=== PATIENT | male | born 1955 | race Caucasian/White ===

== ENCOUNTER 2017-08-23 10:11 | Inpatient (IN) | payer BC ==
[2017-08-23] MEDS ORDERED: SODIUM CHLORIDE 0.9% 500 ML IV STA (10:22)
[2017-08-23] MEDS ORDERED: SODIUM CHLORIDE 0.9% 1,000 ML IV STA (10:22)
[2017-08-23 11:07] LABS: Basophils # (A) 0.1 k/uL (0-0.2); Basophils % (A) 1 %; Eosinophils # (A) 0.2 k/uL (0-0.7); Eosinophils % (A) 2 %; HCT 26.3 % (39.0-53.0); HGB 8.4 gm/dL (13.0-17.5); Lymphocytes # (A) 1.2 k/uL (1.0-4.8); Lymphocytes % (A) 18 %; MCH 31.1 pg (25.0-35.0); MCV 97.4 fL (80.0-100.0); Mean Platelet Volume 6.8; Monocytes # (A) 0.4 k/uL (0-1.0); Monocytes % (A) 6 %; Neutrophils # (A) 4.7 k/uL (1.3-7.7); Neutrophils % (A) 70 %; Platelet Count 350 k/uL (150-450); RDW 13.3 % (11.5-15.5); WBC 6.7 k/uL (3.8-10.6)
[2017-08-23 11:12] LABS: ALT 32 U/L (21-72); AST 25 U/L (17-59); Albumin 3.4 g/dL (3.5-5.0); Alkaline Phosphatase 58 U/L (38-126); Anion Gap 10 mmol/L; Blood Urea Nitrogen 13 mg/dL (9-20); Calcium 9.2 mg/dL (8.4-10.2); Carbon Dioxide 25 mmol/L (22-30); Chloride 103 mmol/L (98-107); Glucose 126 mg/dL (74-99); Lipase 95 U/L (23-300); Magnesium 1.9 mg/dL (1.6-2.3); Potassium 4.3 mmol/L (3.5-5.1); Sodium 138 mmol/L (137-145); Total Bilirubin 0.3 mg/dL (0.2-1.3); Total Protein 6.2 g/dL (6.3-8.2)
[2017-08-23 11:13] LABS: Prothrombin Time 9.8 sec (9.0-12.0)
[2017-08-23 11:28] LABS: Creatine Kinase 59 U/L (55-170)
[2017-08-23 11:29] LABS: Partial Thromboplastin Time 20.5 sec (22.0-30.0)
[2017-08-23 11:41] LABS: Creatine Kinase MB 0.4 ng/mL (0.0-2.4); Troponin I <0.012 ng/mL (0.000-0.034)
--- NOTE | 2017-08-23 11:52 | ED ---
General Adult HPI - General Chief complaint: GI Bleed Stated complaint: Rctal bleeding Time Seen by Provider: 08/23/17 10:21 Source: patient, RN notes reviewed, old records reviewed Mode of arrival: ambulatory Limitations: no limitations - History of Present Illness Initial comments: This is a 61-year-old male the ER for evaluation of GI bleed. Patient sent in for abnormal outpatient lab test. Patient did have recent heart attack, and Plavix. Patient has no lightheadedness no dizziness no weakness to feels easily pass out no abdominal pain. Patient's been having bloody bowel movements for 4 days. Bloody bowel movement or bright red in nature occasionally a little dark. - Related Data Home Medications Medication Instructions Recorded Confirmed Aspirin 81 mg PO QAM 05/02/17 08/23/17 Cholecalciferol (Vitamin D3) 2,000 unit PO QAM 05/02/17 08/23/17 [Vitamin D3] Atorvastatin [Lipitor] 80 mg PO QAM 06/17/17 08/23/17 Metoprolol Tartrate [Lopressor] 25 mg PO QAM 06/17/17 08/23/17 Clopidogrel [Plavix] 75 mg PO QAM 08/23/17 08/23/17 Previous Rx's Medication Instructions Recorded Nitroglycerin Sl Tabs [Nitrostat] 0.4 mg SUBLINGUAL Q5M PRN #25 tab 05/04/17 Allergies Allergy/AdvReac Type Severity Reaction Status Date / Time No Known Allergies Allergy Verified 08/23/17 10:36 Review of Systems ROS Statement: Those systems with pertinent positive or pertinent negative responses have been documented in the HPI. ROS Other: All systems not noted in ROS Statement are negative. Past Medical History Past Medical History: Cancer, Myocardial Infarction ([place]) Additional Past Medical History / Comment(s): skin cancer right eyebrow Last Myocardial Infarction Date:: 05/02/17 History of Any Multi-Drug Resistant Organisms: None Reported Past Surgical History: Heart Catheterization With Stent, Tonsillectomy Additional Past Surgical History / Comment(s): skin cancer removal, 3 stents Past Anesthesia/Blood Transfusion Reactions: No Reported Reaction Date of Last Stent Placement:: 05/02/17 Past Psychological History: No Psychological Hx Reported Smoking Status: Former smoker Past Alcohol Use History: Daily Past Drug Use History: None Reported - Past Family History Mother Family Medical History: CVA/TIA Father Family Medical History: Cancer Additional Family Medical History / Comment(s): pancreatic General Exam Limitations: no limitations General appearance: alert, in no apparent distress Head exam: Present: atraumatic, normocephalic, normal inspection Eye exam: Present: normal appearance, PERRL, EOMI. Absent: scleral icterus, conjunctival injection, periorbital swelling ENT exam: Present: normal exam, mucous membranes moist Neck exam: Present: normal inspection. Absent: tenderness, meningismus, lymphadenopathy Respiratory exam: Present: normal lung sounds bilaterally. Absent: respiratory distress, wheezes, rales, rhonchi, stridor Cardiovascular Exam: Present: normal rhythm, tachycardia, normal heart sounds. Absent: systolic murmur, diastolic murmur, rubs, gallop, clicks GI/Abdominal exam: Present: soft, normal bowel sounds. Absent: distended, tenderness, guarding, rebound, rigid Extremities exam: Present: normal inspection, full ROM, normal capillary refill. Absent: tenderness, pedal edema, joint swelling, calf tenderness Back exam: Present: normal inspection Neurological exam: Present: alert, oriented X3, CN II-XII intact Psychiatric exam: Present: normal affect, normal mood Skin exam: Present: warm, dry, intact, normal color. Absent: rash Course Vital Signs 08/23/17 08/23/17 10:12 11:25 Temperature 98.8 F Pulse Rate 114 H 89 Respiratory 20 16 Rate Blood Pressure 111/72 136/73 O2 Sat by Pulse 100 100 Oximetry - Reevaluation(s) Reevaluation #1: 08/23/17 11:58 Patient has not had a significant bloody bowel movement here in the emergency room Medical Decision Making - Medical Decision Making 61 male the ER for evaluation of positive GI bleed. 3-4 days of bloody bowel movements. Patient denies pain. Patient's hemoglobin is drop from 14 down to 8. Patient will be admitted for continued evaluation of hemodynamic state - Lab Data Result diagrams: 08/23/17 10:50 08/23/17 10:50 Lab Results 08/23/17 08/23/17 08/23/17 Range/Units 10:50 10:50 10:50 WBC 6.7 (3.8-10.6) k/uL RBC 2.70 L (4.30-5.90) m/uL Hgb 8.4 L (13.0-17.5) gm/dL Hct 26.3 L (39.0-53.0) % MCV 97.4 (80.0-100.0) fL MCH 31.1 (25.0-35.0) pg MCHC 32.0 (31.0-37.0) g/dL RDW 13.3 (11.5-15.5) % Plt Count 350 (150-450) k/uL Neutrophils % 70 % Lymphocytes % 18 % Monocytes % 6 % Eosinophils % 2 % Basophils % 1 % Neutrophils # 4.7 (1.3-7.7) k/uL Lymphocytes # 1.2 (1.0-4.8) k/uL Monocytes # 0.4 (0-1.0) k/uL Eosinophils # 0.2 (0-0.7) k/uL Basophils # 0.1 (0-0.2) k/uL PT 9.8 (9.0-12.0) sec INR 1.0 (<1.2) APTT 20.5 L (22.0-30.0) sec Sodium (137-145) mmol/L Potassium (3.5-5.1) mmol/L Chloride (98-107) mmol/L Carbon Dioxide (22-30) mmol/L Anion Gap mmol/L BUN (9-20) mg/dL Creatinine (0.66-1.25) mg/dL Est GFR (MDRD) Af Amer (>60 ml/min/1.73 sqM) Est GFR (MDRD) Non-Af (>60 ml/min/1.73 sqM) Glucose (74-99) mg/dL Calcium (8.4-10.2) mg/dL Magnesium (1.6-2.3) mg/dL Total Bilirubin (0.2-1.3) mg/dL AST (17-59) U/L ALT (21-72) U/L Alkaline Phosphatase (38-126) U/L Total Creatine Kinase 59 (55-170) U/L CK-MB (CK-2) 0.4 (0.0-2.4) ng/mL CK-MB (CK-2) Rel Index 0.7 Troponin I <0.012 (0.000-0.034) ng/mL Total Protein (6.3-8.2) g/dL Albumin (3.5-5.0) g/dL Lipase (23-300) U/L 08/23/17 Range/Units 10:50 WBC (3.8-10.6) k/uL RBC (4.30-5.90) m/uL Hgb (13.0-17.5) gm/dL Hct (39.0-53.0) % MCV (80.0-100.0) fL MCH (25.0-35.0) pg MCHC (31.0-37.0) g/dL RDW (11.5-15.5) % Plt Count (150-450) k/uL Neutrophils % % Lymphocytes % % Monocytes % % Eosinophils % % Basophils % % Neutrophils # (1.3-7.7) k/uL Lymphocytes # (1.0-4.8) k/uL Monocytes # (0-1.0) k/uL Eosinophils # (0-0.7) k/uL Basophils # (0-0.2) k/uL PT (9.0-12.0) sec INR (<1.2) APTT (22.0-30.0) sec Sodium 138 (137-145) mmol/L Potassium 4.3 (3.5-5.1) mmol/L Chloride 103 (98-107) mmol/L Carbon Dioxide 25 (22-30) mmol/L Anion Gap 10 mmol/L BUN 13 (9-20) mg/dL Creatinine 0.98 (0.66-1.25) mg/dL Est GFR (MDRD) Af Amer >60 (>60 ml/min/1.73 sqM) Est GFR (MDRD) Non-Af >60 (>60 ml/min/1.73 sqM) Glucose 126 H (74-99) mg/dL Calcium 9.2 (8.4-10.2) mg/dL Magnesium 1.9 (1.6-2.3) mg/dL Total Bilirubin 0.3 (0.2-1.3) mg/dL AST 25 (17-59) U/L ALT 32 (21-72) U/L Alkaline Phosphatase 58 (38-126) U/L Total Creatine Kinase (55-170) U/L CK-MB (CK-2) (0.0-2.4) ng/mL CK-MB (CK-2) Rel Index Troponin I (0.000-0.034) ng/mL Total Protein 6.2 L (6.3-8.2) g/dL Albumin 3.4 L (3.5-5.0) g/dL Lipase 95 (23-300) U/L Disposition Clinical Impression: Gastrointestinal hemorrhage, Anemia Disposition: ADMITTED IP TO THIS HOSP Condition: Fair Referrals: Gabriel Braxton MD [Primary Care Provider] - 1-2 days
[2017-08-23] MEDS ORDERED: PANTOPRAZOLE 40 MG/10 ML VIAL IVP STA (11:56)
--- NOTE | 2017-08-23 14:47 | P.CNPUL ---
History of Present Illness Consult date: 08/23/17 Requesting physician: Nahum Castaneda Reason for consult: other (Critical care management) Chief complaint: Bright red and dark tarry stools History of present illness: This is a very pleasant 61-year-old gentleman who follows with Dr. Gabriel Braxton as his primary care physician. He has a history of skin cancer with resection over the right eyebrow, nephrolithiasis, hyperlipidemia. He has a remote history of smoking and daily alcohol consumption. He has a history of coronary artery disease and had sustained an acute myocardial infarction in April 2017. He had undergone cardiac catheterization and stenting 3 to the RCA. There was moderate disease in the circumflex at that time along with some disease in the LAD. He had undergone a subsequent cardiac catheterization on to evaluate the progression. The stents were widely patent. The LAD artery had diffuse distal disease in the distal one fourth. Circumcised had a 50% mid lesion. He was recommended continued medical therapy. He has remained on Plavix and aspirin since April. He presented here to the emergency room from his primary care physician's office after having a 3 day history of bloody bowel movements. Initially they were bright red and subsequently they're black and tarry. He was found to have a drop in hemoglobin from 14-8.4. The recommendation is for transfer to the intensive care unit where consulted for the same. He is seen in the emergency room. He is awake and alert in no acute distress. He has not had any further bloody bowel movements today. He is maintaining good O2 saturations up to 100% on room air. He's been afebrile. Hemodynamically stable. He has been initiated on Protonix 40 mg IV push twice a day. 0.9 normal saline at 100 MLS per hour following 1 L of fluid resuscitation. Review of Systems 14 point review of system was conducted. Positive for acute gastrointestinal bleeding. All other systems are negative thus far. Past Medical History Past Medical History: Coronary Artery Disease (CAD), Cancer, Chest Pain / Angina , Myocardial Infarction ([place]) Additional Past Medical History / Comment(s): 05/02/17 stemi, skin cancer removal-right eyebrow, kidney stone which pt passed on his own. Last Myocardial Infarction Date:: 05/02/17 History of Any Multi-Drug Resistant Organisms: None Reported Past Surgical History: Heart Catheterization With Stent, Tonsillectomy Additional Past Surgical History / Comment(s): skin cancer removal, 3 stents on 05/02/17, 06/21/17 cardiac cath with maximizing medical therapy. Past Anesthesia/Blood Transfusion Reactions: No Reported Reaction Date of Last Stent Placement:: 05/02/17 Smoking Status: Former smoker - Past Family History Mother Family Medical History: CVA/TIA Father Family Medical History: Cancer Additional Family Medical History / Comment(s): pancreatic Medications and Allergies Home Medications Medication Instructions Recorded Confirmed Type Aspirin 81 mg PO QAM 05/02/17 08/23/17 History Cholecalciferol (Vitamin D3) 2,000 unit PO QAM 05/02/17 08/23/17 History [Vitamin D3] Nitroglycerin Sl Tabs [Nitrostat] 0.4 mg SUBLINGUAL Q5M PRN #25 tab 05/04/17 Rx Atorvastatin [Lipitor] 80 mg PO QAM 06/17/17 08/23/17 History Metoprolol Tartrate [Lopressor] 25 mg PO QAM 06/17/17 08/23/17 History Clopidogrel [Plavix] 75 mg PO QAM 08/23/17 08/23/17 History Allergies Allergy/AdvReac Type Severity Reaction Status Date / Time No Known Allergies Allergy Verified 08/23/17 10:36 Physical Exam Vitals: Vital Signs Temp Pulse Resp BP Pulse Ox 08/23/17 11:25 89 16 136/73 100 08/23/17 10:12 98.8 F 114 H 20 111/72 100 Intake and Output 08/22/17 08/23/17 08/23/17 22:59 06:59 14:59 Other: Weight 76.657 kg Patient Weight 08/24/17 06:59 Weight 76.657 kg GENERAL EXAM: Alert, active, comfortable in no apparent distress. HEAD: Normocephalic. EYES: Normal reaction of pupils, equal size. NOSE: Clear with pink turbinates. THROAT: No erythema or exudates. NECK: No masses, no JVD. CHEST: No chest wall deformity. LUNGS: Equal air entry with no crackles, wheeze, rhonchi or dullness. CVS: S1 and S2 normal with no audible murmur, regular rhythm. ABDOMEN: No hepatosplenomegaly, normal bowel sounds, no guarding or rigidity. SPINE: No scoliosis or deformity SKIN: No rashes CENTRAL NERVOUS SYSTEM: No focal deficits, tone is normal in all 4 extremities. EXTREMITIES: There is no peripheral edema. No clubbing, no cyanosis. Peripheral pulses are intact. Results - Laboratory Findings CBC and BMP: 08/23/17 10:50 08/23/17 10:50 PT/INR, D-dimer PT 9.8 sec (9.0-12.0) 08/23/17 10:50 INR 1.0 (<1.2) 08/23/17 10:50 Abnormal lab findings: Abnormal Labs 08/23/17 08/23/17 08/23/17 10:50 10:50 10:50 RBC 2.70 L Hgb 8.4 L Hct 26.3 L APTT 20.5 L Glucose 126 H Total Protein 6.2 L Albumin 3.4 L Assessment and Plan Assessment: Impression: #1 Acute gastrointestinal bleeding with a drop of hemoglobin from 14-8.7. #2 Coronary artery disease with myocardial infarction in April 2017 status post stent placements 3 to the RCA. Maintained on aspirin and Plavix. Subsequent cardiac catheterization in June 2017 revealed patent stents. #3 Daily alcohol consumption. #4 Remote history of chronic tobacco dependence. #5 History of nephrolithiasis. #6 History of skin cancer removed from the right eyebrow. Plan: The patient was seen and evaluated by Dr. Narvaez. He will be transferred to the intensive care unit for close observation and continued hemoglobin monitoring. The patient has not had any active bleeding today. His stents are less than 6 months out. We'll continue with Plavix and aspirin for now. Continue 0.9 normal saline at 100 MLS per hour. Continue IV Protonix. Consult gastroenterology. We will continue to follow and make further recommendations based on his clinical status. I, the cosigning physician, performed a history & physical examination of the patient. Lungs sounds are clear. Maintaining good O2 saturations in the 90s on room air. I discussed the assessment and plan of care with my nurse practitioner, Paige Yuan. I attest to the above note as dictated by her. Time with Patient: Greater than 30
[2017-08-23] MEDS ORDERED: NITROGLYCERIN SL TABS 0.4 MG TAB SUBLINGUAL PRN (17:19)
[2017-08-23 20:28] LABS: Glucose,Whole Blood 114 mg/dL (75-99)
[2017-08-23] MEDS: PANTOPRAZOLE 40 MG/10 ML VIAL IVP SCH (21:47)
[2017-08-23] MEDS: SODIUM CHLORIDE 0.9% 1,000 ML IV SCH (22:30)
--- NOTE | 2017-08-23 23:55 | HP ---
HISTORY AND PHYSICAL DATE OF ADMISSION: 08/23/2017 PRESENT COMPLAINT: Lower GI bleed. HISTORY OF PRESENTING COMPLAINT: This is a pleasant 61-year-old patient of Dr. Braxton. The patient on May [address]-elevation myocardial infarction, had a stent placed to the RCA. Then ejection fraction was 40%. The patient came back to the [facility] in June, by Dr. Em Rosas. Julius was found to have diffuse LAD and no intervention was done. The decision was made to do medical management. Repeat echocardiogram showed an EF of 50%-55%. The patient has been on aspirin and Plavix. Four days ago, patient had a bout of diarrhea and then started having multiple bloody stools for the last 3 days. Last bloody stool was yesterday and patient has been feeling dizzy, tired, run down. Hemoglobin in the ER was found to be 8.4, dizzy, lightheaded. Patient admitted for admitted for the same. No bleeding today. REVIEW OF SYSTEMS: CONSTITUTIONAL: Tired. HEENT: None. RESPIRATORY: None. CARDIOVASCULAR: None. GASTROINTESTINAL: As above. GENITOURINARY: None. MUSCULOSKELETAL: None. DERMATOLOGICAL: None. HEMATOLOGIC: As above. LYMPHATIC: None. PSYCHIATRY: None. NEUROLOGICAL: None. PAST MEDICAL HISTORY: Kidney stones, skin cancer, , coronary artery disease with acute [place]. SURGICAL HISTORY: Skin cancer removal. SOCIAL HISTORY: Patient smoked for 30 years, 2 packs a day. Still drinks about 5-6 beers a day. 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 Lives with his , Rubina. Family history of stroke. HOME MEDICATIONS: 1. Nitrostat 0.4 sublingual q.5 p.r.n. 2. Lopressor 25 p.o. daily. 3. Plavix 75 p.o. daily. 4. Vitamin D3 2000 p.o. daily. 5. Lipitor 80 mg p.o. daily. 6. Aspirin 81 mg p.o. daily. ALLERGIES: None. EXAMINATION: Temperature 98.4, pulse 79, respirations 14, blood pressure 110/64, pulse ox 99% on room air. GENERAL APPEARANCE: Average build, lying in bed, tired-appearing. EYES: Pupils equal. Conjunctivae pale. HEENT: Oral cavity normal. NECK: JVD not raised. Mass not palpable. RESPIRATORY: Effort normal. LUNGS: Slightly decreased breath sounds. CARDIOVASCULAR: First and second sounds normal. No edema. ABDOMEN: Soft, nontender. Liver and spleen not palpable. LYMPHATIC: No lymph nodes palpable in neck or axillae. PSYCHIATRY: Alert and oriented x3. Mood and affect normal. NEUROLOGICAL: Pupils equal. Cranial nerves grossly intact. Power and sensation grossly intact. INVESTIGATIONS: White count 6.7, hemoglobin 8.4, down from 14.4 on 05/04/2017. BUN, creatinine are normal. ASSESSMENT: 1. Acute severe gastrointestinal in a patient who is on aspirin, Plavix, also drinks about 6 beers a day. Most likely source of bleeding is upper gastrointestinal/gastric. 2. Acute severe blood loss anemia, symptomatic. Patient is light-headed with a hemoglobin from 14.4 down to 8.4. 3. Coronary artery disease with stent to the right coronary artery and diffuse disease in the left anterior descending. PLAN: Patient admitted to the ICU. Antiplatelet agents are held, even though the patient has had a recent stent. Will let Cardiology decide this dilemma. Consultation made to GI, pulmonary and rn informatics. H and H is being followed. The patient is on a clear liquid diet. Patient is also put on proton pump inhibitor in IV format. Care was discussed with the patient. MMODL / IJN: [id number] /
[2017-08-24 00:16] LABS: HCT 22.3 % (39.0-53.0); HGB 7.1 gm/dL (13.0-17.5); MCH 31.1 pg (25.0-35.0); MCHC 31.7 g/dL (31.0-37.0); MCV 98.2 fL (80.0-100.0); Mean Platelet Volume 6.8; Platelet Count 348 k/uL (150-450); RBC 2.27 m/uL (4.30-5.90); RDW 13.9 % (11.5-15.5); WBC 6.6 k/uL (3.8-10.6)
[2017-08-24 06:03] LABS: Basophils # (A) 0.1 k/uL (0-0.2); Basophils % (A) 1 %; Eosinophils # (A) 0.2 k/uL (0-0.7); Eosinophils % (A) 4 %; HCT 23.1 % (39.0-53.0); Lymphocytes # (A) 1.3 k/uL (1.0-4.8); Lymphocytes % (A) 25 %; MCH 30.8 pg (25.0-35.0); MCHC 30.2 g/dL (31.0-37.0); Macrocytosis Slight; Mean Platelet Volume 7.1; Monocytes # (A) 0.4 k/uL (0-1.0); Monocytes % (A) 8 %; Neutrophils % (A) 60 %; Platelet Count 344 k/uL (150-450); RBC 2.26 m/uL (4.30-5.90); RDW 13.5 % (11.5-15.5)
[2017-08-24 06:24] LABS: Anion Gap 7 mmol/L; Blood Urea Nitrogen 8 mg/dL (9-20); Calcium 8.4 mg/dL (8.4-10.2); Carbon Dioxide 23 mmol/L (22-30); Chloride 108 mmol/L (98-107); Glucose 92 mg/dL (74-99); Magnesium 1.9 mg/dL (1.6-2.3); Phosphorus 3.7 mg/dL (2.5-4.5); Potassium 3.7 mmol/L (3.5-5.1); Sodium 138 mmol/L (137-145)
[2017-08-24] MEDS ORDERED: Potassium Replacement Protocol 1 EACH MISC MISCELLANE PRN (07:12)
[2017-08-24] MEDS ORDERED: Magnesium Replacement Protocol 1 EACH MISC MISCELLANE PRN (07:12)
[2017-08-24] MEDS ORDERED: POTASSIUM CHLORIDE ER 20 MEQ TAB.ER PO SCH (08:00)
[2017-08-24] MEDS: METOPROLOL TARTRATE 25 MG TAB PO SCH (08:36)
[2017-08-24] MEDS: PANTOPRAZOLE 40 MG/10 ML VIAL IVP SCH ×2 (08:36→22:34)
[2017-08-24] MEDS: ATORVASTATIN 80 MG TAB PO SCH (08:36)
[2017-08-24] MEDS: MAGNESIUM SULFATE-D5W PMX 1 GM in DEXTROSE/WATER 1 100ML.BAG IVPB SCH ×2 (08:36→11:09)
--- NOTE | 2017-08-24 09:29 | P.CRDCN ---
History of Present Illness Consult date: 08/24/17 History of present illness: This is a 61-year-old gentleman with history of ischemic heart disease and previous inferior wall TN. Patient had stent placement of the RCA in the setting of acute myocardial infarctions. Subsequently, patient had stent placement of the left anterior descending coronary artery in June. Since then patient has been doing well. Patient has been on dual antiplatelet agents including aspirin and Plavix. Patient is now admitted to the hospital with recurrent bloody diarrhea episodes. Patient is anemic. Denies any chest pain or shortness of breath. Complains of fatigue. Waiting to have a GI evaluation. He received his Plavix and aspirin. Yesterday. Once patient is seen and evaluated by gastroenterology, will restart antiplatelet agents as soon as possible. Probably will start with aspirin followed by Plavix. Rest of the medications to be continued. Review of Systems REVIEW OF SYSTEMS: CONSTITUTIONAL:. Patient is doing well. No complaints of fever or chills EYES: Denies diplopia, blurring of vision EARS, NOSE, MOUTH, THROAT: Denies headaches, denies sore throat. CARDIOVASCULAR: Denies chest pain, denies shortness of breath, denies palpitations RESPIRATORY: Denies shortness of breath, denies cough. GASTROINTESTINAL: Denies change in appetite, denies abdominal pain, denies diarrhea GENITOURINARY: Denies hematuria, denies infections. MUSKULOSKELETAL: Denies pain, denies swelling. Denies any cramps or claudication INTEGUMENTARY: Denies rash, denies eczema. NEUROLOGICAL: Denies focal weakness, or visual disturbance. Denies any dizziness or syncope PSYCHIATRIC: Denies anxiety, denies depression. HEMATOLOGIC/LYMPHATIC: Denies any bleeding, denies enlarged lymph nodes. Past Medical History Past Medical History: Coronary Artery Disease (CAD), Cancer, Chest Pain / Angina , Myocardial Infarction (TN) Additional Past Medical History / Comment(s): 05/02/17 stemi, skin cancer removal-right eyebrow, kidney stone which pt passed on his own. Last Myocardial Infarction Date:: 05/02/17 History of Any Multi-Drug Resistant Organisms: None Reported Past Surgical History: Heart Catheterization With Stent, Tonsillectomy Additional Past Surgical History / Comment(s): skin cancer removal, 3 stents on 05/02/17, 06/21/17 cardiac cath with maximizing medical therapy. Past Anesthesia/Blood Transfusion Reactions: No Reported Reaction Date of Last Stent Placement:: 05/02/17 Smoking Status: Former smoker - Past Family History Mother Family Medical History: CVA/TIA Father Family Medical History: Cancer Additional Family Medical History / Comment(s): pancreatic Medications and Allergies Home Medications Medication Instructions Recorded Confirmed Type Aspirin 81 mg PO QAM 05/02/17 08/23/17 History Cholecalciferol (Vitamin D3) 2,000 unit PO QAM 05/02/17 08/23/17 History [Vitamin D3] Nitroglycerin Sl Tabs [Nitrostat] 0.4 mg SUBLINGUAL Q5M PRN #25 tab 05/04/17 Rx Atorvastatin [Lipitor] 80 mg PO QAM 06/17/17 08/23/17 History Metoprolol Tartrate [Lopressor] 25 mg PO QAM 06/17/17 08/23/17 History Clopidogrel [Plavix] 75 mg PO QAM 08/23/17 08/23/17 History Allergies Allergy/AdvReac Type Severity Reaction Status Date / Time No Known Allergies Allergy Verified 08/23/17 10:36 Physical Exam Vitals: Vital Signs Temp Pulse Resp BP Pulse Ox 08/24/17 08:00 98.5 F 87 15 138/73 99 08/24/17 07:00 84 14 123/72 100 08/24/17 06:00 87 14 135/73 99 08/24/17 05:00 83 13 120/72 99 08/24/17 04:00 98.3 F 79 18 127/70 97 08/24/17 03:00 89 14 110/67 96 08/24/17 02:00 84 16 115/70 97 08/24/17 01:00 76 15 119/68 99 08/24/17 00:02 79 18 124/68 100 08/24/17 00:00 98.5 F 82 16 124/68 100 08/23/17 23:00 86 12 110/64 99 08/23/17 22:00 77 19 125/77 99 08/23/17 21:00 98.4 F 78 14 140/76 100 08/23/17 20:23 69 16 100 08/23/17 20:04 78 18 170/81 100 08/23/17 19:17 76 18 139/76 99 08/23/17 17:48 70 16 165/75 100 08/23/17 16:50 72 16 142/75 100 08/23/17 14:37 73 16 145/81 100 08/23/17 13:37 78 16 146/78 100 08/23/17 12:37 88 16 132/84 100 08/23/17 11:37 90 16 128/71 98 08/23/17 11:25 89 16 136/73 100 08/23/17 10:12 98.8 F 114 H 20 111/72 100 Intake and Output 08/23/17 08/24/17 08/24/17 22:59 06:59 14:59 Intake Total 200 800 450 Output Total 250 475 450 Balance -50 325 0 Intake: Intake, IV Titration 200 800 200 Amount Sodium Chloride 0.9% 1, 800 200 000 ml @ 100 mls/hr IV . Q10H MELVIN Rx#:[id number] Sodium Chloride 0.9% 1, 200 000 ml @ 100 mls/hr IV . Q10H STA Rx#:[id number] Oral 250 Output: Urine 250 475 450 Other: Voiding Method Urinal Urinal # Voids 1 1 Weight 82.4 kg GENERAL EXAM: Patient is alert and oriented and doesn't appear to be in any acute distress HEENT: Normocephalic. Normal reaction of pupils, equal size, normal range of extraocular motion. No erythema or exudates in the throat. NECK: No masses, no nuchal rigidity. CHEST: No chest wall deformity. LUNGS: Equal air entry with no crackles or wheeze. HEART: S1 and S2 normal with no audible mumurs or gallops. Regular rhythm, femorals equal on both sides.. ABDOMEN: No hepatosplenomegaly, normal bowel sounds, no guarding or rigidity. SKIN: No rashes CENTRAL NERVOUS SYSTEM: No focal deficits. EXTREMITIES: No cyanosis, clubbing or edema. Results 08/24/17 05:51 08/24/17 05:51 Cardiac Enzymes 08/23/17 08/23/17 Range/Units 10:50 10:50 AST 25 (17-59) U/L CK-MB (CK-2) 0.4 (0.0-2.4) ng/mL Troponin I <0.012 (0.000-0.034) ng/mL Coagulation 08/23/17 Range/Units 10:50 PT 9.8 (9.0-12.0) sec APTT 20.5 L (22.0-30.0) sec CBC 08/23/17 08/23/17 08/24/17 Range/Units 10:50 23:57 05:51 WBC 6.7 6.6 5.0 (3.8-10.6) k/uL RBC 2.70 L 2.27 L 2.26 L (4.30-5.90) m/uL Hgb 8.4 L 7.1 L 7.0 L* (13.0-17.5) gm/dL Hct 26.3 L 22.3 L 23.1 L (39.0-53.0) % Plt Count 350 348 344 (150-450) k/uL Comprehensive Metabolic Panel 08/23/17 08/24/17 Range/Units 10:50 05:51 Sodium 138 138 (137-145) mmol/L Potassium 4.3 3.7 (3.5-5.1) mmol/L Chloride 103 108 H (98-107) mmol/L Carbon Dioxide 25 23 (22-30) mmol/L BUN 13 8 L (9-20) mg/dL Creatinine 0.98 0.90 (0.66-1.25) mg/dL Glucose 126 H 92 (74-99) mg/dL Calcium 9.2 8.4 (8.4-10.2) mg/dL AST 25 (17-59) U/L ALT 32 (21-72) U/L Alkaline Phosphatase 58 (38-126) U/L Total Protein 6.2 L (6.3-8.2) g/dL Albumin 3.4 L (3.5-5.0) g/dL Current Medications Generic Name Dose Route Start Last Admin Trade Name Freq PRN Reason Stop Dose Admin Atorvastatin Calcium 80 mg 08/24/17 09:00 08/24/17 08:36 Lipitor PO 80 mg QAM MELVIN Administration Cholecalciferol 2,000 unit 08/24/17 12:00 Vitamin D3 PO 1200 MELVIN Sodium Chloride 1,000 mls @ 100 mls/hr 08/23/17 22:15 08/23/17 22:30 Saline 0.9% IV 100 mls/hr .Q10H MELVIN Administration Magnesium Sulfate/Dextrose 1 100 mls @ 100 mls/hr 08/24/17 07:30 08/24/17 08: 36 gm/ IV Solution IVPB 08/24/17 09:29 100 mls/hr Q1H MELVIN Administration Metoprolol Tartrate 25 mg 08/24/17 09:00 08/24/17 08:36 Lopressor PO 25 mg QAM MELVIN Administration Miscellaneous Information 1 each 08/24/17 07:12 Magnesium Per Protocol MISCELLANE DAILY PRN Per Protocol Protocol Miscellaneous Information 1 each 08/24/17 07:12 Potassium Per Protocol MISCELLANE DAILY PRN Per Protocol Protocol Nitroglycerin 0.4 mg 08/23/17 17:19 Nitrostat SUBLINGUAL Q5M PRN Chest Pain Pantoprazole Sodium 40 mg 08/23/17 21:00 08/24/17 08:36 Protonix IVP 40 mg BID MELVIN Administration Intake and Output 08/23/17 08/24/17 08/24/17 22:59 06:59 14:59 Intake Total 200 800 450 Output Total 250 475 450 Balance -50 325 0 Intake: Intake, IV Titration 200 800 200 Amount Sodium Chloride 0.9% 1, 800 200 000 ml @ 100 mls/hr IV . Q10H MELVIN Rx#:[id number] Sodium Chloride 0.9% 1, 200 000 ml @ 100 mls/hr IV . Q10H STA Rx#:[id number] Oral 250 Output: Urine 250 475 450 Other: Voiding Method Urinal Urinal # Voids 1 1 Weight 82.4 kg 08/24/17 05:51 08/24/17 05:51 Assessment and Plan (1) CAD (coronary artery disease) Current Visit: Yes Status: Acute Code(s): I25.10 - ATHSCL HEART DISEASE OF [place] CORONARY ARTERY W/O ANG PCTRS SNOMED Code(s): 86986738 (2) Anemia Current Visit: Yes Status: Acute Code(s): D64.9 - ANEMIA, UNSPECIFIED SNOMED Code(s): 983711556 (3) Gastrointestinal hemorrhage Current Visit: Yes Status: Acute Code(s): K92.2 - GASTROINTESTINAL HEMORRHAGE, UNSPECIFIED SNOMED Code(s): 05689217 (4) Large bowel obstruction Current Visit: No Status: Acute Code(s): K56.60 - UNSPECIFIED INTESTINAL OBSTRUCTION * DO NOT USE * SNOMED Code(s): 424834270 (5) History of myocardial infarction Current Visit: Yes Status: Acute Code(s): I25.2 - OLD MYOCARDIAL INFARCTION SNOMED Code(s): 369214579 Plan: Continue to monitor his hemoglobin. Waiting for gastroenterology evaluation. Most probably patient needs colonoscopy. May start on aspirin as she is cleared by the gastroenterology. Plavix to be added later on.
--- NOTE | 2017-08-24 10:27 | P.CONS ---
History of Present Illness - Reason for Consult Consult date: 08/24/17 GI bleed Requesting physician: Nahum Castaneda - History of Present Illness 61-year-old male patient of Dr. Braxton with a PMH of recent NC PCI stent April 2017 maintained on dual antiplatelet therapy presented with acute painless rectal bleeding. This past Tuesday he developed bright red blood per rectum multiple times without any pain. Denies hematemesis or melena. Over the weekend into Tuesday bowel movements tapered off more darker in color. No history of GI bleed or peptic ulcer disease. Denies epigastric pain. No history of EGD. Colonoscopy in [address] Andrews identified sigmoid diverticulosis with a few polyps removed. He drinks 4-6 beers on a daily basis. No NSAIDs. Admission hemoglobin 8.4 decreased to 7. MCV 102. Platelets 344. INR 1.0. Review of Systems Constitutional: Denies fever, chills, sweats, weight gain, or loss. HEENT: Negative for migraines, blurred vision or loss, earaches, drainage, tinnitus, oral mucosal lesions, dysphagia, or odynophagia. Cardiac: NC. Negative for chest pain, arrhythmias, or palpitation. Respiratory: Negative for shortness of breath, hemoptysis, cough, or sputum production. Gastrointestinal: See HPI for pertinent findings. Genitourinary: Negative for hematuria, urgency, frequency, polyuria, dysuria, or penile discharge. Musculoskeletal: Negative for muscle aches, swelling, arthritis, and arthralgias. Neurologic: Negative for stroke or TIA. Endocrine: Negative for thyroid problems. Skin: History of skin carcinoma. Negative for rash or itching. Psychiatric: Negative history for depression and anxiety Past Medical History Past Medical History: Coronary Artery Disease (CAD), Cancer, Chest Pain / Angina , Myocardial Infarction (NC) Additional Past Medical History / Comment(s): 05/02/17 stemi, skin cancer removal-right eyebrow, kidney stone which pt passed on his own. Last Myocardial Infarction Date:: 05/02/17 History of Any Multi-Drug Resistant Organisms: None Reported Past Surgical History: Heart Catheterization With Stent, Tonsillectomy Additional Past Surgical History / Comment(s): skin cancer removal, 3 stents on 05/02/17, 06/21/17 cardiac cath with maximizing medical therapy. Past Anesthesia/Blood Transfusion Reactions: No Reported Reaction Date of Last Stent Placement:: 05/02/17 Smoking Status: Former smoker - Past Family History Mother Family Medical History: CVA/TIA Father Family Medical History: Cancer Additional Family Medical History / Comment(s): pancreatic Medications and Allergies Home Medications Medication Instructions Recorded Confirmed Type Aspirin 81 mg PO QAM 05/02/17 08/23/17 History Cholecalciferol (Vitamin D3) 2,000 unit PO QAM 05/02/17 08/23/17 History [Vitamin D3] Nitroglycerin Sl Tabs [Nitrostat] 0.4 mg SUBLINGUAL Q5M PRN #25 tab 05/04/17 Rx Atorvastatin [Lipitor] 80 mg PO QAM 06/17/17 08/23/17 History Metoprolol Tartrate [Lopressor] 25 mg PO QAM 06/17/17 08/23/17 History Clopidogrel [Plavix] 75 mg PO QAM 08/23/17 08/23/17 History Allergies Allergy/AdvReac Type Severity Reaction Status Date / Time No Known Allergies Allergy Verified 08/23/17 10:36 Physical Exam Vitals: Vital Signs Temp Pulse Resp BP Pulse Ox 08/24/17 08:00 98.5 F 87 15 138/73 99 08/24/17 07:00 84 14 123/72 100 08/24/17 06:00 87 14 135/73 99 08/24/17 05:00 83 13 120/72 99 08/24/17 04:00 98.3 F 79 18 127/70 97 08/24/17 03:00 89 14 110/67 96 08/24/17 02:00 84 16 115/70 97 08/24/17 01:00 76 15 119/68 99 08/24/17 00:02 79 18 124/68 100 08/24/17 00:00 98.5 F 82 16 124/68 100 08/23/17 23:00 86 12 110/64 99 08/23/17 22:00 77 19 125/77 99 08/23/17 21:00 98.4 F 78 14 140/76 100 08/23/17 20:23 69 16 100 08/23/17 20:04 78 18 170/81 100 08/23/17 19:17 76 18 139/76 99 08/23/17 17:48 70 16 165/75 100 08/23/17 16:50 72 16 142/75 100 08/23/17 14:37 73 16 145/81 100 08/23/17 13:37 78 16 146/78 100 08/23/17 12:37 88 16 132/84 100 08/23/17 11:37 90 16 128/71 98 08/23/17 11:25 89 16 136/73 100 Intake and Output 08/23/17 08/24/17 08/24/17 22:59 06:59 14:59 Intake Total 200 800 450 Output Total 250 475 450 Balance -50 325 0 Intake: Intake, IV Titration 200 800 200 Amount Sodium Chloride 0.9% 1, 800 200 000 ml @ 100 mls/hr IV . Q10H MELVIN Rx#:[id number] Sodium Chloride 0.9% 1, 200 000 ml @ 100 mls/hr IV . Q10H STA Rx#:[id number] Oral 250 Output: Urine 250 475 450 Other: Voiding Method Urinal Urinal # Voids 1 1 Weight 82.4 kg General appearance: The patient is alert, oriented, in no acute distress. HET: Head is normocephalic and atraumatic. Pupils are equal and reactive. Oropharynx is clear without lesions. Neck: Supple without lymphadenopathy. Trachea midline. Heart: S1 S2. Regular rate and rhythm. Lungs: No crackles or wheezes are heard. Abdomen: Soft, nontender, nondistended with bowel sounds. No peritoneal signs. No palpable organomegaly or masses. Extremities: Normal skin color and turgor. No cyanosis, rash, ulceration, clubbing, or edema. Radial and pedal pulses are 2/4 bilaterally. Neurological: No focal deficits. Strength and sensation are grossly intact. Results CBC & Chem 7: 08/24/17 05:51 08/24/17 05:51 Labs: Abnormal Lab Results - Last 24 Hours (Table) 08/23/17 08/23/17 08/23/17 Range/Units 10:50 10:50 10:50 RBC 2.70 L (4.30-5.90) m/uL Hgb 8.4 L (13.0-17.5) gm/dL Hct 26.3 L (39.0-53.0) % MCV (80.0-100.0) fL MCHC (31.0-37.0) g/dL APTT 20.5 L (22.0-30.0) sec Chloride (98-107) mmol/L BUN (9-20) mg/dL Glucose 126 H (74-99) mg/dL POC Glucose (mg/dL) (75-99) mg/dL Total Protein 6.2 L (6.3-8.2) g/dL Albumin 3.4 L (3.5-5.0) g/dL 08/23/17 08/23/17 08/24/17 Range/Units 20:26 23:57 05:51 RBC 2.27 L 2.26 L (4.30-5.90) m/uL Hgb 7.1 L 7.0 L* (13.0-17.5) gm/dL Hct 22.3 L 23.1 L (39.0-53.0) % MCV 102.0 H (80.0-100.0) fL MCHC 30.2 L (31.0-37.0) g/dL APTT (22.0-30.0) sec Chloride (98-107) mmol/L BUN (9-20) mg/dL Glucose (74-99) mg/dL POC Glucose (mg/dL) 114 H (75-99) mg/dL Total Protein (6.3-8.2) g/dL Albumin (3.5-5.0) g/dL 08/24/17 Range/Units 05:51 RBC (4.30-5.90) m/uL Hgb (13.0-17.5) gm/dL Hct (39.0-53.0) % MCV (80.0-100.0) fL MCHC (31.0-37.0) g/dL APTT (22.0-30.0) sec Chloride 108 H (98-107) mmol/L BUN 8 L (9-20) mg/dL Glucose (74-99) mg/dL POC Glucose (mg/dL) (75-99) mg/dL Total Protein (6.3-8.2) g/dL Albumin (3.5-5.0) g/dL Assessment and Plan (1) Gastrointestinal hemorrhage Narrative/Plan: Suspect colonic diverticular bleed however upper GI pathology cannot be excluded. Current Visit: Yes Status: Acute Code(s): K92.2 - GASTROINTESTINAL HEMORRHAGE, UNSPECIFIED SNOMED Code(s): 45845560 (2) Acute blood loss anemia Current Visit: Yes Status: Acute Code(s): D62 - ACUTE POSTHEMORRHAGIC ANEMIA SNOMED Code(s): 151280308 (3) Macrocytosis Current Visit: Yes Status: Acute Code(s): D75.89 - OTHER SPECIFIED DISEASES OF BLOOD AND BLOOD-FORMING ORGANS SNOMED Code(s): 738592096 (4) ETOH abuse Current Visit: Yes Status: Acute Code(s): F10.10 - ALCOHOL ABUSE, UNCOMPLICATED SNOMED Code(s): 58105700 (5) Colon, diverticulosis Current Visit: Yes Status: Acute Code(s): K57.30 - DVRTCLOS OF LG INT W/O PERFORATION OR ABSCESS W/O BLEEDING SNOMED Code(s): 323398260 (6) History of NC (myocardial infarction) Current Visit: Yes Status: Acute Code(s): I25.2 - OLD MYOCARDIAL INFARCTION SNOMED Code(s): 430449229 Plan: 1. Endoscopic exams were discussed with patient however at this time he is requesting surgical service to perform exams as necessary. This request was communicated to the medical staff; surgical consult requested. 2. Continue CBC monitoring. Recommend Protonix 40 mg IV daily. 3. We'll sign off and be available for additional questions or concerns. Thank you for this kind referral and the opportunity to participate in the care of your patient. This consultation was discussed with Dr. Stratton. The impression and plan of care have been directed as dictated.
--- NOTE | 2017-08-24 10:38 | P.PN ---
Subjective Progress Note Date: 08/24/17 Principal diagnosis: Acute GI bleed This is a very pleasant 61-year-old gentleman who follows with Dr. Gabriel Braxton as his primary care physician. He has a history of skin cancer with resection over the right eyebrow, nephrolithiasis, hyperlipidemia. He has a remote history of smoking and daily alcohol consumption, 4-6 beers daily. He has a history of coronary artery disease and had sustained an acute myocardial infarction in April 2017. He had undergone cardiac catheterization and stenting 3 to the RCA. There was moderate disease in the circumflex at that time along with some disease in the LAD. He had undergone a subsequent cardiac catheterization on 06/21/2017 to evaluate the progression. The stents were widely patent. The LAD artery had diffuse distal disease in the distal one fourth. Circumcised had a 50% mid lesion. He was recommended continued medical therapy. He has remained on Plavix and aspirin since April. He presented here to the emergency room from his primary care physician's office after having a 3 day history of bloody bowel movements. Initially they were bright red and subsequently they're black and tarry. He was found to have a drop in hemoglobin from 14-8.4. The recommendation is for transfer to the intensive care unit where consulted for the same. He is seen in the emergency room. He is awake and alert in no acute distress. He has not had any further bloody bowel movements today. He is maintaining good O2 saturations up to 100% on room air. He's been afebrile. Hemodynamically stable. He has been initiated on Protonix 40 mg IV push twice a day. 0.9 normal saline at 100 MLS per hour following 1 L of fluid resuscitation. The patient is seen again today 08/24/2017 in follow-up in the intensive care unit. He is awake and alert in no acute distress. He has not had a bowel movement since admission. His hemoglobin has dropped today to 7.0. The patient does have a previous history of diverticulosis with a few polyps removed back in 2013. He has been seen again by GI services. They did discuss endoscopic exams with the patient. The patient however is requesting conservative surgical services and we are awaiting consultation from them. In the interim we'll continue with IV Protonix. He is otherwise stable. Afebrile. No tachycardia. No tachypnea. He blood pressure stable. Maintaining good O2 saturations in the high 90s to 100% on room air. No complaints of chest pain. He has been seen by cardiology who is continuing to hold the Plavix. Objective - Vital Signs Vital signs: Vital Signs Temp 98.5 F 08/24/17 08:00 Pulse 87 08/24/17 08:00 Resp 15 08/24/17 08:00 BP 138/73 08/24/17 08:00 Pulse Ox 99 08/24/17 08:00 Intake & Output 08/23/17 08/24/17 08/24/17 18:59 06:59 18:59 Intake Total 1000 450 Output Total 725 450 Balance 275 0 Weight 76.657 kg 82.4 kg Intake: Intake, IV Titration 1000 200 Amount Sodium Chloride 0.9% 1, 800 200 000 ml @ 100 mls/hr IV . Q10H MELVIN Rx#:[id number] Sodium Chloride 0.9% 1, 200 000 ml @ 100 mls/hr IV . Q10H STA Rx#:[id number] Oral 250 Output: Urine 725 450 Other: Voiding Method Urinal # Voids 1 - Exam GENERAL EXAM: Alert, active, comfortable in no apparent distress. HEAD: Normocephalic. EYES: Normal reaction of pupils, equal size. NOSE: Clear with pink turbinates. THROAT: No erythema or exudates. NECK: No masses, no JVD. CHEST: No chest wall deformity. LUNGS: Equal air entry with no crackles, wheeze, rhonchi or dullness. CVS: S1 and S2 normal with no audible murmur, regular rhythm. ABDOMEN: No hepatosplenomegaly, normal bowel sounds, no guarding or rigidity. SPINE: No scoliosis or deformity SKIN: No rashes CENTRAL NERVOUS SYSTEM: No focal deficits, tone is normal in all 4 extremities. EXTREMITIES: There is no peripheral edema. No clubbing, no cyanosis. Peripheral pulses are intact. - Labs CBC & Chem 7: 08/24/17 05:51 08/24/17 05:51 Labs: Abnormal Lab Results - Last 24 Hours (Table) 08/23/17 08/23/17 08/23/17 Range/Units 10:50 10:50 10:50 RBC 2.70 L (4.30-5.90) m/uL Hgb 8.4 L (13.0-17.5) gm/dL Hct 26.3 L (39.0-53.0) % MCV (80.0-100.0) fL MCHC (31.0-37.0) g/dL APTT 20.5 L (22.0-30.0) sec Chloride (98-107) mmol/L BUN (9-20) mg/dL Glucose 126 H (74-99) mg/dL POC Glucose (mg/dL) (75-99) mg/dL Total Protein 6.2 L (6.3-8.2) g/dL Albumin 3.4 L (3.5-5.0) g/dL 08/23/17 08/23/17 08/24/17 Range/Units 20:26 23:57 05:51 RBC 2.27 L 2.26 L (4.30-5.90) m/uL Hgb 7.1 L 7.0 L* (13.0-17.5) gm/dL Hct 22.3 L 23.1 L (39.0-53.0) % MCV 102.0 H (80.0-100.0) fL MCHC 30.2 L (31.0-37.0) g/dL APTT (22.0-30.0) sec Chloride (98-107) mmol/L BUN (9-20) mg/dL Glucose (74-99) mg/dL POC Glucose (mg/dL) 114 H (75-99) mg/dL Total Protein (6.3-8.2) g/dL Albumin (3.5-5.0) g/dL 08/24/17 Range/Units 05:51 RBC (4.30-5.90) m/uL Hgb (13.0-17.5) gm/dL Hct (39.0-53.0) % MCV (80.0-100.0) fL MCHC (31.0-37.0) g/dL APTT (22.0-30.0) sec Chloride 108 H (98-107) mmol/L BUN 8 L (9-20) mg/dL Glucose (74-99) mg/dL POC Glucose (mg/dL) (75-99) mg/dL Total Protein (6.3-8.2) g/dL Albumin (3.5-5.0) g/dL Assessment and Plan Assessment: Impression: #1 Acute gastrointestinal bleeding with a drop of hemoglobin from 14-7.0. The patient is a previous history of colonoscopy and polypectomy in 2013. #2 Coronary artery disease with myocardial infarction in April 2017 status post stent placements 3 to the RCA. Maintained on aspirin and Plavix. Subsequent cardiac catheterization in June 2017 revealed patent stents. #3 Daily alcohol consumption. #4 Remote history of chronic tobacco dependence. #5 History of nephrolithiasis. #6 History of skin cancer removed from the right eyebrow. Plan: The patient was seen and evaluated by Dr. Narvaez. The patient does have a further drop in hemoglobin currently at 7.0. We'll continue to monitor closely. GI services had consulted. The patient has requested surgical services which are pending. Cardiology is on the case as well and is continuing to hold the Plavix and aspirin until further direction from consultants. We will continue to follow and make further recommendations based on his clinical status. I, the cosigning physician, performed a history & physical examination of the patient. Lungs sounds are clear. Maintaining good O2 saturations in the 90s on room air. I discussed the assessment and plan of care with my nurse practitioner, Paige Yuan. I attest to the above note as dictated by her. Time with Patient: Greater than 30
[2017-08-24 11:34] LABS: HGB 7.4 gm/dL (13.0-17.5); MCH 31.5 pg (25.0-35.0); MCHC 30.8 g/dL (31.0-37.0); MCV 102.6 fL (80.0-100.0); Macrocytosis Slight; Mean Platelet Volume 6.6; Platelet Count 364 k/uL (150-450); RBC 2.34 m/uL (4.30-5.90); RDW 13.8 % (11.5-15.5); WBC 5.6 k/uL (3.8-10.6)
[2017-08-24] MEDS: CHOLECALCIFEROL 1,000 UNIT TAB PO SCH (11:48)
[2017-08-24] MEDS: SODIUM CHLORIDE 0.9% 1,000 ML IV SCH ×2 (17:16→18:25)
--- NOTE | 2017-08-24 18:11 | PN ---
PROGRESS NOTE DATE OF SERVICE: August 24, 2017. PRESENTING COMPLAINT: Lower GI bleed. INTERVAL HISTORY: This is a patient with a DE in April of 2017 with stent to the RCA, who drinks about 6 beers a day, was on aspirin and Plavix presented with 4 days of GI bleeding. No further bleeding. No abdominal pain. The patient did not want GI to do any interventions. Hence, surgery Dr. Colindres was consulted. The patient is currently on clear liquids. Lying in bed, tired appearing. Current medications: Aspirin, Plavix has been held. PHYSICAL EXAMINATION: Temperature 98.5, pulse 87, respiratory 15, blood pressure 138/73, pulse ox 99% on room air. General appearance: Lying in bed, awake. Eyes pupils are equal. Conjunctivae pale. HEENT: External appearance of nose and ears normal. Oral cavity normal. Neck JVD not raised. Mass not palpable. Respiratory effort normal. Lungs slightly decreased breath sounds. Cardiovascular: 1st and 2nd sounds normal. No edema. ABDOMEN: Soft, nontender. Liver and spleen not palpable. No mass palpable. Psychiatry: Alert and oriented times three. Mood and affect normal. INVESTIGATIONS: White count 5, hemoglobin 7, potassium 3.7. ASSESSMENT: 1. Acute severe gastrointestinal bleed in a patient who is on aspirin, Plavix and also drinks 6 beers a day. Likely source is a gastric. 2. Acute severe blood loss anemia symptomatic with hemoglobin gone down. 3. Coronary artery with stent to the RCA and diffuse disease in the LAD. PLAN: Given that the patient is weak, tired, symptomatic, we will go ahead and transfuse a unit of blood. Awaiting input in terms of timing of endoscopy. Care was discussed with the patient. Follow. MMODL / IJN: [id number] /
[2017-08-24 18:52] LABS: HGB 7.2 gm/dL (13.0-17.5); MCH 31.1 pg (25.0-35.0); MCHC 31.4 g/dL (31.0-37.0); MCV 99.1 fL (80.0-100.0); Mean Platelet Volume 6.6; Platelet Count 400 k/uL (150-450); RBC 2.32 m/uL (4.30-5.90); RDW 14.3 % (11.5-15.5); WBC 5.4 k/uL (3.8-10.6)
[2017-08-24 18:57] LABS: Magnesium 2.2 mg/dL (1.6-2.3)
[2017-08-25] MEDS: SODIUM CHLORIDE 0.9% 1,000 ML IV SCH ×2 (04:15→14:36)
--- NOTE | 2017-08-25 07:19 | P.GSCN ---
History of Present Illness Consult date: 08/24/17 Reason for Consult: GI Bleed History of present illness: DATE OF CONSULTATION: 08/24/2017 CHIEF COMPLAINT: GI bleed HISTORY OF PRESENT ILLNESS: The patient's a 61-year-old gentleman who presents after having bloody bowel movement prior to admission. He has been on Plavix for underlying coronary artery disease with cardiac catheterization and stent placement. He had been in the ICU where his hemoglobin has been monitored. His hemoglobin on presentation was less than 8. No blood transfusions as he has been clinically stable. Since transfer from the ICU to the floor, no reports of abdominal pain. No reports of bloody bowel movements. He is tolerating liquid diet. He expresses desire to eat solid food. Last colonoscopy was in 2013 with known history of diverticulosis as well. His Plavix has been discontinued. PAST MEDICAL HISTORY: See list. PAST SURGICAL HISTORY: Last colonoscopy 2013. See list. MEDICATIONS: See list. ALLERGIES: See list. SOCIAL HISTORY: No illicit drug use. FAMILY HISTORY: Significant for cardiac disease. REVIEW OF ORGAN SYSTEMS: CONSTITUTIONAL: Denies recent weight loss. HEENT: No troubles with vision or hearing. No reports of dysphagia. ENDOCRINE: No reports of thyroid disorders. CARDIOVASCULAR: Previous cardiac catheterization with stent placement. RESPIRATORY: No recent pneumonias. No distention exertion. GASTROINTESTINAL: Recent blood in stools. No active gastric esophageal reflux disease. NEURO: No reports of stroke or seizure disorders. PSYCH: No reports of depression or suicidal ideation. HEMATOLOGIC: He is on antiplatelet therapy, Plavix. LYMPHATIC: The patient denies any lumps and bumps around the neck. GENITOURINARY: Denies any blood in urine or increased urinary frequency. MUSCULOSKELETAL: Has back pain, stiffness or joint arthritis. PHYSICAL EXAM: VITAL SIGNS: Currently stable. GENERAL: Well-developed male in no acute distress. HEENT: No sclera icterus. Extraocular movements grossly intact. Moist buccal mucosa. Head is atraumatic, normocephalic. Hears conversational speech. No nasal drainage. NECK: Supple without lymphadenopathy. CHEST: Non-labored respirations and equal bilateral excursions. CARDIOVASCULAR: Regular rate regular rhythm. Palpable 2+ radial pulses. ABDOMEN: Soft. Nondistended. Nontender. MUSCULOSKELETAL: No clubbing, cyanosis or edema. NEUROLOGIC: No focal or lateralizing signs. Cranial nerves II through XII grossly intact. PSYCH: Appropriate affect. Alert and oriented to person, place and time. LABS: Reviewed. ASSESSMENT: 1. Gastrointestinal bleeding. 2. History of antiplatelet therapy adverse event. 3. Coronary artery disease. 4. Diverticulosis, likely cause of lower GI bleed. PLAN: 1. Patient is clinically stable despite hemoglobin is 8. Continue monitor. 2. May start regular diet. 3. Discussed this patient pending normal bowel movements without blood, patient may potentially discharge. 4. Follow-up as outpatient was described. Thank you for this kind consultation. Past Medical History Past Medical History: Coronary Artery Disease (CAD), Cancer, Chest Pain / Angina , Myocardial Infarction (DC) Additional Past Medical History / Comment(s): 05/02/17 stemi, skin cancer removal-right eyebrow, kidney stone which pt passed on his own. Last Myocardial Infarction Date:: 05/02/17 History of Any Multi-Drug Resistant Organisms: None Reported Past Surgical History: Heart Catheterization With Stent, Tonsillectomy Additional Past Surgical History / Comment(s): skin cancer removal, 3 stents on 05/02/17, 06/21/17 cardiac cath with maximizing medical therapy. Past Anesthesia/Blood Transfusion Reactions: No Reported Reaction Date of Last Stent Placement:: 05/02/17 Smoking Status: Former smoker - Past Family History Mother Family Medical History: CVA/TIA Father Family Medical History: Cancer Additional Family Medical History / Comment(s): pancreatic Medications and Allergies Home Medications Medication Instructions Recorded Confirmed Type Aspirin 81 mg PO QAM 05/02/17 08/23/17 History Cholecalciferol (Vitamin D3) 2,000 unit PO QAM 05/02/17 08/23/17 History [Vitamin D3] Nitroglycerin Sl Tabs [Nitrostat] 0.4 mg SUBLINGUAL Q5M PRN #25 tab 05/04/17 Rx Atorvastatin [Lipitor] 80 mg PO QAM 06/17/17 08/23/17 History Metoprolol Tartrate [Lopressor] 25 mg PO QAM 06/17/17 08/23/17 History Clopidogrel [Plavix] 75 mg PO QAM 08/23/17 08/23/17 History Allergies Allergy/AdvReac Type Severity Reaction Status Date / Time No Known Allergies Allergy Verified 08/23/17 10:36 Surgical - Exam Vital Signs Temp Pulse Resp BP Pulse Ox 98.8 F 114 H 20 111/72 100 08/23/17 10:12 08/23/17 10:12 08/23/17 10:12 08/23/17 10:12 08/23/17 10:12 Results - Labs 08/24/17 18:19 08/24/17 18:19 Abnormal Lab Results - Last 24 Hours (Table) 08/23/17 08/23/17 08/23/17 Range/Units 10:50 20:26 23:57 RBC 2.27 L (4.30-5.90) m/uL Hgb 7.1 L (13.0-17.5) gm/dL Hct 22.3 L (39.0-53.0) % MCV (80.0-100.0) fL MCHC (31.0-37.0) g/dL Chloride (98-107) mmol/L BUN (9-20) mg/dL POC Glucose (mg/dL) 114 H (75-99) mg/dL Crossmatch See Detail 08/24/17 08/24/17 08/24/17 Range/Units 05:51 05:51 11:24 RBC 2.26 L 2.34 L (4.30-5.90) m/uL Hgb 7.0 L* 7.4 L (13.0-17.5) gm/dL Hct 23.1 L 24.0 L (39.0-53.0) % MCV 102.0 H 102.6 H (80.0-100.0) fL MCHC 30.2 L 30.8 L (31.0-37.0) g/dL Chloride 108 H (98-107) mmol/L BUN 8 L (9-20) mg/dL POC Glucose (mg/dL) (75-99) mg/dL Crossmatch 08/24/17 Range/Units 18:19 RBC 2.32 L (4.30-5.90) m/uL Hgb 7.2 L (13.0-17.5) gm/dL Hct 23.0 L (39.0-53.0) % MCV (80.0-100.0) fL MCHC (31.0-37.0) g/dL Chloride (98-107) mmol/L BUN (9-20) mg/dL POC Glucose (mg/dL) (75-99) mg/dL Crossmatch Diabetes panel 08/24/17 08/24/17 Range/Units 05:51 18:19 Sodium 138 (137-145) mmol/L Potassium 3.7 4.0 (3.5-5.1) mmol/L Chloride 108 H (98-107) mmol/L Carbon Dioxide 23 (22-30) mmol/L BUN 8 L (9-20) mg/dL Creatinine 0.90 (0.66-1.25) mg/dL Glucose 92 (74-99) mg/dL Calcium 8.4 (8.4-10.2) mg/dL Calcium panel 08/24/17 Range/Units 05:51 Calcium 8.4 (8.4-10.2) mg/dL Phosphorus 3.7 (2.5-4.5) mg/dL Pituitary panel 08/24/17 08/24/17 Range/Units 05:51 18:19 Sodium 138 (137-145) mmol/L Potassium 3.7 4.0 (3.5-5.1) mmol/L Chloride 108 H (98-107) mmol/L Carbon Dioxide 23 (22-30) mmol/L BUN 8 L (9-20) mg/dL Creatinine 0.90 (0.66-1.25) mg/dL Glucose 92 (74-99) mg/dL Calcium 8.4 (8.4-10.2) mg/dL Adrenal panel 08/24/17 08/24/17 Range/Units 05:51 18:19 Sodium 138 (137-145) mmol/L Potassium 3.7 4.0 (3.5-5.1) mmol/L Chloride 108 H (98-107) mmol/L Carbon Dioxide 23 (22-30) mmol/L BUN 8 L (9-20) mg/dL Creatinine 0.90 (0.66-1.25) mg/dL Glucose 92 (74-99) mg/dL Calcium 8.4 (8.4-10.2) mg/dL Assessment and Plan (1) Antiplatelet or antithrombotic long-term use Current Visit: Yes Status: Acute Code(s): Z79.02 - BURGL[employer] INSPECTOR (CURRENT) USE OF ANTITHROMBOTICS/ANTIPLATELETS SNOMED Code(s): 239715716 (2) Adverse effect of antiplatelet agent Current Visit: Yes Status: Acute Code(s): T45.7X5A - ADVERSE EFFECT OF ANTICOAG ANTAG, VIT K AND OTH COAG, INIT SNOMED Code(s): 674025048 (3) Acute blood loss anemia Current Visit: Yes Status: Acute Code(s): D62 - ACUTE POSTHEMORRHAGIC ANEMIA SNOMED Code(s): 149119816 (4) CAD (coronary artery disease) Current Visit: Yes Status: Acute Code(s): I25.10 - ATHSCL HEART DISEASE OF [place] CORONARY ARTERY W/O ANG PCTRS SNOMED Code(s): 89555139 (5) Colon, diverticulosis Current Visit: Yes Status: Acute Code(s): K57.30 - DVRTCLOS OF LG INT W/O PERFORATION OR ABSCESS W/O BLEEDING SNOMED Code(s): 940291687 (6) Gastrointestinal hemorrhage Current Visit: Yes Status: Acute Code(s): K92.2 - GASTROINTESTINAL HEMORRHAGE, UNSPECIFIED SNOMED Code(s): 58558661
[2017-08-25 07:20] LABS: Basophils # (A) 0.1 k/uL (0-0.2); Basophils % (A) 1 %; Eosinophils # (A) 0.2 k/uL (0-0.7); Eosinophils % (A) 5 %; HCT 23.1 % (39.0-53.0); Lymphocytes # (A) 1.6 k/uL (1.0-4.8); Lymphocytes % (A) 35 %; MCH 30.5 pg (25.0-35.0); MCHC 30.3 g/dL (31.0-37.0); MCV 100.6 fL (80.0-100.0); Macrocytosis Slight; Mean Platelet Volume 6.7; Monocytes # (A) 0.4 k/uL (0-1.0); Monocytes % (A) 9 %; Neutrophils # (A) 2.2 k/uL (1.3-7.7); Neutrophils % (A) 46 %; Platelet Count 403 k/uL (150-450); RDW 15.2 % (11.5-15.5); WBC 4.7 k/uL (3.8-10.6)
[2017-08-25 07:36] LABS: Anion Gap 9 mmol/L; Blood Urea Nitrogen 6 mg/dL (9-20); Calcium 8.8 mg/dL (8.4-10.2); Carbon Dioxide 23 mmol/L (22-30); Chloride 108 mmol/L (98-107); Glucose 106 mg/dL (74-99); Phosphorus 3.8 mg/dL (2.5-4.5); Potassium 4.4 mmol/L (3.5-5.1); Sodium 140 mmol/L (137-145)
[2017-08-25] MEDS ORDERED: POLYETHYLENE GLYCOL LYTES SOLN 4,000 ML SOLN.RECON PO ONE ×2 (08:49→08:50)
[2017-08-25] MEDS: METOPROLOL TARTRATE 25 MG TAB PO SCH (08:50)
[2017-08-25] MEDS: PANTOPRAZOLE 40 MG/10 ML VIAL IVP SCH ×2 (08:50→22:28)
[2017-08-25] MEDS: ATORVASTATIN 80 MG TAB PO SCH (08:50)
--- NOTE | 2017-08-25 10:22 | P.PN ---
Subjective Progress Note Date: 08/25/17 Principal diagnosis: Acute GI bleeding This is a very pleasant 61-year-old gentleman who follows with Dr. Gabriel Braxton as his primary care physician. He has a history of skin cancer with resection over the right eyebrow, nephrolithiasis, hyperlipidemia. He has a remote history of smoking and daily alcohol consumption, 4-6 beers daily. He has a history of coronary artery disease and had sustained an acute myocardial infarction in April 2017. He had undergone cardiac catheterization and stenting 3 to the RCA. There was moderate disease in the circumflex at that time along with some disease in the LAD. He had undergone a subsequent cardiac catheterization on 06/21/2017 to evaluate the progression. The stents were widely patent. The LAD artery had diffuse distal disease in the distal one fourth. Circumcised had a 50% mid lesion. He was recommended continued medical therapy. He has remained on Plavix and aspirin since April. He presented here to the emergency room from his primary care physician's office after having a 3 day history of bloody bowel movements. Initially they were bright red and subsequently they're black and tarry. He was found to have a drop in hemoglobin from 14-8.4. The recommendation is for transfer to the intensive care unit where consulted for the same. He is seen in the emergency room. He is awake and alert in no acute distress. He has not had any further bloody bowel movements today. He is maintaining good O2 saturations up to 100% on room air. He's been afebrile. Hemodynamically stable. He has been initiated on Protonix 40 mg IV push twice a day. 0.9 normal saline at 100 MLS per hour following 1 L of fluid resuscitation. The patient is seen again today 08/24/2017 in follow-up in the intensive care unit. He is awake and alert in no acute distress. He has not had a bowel movement since admission. His hemoglobin has dropped today to 7.0. The patient does have a previous history of diverticulosis with a few polyps removed back in 2013. He has been seen again by GI services. They did discuss endoscopic exams with the patient. The patient however is requesting conservative surgical services and we are awaiting consultation from them. In the interim we'll continue with IV Protonix. He is otherwise stable. Afebrile. No tachycardia. No tachypnea. He blood pressure stable. Maintaining good O2 saturations in the high 90s to 100% on room air. No complaints of chest pain. He has been seen by cardiology who is continuing to hold the Plavix. On 08/25/2017 patient seen in follow-up on the surgical floor. Denies any acute distress, denies any chest pain, lightheadedness or dizziness or weakness. He does become slightly winded with ambulation, but does recover would rest. He was noted to be tachycardic as well with activity, with a heart rate going up in the 140s while he is ambulating, and returning back to baseline , to around 80-90 BPM. He had only one episode of small black tarry stool last night, after he had eaten a sandwich. That was his first regular meal since admission. No further episodes of GI bleeding. Hemoglobin today 7.0. Patient did not require any blood transfusions during this admission. Surgery is following regarding the acute GI bleeding, and the plan is to discharge home today if he remains stable. Aspirin and Plavix remain on hold. From pulmonary/ critical care standpoint there are no acute issues at this point, we will follow the patient on as-needed basis. Objective - Vital Signs Vital signs: Vital Signs Temp 98.3 F 08/25/17 07:00 Pulse 90 08/25/17 07:00 Resp 16 08/25/17 07:00 BP 131/74 08/25/17 07:00 Pulse Ox 98 08/25/17 07:00 Intake & Output 08/24/17 08/25/17 08/25/17 18:59 06:59 18:59 Intake Total 3550 1180 240 Output Total 2049 Balance 1500 1180 240 Intake: Intake, IV Titration 1300 700 Amount Magnesium Sulfate-D5w Pmx 200 1 gm In Dextrose/Water 1 100ml.bag @ 100 mls/hr IVPB Q1H [facility] Rx#: [id number] Sodium Chloride 0.9% 1, 1100 700 000 ml @ 100 mls/hr IV . Q10H [facility] Rx#:[id number] Oral 2250 480 240 Output: Urine 2049 Other: Voiding Method Urinal Toilet Toilet # Voids 5 2 # Bowel Movements 1 - Exam GENERAL EXAM: Alert, pleasant, 61-year-old white male comfortable in no apparent distress. HEAD: Normocephalic/atraumatic. EYES: Normal reaction of pupils, equal size. Conjunctiva pink, sclera white. NOSE: Clear with pink turbinates. THROAT: No erythema or exudates. NECK: No masses, no JVD, no thyroid enlargement, no adenopathy. CHEST: No chest wall deformity. Symmetrical expansion. LUNGS: Equal air entry with no crackles, wheeze, rhonchi or dullness. CVS: Regular rate and rhythm, normal S1 and S2, no gallops, no murmurs, no rubs ABDOMEN: Soft, nontender. No hepatosplenomegaly, normal bowel sounds, no guarding or rigidity. EXTREMITIES: No clubbing, no edema, no cyanosis, 2+ pulses and upper and lower extremities. MUSCULOSKELETAL: Muscle strength and tone normal. SPINE: No scoliosis or deformity SKIN: No rashes CENTRAL NERVOUS SYSTEM: Alert and oriented -3. No focal deficits, tone is normal in all 4 extremities. PSYCHIATRIC: Alert and oriented -3. Appropriate affect. Intact judgment and insight. - Labs CBC & Chem 7: 08/25/17 06:59 08/25/17 06:59 Labs: Abnormal Lab Results - Last 24 Hours (Table) 08/23/17 08/24/17 08/24/17 Range/Units 10:50 11:24 18:19 RBC 2.34 L 2.32 L (4.30-5.90) m/uL Hgb 7.4 L 7.2 L (13.0-17.5) gm/dL Hct 24.0 L 23.0 L (39.0-53.0) % MCV 102.6 H (80.0-100.0) fL MCHC 30.8 L (31.0-37.0) g/dL Chloride (98-107) mmol/L BUN (9-20) mg/dL Glucose (74-99) mg/dL Crossmatch See Detail 08/25/17 08/25/17 Range/Units 06:59 06:59 RBC 2.30 L (4.30-5.90) m/uL Hgb 7.0 L* (13.0-17.5) gm/dL Hct 23.1 L (39.0-53.0) % MCV 100.6 H (80.0-100.0) fL MCHC 30.3 L (31.0-37.0) g/dL Chloride 108 H (98-107) mmol/L BUN 6 L (9-20) mg/dL Glucose 106 H (74-99) mg/dL Crossmatch Assessment and Plan Plan: Assessment: #1 Acute gastrointestinal bleeding with a drop of hemoglobin from 14-7.0. The patient is a previous history of colonoscopy and polypectomy in 2013. Today's hemoglobin is 7.0, patient remains hemodynamically stable. Only had one episode of dark tarry stool last night after he was initiated on a regular diet , no further GI bleeding. #2 Coronary artery disease with myocardial infarction in April 2017 status post stent placements 3 to the RCA. Maintained on aspirin and Plavix. Subsequent cardiac catheterization in June 2017 revealed patent stents. #3 Daily alcohol consumption. #4 Remote history of chronic tobacco dependence. #5 History of nephrolithiasis. #6 History of skin cancer removed from the right eyebrow. Plan: Patient's hemoglobin today 7.0, it remains stable, last night he was started on a regular diet, shortly afterward he did have an episode of dark tarry stool, the patient remains hemodynamically stable, does become a little winded with ambulation, but quickly recovers, does become tachycardic with activity as well , but it is nonsustained. He will be given his home dose metoprolol, cardiology is following. He denies any chest pain. His lungs are clear. From pulmonary/critical care standpoint, patient is stable. Surgery is planning on discharging the patient home today. We will follow with the patient on as- needed basis. Thank you for this consultation, I performed a history & physical examination of the patient and discussed their management with my nurse practitioner, Suzanne Meeks. I reviewed the nurse practitioner's note and agree with the documented findings and plan of care. Lung sounds are clear. The findings and the impression was discussed with the patient. I attest to the documentation by the nurse practitioner. Time with Patient: Less than 30
--- NOTE | 2017-08-25 12:26 | P.PN ---
Subjective Progress Note Date: 08/25/17 61-year-old male seen and examined at bedside. Patient did have a maroon bloody stool last evening. Patients being seen at the request of the attending for a GI bleed. Hemoglobin this morning 7. Did note the patient did have an episode of tachycardia this morning heart rate was up in the 140s. Patient denied chest pain dizziness or lightheadedness. Did discuss greater than 15 minutes at the bedside the plan of care. Patient is agreeing to undergo endoscopic if indicated. Patient does have a history of coronary artery disease with prior coronary stenting. Patient has been seen by cardiology service. Objective - Vital Signs Vital signs: Vital Signs Temp 98.5 F 08/25/17 12:13 Pulse 65 08/25/17 12:13 Resp 16 08/25/17 12:13 BP 110/69 08/25/17 12:13 Pulse Ox 97 08/25/17 12:13 Intake & Output 08/24/17 08/25/17 08/25/17 18:59 06:59 18:59 Intake Total 3550 1180 240 Output Total 2050 Balance 1500 1180 240 Intake: Intake, IV Titration 1300 700 Amount Magnesium Sulfate-D5w Pmx 200 1 gm In Dextrose/Water 1 100ml.bag @ 100 mls/hr IVPB Q1H [facility] Rx#: [id number] Sodium Chloride 0.9% 1, 1100 700 000 ml @ 100 mls/hr IV . Q10H [facility] Rx#:[id number] Oral 2250 480 240 Blood Product 0 Rc As-1 Unit 0 [id number] Output: Urine 2050 Other: Voiding Method Urinal Toilet Toilet # Voids 5 2 # Bowel Movements 1 - Exam Physical exam 61-year-old male sitting up in bed denies dizziness lightheadedness. Lungs diminished at the bases otherwise adequate air movement Heart S1-S2 audible regular Abdomen soft flat nontender not distended bowel tones present reports of nausea vomiting Extremities no edema - Labs CBC & Chem 7: 08/25/17 06:59 08/25/17 06:59 Labs: Abnormal Lab Results - Last 24 Hours (Table) 08/23/17 08/24/17 08/25/17 Range/Units 10:50 18:19 06:59 RBC 2.32 L 2.30 L (4.30-5.90) m/uL Hgb 7.2 L 7.0 L* (13.0-17.5) gm/dL Hct 23.0 L 23.1 L (39.0-53.0) % MCV 100.6 H (80.0-100.0) fL MCHC 30.3 L (31.0-37.0) g/dL Chloride (98-107) mmol/L BUN (9-20) mg/dL Glucose (74-99) mg/dL Crossmatch See Detail 08/25/17 Range/Units 06:59 RBC (4.30-5.90) m/uL Hgb (13.0-17.5) gm/dL Hct (39.0-53.0) % MCV (80.0-100.0) fL MCHC (31.0-37.0) g/dL Chloride 108 H (98-107) mmol/L BUN 6 L (9-20) mg/dL Glucose 106 H (74-99) mg/dL Crossmatch Assessment and Plan Assessment: Impression Present on admission acute blood loss anemia suspect due to a gastrointestinal hemorrhage from diverticula colonic bleed History of chronic daily consumption alcohol abuse colon Diverticulosis Known coronary artery disease with prior coronary stenting with a myocardial infarction April 2017 with a subsequent heart catheterization June 2017 8 coronary stents Sinus tachycardia Plan Will transfuse 1 unit of packed red blood cells today Scheduled for an EGD and colonoscopy tomorrow Start bowel prep today Clear liquid diet Nothing by mouth after midnight Aspirin Plavix have been held Further recommendations pending the findings after EGD and colonoscopy The above impression and plan of care have been discussed and directed by signing physician. Ebony Watlon nurse practitioner acting as scribe for signing physician.
[2017-08-25] MEDS: CHOLECALCIFEROL 1,000 UNIT TAB PO SCH (12:49)
--- NOTE | 2017-08-25 14:30 | P.PN ---
Subjective Progress Note Date: 08/25/17 Mr. Gomes is seen today in follow-up on the surgical floor. Initially when entering the room he was up in the bathroom and telemetry was showing heart rate in the 150's. It appeared sinus. Per nursing this has been happening every time he gets up and minimally exerts himself. After getting back into bed and resting for a few minutes his heart rate goes back down to the 90's. He denies symptoms of chest pain although does admit to mild shortness of breath. He states he had been up to the bathroom having a dark red stool this morning. Hgb today 7.0. Plan is for colonoscopy tomorrow with Dr. Colindres. Discussion was had with the patient regarding importance of resuming aspirin immediately and plavix can be discussed down the road as an outpatient if needed. Catherization report from June 2017 reveals 3 patent stents to the distal, mid and proximal RCA, left main is free of disease, LAD with diffuse disease distally and 50% mid circumflex disease. At that time ongoing medical therapy was recommended. Objective - Vital Signs Vital signs: Vital Signs Temp 98.5 F 08/25/17 12:13 Pulse 65 08/25/17 12:13 Resp 16 08/25/17 12:13 BP 110/69 08/25/17 12:13 Pulse Ox 97 08/25/17 12:13 Intake & Output 08/24/17 08/25/17 08/25/17 18:59 06:59 18:59 Intake Total 3550 1180 240 Output Total 2050 Balance 1500 1180 240 Intake: Intake, IV Titration 1300 700 Amount Magnesium Sulfate-D5w Pmx 200 1 gm In Dextrose/Water 1 100ml.bag @ 100 mls/hr IVPB Q1H [facility] Rx#: [id number] Sodium Chloride 0.9% 1, 1100 700 000 ml @ 100 mls/hr IV . Q10H [facility] Rx#:[id number] Oral 2250 480 240 Blood Product 0 Rc As-1 Unit 0 [id number] Output: Urine 2049 Other: Voiding Method Urinal Toilet Toilet # Voids 5 2 # Bowel Movements 1 - Exam Blood pressure 110/69 heart rate 65 afebrile GENERAL: Well-appearing, well-nourished and in no acute distress. NECK: Supple without JVD or thyromegaly. LUNGS: Breath sounds clear to auscultation bilaterally. Respiration equal and unlabored. No wheezes, rales or rhonchi. HEART: Regular rate and rhythm without murmurs, rubs or gallops. S1 and S2 heard. EXTREMITIES: Normal range of motion, no edema. No clubbing or cyanosis. Peripheral pulses intact and strong. - Labs CBC & Chem 7: 08/25/17 06:59 08/25/17 06:59 Labs: Abnormal Lab Results - Last 24 Hours (Table) 08/23/17 08/24/17 08/25/17 Range/Units 10:50 18:19 06:59 RBC 2.32 L 2.30 L (4.30-5.90) m/uL Hgb 7.2 L 7.0 L* (13.0-17.5) gm/dL Hct 23.0 L 23.1 L (39.0-53.0) % MCV 100.6 H (80.0-100.0) fL MCHC 30.3 L (31.0-37.0) g/dL Chloride (98-107) mmol/L BUN (9-20) mg/dL Glucose (74-99) mg/dL Crossmatch See Detail 08/25/17 Range/Units 06:59 RBC (4.30-5.90) m/uL Hgb (13.0-17.5) gm/dL Hct (39.0-53.0) % MCV (80.0-100.0) fL MCHC (31.0-37.0) g/dL Chloride 108 H (98-107) mmol/L BUN 6 L (9-20) mg/dL Glucose 106 H (74-99) mg/dL Crossmatch Assessment and Plan Assessment: ASSESSMENT 1. Coronary artery disease with recent stent placement 2. Acute blood loss anemia 3. Former tobacco use, quit 04/2017 4. Chronic daily alcohol use PLAN Continue to monitor hemoglobin. Await results of colonoscopy tomorrow for evidence of active bleedings. Restart aspirin as soon as possible when cleared per surgery. Plavix can be resumed at a later date once all symptoms have resolved as an outpatient. Nurse Practitioner note has been reviewed, I agree with a documented findings and plan of care. Patient was seen and examined.
[2017-08-25] MEDS: LACTATED RINGERS 1,000 ML IV SCH (16:06)
[2017-08-25 18:17] LABS: HCT 29.9 % (39.0-53.0); Hypochromasia Slight; MCH 31.7 pg (25.0-35.0); MCHC 31.3 g/dL (31.0-37.0); MCV 101.2 fL (80.0-100.0); Macrocytosis Slight; Mean Platelet Volume 6.5; Platelet Count 406 k/uL (150-450); RBC 2.96 m/uL (4.30-5.90); RDW 15.7 % (11.5-15.5); WBC 8.1 k/uL (3.8-10.6)
[2017-08-25 18:21] LABS: HGB 9.4 gm/dL (13.0-17.5)
--- NOTE | 2017-08-25 20:30 | P.PN ---
Progress Note - Text Progress Note Date: 08/25/17 Patient report's passing old blood this morning. From his prep, he denies any blood in stools. He had nausea earlier from his prep and had clear emesis. Plan for upper and lower scope per admitting team. If findings are unremarkable, potential discharge home after tolerating diet post-procedure with resumption of aspirin.
--- NOTE | 2017-08-25 20:47 | P.PN ---
Progress Note - Text Progress Note Date: 08/25/17 DATE OF SERVICE: 08/25/2017 PRESENTING COMPLAINT: Lower GI bleed HISTORY OF PRESENT ILLNESS: 61-year-old male who has a history of having an ST elevation myocardial infarction back on May 022016 with a stent placement to the RCA. 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 Repeat echocardiogram showed EF of 50-55%. Aspirin Plavix since that time. 4 days ago patient developed a bout of diarrhea and started having multiple bloody stools for the last 3 days. Last placed to was day before admission and began feeling dizzy tired and rundown. Hemoglobin in the emergency department was found to be 8.4 patient had symptoms. Admitted for the same. INTERVAL HISTORY: 08/25/2017: Patient sitting up in bed, hemoglobin 7 this morning. Receive unit of packed red cells later today. Had an episode of tachycardia heart rate in the 140s for brief at time. In light of patient's symptoms general surgery will be doing an upper and lower scope tomorrow. Bowel prep will be initiated today. Nothing by mouth after midnight. Tolerating his diet eating about 50% of his meals. Ambulatory to and from the bathroom without difficulty. Last BM 2017. REVIEW OF SYSTEMS: Done for constitutional ,cardiovascular, GI, pulmonary with relevant findings as above. CURRENT MEDICATIONS PHYSICAL EXAM VITAL SIGNS: Temperature 97.8, pulse 78, respiratory rate 16, blood pressure 124/76, oxygen saturation 98% on room air. GENERAL APPEARANCE: Lying in bed, not in distress. HENT: Normocephalic, JVD not raised. Mass not palpable. Oral cavity normal, external appearance of ears and nose normal. EYES:Pupils equal. Conjunctiva pale. RESPIRATORY: Respiratory effort normal. Lungs managed to auscultation. CARDIOVASCULAR: First and second sounds normal. No edema. ABDOMEN: Soft. Liver and spleen not palpable. No tenderness. No mass palpable. PSYCHIATRY: Alert and oriented x3. Mood and affect normal. INVESTIGATIONS: LABS: Hemoglobin 7.0, chloride 108, ASSESSMENT: -Acute severe gastrointestinal bleed in a patient who is on aspirin and Plavix and also drinks about 6 beers a day. Likely source is gastric. -Acute severe blood loss anemia symptomatic with hemoglobin repeatedly dropping. -Coronary artery disease with stent to the RCA and diffuse disease in the LAD. PLAN: Plans for upper and lower scope tomorrow nothing by mouth after midnight bowel prep tonight. Aspirin Plavix remain on hold. Plan of care discussed with the patient at bedside he is agreeable. We'll follow closely. GENERAL INSPECTOR statement: Patient was seen and examined by nurse practitioner Tanisha Lowry and all elements of the case discussed with attending Dr. Castaneda
--- NOTE | 2017-08-25 21:57 | PN ---
PROGRESS NOTE DATE OF SERVICE: August 25, 2017. ATTENDING NOTE: The patient seen and examined by me. Discussed with nurse practitioner Ms. Lowry. This is a patient with GI bleed from antiplatelet agents, hemoglobin dropped earlier today. I did order a unit of blood. The patient is pending endoscopy. No chest pain. EXAMINATION: Lungs are clear. Cardiovascular 1st and 2nd sounds normal. INVESTIGATIONS: Hemoglobin 7. ASSESSMENT: 1. Acute GI bleed from patient being on antiplatelet agents. 2. Acute blood-loss anemia. 3. Coronary artery disease, stent to RCA and diffuse diseased LAD. PLAN: The patient was ordered a unit of blood earlier today. Repeat hemoglobin is ordered. Did speak to Yvonne to request Dr. Colindres to also do EGD along with a colonoscopy, scheduled for tomorrow. MMODL / IJN: [id number] /
[2017-08-26] MEDS: SODIUM CHLORIDE 0.9% 1,000 ML IV SCH ×2 (00:30→11:21)
[2017-08-26 07:43] LABS: Anion Gap 8 mmol/L; Blood Urea Nitrogen 4 mg/dL (9-20); Calcium 8.9 mg/dL (8.4-10.2); Carbon Dioxide 24 mmol/L (22-30); Chloride 109 mmol/L (98-107); Glucose 84 mg/dL (74-99); Magnesium 1.8 mg/dL (1.6-2.3); Phosphorus 4.1 mg/dL (2.5-4.5); Sodium 141 mmol/L (137-145)
[2017-08-26 07:53] LABS: Anisocytosis Slight; Basophils # (A) 0.1 k/uL (0-0.2); Basophils % (A) 1 %; Eosinophils # (A) 0.3 k/uL (0-0.7); Eosinophils % (A) 5 %; HGB 8.8 gm/dL (13.0-17.5); Lymphocytes # (A) 1.8 k/uL (1.0-4.8); Lymphocytes % (A) 30 %; MCH 30.9 pg (25.0-35.0); MCHC 31.5 g/dL (31.0-37.0); Macrocytosis Slight; Mean Platelet Volume 6.8; Monocytes # (A) 0.6 k/uL (0-1.0); Monocytes % (A) 10 %; Neutrophils % (A) 51 %; Platelet Count 430 k/uL (150-450); RBC 2.85 m/uL (4.30-5.90); RDW 16.5 % (11.5-15.5); WBC 5.9 k/uL (3.8-10.6)
[2017-08-26] MEDS: ATORVASTATIN 80 MG TAB PO SCH (08:28)
[2017-08-26] MEDS: PANTOPRAZOLE 40 MG/10 ML VIAL IVP SCH (08:28)
[2017-08-26] MEDS: METOPROLOL TARTRATE 25 MG TAB PO SCH (08:28)
[2017-08-26] MEDS: CHOLECALCIFEROL 1,000 UNIT TAB PO SCH (12:26)
[2017-08-26] MEDS ORDERED: PROPOFOL 10 MG/ML 20 ML VIAL IV ONE (13:04)
[2017-08-26] MEDS ORDERED: LIDOCAINE 1% INJ 10MG/ML (20 ML MDV) ONE (13:04)
[2017-08-26] MEDS ORDERED: IV FLUID CONTINUATION 900 ML IV ONE (13:05)
--- NOTE | 2017-08-26 13:27 | P.PN ---
Progress Note - Text Progress Note Date: 08/26/17 EGD negative for ulcer or bleeding. Colon negative. May start regular diet. DC home.
--- NOTE | 2017-08-26 13:30 | P.PN ---
Subjective Progress Note Date: 08/26/17 Mr. Gomes is seen and examined today awaiting his colonoscopy. Hgb today is 8.8. He completed his prep and states there was no evidence of shira blood. He denies chest pain, shortness of breath, dizziness or palpitations. Only complaint is of lower abdominal cramping secondary to his GI prep. Telemetry tracings have been unremarkable. Vital signs stable. Objective - Vital Signs Vital signs: Vital Signs Temp 98.4 F 08/26/17 07:20 Pulse 81 08/26/17 07:20 Resp 16 08/26/17 07:20 BP 127/78 08/26/17 07:20 Pulse Ox 100 08/26/17 07:20 Intake & Output 08/25/17 08/26/17 08/26/17 18:59 06:59 18:59 Intake Total 1550 1305 0 Balance 1550 1305 0 Weight 73.2 kg Intake: Intake, IV Titration 825 Amount Sodium Chloride 0.9% 1, 825 000 ml @ 100 mls/hr IV . Q10H [facility] Rx#:[id number] Oral 1240 480 0 Blood Product 310 Rc As-1 Unit 310 [id number] Other: Voiding Method Toilet Toilet # Voids 4 3 # Bowel Movements 2 - Exam Blood pressure 127/78 heart rate 81 afebrile GENERAL: Well-appearing, well-nourished and in no acute distress. NECK: Supple without JVD or thyromegaly. LUNGS: Breath sounds clear to auscultation bilaterally. Respiration equal and unlabored. No wheezes, rales or rhonchi. HEART: Regular rate and rhythm without murmurs, rubs or gallops. S1 and S2 heard. EXTREMITIES: Normal range of motion, no edema. No clubbing or cyanosis. Peripheral pulses intact and strong. - Labs CBC & Chem 7: 08/26/17 06:44 08/26/17 06:44 Labs: Abnormal Lab Results - Last 24 Hours (Table) 08/23/17 08/25/17 08/26/17 Range/Units 10:50 17:56 06:44 RBC 2.96 L 2.85 L (4.30-5.90) m/uL Hgb 9.4 L D 8.8 L (13.0-17.5) gm/dL Hct 29.9 L 28.0 L (39.0-53.0) % MCV 101.2 H (80.0-100.0) fL RDW 15.7 H 16.5 H (11.5-15.5) % Chloride (98-107) mmol/L BUN (9-20) mg/dL Crossmatch See Detail 08/26/17 Range/Units 06:44 RBC (4.30-5.90) m/uL Hgb (13.0-17.5) gm/dL Hct (39.0-53.0) % MCV (80.0-100.0) fL RDW (11.5-15.5) % Chloride 109 H (98-107) mmol/L BUN 4 L (9-20) mg/dL Crossmatch Assessment and Plan Assessment: ASSESSMENT 1. Coronary artery disease with recent stent placement 2. Acute blood loss anemia 3. Former tobacco use, quit 04/2017 4. Chronic daily alcohol use PLAN With no further evidence of GI bleeding and stable hemoglobin we recommend he restart his aspirin and plavix as soon as his colonoscopy is complete if ok per surgery. Follow-up with Dr. CHINMAY Madrid in 1 week. Nurse Practitioner note has been reviewed, I agree with a documented findings and plan of care. Patient was seen and examined.
[2017-08-26] MEDS ORDERED: ASPIRIN 81 MG PO SCH (14:00)
[2017-08-26] MEDS ORDERED: CLOPIDOGREL 75 MG TAB PO SCH (14:00)
[2017-08-26] MEDS: LACTATED RINGERS 1,000 ML IV SCH (14:44)
[2017-08-26 15:15] VITALS: BP 154/71; PULSE 79; RESP 18; TEMP 98.5
--- NOTE | 2017-08-29 01:13 | DS ---
DISCHARGE SUMMARY DATE OF ADMISSION: August 23, 2017. DATE OF DISCHARGE: August 26, 2017. FINAL DIAGNOSES: 1. Acute severe gastrointestinal bleed. The patient being on aspirin, Plavix and also chronic alcoholism exact source of the gastrointestinal tract not detected. 2. Acute severe blood loss anemia symptomatic, patient requiring blood transfusion. 3. Coronary artery disease with stent to the RCA and diffuse disease in the LAD. HOSPITAL COURSE: This pleasant 61-year-old patient who in April of 2017, had ST-elevation myocardial infarction with stent to the RCA. The patient did come back for cardiac cath in June done by Dr. Em Madrid found diffuse LAD disease. No intervention was done. Repeat Echocardiogram showed EF had come up to 50-55%. The patient presented 4 days of multiple bloody stools, dizzy, lightheaded, hemoglobin did drop down to 7. The patient symptomatic. The patient was transfused a unit of blood. Hemoglobin did come up to 8.8. The patient presently wanted surgery to do the procedure. The patient did have a EGD colonoscopy by Dr. Colindres. All came back to be unremarkable. The patient had no further episodes. PHYSICAL EXAMINATION: On exam, lungs fair entry. Cardiovascular 1st and second sounds normal. Patient told to discontinue drinking. Per Cardiology patient is okay to go back on the aspirin and Plavix aspirin. CONSULTATION: Dr. Siegel from Cardiology, Dr. Stratton from Gastroenterology, Dr. Narvaez from Critical Care and Dr. Colindres from General surgery who did carry out EGD and a colonoscopy. DISCHARGE MEDICATIONS: 1. Aspirin 81 mg a day. 2. Vitamin D3 2000 units p.o. daily. 3. Nitrostat 0.4 sublingual q.5 p.r.n. 4. Lipitor 80 mg daily. 5. Lopressor 25 p.o. daily. 6. Plavix 75 mg p.o. daily. 7. Prilosec 20 mg p.o. with breakfast. Follow up with Dr. Em Madrid in 1 week. Follow up with Dr. Gabriel Braxton 08/31/2017. CBC in 3 days. On examination lungs are clear. Cardiovascular 1st and 2nd sounds normal. Discussion and discharge planning more than 35 minutes. MMODL / IJN: [id number] /
--- NOTE | 2017-09-08 21:23 | P.PCN ---
Date of Procedure: 08/26/17 Description of Procedure: PREOPERATIVE DIAGNOSIS: History of gastrointestinal bleed. History of gastric ulcers. POSTOPERATIVE DIAGNOSIS: History of gastrointestinal bleed. History of gastric ulcers. OPERATION: Esophagogastroduodenoscopy. SURGEON: Nelly Colindres MD ANESTHESIA: MAC. INDICATIONS: The patient is a 61-year-old female who presents with a history of reflux disease. Benefits and risks of the procedure were described. Informed consent was obtained. DESCRIPTION: The patient was brought into the endoscopy suite and laid in the left lateral decubitus position. An Olympus gastroscope was passed along the posterior oropharynx down to the distal esophagus where the squamocolumnar junction was unremarkable. The stomach was entered and no bile reflux was found. Additional findings are listed below. The first through third portion of the duodenum was examined and unremarkable. Retroflexion of the scope confirmed Hill grade 2 lower esophageal valve. The squamocolumnar junction demostrated early and acute LA grade A erosive esophagitis. The stomach was desufflated. The patient tolerated the procedure well. FINDINGS: Squamocolumnar junction unremarkable. Hill grade 2 lower esophageal valve. LA grade A erosive esophagitis. No active duodenitis. No duodenal ulcers. No gastric ulcer. RECOMMENDATIONS: Continue medical therapy. Upper endoscopy as needed.
--- NOTE | 2017-09-08 21:30 | P.PCN ---
Date of Procedure: 08/26/17 Description of Procedure: PREOPERATIVE DIAGNOSIS: History of anemia. Gastrointestinal hemorrhage. POSTOPERATIVE DIAGNOSIS: History of anemia. Gastrointestinal hemorrhage. OPERATION: Colonoscopy to the sigmoid colon with flexible sigmoidoscopy. SURGEON: Nelly Colindres MD. ANESTHESIA: MAC. INDICATIONS: The patient is a 61 year-old male who presents with anemia gastrointestinal hemorrhage. Benefits and risks were described and informed consent was obtained. DESCRIPTION OF PROCEDURE: The patient had undergone bowel prep. He had been brought into the endoscopy room and laid in the left lateral decubitus position. After adequate intravenous sedation, the rectum was examined with 2% lidocaine jelly. No external hemorrhoids were encountered. The rectal tone was within normal limits. No lesions were palpated in the rectal vault. The prostate was smooth without nodularity. An Olympus colonoscope was advanced along the rectum to the sigmoid colon without any evidence of bleeding. Sigmoid diverticulosis identified. No polyps were identified at lungs portion of the colon. Despite multiple maneuvers including attempted advancement the scope, the scope could not safely advance without potential harm to the patient. As result, the colonoscopy was terminated to the sigmoid colon. The colon was desufflated. The colonoscope was removed. The patient tolerated the procedure well. FINDINGS: No evidence of active bleeding. Scattered diverticulosis of the sigmoid colon. Severely tortuous sigmoid colon with increased risk of trauma from the colonoscope hence procedure terminated as flexible sigmoidoscopy. RECOMMENDATIONS: Lower endoscopy as needed.
== END 2017-08-26 16:20 | disposition home or self-care (01) | DRG 378 ==
LOC: EC 10:11 → 6ICU 11:56 → 3SUR 08-24 17:56
PROVIDERS: ADMIT Hospitalist; ATTEND Hospitalist
PROC: 30233N1 Transfusion of Nonautologous Red Blood Cells into Peripheral Vein, Percutaneous Approach (ICD-10-PCS; principal; 2017-08-24)
PROC: 0DJ08ZZ Inspection of Upper Intestinal Tract, Via Natural or Artificial Opening Endoscopic (ICD-10-PCS; 2017-08-26)
PROC: 0DJD8ZZ Inspection of Lower Intestinal Tract, Via Natural or Artificial Opening Endoscopic (ICD-10-PCS; 2017-08-26 11:15)
DX: K92.2 Gastrointestinal hemorrhage, unspecified (principal); D62 Acute posthemorrhagic anemia; D75.89 Other specified diseases of blood and blood-forming organs; K57.31 Diverticulosis of large intestine without perforation or abscess with bleeding; K21.0 Gastro-esophageal reflux disease with esophagitis; F10.20 Alcohol dependence, uncomplicated; E78.5 Hyperlipidemia, unspecified; I25.10 Atherosclerotic heart disease of native coronary artery without angina pectoris; I25.2 Old myocardial infarction; Z79.82 Long term (current) use of aspirin; Z79.02 Long term (current) use of antithrombotics/antiplatelets; Z79.899 Other long term (current) drug therapy; Z85.828 Personal history of other malignant neoplasm of skin; Z87.891 Personal history of nicotine dependence; Z95.5 Presence of coronary angioplasty implant and graft; Z87.442 Personal history of urinary calculi; Z87.11 Personal history of peptic ulcer disease
CPT/HCPCS: 36415; 43235; 45330; 80048; 80053; 82550; 82553; 83690; 83735; 84100; 84132; 84484; 85025; 85027; 85610; 85730; 86850; 86900; 86901; 86920; 93005; 96361; 96374; 99285

== ENCOUNTER → 2017-08-23 | Outpatient (CLI) | payer BC ==
[2017-08-23 09:42] LABS: Basophils # (A) 0.1 k/uL (0-0.2); Basophils % (A) 1 %; Eosinophils # (A) 0.3 k/uL (0-0.7); Eosinophils % (A) 3 %; HCT 26.9 % (39.0-53.0); Lymphocytes # (A) 1.9 k/uL (1.0-4.8); Lymphocytes % (A) 21 %; MCHC 31.7 g/dL (31.0-37.0); Mean Platelet Volume 6.4; Monocytes # (A) 0.6 k/uL (0-1.0); Monocytes % (A) 6 %; Neutrophils # (A) 5.8 k/uL (1.3-7.7); Neutrophils % (A) 66 %; Platelet Count 380 k/uL (150-450); RBC 2.75 m/uL (4.30-5.90); RDW 13.2 % (11.5-15.5); WBC 8.8 k/uL (3.8-10.6)
[2017-08-23 09:45] LABS: HGB 8.5 gm/dL (13.0-17.5)
== END | disposition home or self-care (01) ==
LOC: LABWHC1 09:16
PROVIDERS: ATTEND Internal Medicine
DX: K62.5 Hemorrhage of anus and rectum (principal)
CPT/HCPCS: 36415; 85025

== ENCOUNTER 2017-12-22 06:02 | Inpatient (IN) | payer BC ==
[2017-12-22 07:03] LABS: Basophils # (A) 0.1 k/uL (0-0.2); Basophils % (A) 0 %; Eosinophils # (A) 0.1 k/uL (0-0.7); Eosinophils % (A) 1 %; HCT 50.7 % (39.0-53.0); HGB 16.2 gm/dL (13.0-17.5); Lymphocytes # (A) 0.7 k/uL (1.0-4.8); Lymphocytes % (A) 6 %; MCV 93.6 fL (80.0-100.0); Mean Platelet Volume 6.5; Monocytes # (A) 0.6 k/uL (0-1.0); Monocytes % (A) 5 %; Neutrophils # (A) 10.3 k/uL (1.3-7.7); Neutrophils % (A) 87 %; Platelet Count 406 k/uL (150-450); RBC 5.42 m/uL (4.30-5.90); RDW 13.5 % (11.5-15.5); WBC 11.8 k/uL (3.8-10.6)
[2017-12-22 07:14] LABS: Albumin 4.5 g/dL (3.5-5.0); Calcium 10.6 mg/dL (8.4-10.2); Potassium 5.2 mmol/L (3.5-5.1); Total Bilirubin 0.8 mg/dL (0.2-1.3)
[2017-12-22] MEDS ORDERED: MORPHINE SULFATE 2 MG/ML SYRINGE IVP STA (07:23)
[2017-12-22] MEDS ORDERED: FAMOTIDINE 20 MG/2 ML VIAL IV STA (07:23)
[2017-12-22] MEDS ORDERED: ONDANSETRON 4 MG/2 ML VIAL IVP STA (07:23)
--- NOTE | 2017-12-22 07:26 | ED ---
General Adult HPI - General Chief complaint: Abdominal Pain Stated complaint: Abd pain Time Seen by Provider: 12/22/17 07:00 Source: patient, family, RN notes reviewed Mode of arrival: wheelchair Limitations: no limitations - History of Present Illness Initial comments: Patient is a pleasant 62-year-old male presenting to the emergency Department with abdominal discomfort. Symptoms started 2 days ago and gradually increased. Symptoms have been worse last night and patient did not sleep well. Symptoms have been waxing and waning. Discomfort is moderate at this time. Discomfort is somewhat diffuse however more in the lower abdomen. Abdomen does feel distended. Patient has had nausea. Patient has alternated between some constipation and diarrhea. No fevers. No history of similar symptoms previously. - Related Data Home Medications Medication Instructions Recorded Confirmed Aspirin 81 mg PO QAM 05/02/17 12/22/17 Cholecalciferol (Vitamin D3) 2,000 unit PO QAM 05/02/17 12/22/17 [Vitamin D3] Atorvastatin [Lipitor] 80 mg PO QAM 06/17/17 12/22/17 Metoprolol Tartrate [Lopressor] 25 mg PO QAM 06/17/17 12/22/17 Clopidogrel [Plavix] 75 mg PO QAM 08/23/17 12/22/17 Previous Rx's Medication Instructions Recorded Nitroglycerin Sl Tabs [Nitrostat] 0.4 mg SUBLINGUAL Q5M PRN #25 tab 05/04/17 Omeprazole [PriLOSEC] 20 mg PO AC-BRKFST #30 cap 08/26/17 Allergies Allergy/AdvReac Type Severity Reaction Status Date / Time No Known Allergies Allergy Verified 12/22/17 07:43 Review of Systems ROS Statement: Those systems with pertinent positive or pertinent negative responses have been documented in the HPI. ROS Other: All systems not noted in ROS Statement are negative. Constitutional: Denies: fever Eyes: Denies: eye pain ENT: Denies: ear pain Respiratory: Denies: cough Cardiovascular: Denies: chest pain Endocrine: Denies: fatigue Gastrointestinal: Reports: abdominal pain, nausea, diarrhea, constipation Genitourinary: Denies: dysuria Musculoskeletal: Denies: back pain Skin: Denies: rash Neurological: Denies: weakness Past Medical History Past Medical History: Coronary Artery Disease (CAD), Cancer, Chest Pain / Angina , Myocardial Infarction (DC) Additional Past Medical History / Comment(s): 05/02/17 stemi, skin cancer removal-right eyebrow, kidney stone which pt passed on his own. Last Myocardial Infarction Date:: 05/02/17 History of Any Multi-Drug Resistant Organisms: None Reported Past Surgical History: Heart Catheterization With Stent, Tonsillectomy Additional Past Surgical History / Comment(s): skin cancer removal, 3 stents on 05/02/17, 06/21/17 cardiac cath with maximizing medical therapy. Past Anesthesia/Blood Transfusion Reactions: No Reported Reaction Date of Last Stent Placement:: 05/02/17 Past Psychological History: No Psychological Hx Reported Smoking Status: Former smoker Past Alcohol Use History: Daily Past Drug Use History: None Reported - Past Family History Mother Family Medical History: CVA/TIA Father Family Medical History: Cancer Additional Family Medical History / Comment(s): pancreatic General Exam Limitations: no limitations General appearance: alert, in no apparent distress Head exam: Present: atraumatic Eye exam: Present: normal appearance, PERRL ENT exam: Present: normal oropharynx Neck exam: Present: normal inspection Respiratory exam: Present: normal lung sounds bilaterally Cardiovascular Exam: Present: tachycardia, normal heart sounds Expanded Peripheral pulses: 2+: Posterior Tibialis (R), Posterior Tibialis (L) GI/Abdominal exam: Present: distended, tenderness (Moderate diffuse tenderness) , hypoactive bowel sounds. Absent: guarding, rigid, pulsatile mass Extremities exam: Present: normal inspection. Absent: pedal edema, calf tenderness Neurological exam: Present: alert Psychiatric exam: Present: normal affect, normal mood Skin exam: Present: normal color Course Vital Signs 12/22/17 12/22/17 06:04 06:19 Temperature 98.1 F Pulse Rate 141 H 125 H Respiratory 20 16 Rate Blood Pressure 132/94 151/101 O2 Sat by Pulse 95 96 Oximetry - Reevaluation(s) Reevaluation #1: 12/22/17 08:44 Patient does meet criteria for sepsis diagnosed at 8:44 AM. Blood culture and lactic acid have been ordered. IV antibiotics will be ordered. EKG Findings - EKG Comments: EKG Findings:: Sinus tachycardia 129. NJ 1:30. QRS 120. QT 326. QTc 477. Rush indeterminate. Right bundle branch block. No acute ST change. Medical Decision Making - Medical Decision Making Patient reevaluated and only somewhat improved. Patient and family updated on results and plan. Patient states he did have colonoscopy done around [address] Castaneda has been paged for admission. - Lab Data Result diagrams: 18 06:14 12/22/18 06:14 Lab Results 12/22/17 12/22/1718 Range/Units 06:14 06:14 06:14 WBC 11.8 H (3.8-10.6) k/uL RBC 5.42 (4.30-5.90) m/uL Hgb 16.2 (13.0-17.5) gm/dL Hct 50.7 (39.0-53.0) % MCV 93.6 (80.0-100.0) fL MCH 30.0 (25.0-35.0) pg MCHC 32.0 (31.0-37.0) g/dL RDW 13.5 (11.5-15.5) % Plt Count 406 (150-450) k/uL Neutrophils % 87 % Lymphocytes % 6 % Monocytes % 5 % Eosinophils % 1 % Basophils % 0 % Neutrophils # 10.3 H (1.3-7.7) k/uL Lymphocytes # 0.7 L (1.0-4.8) k/uL Monocytes # 0.6 (0-1.0) k/uL Eosinophils # 0.1 (0-0.7) k/uL Basophils # 0.1 (0-0.2) k/uL PT 9.4 (9.0-12.0) sec INR 0.9 (<1.2) APTT 21.1 L (22.0-30.0) sec Sodium 138 (137-145) mmol/L Potassium 5.2 H (3.5-5.1) mmol/L Chloride 93 L (98-107) mmol/L Carbon Dioxide 21 L (22-30) mmol/L Anion Gap 24 mmol/L BUN 16 (9-20) mg/dL Creatinine 1.52 H (0.66-1.25) mg/dL Est GFR (CKD-EPI)AfAm 57 (>60 ml/min/1.73 sqM) Est GFR (CKD-EPI)NonAf 49 (>60 ml/min/1.73 sqM) Glucose 205 H (74-99) mg/dL Calcium 10.6 H (8.4-10.2) mg/dL Total Bilirubin 0.8 (0.2-1.3) mg/dL AST 42 (17-59) U/L ALT 48 (21-72) U/L Alkaline Phosphatase 94 (38-126) U/L Total Protein 8.0 (6.3-8.2) g/dL Albumin 4.5 (3.5-5.0) g/dL Amylase 47 (30-110) U/L Lipase 58 (23-300) U/L - Radiology Data Radiology results: report reviewed (Computed tomography scan of the abdomen and pelvis shows possible mild diverticulitis mid to distal sigmoid colon. This does appear to be causing partial bowel obstruction. There is also 2 suspicious areas and patient will need colonoscopy.) Critical Care Time Critical Care Time: Yes Total Critical Care Time: 32 Disposition Clinical Impression: Partial bowel obstruction, Diverticulitis Disposition: ADMITTED IP TO THIS [facility] Condition: Serious Referrals: Gabriel Braxton MD [Primary Care Provider] - 1-2 days Decision Time: 08:45
[2017-12-22 07:56] LABS: INR 0.9 (<1.2); Prothrombin Time 9.4 sec (9.0-12.0)
[2017-12-22 08:03] LABS: Partial Thromboplastin Time 21.1 sec (22.0-30.0)
--- NOTE | 2017-12-22 08:17 | CT ---
EXAMINATION TYPE: CT abdomen pelvis w con DATE OF EXAM: 12/22/2017 COMPARISON: CT abdomen and pelvis February 09, 2014 HISTORY: Distention CT DLP: 1553 mGycm, Automated Exposure Control for Dose Reduction was Utilized. CONTRAST: CT scan of the abdomen and pelvis is performed without oral but with IV Contrast, patient injected wi th 80 mL of Isovue 300. FINDINGS: LUNG BASES: Dependent atelectasis in both bases is present. Coronary artery calcification and/or sten ts is present. LIVER/GB: No significant abnormality is appreciated. PANCREAS: No significant abnormality is seen. SPLEEN: No significant abnormality is seen. ADRENALS: No significant abnormality is seen. KIDNEYS: No significant abnormality is seen. BOWEL: There is slightly prominent stomach with air-fluid level. There is no suspicious dilatation of duodenal sweep. There are prominent and dilated small bowel loops throughout the abdomen and pelvis with multiple air-fluid levels. Small bowel loops are dilated up to 4.0 cm for reference left anterio r pelvis axial image 74. There are air-fluid levels in prominent fluid-filled colon up through the le ft and sigmoid colonic junction. There is abrupt short segment narrowing in the proximal sigmoid colo n axial image 84 in the left anterior pelvis with then short segment of fluid-filled mid sigmoid colo n contains diverticula near axial image 84 in than just distal to this there is more moderate irregul ar wall thickening with diverticula distal sigmoid colon of the right pelvis. There is perhaps minima l adjacent fat stranding. Distal to this fecal material is seen in nondistended distal sigmoid colon and rectum. PROSTATE/SEMINAL VESICLES: Slight asymmetric bulging of the right prostate peripheral margin is seen without enhancing nodule. LYMPH NODES: No greater than 1cm abdominal or pelvic lymph nodes are appreciated. OSSEOUS STRUCTURES: Dextroconvex scoliosis of lumbar spine is present. There is moderate joint space loss in both hips. There is disc space narrowing and vacuum disc phenomenon at lumbosacral junction. Multilevel facet arthropathy lower lumbar spine is present. OTHER: There is moderate calcified plaque of the the infrarenal abdominal aorta extending into branch vessels. Small fat-containing bilateral inguinal hernias are redemonstrated. IMPRESSION: 1. Possible mild acute diverticulitis in the mid to distal sigmoid colon. This is causing partial bow el obstruction involving small and large bowel proximal to this. There are 2 suspicious areas of conc zeynep in the sigmoid colon, differential includes spasm, stricture, and neoplasm. Colonoscopy follow up after treatment is advised to assess both levels.
[2017-12-22] MEDS ORDERED: NALOXONE 0.4 MG/ML 1 ML VIAL IV PRN (08:45)
[2017-12-22] MEDS ORDERED: ONDANSETRON 4 MG/2 ML VIAL IVP PRN (08:45)
[2017-12-22] MEDS ORDERED: LEVOFLOXACIN 750MG-D5W PMX 750 MG in DEXTROSE/WATER 1 150ML.BAG IVPB STA (08:46)
[2017-12-22] MEDS: SODIUM CHLORIDE 0.9% 1,000 ML IV SCH ×2 (09:13→19:56)
[2017-12-22] MEDS: metroNIDAZOLE-NS PMX 500 MG in SALINE 1 100ML.BAG IVPB SCH ×3 (11:15→23:30)
[2017-12-22] MEDS ORDERED: FAMOTIDINE 20 MG/2 ML VIAL IV SCH (11:15)
[2017-12-22] MEDS: PANTOPRAZOLE 40 MG/10 ML VIAL IV SCH (11:15)
[2017-12-22] MEDS: IOPAMIDOL-300 CONTRAST 30 ML VIAL (ORAL USE) PO PRN ×2 (12:56→13:52)
--- NOTE | 2017-12-22 13:11 | P.GSCN ---
History of Present Illness Consult date: 12/22/17 Reason for Consult: Abdominal pain History of present illness: 62-year-old male presented on the day of admission to the emergency room with a chief complaint of abdominal pain. Patient stated it started on Tuesday he felt bloated and constipated. Stated that he did take a fleets enema with a small amount of stool no blood noted in the stool. There was some relief from the abdominal distention. stated the symptoms reoccurred became more symptomatic attempted to take another fleets enema with no results. Stated that he came into the emergency room because the abdominal pain was intolerable. Abdomen is distended firm with a lot of pressure feeling. Stated that he could belch but could not pass gas. Denied any blood in the stool no hematemesis no nausea no vomiting. Denied chest pain dizziness or lightheadedness Patient had a CAT scan done of the abdomen and pelvis report reviewed showed possible mild diverticulitis mid to distal sigmoid colon likely causing partial small bowel obstruction. Reviewing computerized record patient did have colonoscopy done August [address] Colindres the report indicated there was no evidence of any active bleed scattered diverticulosis of the sigmoid colon severe torturous sigmoid colon which limited the colonoscopy procedure terminated as flexible sigmoidoscopy EGD done August 2017 reviewing the report indicated it showed no active duodenitis no duodenal ulcer no gastric ulcer LA grade erosive esophagitis Patient has a past medical history of coronary artery disease prior coronary stenting, history of diverticulosis, skin cancer Past surgical history cardiac catheterization, skin cancer removal, tonsillectomy. Review of Systems Essentially unremarkable except as mentioned in the present illness Past Medical History Past Medical History: Coronary Artery Disease (CAD), Cancer, Chest Pain / Angina , GI Bleed, Myocardial Infarction (LA) Additional Past Medical History / Comment(s): 08/23/17 lower GI bleed-unknown source, blood loss anemia with transfusion, 05/02/17 stemi, skin cancer removal- right eyebrow, kidney stone which pt passed on his own. Last Myocardial Infarction Date:: 05/02/17 History of Any Multi-Drug Resistant Organisms: None Reported Past Surgical History: Heart Catheterization With Stent, Tonsillectomy Additional Past Surgical History / Comment(s): 08/2017 EGD/colonoscopy, skin cancer removal, 3 stents on 05/02/17, 06/21/17 cardiac cath with maximizing medical therapy. Past Anesthesia/Blood Transfusion Reactions: No Reported Reaction Date of Last Stent Placement:: 05/02/17 Smoking Status: Former smoker - Past Family History Mother Family Medical History: CVA/TIA Father Family Medical History: Cancer Additional Family Medical History / Comment(s): pancreatic Medications and Allergies Home Medications Medication Instructions Recorded Confirmed Type Aspirin 81 mg PO QAM 05/02/17 12/22/17 History Cholecalciferol (Vitamin D3) 2,000 unit PO QAM 05/02/17 12/22/17 History [Vitamin D3] Nitroglycerin Sl Tabs [Nitrostat] 0.4 mg SUBLINGUAL Q5M PRN #25 tab 05/04/17 Rx Atorvastatin [Lipitor] 80 mg PO QAM 06/17/17 12/22/17 History Metoprolol Tartrate [Lopressor] 25 mg PO QAM 06/17/17 12/22/17 History Clopidogrel [Plavix] 75 mg PO QAM 08/23/17 12/22/17 History Omeprazole [PriLOSEC] 20 mg PO AC-BRKFST #30 cap 08/26/17 12/22/17 Rx Allergies Allergy/AdvReac Type Severity Reaction Status Date / Time No Known Allergies Allergy Verified 12/22/17 07:43 Surgical - Exam Vital Signs Temp Pulse Resp BP Pulse Ox 98.1 F 141 H 20 132/94 95 12/22/17 06:04 12/22/17 06:04 12/22/17 06:04 12/22/17 06:04 12/22/17 06:04 GENERAL APPEARANCE: patient is alert, oriented,x 3 in no acute distress. Denies any dizziness lightheadedness shortness of breath or chest pain VITAL SIGNS: Reviewed HEENT: Head is normocephalic and atraumatic. Pupils are equal and reactive. The nares are patent. Oropharynx is clear without lesions. NECK: Supple without lymphadenopathy. Traches midline. HEART: S1, S2. Regular rate and rhythm. No murmur noted LUNGS: No crackles or wheezes are heard. On room air ABDOMEN: Diffuse tenderness firm distended few hypoactive bowel tones reports no nausea vomiting No peritoneal signs. No palpable organomegaly or masses. EXTREMITIES: Normal skin color and turgor. No cyanosis, rash, ulceration, clubbing or edema. Radial pedal pulses are 2/4 bilaterally. NEUROLOGICAL: No focal deficits. Strength and sensation are grossly intact. Results - Labs 12/22/17 06:14 12/22/17 06:14 Abnormal Lab Results - Last 24 Hours (Table) 12/22/17 12/22/17 12/22/17 Range/Units 06:14 06:14 06:14 WBC 11.8 H (3.8-10.6) k/uL Neutrophils # 10.3 H (1.3-7.7) k/uL Lymphocytes # 0.7 L (1.0-4.8) k/uL APTT 21.1 L (22.0-30.0) sec Potassium 5.2 H (3.5-5.1) mmol/L Chloride 93 L (98-107) mmol/L Carbon Dioxide 21 L (22-30) mmol/L Creatinine 1.52 H (0.66-1.25) mg/dL Glucose 205 H (74-99) mg/dL Calcium 10.6 H (8.4-10.2) mg/dL Diabetes panel 12/22/17 Range/Units 06:14 Sodium 138 (137-145) mmol/L Potassium 5.2 H (3.5-5.1) mmol/L Chloride 93 L (98-107) mmol/L Carbon Dioxide 21 L (22-30) mmol/L BUN 16 (9-20) mg/dL Creatinine 1.52 H (0.66-1.25) mg/dL Glucose 205 H (74-99) mg/dL Calcium 10.6 H (8.4-10.2) mg/dL AST 42 (17-59) U/L ALT 48 (21-72) U/L Alkaline Phosphatase 94 (38-126) U/L Total Protein 8.0 (6.3-8.2) g/dL Albumin 4.5 (3.5-5.0) g/dL Calcium panel 12/22/17 Range/Units 06:14 Calcium 10.6 H (8.4-10.2) mg/dL Albumin 4.5 (3.5-5.0) g/dL Pituitary panel 12/22/17 Range/Units 06:14 Sodium 138 (137-145) mmol/L Potassium 5.2 H (3.5-5.1) mmol/L Chloride 93 L (98-107) mmol/L Carbon Dioxide 21 L (22-30) mmol/L BUN 16 (9-20) mg/dL Creatinine 1.52 H (0.66-1.25) mg/dL Glucose 205 H (74-99) mg/dL Calcium 10.6 H (8.4-10.2) mg/dL Adrenal panel 12/22/17 Range/Units 06:14 Sodium 138 (137-145) mmol/L Potassium 5.2 H (3.5-5.1) mmol/L Chloride 93 L (98-107) mmol/L Carbon Dioxide 21 L (22-30) mmol/L BUN 16 (9-20) mg/dL Creatinine 1.52 H (0.66-1.25) mg/dL Glucose 205 H (74-99) mg/dL Calcium 10.6 H (8.4-10.2) mg/dL Total Bilirubin 0.8 (0.2-1.3) mg/dL AST 42 (17-59) U/L ALT 48 (21-72) U/L Alkaline Phosphatase 94 (38-126) U/L Total Protein 8.0 (6.3-8.2) g/dL Albumin 4.5 (3.5-5.0) g/dL Assessment and Plan Assessment: Impression Present on admission abdominal pain nausea vomiting suspect due to partial bowel obstruction involving small and large bowel CAT scan abdomen and pelvis obtained on admission report indicates mild acute diverticulitis mid to distal sigmoid colon causing partial small bowel obstruction involving small large bowel Known coronary artery disease with prior coronary stenting History of tobacco abuse recently quit A recent colonoscopy to the sigmoid colon with flexible sigmoidoscopy done August 2017 showed scattered diverticulosis of the sigmoid colon with severe torturous sigmoid colon with no evidence of an active bleed as part of a workup for acute blood loss anemia A recent EGD August 2017 no evidence of an active duodenitis, no duodenal ulcer: Gastric ulcer Plan Computed tomography scan abdomen and pelvis now follow up on results Bowel rest IV fluid for hydration Monitor labs DVT and GI prophylaxis Pain control Further surgical recommendations pending will follow with you Surgical consultation note dictated for Dr. bud arzate on behalf of Dr. Colindres The above impression and plan of care have been discussed and directed by signing physician. Ebony Walton nurse practitioner acting as scribe for signing physician.
[2017-12-22] MEDS: MORPHINE SULFATE 2 MG/ML SYRINGE IV PRN ×2 (13:58→20:59)
[2017-12-22] MEDS: METOCLOPRAMIDE 5 MG/ML 2 ML VIAL IVP PRN ×2 (14:06→18:35)
--- NOTE | 2017-12-22 14:53 | CT ---
EXAMINATION TYPE: CT abdomen pelvis wo con DATE OF EXAM: 12/22/2017 COMPARISON: 12/22/2017 HISTORY: Abdominal distention CT DLP: 396.9 mGycm Automated exposure control for dose reduction was used. TECHNIQUE: Helical acquisition of images was performed from the lung bases through the pelvis. FINDINGS: Lack of intravenous contrast limits evaluation of the solid viscera. LUNG BASES: Redemonstration of bibasilar subsegmental atelectasis. LIVER/GB: New layering high density within the gallbladder represents vicarious excretion of contrast from the prior recent exam earlier on the same day. PANCREAS: No significant abnormality is seen. SPLEEN: No significant abnormality is seen. ADRENALS: Very mild thickening without nodularity of the adrenal gland suggests mild underlying adren al gland hyperplasia. KIDNEYS: Residual contrast is seen excreting within the pelvic calyceal system from CT earlier on the same date. FREE AIR: No free air is visualized URINARY BLADDER: No significant abnormality is seen. OSSEOUS STRUCTURES: Dextroconvex scoliosis of the lumbar spine is again seen in combination with deg enerative changes of the thoracolumbar spine and femoral acetabular joints. No suspicious osseous les ions are seen. Probable bone islands are noted within both femora. BOWEL AND ADENOPATHY: The previously seen mucosal thickening is less conspicuous without intravenous contrast of the sigmoid colon however bowel wall thickening, fascial thickening and pericolonic infl ammatory fat stranding and a short segment within the sigmoid colon on series 3 image 75 surrounds mu ltiple diverticula again compatible with acute diverticulitis. Proximal to this the previously seen a sonya of focal stricturing on the exam earlier the same day is less conspicuous, however still narrowed in comparison to the caliber of the more proximal colon. There is persistent dilatation of the small bowel with numerous air-fluid levels throughout. In the same region as measured on the prior exam th e small bowel measures up to 4.5 cm and previously measured up to 3.7 cm. Area of luminal narrowing w ithin the small bowel in the right lower quadrant near the terminal ileum is more pronounced currentl y than on the prior and could relate to peristalsis. Multiple prominent central abdominal lymph nodes are seen on axial series 3 images 50 through 54. The largest lymph node measures 1.6 cm on series 6 image 53. IMPRESSION: 1. REDEMONSTRATION OF FINDINGS COMPATIBLE WITH ACUTE SIGMOID DIVERTICULITIS, HOWEVER THERE REMAINS CO NCERN FOR UNIFOCAL OR MULTIFOCAL COLONIC NEOPLASM MULTIPLE PROMINENT AND FEW ENLARGED MESENTERIC L YMPH NODES ARE ALSO SEEN. HOWEVER THESE COULD BE REACTIVE AND THEREFORE COLONOSCOPY IS RECOMMENDED AF TER TREATMENT. 2. PROGRESSIVE DILATATION OF THE SMALL BOWEL IN COMPARISON TO THE EXAM EARLIER ON THE SAME DAY NOW ME ASURING UP TO 4.5 CM AND PREVIOUSLY MEASURING UP TO 3.7 CM, HOWEVER NO FOCAL TRANSITION POINT IS SEEN AND FLUID IS NOTED WITHIN THE COLON SUGGESTING PROGRESSIVE REACTIVE ILEUS. FOLLOW-UP ABDOMINAL RADIO GRAPHS ARE RECOMMENDED TO ENSURE CONTRAST EXTENDS INTO THE COLON.
[2017-12-22] MEDS: METOPROLOL TARTRATE 25 MG TAB PO SCH (17:23)
[2017-12-22] MEDS: ATORVASTATIN 80 MG TAB PO SCH (17:23)
[2017-12-22] MEDS ORDERED: SODIUM CHLORIDE 0.9% 2,000 ML IV ONE (17:25)
[2017-12-22] MEDS ORDERED: IOPAMIDOL-300 CONTRAST 30 ML VIAL (ORAL USE) PO PRN (17:28)
--- NOTE | 2017-12-22 17:33 | HP ---
HISTORY AND PHYSICAL ADMISSION: December 22, 2017. PRESENTING COMPLAINT: Abdominal pain. HISTORY OF PRESENTING COMPLAINT: This is a 62-year-old patient who was here in August of this year, admitted to the hospital with acute GI bleed. The patient does drink about 6 beers a day. The patient has known coronary artery disease with stent to the RCA and diffuse disease in the LAD. The patient continues to drink about 6 beers a day. On the last admission, patient did have a EGD by Dr. Colindres that was unremarkable and colonoscopy had to be abandoned with simply a sigmoidoscopy because the colon was very tortuous and further colon could not be negotiated. The patient now presents with increasing abdominal pain for 2 days, distended, nausea. The patient gave himself a Fleet's enema and had a small bowel movement. The patient still has significant distention and presented for the same. Patient continues to drink about 6 beers a day. The patient CT scan shows evidence of possible bowel obstruction, possible diverticulitis, multiple air-fluid levels. REVIEW OF SYSTEMS: Constitutional: Tired. HEENT none. Respiratory none. Cardiovascular none. Gastrointestinal as above. Genitourinary none. Musculoskeletal none. Dermatological, hematologic, lymphatics none. Psychiatry none. Neurological none. PAST MEDICAL HISTORY: Coronary artery disease, GI bleed, source unknown. Significant diverticulosis. Skin cancer removed over right eyebrow. Kidney stone which the patient passed on his own. PAST SURGICAL HISTORY: Cardiac cath with stent. The patient did have 3 stents placed on April 2017. SOCIAL HISTORY: . The patient smoked for 20 years. Stopped in March of 2017. Continues to drink 5-6 beers a day. FAMILY HISTORY: Pancreatic cancer and stroke. HOME MEDICATIONS: 1. Prilosec 20 mg a day. 2. Nitrostat 0.4 sublingual q.5 p.r.n. 3. Lopressor 25 p.o. daily. 4. Plavix 75 mg p.o. daily. 5. Vitamin D3 2000 units p.o. daily. 6. Lipitor 80 mg p.o. daily. 7. Aspirin 81 mg p.o. daily. ALLERGIES: None. PHYSICAL EXAMINATION: VITAL SIGNS: Temperature 98.1, pulse 141, respiration 20, blood pressure 132/94, pulse ox 95% on room air. GENERAL APPEARANCE: Average built, sitting up, not in distress. EYES: Pupils equal. Conjunctivae normal. HEENT: External appearance of nose and ears normal. Oral cavity normal. NECK: JVD not raised. Mass not palpable. RESPIRATORY: Effort normal. LUNGS: Fair entry. CARDIOVASCULAR: First and second sounds normal. No edema. ABDOMEN: Distended, diffuse tenderness. No guarding or rigidity. Bowel sounds are hyperactive. LYMPHATIC: No lymph nodes palpable in the neck or axillae. PSYCHIATRY: Alert and oriented times three. Mood and affect slightly anxious- appearing. NEUROLOGICAL: Pupils equal. Cranial nerves grossly intact. Power and sensation grossly intact. INVESTIGATIONS: White count 11.8, hemoglobin 16.2, potassium 4.2, BUN 16, creatinine 1.52. The patient's creatinine was 0.97 in August, CT scan of the abdomen and pelvis showing acute sigmoid diverticulitis and is a concern for colonic neoplasm and enlarged mesenteric lymph nodes, and there is dilatation of the small bowel. EKG shows sinus tachycardia with right bundle branch block. ASSESSMENT: 1. This patient presents with two days of progressive distention of the abdomen, possible sigmoid diverticulitis and bowel obstruction that could be ileus. 2. Chronic alcohol use. Patient drinks about 5-6 beers a day. 3. Coronary artery disease with stent to the RCA in March 2017 and diffuse disease to LAD. 4. Acute renal failure. Creatinine has gone 0.8 to 1.53. 5. Hyperkalemia in the setting of acute renal failure. 6. Hypercalcemia from dehydration. PLAN: Patient is put on IV Levaquin and Flagyl. Home medications will be resumed. Consultation put to Gastroenterology and General surgery was made. The patient also will be put on remote tele and continue with antiplatelet agents. The patient is also getting IV fluids. Care was discussed with the patient. Also put the patient on a CIWA scale. Copy to Dr. Braxton. MMODL / IJN: [id number] /
--- NOTE | 2017-12-22 18:58 | XR ---
EXAMINATION TYPE: XR abdomen 2V DATE OF EXAM: 12/22/2017 COMPARISON: 02/11/2014 HISTORY: Abdominal distention TECHNIQUE: 3 views FINDINGS: Supine and upright views of the abdomen show multiple dilated loops of small bowel with air and fluid. There is contrast in the urinary bladder. There is no evidence of free air. There is a re lative lack of large bowel gas. IMPRESSION: Dilated small bowel consistent with mechanical small bowel obstruction. Small bowel is mo re dilated than old exam.
[2017-12-22 19:44] LABS: Appearance,Urine Clear (Clear); Bacteria,Urine Rare /hpf; Bilirubin,Urine Negative (Negative); Blood,Urine Negative (Negative); Color,Urine Yellow; Glucose,Urine (UA) Negative (Negative); Ketones,Urine 1+ (Negative); Leukocyte Esterase,Urine Negative (Negative); Mucus,Urine Few /hpf; Nitrite,Urine Negative (Negative); PH, Urine 5.5 (5.0-8.0); Protein,Urine 1+ (Negative); RBC,Urine 1 /hpf (0-5); WBC,Urine 2 /hpf (0-5)
[2017-12-22 19:59] LABS: Specific Gravity,Urine >1.050 (1.001-1.035)
[2017-12-22] MEDS ORDERED: LORazepam 2 MG/ML INJ IV PRN ×2 (20:02)
[2017-12-22] MEDS: ASPIRIN 81 MG PO SCH (20:57)
[2017-12-22] MEDS: CLOPIDOGREL 75 MG TAB PO SCH (20:57)
--- NOTE | 2017-12-22 21:06 | CT ---
EXAMINATION TYPE: CT abdomen pelvis wo con DATE OF EXAM: 12/22/2017 COMPARISON: Today HISTORY: Abdominal distention and pain. CT DLP: 503 mGycm Automated exposure control for dose reduction was used. TECHNIQUE: Helical acquisition of images was performed from the lung bases through the pelvis. FINDINGS: There is minimal subsegmental atelectasis at the lung bases. Liver spleen pancreas appear normal. Noe e ducts are not dilated. Gallbladder appears normal. There are multiple dilated fluid-filled loops of small bowel. There is no free air. Small bowel measu res up to 4.4 cm. There is gas-filled large bowel which shows mild distention in the transverse colon and right colon. There is fluid level in the ascending colon. There are multiple enlarged small joellen l mesenteric lymph nodes that measure up to 1.7 cm x 1 cm. There are multiple sigmoid diverticula. Th ere is no evidence of diverticulitis. There is mild thickening of the wall of the mid sigmoid colon. IMPRESSION: MARKEDLY DILATED SMALL BOWEL APPEARS INCREASED COMPARED TO EXAM THIS MORNING AT 8:00 AM. SMALL BOWEL MEASURES UP TO 3.5 TO 4 CM THIS MORNING AND NOW MEASURES 4.5 CM. THERE ARE LARGE BOWEL FLUID LEVELS I N THE RIGHT COLON. THIS PATTERN PROBABLY RELATES TO GENERALIZED ILEUS. THERE IS SIGMOID DIVERTICULOSI S WITHOUT DEFINITE DIVERTICULITIS. I DO NOT SEE ANY EVIDENCE OF MECHANICAL OBSTRUCTION OF THE LARGE B OWEL.
[2017-12-23] MEDS: SODIUM CHLORIDE 0.9% 1,000 ML IV SCH ×4 (01:40→23:28)
[2017-12-23] MEDS: METOCLOPRAMIDE 5 MG/ML 2 ML VIAL IVP PRN (02:42)
[2017-12-23] MEDS: metroNIDAZOLE-NS PMX 500 MG in SALINE 1 100ML.BAG IVPB SCH ×4 (05:03→23:26)
[2017-12-23] MEDS: MORPHINE SULFATE 2 MG/ML SYRINGE IV PRN ×4 (05:03→21:37)
[2017-12-23 06:56] LABS: ALT 38 U/L (21-72); AST 25 U/L (17-59); Albumin 2.7 g/dL (3.5-5.0); Alkaline Phosphatase 52 U/L (38-126); Anion Gap 11 mmol/L; Blood Urea Nitrogen 13 mg/dL (9-20); Calcium 8.5 mg/dL (8.4-10.2); Carbon Dioxide 21 mmol/L (22-30); Chloride 104 mmol/L (98-107); Glucose 105 mg/dL (74-99); Potassium 4.5 mmol/L (3.5-5.1); Sodium 136 mmol/L (137-145); Total Bilirubin 0.5 mg/dL (0.2-1.3); Total Protein 5.3 g/dL (6.3-8.2)
[2017-12-23 07:08] LABS: Basophils % (A) 1 %; Eosinophils % (A) 0 %; HCT 39.5 % (39.0-53.0); HGB 13.2 gm/dL (13.0-17.5); Lymphocytes # (A) 0.7 k/uL (1.0-4.8); Lymphocytes % (A) 13 %; MCH 30.7 pg (25.0-35.0); MCHC 33.4 g/dL (31.0-37.0); MCV 91.9 fL (80.0-100.0); Mean Platelet Volume 6.2; Monocytes # (A) 0.6 k/uL (0-1.0); Monocytes % (A) 10 %; Neutrophils % (A) 73 %; Platelet Count 301 k/uL (150-450); RDW 13.7 % (11.5-15.5); WBC 5.5 k/uL (3.8-10.6)
[2017-12-23] MEDS: ATORVASTATIN 80 MG TAB PO SCH (08:58)
[2017-12-23] MEDS: METOPROLOL TARTRATE 25 MG TAB PO SCH (08:58)
[2017-12-23] MEDS: PANTOPRAZOLE 40 MG/10 ML VIAL IV SCH (08:58)
[2017-12-23] MEDS: LEVOFLOXACIN 750MG-D5W PMX 750 MG in DEXTROSE/WATER 1 150ML.BAG IVPB SCH (08:58)
--- NOTE | 2017-12-23 09:48 | CT ---
EXAMINATION TYPE: CT abdomen pelvis wo con DATE OF EXAM: 12/23/2017 COMPARISON: 12/22/2017 INDICATION: Follow up to prior CT. Obstruction DLP: 1105 mGycm, Automated exposure control for dose reduction was used. CONTRAST: 0 mL of Isovue 370. Study performed without Oral Contrast TECHNIQUE: Axial images were obtained from above the diaphragm to the pubic rami in the axial plane a t 5 mm thick sections. Reconstructed images are reviewed on the computer in the coronal plane. FINDINGS: Limited CT sections are obtained the lung bases. Small right pleural effusion is developed. Coronary artery calcification is present.. CT ABDOMEN: Contrast remains within the stomach in the proximal small bowel loops. This extends to di stal small bowel loops. Contrast enhancement however from the previous evening appears somewhat limit ed. The distal ileum and the terminal ileum appears less prominent than the more proximal small bowel loops. A zone of transition however is not identified. Some pneumatosis intestinalis may be developi ng at the cecum. Liver: Small amount of ascites is adjacent to the liver which may be subtly increased from comparison . Spleen: Normal Pancreas: Normal Adrenal glands: The adrenal glands are normal. Gallbladder: Normal Kidneys: No masses are evident. No hydronephrosis is present. No cysts are present. Study is perfo rmed without oral contrast. Aorta: Vascular calcification is within the aorta. Inferior vena cava: Normal. CT PELVIS: Small amount of free fluid is within the pelvis. Small bowel loops are dilated and fluid-filled. Contrast has some advancement from the previous exami nation into the ileum which is dilated. Contrast appears to be diffusing through the fluid extends to the distal ileum. Some contrast may be within the cecum and ascending colon. Significant advancement however is not evident. Small bowel loops remain dilated. Appendix: Not visualized Urinary bladder: Normal. Genitourinary structures: Prostate appears normal Osseous structures: No suspicious lytic or sclerotic lesions. IMPRESSIONS: 1. Significant ileus with dilated loops of bowel. 2. Obstruction is not clearly identified. Some faint contrast diffusing through the fluid appears to have reached the cecum aerated 3. Interval development of some pneumatosis intestinalis at the cecum. 4 report was called and case d iscussed with Dr. Lewis by Dr. Kemp by telephone at [id number] hours 12/23/2017
--- NOTE | 2017-12-23 11:15 | P.PN ---
Progress Note - Text Progress Note Date: 12/23/17 The patient is resting Bed. Patient's had several CAT scans performed. He appears to have an ileus. There is no significant mechanical obstruction. His CAT scans were reviewed with Dr. Kemp. On exam his vital signs are stable. His abdomen soft. The abdomen is quite distended. Patient had a NG tube placed. 4 mL of bilious fluid was removed. Patient will continue to have NG tube to low suction. He'll remain nothing by mouth until his ileus resolves.
[2017-12-23] MEDS: ASPIRIN 81 MG PO SCH (11:49)
[2017-12-23] MEDS: CLOPIDOGREL 75 MG TAB PO SCH (11:49)
--- NOTE | 2017-12-23 13:36 | P.CRDCN ---
History of Present Illness History of present illness: Mr. Gomes is a pleasant 62-year-old male past medical history significant for coronary artery disease with angioplasty x3 of the RCA 04/2017 he also had moderate disease of the circumflex artery and diffuse disease to LAD. His most recent catheterization was performed in June 2017 and revealed patent stents to RCA and no progression of disease to LAD or circumflex. He has been maintained on aspirin, plavix, lopressor and atorvastatin. He has presented to the hospital with abdominal pain and distension. CT performed revealed evidence of acute sigmoid diverticulitis and concern for colonic neoplasm as well as dilitation of the small bowel suggesting ileus. He has undergone serial CT's for ongoing evaluation per surgery. Most CT performed this morning obtained imaging of the lung bases and reveals a small right pleural effusion has developed. We have been asked to see him secondary to history of CAD. Surgery has recommended GI rest and NG tube with ongoing evaluation. Currently Dr. Xiao has held anti-platelets should he require surgery. He denies symptoms of chest pain, shortness of breath, diaphoresis, palpitations or dizziness. He states he hasn't had a bowel movement in 3 days and is starting to feel some movement occur although he has not yet passed any gas. He denies bleeding from the rectum or hematemesis. EKG reveals sinus tachycardia heart rate 129 with right bundle branch block. This is not new. Consistent with old EKG from August. Laboratory data reviewed, hemoglobin 13.2 down from 16.2 yesterday., platelets 301, sodium 136, potassium 4.5, creatinine 0.76. Current cardiac medications include aspirin 81 mg daily, atorvastatin 80 mg daily, Plavix 75 mg daily and Lopressor 25 mg daily. He also takes Prilosec and vitamin D. Most recent echocardiogram reveals preserved left ventricular systolic function with ejection fraction 50-55%, mild aortic regurgitation, mild MR and mild TR. Review of Systems At the time of exam: CONSTITUTIONAL: Denies fever. Denies chills. EYES: Denies blurred vision. Denies vision changes. Denies eye pain. EARS, NOSE, MOUTH & THROAT: Denies headache. Denies sore throat. Denies ear pain. CARDIOVASCULAR: Denies chest pain. Denies shortness of breath. Denies orthopnea. Denies PND. Denies palpitations. RESPIRATORY: Denies cough. GASTROINTESTINAL: Complains of abdominal pain. Denies diarrhea. Complains of constipation. Denies nausea. Denies vomiting. MUSCULOSKELETAL: Denies myalgias. INTEGUMENTARY: Denies pruitis. Denies rash. NEUROLOGIC: Denies numbness. Denies tingling. Denies weakness. PSYCHIATRIC: Denies anxiety. Denies depression. ENDOCRINE: Denies fatigue. Denies weight change. Denies polydipsia. Denies polyurina. GENITOURINARY: Denies burning, hematuria or urgency with micturation. HEMATOLOGIC: Denies history of anemia. Denies bleeding. Past Medical History Past Medical History: Coronary Artery Disease (CAD), Cancer, Chest Pain / Angina , GI Bleed, Myocardial Infarction (MS) Additional Past Medical History / Comment(s): 08/23/17 lower GI bleed-unknown source, blood loss anemia with transfusion, 05/02/17 stemi, skin cancer removal- right eyebrow, kidney stone which pt passed on his own. Last Myocardial Infarction Date:: 05/02/17 History of Any Multi-Drug Resistant Organisms: None Reported Past Surgical History: Heart Catheterization With Stent, Tonsillectomy Additional Past Surgical History / Comment(s): 08/2017 EGD/colonoscopy, skin cancer removal, 3 stents on 05/02/17, 06/21/17 cardiac cath with maximizing medical therapy. Past Anesthesia/Blood Transfusion Reactions: No Reported Reaction Date of Last Stent Placement:: 05/02/17 Smoking Status: Former smoker - Past Family History Mother Family Medical History: CVA/TIA Father Family Medical History: Cancer Additional Family Medical History / Comment(s): pancreatic Medications and Allergies Home Medications Medication Instructions Recorded Confirmed Type Aspirin 81 mg PO QAM 05/02/17 12/22/17 History Cholecalciferol (Vitamin D3) 2,000 unit PO QAM 05/02/17 12/22/17 History [Vitamin D3] Nitroglycerin Sl Tabs [Nitrostat] 0.4 mg SUBLINGUAL Q5M PRN #25 tab 05/04/17 Rx Atorvastatin [Lipitor] 80 mg PO QAM 06/17/17 12/22/17 History Metoprolol Tartrate [Lopressor] 25 mg PO QAM 06/17/17 12/22/17 History Clopidogrel [Plavix] 75 mg PO QAM 08/23/17 12/22/17 History Omeprazole [PriLOSEC] 20 mg PO AC-BRKFST #30 cap 08/26/17 12/22/17 Rx Allergies Allergy/AdvReac Type Severity Reaction Status Date / Time No Known Allergies Allergy Verified 12/22/17 07:43 Physical Exam Vitals: Vital Signs Temp Pulse Resp BP Pulse Ox 12/23/17 07:17 98.3 F 89 18 124/84 92 L 12/23/17 00:22 98.2 F 84 15 134/84 94 L 12/22/17 19:58 97.0 F L 81 16 144/89 97 12/22/17 14:59 97.3 F L 102 H 18 115/72 95 Intake and Output 12/22/17 12/23/17 12/23/17 22:59 06:59 14:59 Intake Total 250 1250 Output Total 500 200 Balance -250 1050 Intake: IV 250 1250 Sodium Chloride 0.9% 1, 250 1250 000 ml @ 125 mls/hr IV . Q8H [facility] Rx#:[id number] Output: Urine 500 200 Straight 500 200 Blood pressure 124/84 heart rate 89 afebrile maintaining oxygen saturation on room air GENERAL: This is a 62-year-old male in no apparent distress at the time of my examination. Pael appearance. HEENT: Head is atraumatic, normocephalic. Pupils are equal, round. Sclerae anicteric. Conjunctivae are clear. Mucous membranes of the mouth are moist. Neck is supple. There is no jugular venous distention. No carotid bruit is heard. NG tube in place. LUNGS: Clear to auscultation no wheezes, rales or rhonchi. No chest wall tenderness is noted on palpation or with deep breathing. HEART: Regular rate and rhythm without murmurs, rubs or gallops. S1 and S2 heard. ABDOMEN: Firm, nontender, distended, no bowel sounds. No organomegaly noted. EXTREMITIES: No evidence of peripheral edema and no calf tenderness noted. VASCULAR: Radial and dorsalis pedis pulses palpated, no evidence of clubbing. NEUROLOGIC: Patient is awake, alert and oriented x3. Results 12/23/17 06:20 12/23/17 06:20 Cardiac Enzymes 12/23/17 Range/Units 06:20 AST 25 (17-59) U/L CBC 12/23/17 Range/Units 06:20 WBC 5.5 (3.8-10.6) k/uL RBC 4.30 (4.30-5.90) m/uL Hgb 13.2 D (13.0-17.5) gm/dL Hct 39.5 (39.0-53.0) % Plt Count 301 (150-450) k/uL Comprehensive Metabolic Panel 12/23/17 Range/Units 06:20 Sodium 136 L (137-145) mmol/L Potassium 4.5 (3.5-5.1) mmol/L Chloride 104 (98-107) mmol/L Carbon Dioxide 21 L (22-30) mmol/L BUN 13 (9-20) mg/dL Creatinine 0.76 (0.66-1.25) mg/dL Glucose 105 H (74-99) mg/dL Calcium 8.5 (8.4-10.2) mg/dL AST 25 (17-59) U/L ALT 38 (21-72) U/L Alkaline Phosphatase 52 (38-126) U/L Total Protein 5.3 L (6.3-8.2) g/dL Albumin 2.7 L (3.5-5.0) g/dL Current Medications Generic Name Dose Route Start Last Admin Trade Name Freq PRN Reason Stop Dose Admin Aspirin 81 mg 12/22/17 17:00 12/23/17 11:49 [facility]irin PO Not Given [facility] Atorvastatin Calcium 80 mg 12/22/17 16:15 12/23/17 08:58 Lipitor PO 80 mg QAM [facility] Administration Clopidogrel Bisulfate 75 mg 12/22/17 17:00 12/23/17 11:49 Plavix PO Not Given QAM [facility] Sodium Chloride 1,000 mls @ 125 mls/hr 12/22/17 08:45 12/23/17 11:49 Saline 0.9% IV Not Given .Q8H [facility] Levofloxacin 750 mg/ IV 150 mls @ 100 mls/hr 12/23/17 09:00 12/23/17 08:58 Solution IVPB 100 mls/hr Q24H [facility] Administration Metronidazole 500 mg/ IV 100 mls @ 100 mls/hr 12/22/17 12:00 12/23/17 05:03 Solution IVPB 100 mls/hr Q6HR [facility]ELVIN Administration Lorazepam 1 mg 12/22/17 20:02 Ativan IV Q2HR PRN CIWA 8 or 9 Lorazepam 1 mg 12/22/17 20:02 Ativan IV Q1HR PRN CIWA 10 to 15 Lorazepam 2 mg 12/22/17 20:02 Ativan IV 12/24/17 20:02 Q10M PRN CIWA 16 or higher Metoclopramide HCl 5 mg 12/22/17 08:48 12/23/17 02:42 Reglan IVP 5 mg Q6HR PRN Administration Nausea And Vomiting Metoprolol Tartrate 25 mg 12/22/17 16:15 12/23/17 08:58 Lopressor PO 25 mg QAM [facility]EL[facility]IN Administration Morphine Sulfate 4 mg 12/22/17 08:45 12/23/17 09:49 Morphine Sulfate (Inj) IV 4 mg Q4HR PRN Administration Severe Pain Naloxone HCl 0.2 mg 12/22/17 08:45 Narcan IV Q2M PRN Opioid Reversal Pantoprazole Sodium 40 mg 12/22/17 09:00 12/23/17 08:58 Protonix IV 40 mg DAILY MELVIN Administration Intake and Output 12/22/17 12/23/17 12/23/17 22:59 06:59 14:59 Intake Total 250 1250 Output Total 500 200 Balance -250 1050 Intake: IV 250 1250 Sodium Chloride 0.9% 1, 250 1250 000 ml @ 125 mls/hr IV . Q8H [facility] Rx#:[id number] Output: Urine 500 200 Straight 500 200 12/23/17 06:20 12/23/17 06:20 Assessment and Plan Assessment: ASSESSMENT 1. Ileus, bowel rest and decompression with NG tube ongoing per surgery. 2. Sigmoid diverticulitis, receiving IV antibiotics 3. History of known coronary artery disease status post angioplasty April 2017 currently on dual anti-platelet therapy 4. Former tobacco use, quit 04/2017 5. Chronic daily alcohol use PLAN Ongoing medical management of ileus and diverticulitis. Plavix and aspirin has been held per surgery pending the need for possible surgical intervention. This should be resumed as soon as possible per surgery recommendations. Thank you kindly for this consultation. Nurse Practitioner note has been reviewed, I agree with a documented findings and plan of care. Patient was seen and examined.
[2017-12-23] MEDS: BENZOCAINE/MENTHOL LOZENG 1 EACH LOZENGE MUCOUS MEM PRN ×2 (15:30→18:58)
--- NOTE | 2017-12-23 23:16 | PN ---
PROGRESS NOTE DATE OF SERVICE: 12/23/2017. PRESENTING COMPLAINT: Abdominal pain. INTERVAL HISTORY: This patient presented with a small-bowel obstruction, still remains distended, has not had any flatus. NG tube was being placed this morning. Feels rather uncomfortable. REVIEW OF SYSTEMS: Done for constitutional, cardiovascular, GI, pulmonary; relevant findings as above. CURRENT MEDICATIONS: Reviewed. Aspirin and Plavix have been held by surgery. Getting IV fluids. EXAMINATION: Temperature 98.3, pulse 59, respirations 18, blood pressure 124/84, pulse ox 92% on room air. GENERAL APPEARANCE: Sitting up, somewhat anxious-appearing. EYES: Pupils equal. Conjunctivae normal. HEENT: External nose and ears normal. Oral cavity normal. NECK: JVD not raised. Mass not palpable. RESPIRATORY: Effort increased. LUNGS: Fair air entry. CARDIOVASCULAR: First and second sounds normal. No edema. ABDOMEN: Distended, diffusely tender. No guarding or rigidity. Bowel sounds present. LYMPHATIC: No lymph node palpable in neck or axillae. PSYCHIATRY: Alert and oriented x3. Mood and affect anxious-appearing. INVESTIGATIONS: White count 5.5, potassium 4.5, creatinine 0.76. Abdominal x-ray showing ileus. ASSESSMENT: 1. Acute severe ileus versus small-bowel obstruction, clinically slow to respond. 2. Chronic alcohol use. 3. Coronary artery with stent to the right coronary artery in March 2017 and diffuse disease to the left anterior descending. 4. Acute renal failure, prerenal. Creatinine has come down. 5. Hyperkalemia in the setting of acute renal failure, improved. 6. Hypercalcemic dehydration. PLAN: NG tube is being placed. Antibiotics are to continue. The patient is being followed by Dr. Lewis. He was called the results on the CT scan today. Follow. MMODL / IJN: [id number] /
[2017-12-24] MEDS: MORPHINE SULFATE 2 MG/ML SYRINGE IV PRN ×5 (02:59→22:53)
[2017-12-24] MEDS: metroNIDAZOLE-NS PMX 500 MG in SALINE 1 100ML.BAG IVPB SCH ×3 (05:19→17:19)
[2017-12-24] MEDS: ASPIRIN 81 MG PO SCH (07:55)
[2017-12-24] MEDS: METOPROLOL TARTRATE 25 MG TAB PO SCH (07:55)
[2017-12-24] MEDS: LEVOFLOXACIN 750MG-D5W PMX 750 MG in DEXTROSE/WATER 1 150ML.BAG IVPB SCH (07:56)
[2017-12-24] MEDS: PANTOPRAZOLE 40 MG/10 ML VIAL IV SCH (07:56)
[2017-12-24] MEDS: ATORVASTATIN 80 MG TAB PO SCH (07:56)
[2017-12-24] MEDS: SODIUM CHLORIDE 0.9% 1,000 ML IV SCH ×2 (07:57→17:20)
--- NOTE | 2017-12-24 09:37 | P.PN ---
Progress Note - Text Progress Note Date: 12/24/17 The patient states he feels better today. He has less abdominal bloating. He denies any significant bowel function. On exam his vital signs are stable. His abdomen is soft. The abdomen is less distended than yesterday. Ileus. Patient continued receiving NG tube decompression.
[2017-12-24] MEDS: BENZOCAINE/MENTHOL LOZENG 1 EACH LOZENGE MUCOUS MEM PRN (10:28)
[2017-12-24] MEDS: CLOPIDOGREL 75 MG TAB PO SCH (11:47)
--- NOTE | 2017-12-24 18:41 | PN ---
PROGRESS NOTE DATE OF SERVICE: December 24, 2017. PRESENTING COMPLAINT: Abdominal pain. INTERVAL HISTORY: Patient presented with small-bowel obstruction, less distention, not passed any flatus. NG tube remains in place. Feels a bit better. No nausea, vomiting. REVIEW OF SYSTEMS: Done for constitutional, cardiovascular, GI, pulmonary and relevant findings as above. CURRENT MEDICATIONS: Reviewed that include IV Levaquin and Flagyl. PHYSICAL EXAMINATION: VITAL SIGNS: Temperature 98.2, pulse 78, respiratory 18, blood pressure 129/79, pulse ox 94% on room air. GENERAL APPEARANCE: Lying in bed, comfortable. EYES: Pupils equal. Conjunctivae normal. HEENT: External appearance of nose and ears normal. Oral cavity dry with NG tube in place. NECK: JVD not raised. Mass not palpable. RESPIRATORY: Effort normal. LUNGS: Fair entry. CARDIOVASCULAR: 1st and 2nd sounds normal. No edema. ABDOMEN: Less distended. Soft, minimal tenderness. Bowel sounds are sluggish. PSYCHIATRY: Alert and oriented x3. Mood and affect anxious-appearing. INVESTIGATIONS: No blood work from today. ASSESSMENT: 1. Acute severe ileus versus small bowel obstruction with some clinical improvement. 2. Chronic alcohol use. 3. Coronary artery disease with stent to the RCA and diffuse disease to LAD. 4. Acute renal failure prerenal. Creatinine has come down. 5. Hyperkalemia in the setting of acute renal failure, improved. 6. Hypercalcemia from dehydration. PLAN: Patient should have repeat abdominal x-ray tomorrow. The patient has been ambulating. Encouraged to ambulate more. MMODL / IJN: [id number] /
[2017-12-24] MEDS: METOCLOPRAMIDE 5 MG/ML 2 ML VIAL IVP PRN (21:01)
[2017-12-25] MEDS: metroNIDAZOLE-NS PMX 500 MG in SALINE 1 100ML.BAG IVPB SCH ×5 (00:32→23:18)
[2017-12-25] MEDS: SODIUM CHLORIDE 0.9% 1,000 ML IV SCH ×3 (01:14→17:54)
[2017-12-25] MEDS: MORPHINE SULFATE 2 MG/ML SYRINGE IV PRN ×2 (04:39→22:31)
[2017-12-25] MEDS: PANTOPRAZOLE 40 MG/10 ML VIAL IV SCH (07:54)
[2017-12-25] MEDS: LEVOFLOXACIN 750MG-D5W PMX 750 MG in DEXTROSE/WATER 1 150ML.BAG IVPB SCH (07:55)
[2017-12-25] MEDS: CLOPIDOGREL 75 MG TAB PO SCH (07:55)
[2017-12-25] MEDS: ATORVASTATIN 80 MG TAB PO SCH (07:55)
[2017-12-25] MEDS: ASPIRIN 81 MG PO SCH (07:55)
[2017-12-25] MEDS: METOPROLOL TARTRATE 25 MG TAB PO SCH (07:55)
--- NOTE | 2017-12-25 08:57 | XR ---
EXAMINATION TYPE: XR chest 2V DATE OF EXAM: 12/25/2017 COMPARISON: 05/02/2017 TECHNIQUE: PA and lateral views submitted. HISTORY: Chest pain FINDINGS: NG tube noted and there is left lower lobe infiltrate and small effusion. No pneumothorax or intersti tial edema. Heart size within normal limits. IMPRESSION: 1. Left lower lobe infiltrate and small effusion.
--- NOTE | 2017-12-25 11:59 | P.PN ---
Progress Note - Text Progress Note Date: 12/25/17 The patient states he feels better today. He's had a small amount of flatus. He has had less pain. On exam his vital signs are stable. His abdomen is soft. There is less distention. There is less tenderness. Resolving ileus. Patient will have his NG tube removed and start clear liquid diet.
[2017-12-25] MEDS: HYDROcodone/APAP 7.5-325MG 1 EACH TAB PO PRN (14:08)
--- NOTE | 2017-12-25 20:21 | PN ---
PROGRESS NOTE DATE OF SERVICE: December 25, 2017. PRESENT COMPLAINT: Bowel obstruction. INTERVAL HISTORY: Patient presented with small bowel obstruction. NG tube was taken out this morning. Patient has passed flatus, has a small bowel movement, given clear liquids by Dr. Lewis. Abdomen is still somewhat distended. REVIEW OF SYSTEMS: Done for constitutional, cardiovascular, GI, pulmonary and relevant findings as above. CURRENT MEDICATIONS: Reviewed that include Levaquin and Flagyl. PHYSICAL EXAMINATION: VITAL SIGNS: Temperature 98.5, pulse 84, respiratory rate 16, blood pressure 152/80, pulse ox 94% on room air. GENERAL APPEARANCE: Sitting up, awake. EYES: Pupils equal. Conjunctivae normal. HEENT: External appearance of nose and ears normal. NECK: JVD not raised. Mass not palpable. RESPIRATORY: Effort normal. LUNGS: Are clear. CARDIOVASCULAR: 1st and 2nd sounds normal, no edema. ABDOMEN: Less distended. Soft. Bowel sounds are present. PSYCHIATRY: Alert and oriented x3. Mood and affect normal. INVESTIGATIONS: No blood work from today. ASSESSMENT: 1. Acute severe ileus versus small-bowel obstruction with clinical improvement. 2. Chronic alcohol use. 3. Coronary artery disease with stent to the RCA and diffuse disease to the LAD. 4. Acute renal failure, prerenal. Creatinine come down. 5. Hypokalemia in a setting of acute renal failure, improved. 6. Hypercalcemia from dehydration. PLAN: Patient getting better, started on clear liquids. Care was discussed with the patient. Told her to back off on the morphine. Repeat abdominal x-ray in the morning. MMODL / IJN: [id number] /
[2017-12-26] MEDS: METOCLOPRAMIDE 5 MG/ML 2 ML VIAL IVP PRN ×2 (03:50→14:11)
[2017-12-26] MEDS: SODIUM CHLORIDE 0.9% 1,000 ML IV SCH ×4 (05:46→17:12)
[2017-12-26] MEDS: metroNIDAZOLE-NS PMX 500 MG in SALINE 1 100ML.BAG IVPB SCH ×4 (05:47→23:41)
[2017-12-26] MEDS: PANTOPRAZOLE 40 MG/10 ML VIAL IV SCH (07:30)
[2017-12-26] MEDS: LEVOFLOXACIN 750MG-D5W PMX 750 MG in DEXTROSE/WATER 1 150ML.BAG IVPB SCH (07:30)
[2017-12-26] MEDS: ATORVASTATIN 80 MG TAB PO SCH (07:30)
[2017-12-26] MEDS: ASPIRIN 81 MG PO SCH (07:30)
[2017-12-26] MEDS: METOPROLOL TARTRATE 25 MG TAB PO SCH (07:30)
[2017-12-26] MEDS: CLOPIDOGREL 75 MG TAB PO SCH (07:30)
--- NOTE | 2017-12-26 07:38 | XR ---
EXAMINATION TYPE: XR abdomen 2V DATE OF EXAM: 12/26/2017 CLINICAL DATA: 62-year-old male follow-up ileus, history of bowel obstruction, [facility] COMPARISON: 12/22/[address] 12/23/2017 FINDINGS: Diffuse bowel dilatation remains with small bowel loops measuring up to 6.5 cm. Air-filled right james colon is also visualized measuring up to 9.1 cm along the proximal transverse colon. Multiple air-flu id levels are present throughout. No evidence for free intraperitoneal air below the hemidiaphragms. IMPRESSION: 1. Continued marked diffuse small bowel dilatation (6.5 cm). Prominent air also remains throughout th e right hemicolon (9.1 cm). Given the presence of colonic gas, findings are suggestive of a continued severe ileus rather than small bowel obstruction. 2. No free air seen below the hemidiaphragms on the upright view.
--- NOTE | 2017-12-26 11:27 | P.PN ---
<Cira Waltonherminio Conte - Last Filed: 12/26/17 15:05> Subjective Progress Note Date: 12/26/17 8-year-old male seen and examined at the bedside. Patient states she's been up ambulating in the hallway this morning. States passing gas had a bowel movement but the abdomen feels more distended this morning. Abdominal x-ray obtained this morning report reviewed showed marked diffuse small bowel dilatation. No free air. Prominent air remains throughout the right colon. Suggestive of a continued severe ileus rather than a small bowel obstruction. The abdomen remains distended reports tolerating the diet with no nausea no vomiting states has abdominal discomfort. Reports abdomen more distended and bloated Objective - Vital Signs Vital signs: Vital Signs Temp 98.1 F 12/26/17 06:25 Pulse 89 12/26/17 06:25 Resp 18 12/26/17 08:00 BP 137/94 12/26/17 06:25 Pulse Ox 97 12/26/17 06:25 Intake & Output 12/25/17 12/26/17 12/26/17 18:59 06:59 18:59 Other: Voiding Method Indwelling Catheter Toilet Toilet # Voids 400 2 # Bowel Movements 1 - Exam Physical exam 62-year-old male resting in bed states has been up ambulating in the hallway passing gas had a bowel movement Lungs adequate air movement bilaterally no shortness of breath on room air Heart S1-S2 audible regular Abdomen firm distended few hypoactive bowel tones states he states no nausea no vomiting passing gas states had a bowel movement Extremities no edema - Labs CBC & Chem 7: 12/23/17 06:20 12/23/17 06:20 Labs: Microbiology - Last 24 Hours (Table) 12/22/17 09:10 Blood Culture - Preliminary Blood No Growth after 96 hours Assessment and Plan Assessment: Impression Present on admission abdominal pain nausea vomiting suspect due to partial bowel obstruction involving small and large bowel CAT scan abdomen and pelvis obtained on admission report indicates mild acute diverticulitis mid to distal sigmoid colon causing partial small bowel obstruction involving small large bowel Known coronary artery disease with prior coronary stenting done April 2017 on dual antiplatelet therapy Plavix and aspirin History of tobacco abuse recently quit A recent colonoscopy to the sigmoid colon with flexible sigmoidoscopy done August 2017 showed scattered diverticulosis of the sigmoid colon with severe torturous sigmoid colon with no evidence of an active bleed as part of a workup for acute blood loss anemia A recent EGD August 2017 no evidence of an active duodenitis, no duodenal ulcer: Gastric ulcer Abdominal x-ray done on the findings are suggestive of severe ileus rather than a small bowel obstruction Plan Aspirin Plavix hold today await further surgical recommendations by Dr. Colindres Full liquid diet Encourage ambulation Bowel rest IV fluid for hydration Monitor labs DVT and GI prophylaxis Pain control Further surgical recommendations pending will follow with you Progress note dictated for Dr. Colindres rounding on behalf of Dr. farrell The above impression and plan of care have been discussed and directed by signing physician. Ebony Walton nurse practitioner acting as scribe for signing physician. <Nelly Colindres N - Last Filed: 12/26/17 21:31> Objective - Vital Signs Vital signs: Vital Signs Temp 97.3 F L 12/26/17 15:00 Pulse 86 12/26/17 15:00 Resp 16 12/26/17 16:35 BP 158/96 12/26/17 15:00 Pulse Ox 96 12/26/17 15:00 Intake & Output 12/26/17 12/26/17 12/27/17 06:59 18:59 06:59 Intake Total 200 Balance 200 Weight 74.843 kg Intake: Oral 200 Other: Voiding Method Toilet Toilet # Voids 2 5 - Labs CBC & Chem 7: 12/23/17 06:20 12/23/17 06:20 Labs: Microbiology - Last 24 Hours (Table) 12/22/17 09:10 Blood Culture - Preliminary Blood No Growth after 96 hours
--- NOTE | 2017-12-26 14:56 | XR ---
EXAMINATION TYPE: XR chest 2V DATE OF EXAM: 12/26/2017 COMPARISON: 12/25/2017 HISTORY: 62-year-old male with shortness of breath TECHNIQUE: Frontal and lateral views FINDINGS: Heart normal size. Aorta and pulmonary vasculature within normal limits. Chilaiditi syndrome. Promine nt air-filled bowel loops present in the visualized upper small bowel loops are dilated up to 3.9 cm. Trace effusions may be present on the lateral view. Some strandy opacities at the lung bases likely atelectasis. IMPRESSION: 1. Some volume loss involving the lower lungs with bibasilar densities likely representing areas of a telectasis. Trace effusions may be present. 2. Diffuse bowel dilatation redemonstrated.
[2017-12-26] MEDS: HYDROcodone/APAP 7.5-325MG 1 EACH TAB PO PRN ×2 (15:50→23:39)
--- NOTE | 2017-12-26 17:25 | P.PN ---
Subjective Progress Note Date: 12/26/17 Progress note being dictated for Dr. Mcdonald Interval history: This is a 62-year-old gentleman admitted with partial bowel obstruction involving both small and large bowel and multiple other medical issues. NG tube and Saha catheter discontinued yesterday. Reports multiple bowel movements, yet abdomen remains distended. Denies abdominal tenderness. Follow-up Abdominal x-ray reporting continued marked diffuse small bowel dilatation, prominent air throughout the right;, suggestive of severe ileus rather than small bowel obstruction and no free intraperitoneal air below the hemidiaphragms .complains of shortness of breath, suspect related to abdominal distention, chest x-ray ordered. Voiding without difficulty. Complains of nausea, on clear liquid diet as per surgery. Afebrile. Blood cultures negative. Objective - Vital Signs Vital signs: Vital Signs Temp 97.3 F L 12/26/17 15:00 Pulse 86 12/26/17 15:00 Resp 16 12/26/17 15:00 BP 158/96 12/26/17 15:00 Pulse Ox 96 12/26/17 15:00 Intake & Output 12/25/17 12/26/17 12/26/17 18:59 06:59 18:59 Intake Total 200 Balance 200 Weight 74.843 kg Intake: Oral 200 Other: Voiding Method Indwelling Catheter Toilet Toilet # Voids 400 2 5 # Bowel Movements 1 - Exam PHYSICAL EXAM: VITAL SIGNS: [As above] GENERAL: Sitting up in bed, no acute distress HEENT: Conjunctivae normal. eyes normal. Oral mucosa dry. NECK: No JVD. No thyroid enlargement. No LNs CARDIOVASCULAR: S1, S2 muffled. No murmur RESPIRATION: Breath sounds diminished in the bases. No rhonchi or crackles. No bronchial breathing. ABDOMEN: Soft, nontender . Distended. Hypoactive bowel sounds. No guarding. no masses palpable. LEGS: No edema. no swelling PSYCHIATRY: Alert and oriented -3, mood and affect normal. NERVOUS SYSTEM: Cranial N 2-12 grossly normal. Moves all 4 limbs. Diffuse weakness No focal deficits. - Labs CBC & Chem 7: 12/23/17 06:20 12/23/17 06:20 Labs: Microbiology - Last 24 Hours (Table) 12/22/17 09:10 Blood Culture - Preliminary Blood No Growth after 96 hours Assessment and Plan Assessment: 1. Acute severe ileus, possible Acute partial bowel obstruction, involving the small and large bowel with possible mild acute diverticulitis per computed tomography scan 2. Recent colonoscopy 08/2017 reporting scattered diverticulosis of sigmoid colon with severe tortuous sigmoid colon. 2. CAD, stenting in April 2017 on dual antiplatelet therapy Plan: Continue current medication regime ,monitoring and symptomatic treatment. Maintain IV fluid hydration. Dual anticoagulation not yet resumed- remains on hold as per surgery, increase ambulation as tolerated. No labs today, BMP, CBC ordered for tomorrow. Follow closely with surgery. The impression and plan of care has been dictated as directed. : I performed a history and examination of this patient, discussed the same with the dictator. I agree with the dictator's note ,documented as a scribe. Any additional findings or plans will be noted.
[2017-12-26] MEDS ORDERED: ACETAMINOPHEN IV (For NPO) 1,000 MG in EMPTY BAG 1 BAG IVPB STA (18:32)
--- NOTE | 2017-12-26 22:04 | P.PN ---
Progress Note - Text Progress Note Date: 12/26/17 Patient reports more abdominal gas bloat and pain since NGT removed more than 24 hrs ago. He is requesting more pain meds. AXR are worse. I personally reviewed his CT scan where the colon is collapsed with severely dilated small bowel. Recommend placement of NGT that should help with his pain. Recommend diagnostic laparoscopy lysis of adhesion as he is a bowel obstruction in a virgin abdomen.
--- NOTE | 2017-12-26 23:08 | XR ---
EXAMINATION TYPE: XR chest 1V portable DATE OF EXAM: 12/26/2017 COMPARISON: Today HISTORY: Check tube placement TECHNIQUE: Single frontal view of the chest is obtained. FINDINGS: There is no heart failure. There is nasogastric tube with the tip probably in the body of the stomach. There is probably a small infiltrate in the medial right lower lobe. The other lung fiel ds are clear. There is poor aspiration. IMPRESSION: Small infiltrate at the medial right lung base. Nasogastric tube is in good position.
[2017-12-26] MEDS: LORazepam 2 MG/ML INJ IV PRN (23:41)
[2017-12-27] MEDS: METOCLOPRAMIDE 5 MG/ML 2 ML VIAL IVP PRN (02:22)
[2017-12-27] MEDS: SODIUM CHLORIDE 0.9% 1,000 ML IV SCH ×7 (02:28→19:47)
[2017-12-27] MEDS: metroNIDAZOLE-NS PMX 500 MG in SALINE 1 100ML.BAG IVPB SCH ×3 (06:13→18:40)
[2017-12-27] MEDS: LORazepam 2 MG/ML INJ IV PRN (06:13)
[2017-12-27] MEDS: LEVOFLOXACIN 750MG-D5W PMX 750 MG in DEXTROSE/WATER 1 150ML.BAG IVPB SCH (08:59)
[2017-12-27] MEDS: ATORVASTATIN 80 MG TAB PO SCH (08:59)
[2017-12-27] MEDS: METOPROLOL TARTRATE 25 MG TAB PO SCH (08:59)
[2017-12-27] MEDS ORDERED: FAMOTIDINE 20 MG TAB PO SCH (09:00)
[2017-12-27] MEDS: HYDROcodone/APAP 7.5-325MG 1 EACH TAB PO PRN (09:09)
[2017-12-27 09:53] LABS: Basophils % (A) 0 %; Eosinophils # (A) 0.1 k/uL (0-0.7); Eosinophils % (A) 1 %; HCT 40.7 % (39.0-53.0); HGB 13.1 gm/dL (13.0-17.5); Lymphocytes # (A) 1.3 k/uL (1.0-4.8); Lymphocytes % (A) 15 %; MCH 29.8 pg (25.0-35.0); MCHC 32.3 g/dL (31.0-37.0); MCV 92.5 fL (80.0-100.0); Mean Platelet Volume 6.8; Monocytes # (A) 0.7 k/uL (0-1.0); Monocytes % (A) 8 %; Neutrophils # (A) 6.5 k/uL (1.3-7.7); Neutrophils % (A) 75 %; Platelet Count 470 k/uL (150-450); RBC 4.41 m/uL (4.30-5.90); RDW 13.3 % (11.5-15.5); WBC 8.7 k/uL (3.8-10.6)
[2017-12-27 10:23] LABS: Blood Urea Nitrogen 4 mg/dL (9-20); Calcium 8.8 mg/dL (8.4-10.2); Carbon Dioxide 19 mmol/L (22-30); Glucose 77 mg/dL (74-99); Sodium 136 mmol/L (137-145)
[2017-12-27 10:42] LABS: Anion Gap 15 mmol/L; Chloride 102 mmol/L (98-107)
[2017-12-27] MEDS: HYDROmorphone 0.5 MG/0.5 ML SYRINGE IVP PRN ×3 (12:13→21:59)
--- NOTE | 2017-12-27 12:38 | P.PN ---
<Cira Waltonherminio Conte - Last Filed: 12/27/17 12:28> Subjective Progress Note Date: 12/27/17 62-year-old male seen this morning at bedside nasal gastric tube to suction 100 mL for the last 2 hours brownish secretions significant abdominal distention patient states she's having significant more abdominal pain. No stool. Abdomen is firm and distended. Patient does have a history of coronary artery disease with prior coronary stenting done on April 2017. on anti-dual platelet therapy Plavix and aspirin Plavix is been held last dose yesterday December 26. Plavix was restarted over the weekend. Patients being followed by surgery for a computed tomography scan of the abdomen and pelvis with colon is collapsed with severely dilated small bowel. Nasogastric tube was placed yesterday to help relieve the pain. Surgical service had recommended a diagnostic laparoscopic lysis of adhesions and bowel obstruction in a virgin abdomen. This is been held secondary to the Plavix being restarted over the weekend. Cardiology indicates patient is to be off Plavix for at least 5 days. Cardiology reconsultation requested Objective - Vital Signs Vital signs: Vital Signs Temp 96.4 F L 12/27/17 05:45 Pulse 107 H 12/27/17 05:45 Resp 18 12/27/17 05:45 BP 179/98 12/27/17 05:45 Pulse Ox 96 12/27/17 05:45 Intake & Output 12/26/17 12/27/17 12/27/17 18:59 06:59 18:59 Intake Total 200 Output Total 450 Balance 200 -450 Weight 74.843 kg Intake: Oral 200 Output: Urine 450 Other: Voiding Method Toilet Toilet # Voids 5 1 # Bowel Movements 1 - Exam Physical exam 62-year-old male resting in bed states has significant abdominal pain " comes in waves" Lungs diminished at the bases otherwise adequate air movement states feels slightly short of breath sats are documented 94% on room air Heart S1-S2 audible and regular monitor sinus sinus tach heart rate 110 denies chest pain when questioning Abdomen firm and distended. Few Hypoactive bowel tones nasal gastric tube to suction 450 past 8 hours reportedly urinating no difficulty reports a nausea sensation no active emesis Extremities no edema noted to lower extreme - Labs CBC & Chem 7: 12/27/17 08:52 12/27/17 08:52 Labs: Abnormal Lab Results - Last 24 Hours (Table) 12/27/17 12/27/17 Range/Units 08:52 08:52 Plt Count 470 H (150-450) k/uL Sodium 136 L (137-145) mmol/L Carbon Dioxide 19 L (22-30) mmol/L BUN 4 L (9-20) mg/dL Microbiology - Last 24 Hours (Table) 12/22/17 09:10 Blood Culture - Preliminary Blood No Growth after 120 hours Assessment and Plan Assessment: Impression Present on admission abdominal pain nausea vomiting suspect due to partial bowel obstruction involving small and large bowel CAT scan abdomen and pelvis obtained on admission report indicates mild acute diverticulitis mid to distal sigmoid colon causing partial small bowel obstruction involving small large bowel Known coronary artery disease with prior coronary stenting done April 2017 on dual antiplatelet therapy Plavix and aspirin History of tobacco abuse recently quit A recent colonoscopy to the sigmoid colon with flexible sigmoidoscopy done August 2017 showed scattered diverticulosis of the sigmoid colon with severe torturous sigmoid colon with no evidence of an active bleed as part of a workup for acute blood loss anemia A recent EGD August 2017 no evidence of an active duodenitis, no duodenal ulcer: Gastric ulcer Abdominal x-ray done on the findings are suggestive of severe ileus CAT scan abdomen and pelvis: Collapse was severely dilated small bowel Plan Aspirin Plavix on hold last dose December 26 Continue nasal gastric tube to suction Reconsult cardiology IV fluid for hydration Monitor labs DVT and GI prophylaxis Pain control PPN for nutritional support Patient will need a diagnostic laparoscopic probable lysis of adhesions when off Plavix for 5 days Further surgical recommendations pending will follow with you Progress note dictated for Dr. Colindres rounding on behalf of Dr. farrell The above impression and plan of care have been discussed and directed by signing physician. Ebony Walton nurse practitioner acting as scribe for signing physician. <Nelly Colindres N - Last Filed: 12/27/17 18:16> Objective - Vital Signs Vital signs: Vital Signs Temp 98.1 F 12/27/17 14:11 Pulse 95 12/27/17 14:11 Resp 18 12/27/17 14:11 BP 161/103 12/27/17 14:11 Pulse Ox 97 12/27/17 14:11 Intake & Output 12/26/17 12/27/17 12/27/17 18:59 06:59 18:59 Intake Total 200 1000 Output Total 450 300 Balance 200 -450 700 Weight 74.843 kg 74.843 kg Intake: IV 1000 Sodium Chloride 0.9% 1, 1000 000 ml @ 125 mls/hr IV . Q8H [facility] Rx#:[id number] Oral 200 Output: Gastric Drainage 300 Urine 450 Other: Voiding Method Toilet Toilet # Voids 5 1 # Bowel Movements 1 - Labs CBC & Chem 7: 12/27/17 08:52 12/27/17 08:52 Labs: Abnormal Lab Results - Last 24 Hours (Table) 12/27/17 12/27/17 Range/Units 08:52 08:52 Plt Count 470 H (150-450) k/uL Sodium 136 L (137-145) mmol/L Carbon Dioxide 19 L (22-30) mmol/L BUN 4 L (9-20) mg/dL Microbiology - Last 24 Hours (Table) 12/22/17 09:10 Blood Culture - Preliminary Blood No Growth after 120 hours Assessment and Plan Plan: Patient's surgery now on hold due to recent Plavix and aspirin. Moderate output from NGT dark bilious over 2.5 L consistent with suspected bowel obstruction. Agree with TPN/PPN. Surgery scheduled for 5 days following off anti-platelet therapy. Will plan for immediate resumption of therapy once surgery completed.
[2017-12-27] MEDS ORDERED: SODIUM CHLORIDE 0.9% 1,000 ML IV ONE ×2 (13:01→18:16)
[2017-12-27 15:19] LABS: Magnesium 1.8 mg/dL (1.6-2.3); Phosphorus 3.2 mg/dL (2.5-4.5)
--- NOTE | 2017-12-27 17:49 | P.PN ---
Subjective Progress Note Date: 12/27/17 Progress note being dictated for Dr. Mcdonald Interval history: This is a 62-year-old gentleman admitted with partial bowel obstruction involving both small and large bowel and multiple other medical issues. NG tube and Saha catheter discontinued yesterday. Reports multiple bowel movements, yet abdomen remains distended. Denies abdominal tenderness. Follow-up Abdominal x-ray reporting continued marked diffuse small bowel dilatation, prominent air throughout the right;, suggestive of severe ileus rather than small bowel obstruction and no free intraperitoneal air below the hemidiaphragms .complains of shortness of breath, suspect related to abdominal distention, chest x-ray ordered. Voiding without difficulty. Complains of nausea, on clear liquid diet as per surgery. Afebrile. Blood cultures negative. 12/27/2017 increased abdominal pain during the night and NG tube reinserted as per surgery. Abdomen remains firm and distended, with 450 MLS dark brownish drainage over the last 8 hours.positive fluctuating abdominal pain.Diagnostic laparoscopic lysis of adhesions recommend per surgery. Aspirin, Plavix placed on hold, maintained on Lovenox. PPN nitiated. Maintained on IV fluid hydration. Cardiology consulted regarding anticoagulation recommendations/ surgery. Objective - Vital Signs Vital signs: Vital Signs Temp 98.1 F 12/27/17 14:11 Pulse 95 12/27/17 14:11 Resp 18 12/27/17 14:11 BP 161/103 12/27/17 14:11 Pulse Ox 97 12/27/17 14:11 Intake & Output 12/26/17 12/27/17 12/27/17 18:59 06:59 18:59 Intake Total 200 1000 Output Total 450 300 Balance 200 -450 700 Weight 74.843 kg 74.843 kg Intake: IV 1000 Sodium Chloride 0.9% 1, 1000 000 ml @ 125 mls/hr IV . Q8H [facility] Rx#:[id number] Oral 200 Output: Gastric Drainage 300 Urine 450 Other: Voiding Method Toilet Toilet # Voids 5 1 # Bowel Movements 1 - Exam PHYSICAL EXAM: VITAL SIGNS: [As above] GENERAL: Sitting up in bed, tired appearing HEENT: Conjunctivae normal. eyes normal. Oral mucosa dry. NG tube to low intermittent suction NECK: No JVD. No thyroid enlargement. No LNs CARDIOVASCULAR: S1, S2 muffled. No murmur RESPIRATION: Breath sounds diminished in the bases. No rhonchi or crackles. No bronchial breathing. ABDOMEN: Firm, distended, diffuse tenderness. Occasional Hypoactive bowel sounds. Mild guarding. no masses palpable. LEGS: No edema. no swelling PSYCHIATRY: Alert and oriented -3, mood and affect normal. NERVOUS SYSTEM: Cranial N 2-12 grossly normal. Moves all 4 limbs. Diffuse weakness No focal deficits. - Labs CBC & Chem 7: 12/27/17 08:52 12/27/17 08:52 Labs: Abnormal Lab Results - Last 24 Hours (Table) 12/27/17 12/27/17 Range/Units 08:52 08:52 Plt Count 470 H (150-450) k/uL Sodium 136 L (137-145) mmol/L Carbon Dioxide 19 L (22-30) mmol/L BUN 4 L (9-20) mg/dL Microbiology - Last 24 Hours (Table) 12/22/17 09:10 Blood Culture - Preliminary Blood No Growth after 120 hours Assessment and Plan Assessment: 1. Acute severe ileus with Acute partial bowel obstruction, involving the small and large bowel with possible mild acute diverticulitis, development severly dilated small bowel per computed tomography scan 2. Recent colonoscopy 08/2017 reporting scattered diverticulosis of sigmoid colon with severe tortuous sigmoid colon. 2. CAD, stenting in April 2017 on dual antiplatelet therapy-currently on hold Plan: Continue current medication regime ,monitoring and symptomatic treatment. Maintain IV fluid hydration. Further discussion between surgery, cardiology and Dr. Mcdonald regarding surgery and anticoagulation. Pain management as per surgery. Prognosis guarded given multiple complex medical issues. The impression and plan of care has been dictated as directed. : I performed a history and examination of this patient, discussed the same with the dictator. I agree with the dictator's note ,documented as a scribe. Any additional findings or plans will be noted.
[2017-12-27] MEDS: MVI, ADULT NO.4 WITH VIT K 10 ML, TRACE (CONC-1ML/DOSE) 1 ML in AMIN 3.3%/DEX 9.8%/LIPI... IV SCH ×3 (18:39)
[2017-12-27] MEDS: ENOXAPARIN 30 MG/0.3 ML SYRINGE SQ SCH (21:58)
[2017-12-27] MEDS: FAMOTIDINE 20 MG/2 ML VIAL IV SCH (21:58)
[2017-12-28] MEDS: metroNIDAZOLE-NS PMX 500 MG in SALINE 1 100ML.BAG IVPB SCH ×5 (00:23→23:42)
[2017-12-28] MEDS: HYDROmorphone 0.5 MG/0.5 ML SYRINGE IVP PRN ×5 (03:05→22:41)
[2017-12-28] MEDS: SODIUM CHLORIDE 0.9% 1,000 ML IV SCH ×3 (06:35→21:01)
[2017-12-28 07:32] LABS: Glucose,Whole Blood 109 mg/dL (75-99)
[2017-12-28 08:07] LABS: Basophils % (A) 0 %; Eosinophils # (A) 0.1 k/uL (0-0.7); Eosinophils % (A) 2 %; HCT 37.9 % (39.0-53.0); HGB 12.2 gm/dL (13.0-17.5); Lymphocytes # (A) 1.8 k/uL (1.0-4.8); Lymphocytes % (A) 23 %; MCHC 32.1 g/dL (31.0-37.0); MCV 90.3 fL (80.0-100.0); Mean Platelet Volume 6.3; Monocytes # (A) 0.8 k/uL (0-1.0); Monocytes % (A) 10 %; Neutrophils # (A) 4.9 k/uL (1.3-7.7); Neutrophils % (A) 64 %; Platelet Count 483 k/uL (150-450); RDW 13.4 % (11.5-15.5); WBC 7.7 k/uL (3.8-10.6)
[2017-12-28] MEDS: LEVOFLOXACIN 750MG-D5W PMX 750 MG in DEXTROSE/WATER 1 150ML.BAG IVPB SCH (08:36)
[2017-12-28] MEDS: ATORVASTATIN 80 MG TAB PO SCH (08:38)
[2017-12-28] MEDS: METOPROLOL TARTRATE 25 MG TAB PO SCH ×2 (08:38→20:56)
[2017-12-28] MEDS: FAMOTIDINE 20 MG/2 ML VIAL IV SCH ×2 (08:38→20:55)
[2017-12-28 08:43] LABS: ALT 34 U/L (21-72); AST 29 U/L (17-59); Albumin 2.5 g/dL (3.5-5.0); Alkaline Phosphatase 46 U/L (38-126); Anion Gap 8 mmol/L; Blood Urea Nitrogen 3 mg/dL (9-20); Calcium 8.6 mg/dL (8.4-10.2); Carbon Dioxide 22 mmol/L (22-30); Chloride 107 mmol/L (98-107); Glucose 110 mg/dL (74-99); Phosphorus 2.7 mg/dL (2.5-4.5); Potassium 3.7 mmol/L (3.5-5.1); Sodium 137 mmol/L (137-145); Total Bilirubin 0.1 mg/dL (0.2-1.3); Total Protein 5.2 g/dL (6.3-8.2)
[2017-12-28 08:58] LABS: Ionized Calcium 4.9 mg/dL (4.5-5.3)
[2017-12-28 11:33] LABS: Glucose,Whole Blood 98 mg/dL (75-99)
[2017-12-28 11:51] LABS: INR 1.1 (<1.2); Partial Thromboplastin Time 24.5 sec (22.0-30.0); Prothrombin Time 10.4 sec (9.0-12.0)
[2017-12-28] MEDS: POTASSIUM CHLORIDE 10 MEQ in WATER FOR INJECTION 1 100ML.BAG IVPB SCH ×2 (12:16→14:33)
[2017-12-28] MEDS: ENOXAPARIN 30 MG/0.3 ML SYRINGE SQ SCH ×2 (12:16→20:55)
--- NOTE | 2017-12-28 13:14 | XR ---
EXAMINATION TYPE: XR chest 1V portable DATE OF EXAM: 12/28/2017 COMPARISON: NONE INDICATION: Short of breath, small bowel obstruction TECHNIQUE: Single frontal view of the chest is obtained. FINDINGS: The heart size is normal. The pulmonary vasculature is normal. Mild infiltrate right lung base may be present. Nasogastric tube transverses the thorax the tip in le ft upper quadrant of the abdomen. Dilated air-filled small bowel loops within the upper abdomen withi n the [id number]. IMPRESSION: 1. Correlate for mild atelectasis or early pneumonia posterior right lung base 2. Findings which could be compatible with the patient's reported small bowel obstruction within the upper abdomen within the [id number].
--- NOTE | 2017-12-28 13:38 | P.PN ---
Subjective Mr. Gomes is a pleasant 62-year-old male past medical history significant for coronary artery disease with angioplasty x3 of the RCA 04/2017 he also had moderate disease of the circumflex artery and diffuse disease to LAD. His most recent catheterization was performed in June 2017 and revealed patent stents to RCA and no progression of disease to LAD or circumflex. He has been maintained on aspirin, plavix, lopressor and atorvastatin. He has presented to the hospital with abdominal pain and distension. CT performed revealed evidence of acute sigmoid diverticulitis and concern for colonic neoplasm as well as dilitation of the small bowel suggesting ileus. He has undergone serial CT's for ongoing evaluation per surgery. Most CT performed this morning obtained imaging of the lung bases and reveals a small right pleural effusion has developed. We have been asked to see him secondary to history of CAD. Surgery has recommended GI rest and NG tube with ongoing evaluation. Currently Dr. Xiao has held anti-platelets should he require surgery. He denies symptoms of chest pain, shortness of breath, diaphoresis, palpitations or dizziness. He states he hasn't had a bowel movement in 3 days and is starting to feel some movement occur although he has not yet passed any gas. He denies bleeding from the rectum or hematemesis. EKG reveals sinus tachycardia heart rate 129 with right bundle branch block. This is not new. Consistent with old EKG from August. Laboratory data reviewed, hemoglobin 13.2 down from 16.2 yesterday., platelets 301, sodium 136, potassium 4.5, creatinine 0.76. Current cardiac medications include aspirin 81 mg daily, atorvastatin 80 mg daily, Plavix 75 mg daily and Lopressor 25 mg daily. He also takes Prilosec and vitamin D. Most recent echocardiogram reveals preserved left ventricular systolic function with ejection fraction 50-55%, mild aortic regurgitation, mild MR and mild TR. 12/28/2017 We have been asked to see Mr. Gomes again during this admission for recommendations on plavix and aspirin prior to surgery. Aspirin and plavix had initially been resumed per surgery with no imminent plans for surgical intervention. However, his abdomen is not improving with NG tube decompression and therefore surgery has been recommended per Dr. Colindres. He continues to c/ o abdominal pain and distention with mild improvement. Yesterday while up to the bathroom his heart rate went up to 157. He states he has been noticing mild shortness of breath with exertion in the last couple of days. He denies chest pain, dizziness, PND or orthopnea. He is laying flat in bed at the time of my exam. Chest xray obtained this morning reveals mild atelectasis or early pneumonia right lung base. Blood pressure 164/105 heart rate 101 afebrile maintaining oxygen saturation on room air. Laboratory data reviewed, hemoglobin 12.2, platelets 483, sodium 137, potassium 3.7, creatinine 0.5, magnesium 2.0. He is currently taking atorvastatin 80 mg daily, Lovenox 30 mg twice a day, metoprolol 25 mg daily. Aspirin and Plavix have been held. Objective - Vital Signs Vital signs: Vital Signs Temp 98.1 F 12/28/17 07:20 Pulse 101 H 12/28/17 07:20 Resp 17 12/28/17 07:20 BP 164/105 12/28/17 07:20 Pulse Ox 95 12/28/17 07:20 Intake & Output 12/27/17 12/28/17 12/28/17 18:59 06:59 18:59 Intake Total 1000 Output Total 800 200 300 Balance 200 -200 -300 Weight 74.843 kg Intake: IV 1000 Sodium Chloride 0.9% 1, 1000 000 ml @ 125 mls/hr IV . Q8H [facility] Rx#:[id number] Output: Gastric Drainage 800 300 Urine 200 Other: Voiding Method Toilet # Voids 1 - Exam GENERAL: Well-appearing, well-nourished and in no acute distress. NECK: Supple without JVD or thyromegaly. LUNGS: Breath sounds clear to auscultation bilaterally. Respiration equal and unlabored. No wheezes, rales or rhonchi. HEART: Regular rate and rhythm without murmurs, rubs or gallops. S1 and S2 heard. EXTREMITIES: Normal range of motion, no edema. No clubbing or cyanosis. Peripheral pulses intact and strong. - Labs CBC & Chem 7: 12/28/17 07:47 12/28/17 07:47 Labs: Abnormal Lab Results - Last 24 Hours (Table) 12/28/17 12/28/17 12/28/17 Range/Units 07:21 07:47 07:47 RBC 4.20 L (4.30-5.90) m/uL Hgb 12.2 L (13.0-17.5) gm/dL Hct 37.9 L (39.0-53.0) % Plt Count 483 H (150-450) k/uL BUN 3 L (9-20) mg/dL Creatinine 0.50 L (0.66-1.25) mg/dL Glucose 110 H (74-99) mg/dL POC Glucose (mg/dL) 109 H (75-99) mg/dL Total Bilirubin 0.1 L (0.2-1.3) mg/dL Total Protein 5.2 L (6.3-8.2) g/dL Albumin 2.5 L (3.5-5.0) g/dL Microbiology - Last 24 Hours (Table) 12/22/17 09:10 Blood Culture - Final Blood No Growth after 144 hours Assessment and Plan Assessment: ASSESSMENT 1. Ileus, bowel rest and decompression with NG tube ongoing per surgery. 2. Sigmoid diverticulitis, receiving IV antibiotics 3. History of known coronary artery disease status post angioplasty April 2017 currently on dual anti-platelet therapy 4. Former tobacco use, quit 04/2017 5. Chronic daily alcohol use PLAN Increase lopressor to BID and add lisinopril 10 mg daily. Dose of plavix and aspirin had been given over the weekend. Per nursing his last dose was Tuesday. Surgical intervention should be 5 days from last dose of plavix unless absolutely emergent. There is no reversal agent. Ongoing telemetry monitoring. Incentive spirometer and deep breathing exercises recommended. Nurse Practitioner note has been reviewed, I agree with a documented findings and plan of care. Patient was seen and examined.
[2017-12-28] MEDS: LISINOPRIL 5 MG TAB PO SCH (14:34)
--- NOTE | 2017-12-28 16:21 | P.PN ---
Subjective Progress Note Date: 12/28/17 Progress note being dictated for Dr. Mcdonald Interval history: This is a 62-year-old gentleman admitted with partial bowel obstruction involving both small and large bowel and multiple other medical issues. NG tube and Saha catheter discontinued yesterday. Reports multiple bowel movements, yet abdomen remains distended. Denies abdominal tenderness. Follow-up Abdominal x-ray reporting continued marked diffuse small bowel dilatation, prominent air throughout the right;, suggestive of severe ileus rather than small bowel obstruction and no free intraperitoneal air below the hemidiaphragms .complains of shortness of breath, suspect related to abdominal distention, chest x-ray ordered. Voiding without difficulty. Complains of nausea, on clear liquid diet as per surgery. Afebrile. Blood cultures negative. 12/27/2017 increased abdominal pain during the night and NG tube reinserted as per surgery. Abdomen remains firm and distended, with 450 MLS dark brownish drainage over the last 8 hours.positive fluctuating abdominal pain.Diagnostic laparoscopic lysis of adhesions recommend per surgery. Aspirin, Plavix placed on hold, maintained on Lovenox. PPN nitiated. Maintained on IV fluid hydration. Cardiology consulted regarding anticoagulation recommendations/ surgery. 12/28/2017 receiving IV fluid hydration. PPN unavailable from pharmacy, TPN ordered as per surgery. Scheduled for PICC line placement. Patient ambulating to and from bathroom, complaining of exertional dyspnea. Chest x-ray reporting possible early pneumonia right lung base, mild atelectasis. Minimal improvement in abdominal distention. Reports mild improvement in abdominal pain. NG drainage of around 800ml /8hrs. Telemetry reporting sinus rhythm to sinus tach, low 100s. Plavix and aspirin remain on hold for upcoming surgery, Tuesday. Afebrile Objective - Vital Signs Vital signs: Vital Signs Temp 98.3 F 12/28/17 14:46 Pulse 84 12/28/17 14:46 Resp 17 12/28/17 14:46 BP 145/90 12/28/17 14:46 Pulse Ox 98 12/28/17 14:46 Intake & Output 12/27/17 12/28/17 12/28/17 18:59 06:59 18:59 Intake Total 1000 Output Total 800 200 300 Balance 200 -200 -300 Weight 74.843 kg Intake: IV 1000 Sodium Chloride 0.9% 1, 1000 000 ml @ 125 mls/hr IV . Q8H [facility] Rx#:[id number] Output: Gastric Drainage 800 300 Urine 200 Other: Voiding Method Toilet # Voids 1 - Exam PHYSICAL EXAM: VITAL SIGNS: [As above] GENERAL: Sitting up in bed, tired appearing HEENT: Conjunctivae normal. eyes normal. Oral mucosa dry. NG tube to low intermittent suction NECK: No JVD. No thyroid enlargement. No LNs CARDIOVASCULAR: S1, S2 muffled. No murmur RESPIRATION: Breath sounds diminished in the bases. No rhonchi or crackles. No wheezing ABDOMEN: Firm, distended, diffuse tenderness. Hypoactive bowel sounds. Mild guarding. no masses palpable. LEGS: No edema. no swelling PSYCHIATRY: Alert and oriented -3, mood and affect normal. NERVOUS SYSTEM: Cranial N 2-12 grossly normal. Moves all 4 limbs. Diffuse weakness No focal deficits. - Labs CBC & Chem 7: 12/28/17 07:47 12/28/17 07:47 Labs: Abnormal Lab Results - Last 24 Hours (Table) 12/28/17 12/28/17 12/28/17 Range/Units 07:21 07:47 07:47 RBC 4.20 L (4.30-5.90) m/uL Hgb 12.2 L (13.0-17.5) gm/dL Hct 37.9 L (39.0-53.0) % Plt Count 483 H (150-450) k/uL BUN 3 L (9-20) mg/dL Creatinine 0.50 L (0.66-1.25) mg/dL Glucose 110 H (74-99) mg/dL POC Glucose (mg/dL) 109 H (75-99) mg/dL Total Bilirubin 0.1 L (0.2-1.3) mg/dL Total Protein 5.2 L (6.3-8.2) g/dL Albumin 2.5 L (3.5-5.0) g/dL Microbiology - Last 24 Hours (Table) 12/22/17 09:10 Blood Culture - Final Blood No Growth after 144 hours Assessment and Plan Assessment: 1. Acute severe ileus with Acute partial bowel obstruction, involving the small and large bowel with possible mild acute diverticulitis, development severly dilated small bowel per computed tomography scan 2. Recent colonoscopy 08/2017 reporting scattered diverticulosis of sigmoid colon with severe tortuous sigmoid colon. 3. CAD, stenting in April 2017 on dual antiplatelet therapy-currently on hold 4. Chronic daily alcohol use Plan: Continue current medication regime ,monitoring and symptomatic treatment. Maintain IV fluid hydration, antibiotics. Aggressive pulmonary toileting with incentive spirometer reinforced. Pain management as per surgery. Anticoagulation as per cardiology and surgery. PICC line placement pending. CIWA protocol in place. Prognosis guarded given multiple complex medical issues. The impression and plan of care has been dictated as directed. : I performed a history and examination of this patient, discussed the same with the dictator. I agree with the dictator's note ,documented as a scribe. Any additional findings or plans will be noted.
[2017-12-28] MEDS: MVI, ADULT NO.4 WITH VIT K 10 ML, TRACE (CONC-1ML/DOSE) 1 ML in AMIN 3.3%/DEX 9.8%/LIPI... IV SCH ×3 (16:57)
[2017-12-28 18:17] LABS: Glucose,Whole Blood 77 mg/dL (75-99)
[2017-12-28] MEDS: METOCLOPRAMIDE 5 MG/ML 2 ML VIAL IVP PRN (19:45)
--- NOTE | 2017-12-28 22:25 | P.PN ---
Subjective Progress Note Date: 12/28/17 He reports passing flatus. He had moderate output from his NGT. His abdominal pain is improving. Abdominal distention is also improving tonight. He is pending parenteral nutrition as midline was not placed today. Objective - Vital Signs Vital signs: Vital Signs Temp 98.3 F 12/28/17 14:46 Pulse 84 12/28/17 14:46 Resp 17 12/28/17 14:46 BP 145/90 12/28/17 14:46 Pulse Ox 98 12/28/17 14:46 Intake & Output 12/28/17 12/28/17 12/29/17 06:59 18:59 06:59 Intake Total 1400 Output Total 200 2175 175 Balance -200 -883 -276 Intake: Intake, IV Titration 1400 Amount Potassium Chloride 10 meq 200 In Water For Injection 1 100ml.bag @ 100 mls/hr IVPB Q1H [facility] Rx#: [id number] Sodium Chloride 0.9% 1, 1000 000 ml @ 125 mls/hr IV . Q8H [facility] Rx#:[id number] metroNIDAZOLE-NS PMX 500 200 mg In Saline 1 100ml.bag @ 100 mls/hr IVPB Q6HR [facility] Rx#:[id number] Output: Gastric Drainage 550 Urine 200 1625 175 Other: Voiding Method Toilet # Voids 1 # Bowel Movements 0 - Exam ABDOMEN: Soft. Decrease abdominal distention. No diffuse peritonitis. GENERAL: Well developed and in no acute distress. Pleasant. HEENT: No sclera icterus. Extraocular movements grossly intact. Moist buccal mucosa. Head is atraumatic, normocephalic. Hears conversational speech. No nasal drainage. NECK: Supple without lymphadenopathy. No JV distention. CHEST: Non-labored respirations and equal bilateral excursions. CARDIOVASCULAR: Regular rate and rhythm. Palpable 2+ radial pulses. MUSCULOSKELETAL: No clubbing, cyanosis or edema. NEUROLOGIC: No focal or lateralizing signs. PSYCH: Appropriate affect. Alert and oriented to person, place and time. SKIN: Good skin turgor. Well perfused. - Labs CBC & Chem 7: 12/28/17 07:47 12/29/17 07:26 Labs: Abnormal Lab Results - Last 24 Hours (Table) 12/28/17 12/28/17 12/28/17 Range/Units 07:21 07:47 07:47 RBC 4.20 L (4.30-5.90) m/uL Hgb 12.2 L (13.0-17.5) gm/dL Hct 37.9 L (39.0-53.0) % Plt Count 483 H (150-450) k/uL BUN 3 L (9-20) mg/dL Creatinine 0.50 L (0.66-1.25) mg/dL Glucose 110 H (74-99) mg/dL POC Glucose (mg/dL) 109 H (75-99) mg/dL Total Bilirubin 0.1 L (0.2-1.3) mg/dL Total Protein 5.2 L (6.3-8.2) g/dL Albumin 2.5 L (3.5-5.0) g/dL Microbiology - Last 24 Hours (Table) 12/22/17 09:10 Blood Culture - Final Blood No Growth after 144 hours Assessment and Plan (1) Partial bowel obstruction Current Visit: Yes Status: Acute Code(s): K56.600 - PARTIAL INTESTINAL OBSTRUCTION, UNSPECIFIED TO CAUSE SNOMED Code(s): 17640064 Plan: 1. Will proceed with diagnostic laparoscopy as bowel obstruction in a virgin abdomen is mechanical. 2. Agree with parenteral nutrition in the meantime. 3. Patient has history of rebounding with conservative management. 4. Appreciate cardiology input regarding antiplatelet therapy. 5. Plan to resume antiplatelet therapy within 24 hrs of his anticipated procedure
[2017-12-29 00:28] LABS: Glucose,Whole Blood 71 mg/dL (75-99)
[2017-12-29 00:57] LABS: Glucose,Whole Blood 72 mg/dL (75-99)
[2017-12-29 03:43] LABS: Glucose,Whole Blood 68 mg/dL (75-99)
[2017-12-29] MEDS ORDERED: DEXTROSE 50%-WATER 50 ML SYRINGE IVP ONE ×2 (03:52→06:20)
[2017-12-29] MEDS: HYDROmorphone 0.5 MG/0.5 ML SYRINGE IVP PRN ×5 (04:03→21:45)
[2017-12-29] MEDS: SODIUM CHLORIDE 0.9% 1,000 ML IV SCH ×3 (04:04→21:52)
[2017-12-29 04:21] LABS: Glucose,Whole Blood 109 mg/dL (75-99)
[2017-12-29] MEDS: metroNIDAZOLE-NS PMX 500 MG in SALINE 1 100ML.BAG IVPB SCH ×3 (05:39→17:21)
[2017-12-29 06:27] LABS: Glucose,Whole Blood 70 mg/dL (75-99)
[2017-12-29 06:58] LABS: Glucose,Whole Blood 118 mg/dL (75-99)
[2017-12-29] MEDS: ENOXAPARIN 30 MG/0.3 ML SYRINGE SQ SCH ×2 (07:23→21:51)
[2017-12-29] MEDS: DEXTROSE 5%-0.9% NACL 1,000 ML IV SCH (07:26)
[2017-12-29] MEDS: FAMOTIDINE 20 MG/2 ML VIAL IV SCH ×2 (07:27→21:52)
[2017-12-29] MEDS: ATORVASTATIN 80 MG TAB PO SCH (07:27)
[2017-12-29] MEDS: LEVOFLOXACIN 750MG-D5W PMX 750 MG in DEXTROSE/WATER 1 150ML.BAG IVPB SCH (07:27)
[2017-12-29] MEDS: LISINOPRIL 5 MG TAB PO SCH (07:27)
[2017-12-29] MEDS: METOPROLOL TARTRATE 25 MG TAB PO SCH ×2 (07:27→21:50)
[2017-12-29 08:20] LABS: Anion Gap 9 mmol/L; Blood Urea Nitrogen 3 mg/dL (9-20); Calcium 8.2 mg/dL (8.4-10.2); Carbon Dioxide 23 mmol/L (22-30); Chloride 105 mmol/L (98-107); Glucose 94 mg/dL (74-99); Magnesium 1.9 mg/dL (1.6-2.3); Phosphorus 2.7 mg/dL (2.5-4.5); Potassium 3.6 mmol/L (3.5-5.1); Sodium 137 mmol/L (137-145)
[2017-12-29] MEDS ORDERED: LIDOCAINE 2% INJ 20 MG/ML SQ ONE (10:58)
[2017-12-29] MEDS: POTASSIUM CHLORIDE 10 MEQ in WATER FOR INJECTION 1 100ML.BAG IVPB SCH ×2 (11:26→12:23)
[2017-12-29 12:13] LABS: Glucose,Whole Blood 77 mg/dL (75-99)
--- NOTE | 2017-12-29 12:13 | IR ---
PICC LINE PLACEMENT: HISTORY: Infection requiring long-term antibiotic therapy PROCEDURE: Ultrasound and fluoroscopic guidance of PICC line placement. COMPLICATIONS: None ANESTHESIA: 1. 1% Lidocaine locally. FINDINGS/TECHNIQUE: The procedure was explained to the patient. The risks, complications, benefits and alternatives were discussed and any questions were answered. Informed consent was obtained. The patient was placed supine on the fluoroscopic table and prepped and draped in the usual sterile [facility] ion. Utilizing a 21 gauge needle and sonographic and fluoroscopic guidance, access in the vein was achieved and there is placement of a 0.018 guidewire. The vein is patent. A 4-F sheath was placed o sue the guidewire. The guidewire and dilator were removed and a 4-F. PICC line was placed through th e sheath with the tip at the level of the SVC. The sheath was removed, the catheter was flushed and sutured into position. The patient was stable throughout the procedure and remained stable upon disc harge from the Department of Radiology. The vein puncture was patent under ultrasound. A patel scale image was obtained to document patency of the vein punctured. All elements of the maximal barrier technique were utilized. FLUOROSCOPY TIME: 0.1 minute, one image submitted IMPRESSION: Successful PICC line placement under ultrasound and fluoroscopic guidance.
[2017-12-29] MEDS: MVI, ADULT NO.4 WITH VIT K 10 ML, TRACE (CONC-1ML/DOSE) 1 ML in AMIN 3.3%/DEX 9.8%/LIPI... IV SCH ×3 (13:22)
--- NOTE | 2017-12-29 14:15 | P.PN ---
<Ebony Walton M - Last Filed: 12/29/17 14:04> Subjective Progress Note Date: 12/29/17 62-year-old male seen and examined. Patient stated his nasal gastric tube " fell out last night". Abdominal distention is improving. Patient reports slight improvement in abdominal pain no bowel movement. Patient is scheduled today to have a PICC line Objective - Vital Signs Vital signs: Vital Signs Temp 97.5 F L 12/29/17 06:24 Pulse 88 12/29/17 06:24 Resp 17 12/29/17 06:24 BP 158/97 12/29/17 06:24 Pulse Ox 95 12/29/17 06:24 Intake & Output 12/28/17 12/29/17 12/29/17 18:59 06:59 18:59 Intake Total 2951 Output Total 2175 800 Balance 776 -800 Intake: Intake, IV Titration 2951 Amount Mvi, Adult No.4 with Vit 1551 K 10 ml Trace (Conc-1Ml/ Dose) 1 ml In Osman 3.3%/ Dex 9.8%/Lipid/Lytes 1, 540 ml @ 64 mls/hr IV . Q24H [facility] Rx#:[id number] Potassium Chloride 10 meq 200 In Water For Injection 1 100ml.bag @ 100 mls/hr IVPB Q1H [facility] Rx#: [id number] Sodium Chloride 0.9% 1, 1000 000 ml @ 125 mls/hr IV . Q8H [facility] Rx#:[id number] metroNIDAZOLE-NS PMX 500 200 mg In Saline 1 100ml.bag @ 100 mls/hr IVPB Q6HR [facility] Rx#:[id number] Output: Gastric Drainage 550 Urine 1625 800 Other: Voiding Method Toilet Toilet # Voids 2 # Bowel Movements 0 - Exam Physical exam 62-year-old male resting in bed states slight improvement in the abdominal cramping less abdominal distention Lungs diminished at the bases otherwise adequate air movement states feels slightly short of breath sats are documented 95% on room air Heart S1-S2 audible and regular monitor Abdomen firm less distended Few Hypoactive bowel tones no stool reportedly urinating no difficulty reports a nausea sensation no active emesis Extremities no edema noted to lower extreme - Labs CBC & Chem 7: 12/28/17 07:47 12/29/17 07:26 Labs: Abnormal Lab Results - Last 24 Hours (Table) 12/29/17 12/29/17 12/29/17 Range/Units 00:24 00:53 03:38 BUN (9-20) mg/dL Creatinine (0.66-1.25) mg/dL POC Glucose (mg/dL) 71 L 72 L 68 L (75-99) mg/dL Calcium (8.4-10.2) mg/dL 12/29/17 12/29/17 12/29/17 Range/Units 04:18 06:11 06:49 BUN (9-20) mg/dL Creatinine (0.66-1.25) mg/dL POC Glucose (mg/dL) 109 H 70 L 118 H (75-99) mg/dL Calcium (8.4-10.2) mg/dL 12/29/17 Range/Units 07:26 BUN 3 L (9-20) mg/dL Creatinine 0.59 L (0.66-1.25) mg/dL POC Glucose (mg/dL) (75-99) mg/dL Calcium 8.2 L (8.4-10.2) mg/dL Microbiology - Last 24 Hours (Table) 12/22/17 09:10 Blood Culture - Final Blood No Growth after 144 hours Assessment and Plan Assessment: Impression Present on admission abdominal pain nausea vomiting suspect due to partial bowel obstruction involving small and large bowel CAT scan abdomen and pelvis obtained on admission report indicates mild acute diverticulitis mid to distal sigmoid colon causing partial small bowel obstruction involving small large bowel Known coronary artery disease with prior coronary stenting done April 2017 on dual antiplatelet therapy Plavix and aspirin History of tobacco abuse recently quit A recent colonoscopy to the sigmoid colon with flexible sigmoidoscopy done August 2017 showed scattered diverticulosis of the sigmoid colon with severe torturous sigmoid colon with no evidence of an active bleed as part of a workup for acute blood loss anemia A recent EGD August 2017 no evidence of an active duodenitis, no duodenal ulcer: Gastric ulcer Abdominal x-ray done on the findings are suggestive of severe ileus CAT scan abdomen and pelvis:colon Collapse with severely dilated small bowel History of chronic daily alcohol use with no evidence of impending withdrawals Plan Aspirin Plavix on hold last dose December 26 Plavix anticipate restarting 24 hours after procedure Reconsult cardiology IV fluid for hydration Monitor labs DVT and GI prophylaxis Pain control PICC line for TPN for nutritional support Patient will need a diagnostic laparoscopic probable lysis of adhesions when off Plavix for 5 days Further surgical recommendations pending will follow with you Progress note dictated for Dr. Colindres rounding on behalf of Dr. farrell The above impression and plan of care have been discussed and directed by signing physician. Ebony Walton nurse practitioner acting as scribe for signing physician. <Nelly Colindres N - Last Filed: 12/29/17 21:24> Objective - Vital Signs Vital signs: Vital Signs Temp 98.2 F 12/29/17 14:39 Pulse 87 12/29/17 14:39 Resp 16 12/29/17 14:39 BP 149/80 12/29/17 14:39 Pulse Ox 97 12/29/17 14:39 Intake & Output 12/29/17 12/29/17 12/30/17 06:59 18:59 06:59 Output Total 800 250 Balance -800 -250 Output: Urine 800 250 Other: Voiding Method Toilet Toilet # Voids 2 - Labs CBC & Chem 7: 12/28/17 07:47 12/29/17 07:26 Labs: Abnormal Lab Results - Last 24 Hours (Table) 12/29/17 12/29/17 12/29/17 Range/Units 00:24 00:53 03:38 BUN (9-20) mg/dL Creatinine (0.66-1.25) mg/dL POC Glucose (mg/dL) 71 L 72 L 68 L (75-99) mg/dL Calcium (8.4-10.2) mg/dL 12/29/17 12/29/17 12/29/17 Range/Units 04:18 06:11 06:49 BUN (9-20) mg/dL Creatinine (0.66-1.25) mg/dL POC Glucose (mg/dL) 109 H 70 L 118 H (75-99) mg/dL Calcium (8.4-10.2) mg/dL 12/29/17 12/29/17 Range/Units 07:26 17:20 BUN 3 L (9-20) mg/dL Creatinine 0.59 L (0.66-1.25) mg/dL POC Glucose (mg/dL) 105 H (75-99) mg/dL Calcium 8.2 L (8.4-10.2) mg/dL Assessment and Plan (1) Partial bowel obstruction Current Visit: Yes Status: Acute Code(s): K56.600 - PARTIAL INTESTINAL OBSTRUCTION, UNSPECIFIED TO CAUSE SNOMED Code(s): 47340934 Plan: Patient seen and evaluated. NG tube fell out. He is at risk for recurrence of bowel obstruction. Patient is agreeable to proceed with laparoscopic lysis of adhesions. Potential discharge within 24-48 hours pending intraoperative findings. Surgery to be scheduled for Tuesday as he will have completed 5 days off Plavix.
[2017-12-29 17:22] LABS: Glucose,Whole Blood 105 mg/dL (75-99)
[2017-12-29] MEDS ORDERED: Potassium Replacement Protocol 1 EACH MISC MISCELLANE PRN (22:43)
--- NOTE | 2017-12-29 22:50 | P.PN ---
Subjective Progress Note Date: 12/29/17 Progress note being dictated for Dr. Waddell Interval history: This is a 62-year-old gentleman admitted with partial bowel obstruction involving both small and large bowel and multiple other medical issues. NG tube and Saha catheter discontinued yesterday. Reports multiple bowel movements, yet abdomen remains distended. Denies abdominal tenderness. Follow-up Abdominal x-ray reporting continued marked diffuse small bowel dilatation, prominent air throughout the right;, suggestive of severe ileus rather than small bowel obstruction and no free intraperitoneal air below the hemidiaphragms .complains of shortness of breath, suspect related to abdominal distention, chest x-ray ordered. Voiding without difficulty. Complains of nausea, on clear liquid diet as per surgery. Afebrile. Blood cultures negative. 12/27/2017 increased abdominal pain during the night and NG tube reinserted as per surgery. Abdomen remains firm and distended, with 450 MLS dark brownish drainage over the last 8 hours.positive fluctuating abdominal pain.Diagnostic laparoscopic lysis of adhesions recommend per surgery. Aspirin, Plavix placed on hold, maintained on Lovenox. PPN nitiated. Maintained on IV fluid hydration. Cardiology consulted regarding anticoagulation recommendations/ surgery. 12/28/2017 receiving IV fluid hydration. PPN unavailable from pharmacy, TPN ordered as per surgery. Scheduled for PICC line placement. Patient ambulating to and from bathroom, complaining of exertional dyspnea. Chest x-ray reporting possible early pneumonia right lung base, mild atelectasis. Minimal improvement in abdominal distention. Reports mild improvement in abdominal pain. NG drainage of around 800ml /8hrs. Telemetry reporting sinus rhythm to sinus tach, low 100s. Plavix and aspirin remain on hold for upcoming surgery, Tuesday. Afebrile 12/29/17 NG tube "fell out last night". Minimal improvement in abdominal pain, abdominal distention. Mild nausea, no bowel movement. No emesis. Awaiting PICC line placement. Afebrile, maintaining O2 sats of 95-97% on room air. Review of systems: CONSTITUTIONAL: No fever, positive fatigue. HEENT: No recent visual problems or hearing problems. Denied any sore throat. CARDIOVASCULAR: No chest pain, no palpitations, no syncope. PULMONARY: Exertional shortness of breath, no cough, no hemoptysis. GASTROINTESTINAL: No diarrhea, positive nausea, no vomiting, positive abdominal pain. NEUROLOGICAL: No headaches, generalized weakness, no numbness. HEMATOLOGICAL: Denies any bleeding or petechiae. GENITOURINARY: Denies any burning micturition, frequency, or urgency. MUSCULOSKELETAL/RHEUMATOLOGICAL: Denies any joint pain, swelling, or any muscle pain. ENDOCRINE: Denies any polyuria or polydipsia. PSYCHIATRIC: No anxiety, no depression The rest of the 14 point review of systems is negative Active Medications Hydrocodone Bitart/Acetaminophen ([place] 7.5-325) 1 each PO Q6H PRN PRN Reason: Pain Last Admin: 12/27/17 09:09 Dose: 1 each Atorvastatin Calcium (Lipitor) 80 mg PO QAM [facility] Last Admin: 12/29/17 07:27 Dose: 80 mg Benzocaine/Menthol (Cepacol Lozenge) 1 each MUCOUS MEM Q4HR PRN PRN Reason: Sore Throat Last Admin: 12/24/17 10:28 Dose: 1 each Enoxaparin Sodium (Lovenox) 30 mg SQ Q12HR [facility] Last Admin: 12/29/17 21:51 Dose: Not Given Famotidine (Pepcid) 20 mg IV Q12HR [facility] Last Admin: 12/29/17 21:52 Dose: 20 mg Hydromorphone HCl (Dilaudid) 1 mg IVP Q4HR PRN PRN Reason: Pain Last Admin: 12/29/17 21:45 Dose: 1 mg Levofloxacin 750 mg/ IV (Solution) 150 mls @ 100 mls/hr IVPB Q24H [facility] Last Admin: 12/29/17 07:27 Dose: 100 mls/hr Metronidazole 500 mg/ IV (Solution) 100 mls @ 100 mls/hr IVPB Q6HR [facility] Last Admin: 12/29/17 17:21 Dose: 100 mls/hr Sodium Chloride (Saline 0.9%) 1,000 mls @ 125 mls/hr IV .Q8H [facility] Last Admin: 12/29/17 21:52 Dose: 125 mls/hr Parenteral Vitamin Supplement 10 ml/ Chromium/Copper/Manganese/Seleni/Zn 1 ml/ Total Parenteral Nutrition 1,551 mls @ 64 mls/hr IV .Q24H [facility] Last Admin: 12/29/17 13:22 Dose: 64 mls/hr Dextrose/Sodium Chloride (Dextrose 5%-Ns Iv Soln) 1,000 mls @ 20 mls/hr IV .Q24H [facility] Last Admin: 12/29/17 07:26 Dose: Not Given Lisinopril (Zestril) 5 mg PO DAILY [facility] Last Admin: 12/29/17 07:27 Dose: 5 mg Lorazepam (Ativan) 1 mg IV Q2HR PRN PRN Reason: CIWA 8 or 9 Last Admin: 12/27/17 06:13 Dose: 1 mg Lorazepam (Ativan) 1 mg IV Q1HR PRN PRN Reason: CIWA 10 to 15 Metoclopramide HCl (Reglan) 5 mg IVP Q6HR PRN PRN Reason: Nausea And Vomiting Last Admin: 12/28/17 19:45 Dose: 5 mg Metoprolol Tartrate (Lopressor) 25 mg PO BID [facility] Last Admin: 12/29/17 21:50 Dose: 25 mg Miscellaneous Information (Potassium Per Protocol) 1 each MISCELLANE DAILY PRN ; Protocol PRN Reason: Per Protocol Naloxone HCl (Narcan) 0.2 mg IV Q2M PRN PRN Reason: Opioid Reversal Objective - Vital Signs Vital signs: Vital Signs Temp 97.5 F L 12/29/17 06:24 Pulse 88 12/29/17 06:24 Resp 17 12/29/17 06:24 BP 158/97 12/29/17 06:24 Pulse Ox 95 12/29/17 06:24 Intake & Output 12/28/17 12/29/17 12/29/17 18:59 06:59 18:59 Intake Total 1400 Output Total 2175 800 Balance -775 -800 Intake: Intake, IV Titration 1400 Amount Potassium Chloride 10 meq 200 In Water For Injection 1 100ml.bag @ 100 mls/hr IVPB Q1H [facility] Rx#: [id number] Sodium Chloride 0.9% 1, 1000 000 ml @ 125 mls/hr IV . Q8H [facility] Rx#:[id number] metroNIDAZOLE-NS PMX 500 200 mg In Saline 1 100ml.bag @ 100 mls/hr IVPB Q6HR [facility] Rx#:[id number] Output: Gastric Drainage 550 Urine 1625 800 Other: Voiding Method Toilet Toilet # Bowel Movements 0 - Exam PHYSICAL EXAM: VITAL SIGNS: [As above] GENERAL: Sitting up in bed, tired appearing HEENT: Conjunctivae normal. eyes normal. Oral mucosa dry. NECK: No JVD. No thyroid enlargement. No LNs CARDIOVASCULAR: S1, S2 muffled. No murmur RESPIRATION: Breath sounds diminished in the bases. No rhonchi or crackles. No wheezing ABDOMEN: Firm, distended, diffuse tenderness. Hypoactive bowel sounds. Mild guarding. no masses palpable. LEGS: No edema. no swelling PSYCHIATRY: Alert and oriented -3, mood and affect normal. NERVOUS SYSTEM: Cranial N 2-12 grossly normal. Moves all 4 limbs. Diffuse weakness No focal deficits. - Labs CBC & Chem 7: 12/28/17 07:47 12/29/17 07:26 Labs: Abnormal Lab Results - Last 24 Hours (Table) 12/29/17 12/29/17 12/29/17 Range/Units 00:24 00:53 03:38 BUN (9-20) mg/dL Creatinine (0.66-1.25) mg/dL POC Glucose (mg/dL) 71 L 72 L 68 L (75-99) mg/dL Calcium (8.4-10.2) mg/dL 12/29/17 12/29/17 12/29/17 Range/Units 04:18 06:11 06:49 BUN (9-20) mg/dL Creatinine (0.66-1.25) mg/dL POC Glucose (mg/dL) 109 H 70 L 118 H (75-99) mg/dL Calcium (8.4-10.2) mg/dL 12/29/17 Range/Units 07:26 BUN 3 L (9-20) mg/dL Creatinine 0.59 L (0.66-1.25) mg/dL POC Glucose (mg/dL) (75-99) mg/dL Calcium 8.2 L (8.4-10.2) mg/dL Microbiology - Last 24 Hours (Table) 12/22/17 09:10 Blood Culture - Final Blood No Growth after 144 hours Assessment and Plan Assessment: 1. Acute severe ileus with Acute partial bowel obstruction, involving the small and large bowel with possible mild acute diverticulitis, development severly dilated small bowel per computed tomography scan 2. Recent colonoscopy 08/2017 reporting scattered diverticulosis of sigmoid colon with severe tortuous sigmoid colon. 3. CAD, stenting in April 2017 on dual antiplatelet therapy-currently on hold 4. Chronic daily alcohol use 5. PICC line placement pending. Plan: Continue current medication regime ,monitoring and symptomatic treatment. PICC line placement pending. Maintain IV fluid hydration, TPN, antibiotics. Aggressive pulmonary toileting with incentive spirometer reinforced. Pain management as per surgery. Anticoagulation remains on hold as per cardiology recommendation with surgery tentatively scheduled for Tuesday.CIWA protocol in place. Prognosis guarded given multiple complex medical issues. The impression and plan of care has been dictated as directed. : I performed a history and examination of this patient, discussed the same with the dictator. I agree with the dictator's note ,documented as a scribe. Any additional findings or plans will be noted.
[2017-12-30 00:09] LABS: Glucose,Whole Blood 113 mg/dL (75-99)
[2017-12-30] MEDS: metroNIDAZOLE-NS PMX 500 MG in SALINE 1 100ML.BAG IVPB SCH ×4 (01:15→17:08)
[2017-12-30] MEDS: HYDROmorphone 0.5 MG/0.5 ML SYRINGE IVP PRN ×6 (01:22→21:00)
[2017-12-30] MEDS: SODIUM CHLORIDE 0.9% 1,000 ML IV SCH ×2 (05:20→11:19)
[2017-12-30 06:16] LABS: Glucose,Whole Blood 118 mg/dL (75-99)
[2017-12-30] MEDS: ENOXAPARIN 30 MG/0.3 ML SYRINGE SQ SCH (07:54)
[2017-12-30] MEDS: DEXTROSE 5%-0.9% NACL 1,000 ML IV SCH (07:55)
[2017-12-30] MEDS: METOPROLOL TARTRATE 25 MG TAB PO SCH ×2 (07:55→21:00)
[2017-12-30] MEDS: LISINOPRIL 5 MG TAB PO SCH (07:55)
[2017-12-30] MEDS: FAMOTIDINE 20 MG/2 ML VIAL IV SCH ×2 (07:55→21:00)
[2017-12-30] MEDS: ATORVASTATIN 80 MG TAB PO SCH (07:55)
[2017-12-30] MEDS: LEVOFLOXACIN 750MG-D5W PMX 750 MG in DEXTROSE/WATER 1 150ML.BAG IVPB SCH (07:55)
[2017-12-30 09:34] LABS: Anion Gap 7 mmol/L; Blood Urea Nitrogen 2 mg/dL (9-20); Calcium 8.4 mg/dL (8.4-10.2); Carbon Dioxide 25 mmol/L (22-30); Chloride 105 mmol/L (98-107); Glucose 120 mg/dL (74-99); Phosphorus 3.1 mg/dL (2.5-4.5); Potassium 3.7 mmol/L (3.5-5.1); Sodium 137 mmol/L (137-145)
[2017-12-30 11:57] LABS: Glucose,Whole Blood 114 mg/dL (75-99)
[2017-12-30] MEDS: POTASSIUM CHLORIDE 10 MEQ in WATER FOR INJECTION 1 100ML.BAG IVPB SCH ×2 (13:34→14:39)
[2017-12-30] MEDS: MVI, ADULT NO.4 WITH VIT K 10 ML, TRACE (CONC-1ML/DOSE) 1 ML in AMIN 3.3%/DEX 9.8%/LIPI... IV SCH ×3 (14:00)
[2017-12-30 17:14] LABS: Glucose,Whole Blood 111 mg/dL (75-99)
[2017-12-30] MEDS ORDERED: Magnesium Replacement Protocol 1 EACH MISC MISCELLANE PRN (17:42)
--- NOTE | 2017-12-30 17:47 | P.PN ---
Subjective Progress Note Date: 12/30/17 Progress note being dictated for Dr. Waddell Interval history: This is a 62-year-old gentleman admitted with partial bowel obstruction involving both small and large bowel and multiple other medical issues. NG tube and Saha catheter discontinued yesterday. Reports multiple bowel movements, yet abdomen remains distended. Denies abdominal tenderness. Follow-up Abdominal x-ray reporting continued marked diffuse small bowel dilatation, prominent air throughout the right;, suggestive of severe ileus rather than small bowel obstruction and no free intraperitoneal air below the hemidiaphragms .complains of shortness of breath, suspect related to abdominal distention, chest x-ray ordered. Voiding without difficulty. Complains of nausea, on clear liquid diet as per surgery. Afebrile. Blood cultures negative. 12/27/2017 increased abdominal pain during the night and NG tube reinserted as per surgery. Abdomen remains firm and distended, with 450 MLS dark brownish drainage over the last 8 hours.positive fluctuating abdominal pain.Diagnostic laparoscopic lysis of adhesions recommend per surgery. Aspirin, Plavix placed on hold, maintained on Lovenox. PPN nitiated. Maintained on IV fluid hydration. Cardiology consulted regarding anticoagulation recommendations/ surgery. 12/28/2017 receiving IV fluid hydration. PPN unavailable from pharmacy, TPN ordered as per surgery. Scheduled for PICC line placement. Patient ambulating to and from bathroom, complaining of exertional dyspnea. Chest x-ray reporting possible early pneumonia right lung base, mild atelectasis. Minimal improvement in abdominal distention. Reports mild improvement in abdominal pain. NG drainage of around 800ml /8hrs. Telemetry reporting sinus rhythm to sinus tach, low 100s. Plavix and aspirin remain on hold for upcoming surgery, Tuesday. Afebrile 12/29/17 NG tube "fell out last night". Minimal improvement in abdominal pain, abdominal distention. Mild nausea, no bowel movement. No emesis. Awaiting PICC line placement. Afebrile, maintaining O2 sats of 95-97% on room air. Review of systems: CONSTITUTIONAL: No fever, positive fatigue. HEENT: No recent visual problems or hearing problems. Denied any sore throat. CARDIOVASCULAR: No chest pain, no palpitations, no syncope. PULMONARY: Exertional shortness of breath, no cough, no hemoptysis. GASTROINTESTINAL: No diarrhea, positive nausea, no vomiting, positive abdominal pain. NEUROLOGICAL: No headaches, generalized weakness, no numbness. HEMATOLOGICAL: Denies any bleeding or petechiae. GENITOURINARY: Denies any burning micturition, frequency, or urgency. MUSCULOSKELETAL/RHEUMATOLOGICAL: Denies any joint pain, swelling, or any muscle pain. ENDOCRINE: Denies any polyuria or polydipsia. PSYCHIATRIC: No anxiety, no depression The rest of the 14 point review of systems is negative Active Medications Hydrocodone Bitart/Acetaminophen ([place] 7.5-325) 1 each PO Q6H PRN PRN Reason: Pain Last Admin: 12/27/17 09:09 Dose: 1 each Atorvastatin Calcium (Lipitor) 80 mg PO QAM [facility] Last Admin: 12/29/17 07:27 Dose: 80 mg Benzocaine/Menthol (Cepacol Lozenge) 1 each MUCOUS MEM Q4HR PRN PRN Reason: Sore Throat Last Admin: 12/24/17 10:28 Dose: 1 each Enoxaparin Sodium (Lovenox) 30 mg SQ Q12HR [facility] Last Admin: 12/29/17 21:51 Dose: Not Given Famotidine (Pepcid) 20 mg IV Q12HR [facility] Last Admin: 12/29/17 21:52 Dose: 20 mg Hydromorphone HCl (Dilaudid) 1 mg IVP Q4HR PRN PRN Reason: Pain Last Admin: 12/29/17 21:45 Dose: 1 mg Levofloxacin 750 mg/ IV (Solution) 150 mls @ 100 mls/hr IVPB Q24H [facility] Last Admin: 12/29/17 07:27 Dose: 100 mls/hr Metronidazole 500 mg/ IV (Solution) 100 mls @ 100 mls/hr IVPB Q6HR [facility] Last Admin: 12/29/17 17:21 Dose: 100 mls/hr Sodium Chloride (Saline 0.9%) 1,000 mls @ 125 mls/hr IV .Q8H [facility] Last Admin: 12/29/17 21:52 Dose: 125 mls/hr Parenteral Vitamin Supplement 10 ml/ Chromium/Copper/Manganese/Seleni/Zn 1 ml/ Total Parenteral Nutrition 1,551 mls @ 64 mls/hr IV .Q24H [facility] Last Admin: 12/29/17 13:22 Dose: 64 mls/hr Dextrose/Sodium Chloride (Dextrose 5%-Ns Iv Soln) 1,000 mls @ 20 mls/hr IV .Q24H [facility] Last Admin: 12/29/17 07:26 Dose: Not Given Lisinopril (Zestril) 5 mg PO DAILY [facility] Last Admin: 12/29/17 07:27 Dose: 5 mg Lorazepam (Ativan) 1 mg IV Q2HR PRN PRN Reason: CIWA 8 or 9 Last Admin: 12/27/17 06:13 Dose: 1 mg Lorazepam (Ativan) 1 mg IV Q1HR PRN PRN Reason: CIWA 10 to 15 Metoclopramide HCl (Reglan) 5 mg IVP Q6HR PRN PRN Reason: Nausea And Vomiting Last Admin: 12/28/17 19:45 Dose: 5 mg Metoprolol Tartrate (Lopressor) 25 mg PO BID [facility] Last Admin: 12/29/17 21:50 Dose: 25 mg Miscellaneous Information (Potassium Per Protocol) 1 each MISCELLANE DAILY PRN ; Protocol PRN Reason: Per Protocol Naloxone HCl (Narcan) 0.2 mg IV Q2M PRN PRN Reason: Opioid Reversal 12/30/2017 scheduled for surgery tomorrow. Abdominal distention mildly improved , no bowel movements. Reports improvement in abdominal pain/cramping. Receiving TPN via PICC line. Afebrile. Denies chest pain, palpitations or shortness of breath. Objective - Vital Signs Vital signs: Vital Signs Temp 97.0 F L 12/30/17 15:00 Pulse 82 12/30/17 15:00 Resp 16 12/30/17 15:00 BP 150/86 12/30/17 15:00 Pulse Ox 96 12/30/17 15:00 Intake & Output 12/29/17 12/30/17 12/30/17 18:59 06:59 18:59 Intake Total 1551 Output Total 2250 Balance -2250 1551 Weight 74.843 kg Intake: Intake, IV Titration 1551 Amount Mvi, Adult No.4 with Vit 1551 K 10 ml Trace (Conc-1Ml/ Dose) 1 ml In Osman 3.3%/ Dex 9.8%/Lipid/Lytes 1, 540 ml @ 64 mls/hr IV . Q24H [facility] Rx#:[id number] Output: Urine 2250 Emesis 0 Other: Voiding Method Toilet Toilet # Voids 2 0 2 # Bowel Movements 0 # Emeses 0 - Exam PHYSICAL EXAM: VITAL SIGNS: [As above] GENERAL: Sitting up in bed, no acute distress HEENT: Conjunctivae normal. eyes normal. Oral mucosa dry. NECK: No JVD. No thyroid enlargement. No LNs CARDIOVASCULAR: S1, S2 muffled. No murmur RESPIRATION: Breath sounds diminished in the bases. No rhonchi or crackles. No wheezing ABDOMEN: less Firm, distended, diffuse tenderness. Hypoactive bowel sounds. Mild guarding. no masses palpable. LEGS: No edema. no swelling PSYCHIATRY: Alert and oriented -3, mood and affect normal. NERVOUS SYSTEM: Cranial N 2-12 grossly normal. Moves all 4 limbs. Diffuse weakness No focal deficits. - Labs CBC & Chem 7: 12/28/17 07:47 12/30/17 07:58 Labs: Abnormal Lab Results - Last 24 Hours (Table) 12/30/17 12/30/17 12/30/17 Range/Units 00:04 06:15 07:58 BUN 2 L (9-20) mg/dL Creatinine 0.60 L (0.66-1.25) mg/dL Glucose 120 H (74-99) mg/dL POC Glucose (mg/dL) 113 H 118 H (75-99) mg/dL 12/30/17 12/30/17 Range/Units 11:54 17:13 BUN (9-20) mg/dL Creatinine (0.66-1.25) mg/dL Glucose (74-99) mg/dL POC Glucose (mg/dL) 114 H 111 H (75-99) mg/dL Assessment and Plan Assessment: 1. Acute severe ileus with Acute partial bowel obstruction, involving the small and large bowel with possible mild acute diverticulitis, development severly dilated small bowel per computed tomography scan 2. Recent colonoscopy 08/2017 reporting scattered diverticulosis of sigmoid colon with severe tortuous sigmoid colon. 3. CAD, stenting in April 2017 on dual antiplatelet therapy-currently on hold 4. Chronic daily alcohol use 5. Status post PICC line placement Plan: Continue current medication regime ,monitoring and symptomatic treatment. Maintain IV fluid hydration, TPN, antibiotics. OR scheduled for tomorrow. Lovenox on hold as per surgery. Aggressive pulmonary toileting with incentive spirometer reinforced. Pain management as per surgery. CIWA protocol in place. Prognosis guarded given multiple complex medical issues. The impression and plan of care has been dictated as directed. : I performed a history and examination of this patient, discussed the same with the dictator. I agree with the dictator's note ,documented as a scribe. Any additional findings or plans will be noted.
--- NOTE | 2017-12-30 21:37 | P.PN ---
Subjective Progress Note Date: 12/30/17 Patient reports localized left lower quadrant abdominal pain. This has been persistent since his hospitalization over a week ago. He is on TPN. No reports of fevers or chills. He reports decreased passage of flatus. Objective - Vital Signs Vital signs: Vital Signs Temp 97.0 F L 12/30/17 15:00 Pulse 82 12/30/17 15:00 Resp 16 12/30/17 15:00 BP 150/86 12/30/17 15:00 Pulse Ox 96 12/30/17 15:00 Intake & Output 12/30/17 12/30/17 12/31/17 06:59 18:59 06:59 Intake Total 1551 Output Total 2250 Balance -2250 1551 Weight 74.843 kg Intake: Intake, IV Titration 1551 Amount Mvi, Adult No.4 with Vit 1551 K 10 ml Trace (Conc-1Ml/ Dose) 1 ml In [place]man 3.3%/ Dex 9.8%/Lipid/Lytes 1, 540 ml @ 64 mls/hr IV . Q24H [facility] Rx#:[id number] Output: Urine 2250 Emesis 0 Other: Voiding Method Toilet # Voids 0 2 # Bowel Movements 0 # Emeses 0 - Exam ABDOMEN: Soft. Tender along left lower quadrant. No peritonitis. GENERAL: Well developed and in no acute distress. Pleasant. HEENT: No sclera icterus. Extraocular movements grossly intact. Moist buccal mucosa. Head is atraumatic, normocephalic. Hears conversational speech. No nasal drainage. NECK: Supple without lymphadenopathy. No JV distention. CHEST: Non-labored respirations and equal bilateral excursions. CARDIOVASCULAR: Regular rate and rhythm. Palpable 2+ radial pulses. MUSCULOSKELETAL: No clubbing, cyanosis or edema. NEUROLOGIC: No focal or lateralizing signs. PSYCH: Appropriate affect. Alert and oriented to person, place and time. SKIN: Good skin turgor. Well perfused. - Labs CBC & Chem 7: 12/28/17 07:47 12/30/17 07:58 Labs: Abnormal Lab Results - Last 24 Hours (Table) 12/30/17 12/30/17 12/30/17 Range/Units 00:04 06:15 07:58 BUN 2 L (9-20) mg/dL Creatinine 0.60 L (0.66-1.25) mg/dL Glucose 120 H (74-99) mg/dL POC Glucose (mg/dL) 113 H 118 H (75-99) mg/dL 12/30/17 12/30/17 Range/Units 11:54 17:13 BUN (9-20) mg/dL Creatinine (0.66-1.25) mg/dL Glucose (74-99) mg/dL POC Glucose (mg/dL) 114 H 111 H (75-99) mg/dL Assessment and Plan (1) Partial bowel obstruction Current Visit: Yes Status: Acute Code(s): K56.600 - PARTIAL INTESTINAL OBSTRUCTION, UNSPECIFIED TO CAUSE SNOMED Code(s): 22062998 (2) Intractable left lower quadrant abdominal pain Current Visit: Yes Status: Acute Code(s): R10.32 - LEFT LOWER QUADRANT PAIN SNOMED Code(s): 663009196 Plan: 1. His is at bedside. I had a long discussion regarding surgical options. Given the chronicity of his abdominal pain including protracted course , patient presents actually more as a bowel obstruction. 2. Surgical intervention with laparoscopic lysis of adhesions were described. Potential small bowel resection was also described. 3. Laparoscopic approach reviewed as to optimize immediate recovery and return to antiplatelet therapy for his cardiac history. 4. All questions were addressed including surgical planning and postoperative care.
[2017-12-31] MEDS: metroNIDAZOLE-NS PMX 500 MG in SALINE 1 100ML.BAG IVPB SCH ×4 (00:02→18:48)
[2017-12-31 00:04] LABS: Glucose,Whole Blood 116 mg/dL (75-99)
[2017-12-31] MEDS: HYDROmorphone 0.5 MG/0.5 ML SYRINGE IVP PRN ×5 (00:57→21:47)
[2017-12-31] MEDS: SODIUM CHLORIDE 0.9% 1,000 ML IV SCH ×4 (03:28→20:58)
[2017-12-31 07:05] LABS: Glucose,Whole Blood 108 mg/dL (75-99)
[2017-12-31] MEDS ORDERED: ROPIVACAINE 5 MG/ML 30 ML VIAL MISCELLANE ONE (07:43)
[2017-12-31] MEDS ORDERED: SODIUM CHLORIDE 0.9% 1,000 ML IV ONE (07:43)
--- NOTE | 2017-12-31 07:46 | P.HPADDEND ---
H&P Addendum H&P Addendum Date: 12/31/17 at bedside. Benefits and risks described. Surgical intervention with laparoscopic lysis of adhesions was described. Possibility of small bowel resection also reviewed. Patient and family agreeable to proceed.
--- NOTE | 2017-12-31 10:18 | P.PCN ---
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 Failed placement of oral and nasogastric tube prompted placement of EGD for stomach and small bowel decompression 2. Diagnostic laparoscopy performed confirming small bowel distention including colonic distention. 3. Focal area of obstruction with hypervascularity and nodularity and tumor of the proximal sigmoid colon acting as a colonic volvulus 4. Intraoperative colonoscopy performed demonstrating moderate liquid stool prohibiting view and biopsy at area of concern 5. Open laparotomy and colostomy creation avoided at this time per patient request preoperatively.
[2017-12-31] MEDS ORDERED: POLYETHYLENE GLYCOL LYTES SOLN 4,000 ML SOLN.RECON PO ONE (10:47)
--- NOTE | 2017-12-31 10:47 | P.PN ---
Progress Note - Text Progress Note Date: 12/31/17 Patient's chart reviewed in detail including previous for CT scans performed in the first 48 hours of his hospitalization. Findings confirm a mass along the sigmoid colon as confirmed on diagnostic laparoscopy. Patient also confirmed that he has been able to pass flatus just before surgery. PLAN: 1. Will do a 2 day colonic prep 2. Continue Saha catheter for strict I's and O's follow-up. 3. May have light clear liquid diet. 4. Plan for colon resection on Tuesday via robotic approach. 5. Continue to hold Plavix for robotic colectomy possible exploratory laparotomy and colostomy creation 6. May have Lovenox in the interim. Surgical plan thoroughly described to the patient and family regarding care coordination.
[2017-12-31] MEDS: METOPROLOL TARTRATE 25 MG TAB PO SCH ×2 (11:18→20:59)
[2017-12-31] MEDS: FAMOTIDINE 20 MG/2 ML VIAL IV SCH (11:20)
[2017-12-31] MEDS: LEVOFLOXACIN 750MG-D5W PMX 750 MG in DEXTROSE/WATER 1 150ML.BAG IVPB SCH (11:31)
[2017-12-31] MEDS: ATORVASTATIN 80 MG TAB PO SCH (11:32)
[2017-12-31] MEDS: LISINOPRIL 5 MG TAB PO SCH (11:32)
[2017-12-31 12:19] LABS: Basophils % (A) 0 %; Eosinophils % (A) 0 %; HCT 40.1 % (39.0-53.0); HGB 12.6 gm/dL (13.0-17.5); Lymphocytes # (A) 0.4 k/uL (1.0-4.8); Lymphocytes % (A) 5 %; MCH 29.7 pg (25.0-35.0); MCHC 31.4 g/dL (31.0-37.0); MCV 94.7 fL (80.0-100.0); Mean Platelet Volume 6.2; Monocytes # (A) 0.2 k/uL (0-1.0); Monocytes % (A) 2 %; Neutrophils # (A) 7.4 k/uL (1.3-7.7); Neutrophils % (A) 91 %; Platelet Count 484 k/uL (150-450); RBC 4.23 m/uL (4.30-5.90); WBC 8.1 k/uL (3.8-10.6)
[2017-12-31 12:20] LABS: Glucose,Whole Blood 178 mg/dL (75-99)
[2017-12-31 12:32] LABS: Anion Gap 8 mmol/L; Blood Urea Nitrogen 3 mg/dL (9-20); Calcium 8.4 mg/dL (8.4-10.2); Carbon Dioxide 25 mmol/L (22-30); Chloride 105 mmol/L (98-107); Glucose 174 mg/dL (74-99); Magnesium 2.2 mg/dL (1.6-2.3); Phosphorus 2.3 mg/dL (2.5-4.5); Potassium 3.8 mmol/L (3.5-5.1); Sodium 138 mmol/L (137-145)
[2017-12-31] MEDS: MVI, ADULT NO.4 WITH VIT K 10 ML, TRACE (CONC-1ML/DOSE) 1 ML in AMIN 3.3%/DEX 9.8%/LIPI... IV SCH ×3 (15:14)
[2017-12-31 16:16] LABS: Iron Saturation 9.57 (15.00-50.00)
[2017-12-31] MEDS: METOCLOPRAMIDE 5 MG/ML 2 ML VIAL IVP PRN (16:25)
[2017-12-31] MEDS: DEXTROSE 5%-0.9% NACL 1,000 ML IV SCH (16:25)
[2017-12-31 16:27] LABS: Alpha Fetoprotein, Tumor Mkr 2.8 ng/mL (0.0-7.9)
[2017-12-31 18:03] LABS: Glucose,Whole Blood 167 mg/dL (75-99)
--- NOTE | 2017-12-31 20:54 | PN ---
PROGRESS NOTE DATE OF SERVICE: 12/31/2017. INTERVAL HISTORY: This 62-year-old gentleman who was admitted with bowel obstruction, had laparoscopy at this time which showed possible sigmoid mass with significant colonic surgery is being planned on Tuesday. No chest pain. No palpitations. No fever. PHYSICAL EXAM: Alert and oriented x3. Pulse 93, blood pressure 133/83, respirations 16, temperature 97.7, pulse ox 94% on 2 L. HEENT: Conjunctivae normal. Oral mucosa moist. Neck is no jugular venous distention. No carotid bruit. No lymph node enlargement. Cardiovascular System: S1, S2 muffled. Respirations: Breath sounds diminished in the bases. No rhonchi and no crackles. ABDOMEN: Soft, obese, status post surgery. Legs no edema. No swelling. NERVOUS SYSTEM: No focal deficits. LABS: WBC 8.2, hemoglobin 12.6, glucose 186. ASSESSMENT: 1. Possible acute bowel obstruction secondary to sigmoid mass including colonic and small intestinal obstruction. 2. Possible acute mild diverticulitis. 3. Severe tortuous sigmoid colon. 4. Coronary artery disease stenting. 5. History of EtOH. 6. Status post PICC line placement. 7. TPN. RECOMMENDATIONS AND DISCUSSION: Recommend to continue current medications, continue monitoring and symptomatic treatment. Otherwise at this time I would recommend to continue the current medical management and treatment and close follow surgery and prognosis guarded. Further recommendations to follow. SHANE / TERESAN: [id number] / SILVINO
[2018-01-01 00:26] LABS: Glucose,Whole Blood 151 mg/dL (75-99)
[2018-01-01] MEDS: metroNIDAZOLE-NS PMX 500 MG in SALINE 1 100ML.BAG IVPB SCH ×5 (01:00→23:14)
[2018-01-01] MEDS: HYDROmorphone 0.5 MG/0.5 ML SYRINGE IVP PRN ×6 (02:45→22:39)
[2018-01-01] MEDS: SODIUM CHLORIDE 0.9% 1,000 ML IV SCH ×3 (04:38→17:32)
[2018-01-01 06:20] LABS: Glucose,Whole Blood 142 mg/dL (75-99)
[2018-01-01] MEDS: ENOXAPARIN 40 MG/0.4 ML SYRINGE SQ SCH (08:49)
[2018-01-01] MEDS: LEVOFLOXACIN 750MG-D5W PMX 750 MG in DEXTROSE/WATER 1 150ML.BAG IVPB SCH (08:54)
[2018-01-01] MEDS: LISINOPRIL 5 MG TAB PO SCH (08:56)
[2018-01-01] MEDS: PANTOPRAZOLE 40 MG/10 ML VIAL IV SCH (08:56)
[2018-01-01] MEDS: METOPROLOL TARTRATE 25 MG TAB PO SCH ×2 (08:56→21:30)
[2018-01-01] MEDS: ATORVASTATIN 80 MG TAB PO SCH (08:56)
[2018-01-01] MEDS ORDERED: ENOXAPARIN 40 MG/0.4 ML SYRINGE SQ SCH (09:00)
--- NOTE | 2018-01-01 09:52 | PN ---
PROGRESS NOTE This 62-year-old male patient admitted with a bowel obstruction. Laparoscopy showed a 6 point mass and he is awaiting surgery on Tuesday. He denies any chest discomfort. No shortness of breath or orthopnea. PHYSICAL EXAMINATION: On examination, he is afebrile at 97 degrees Fahrenheit, pulse rate is 80s, respirations are normal, blood pressure 139/87 mmHg. Heart sounds are S1, S2 soft. No murmurs or gallops. Breath sounds are reduced bilaterally. Abdomen is distended. Extremities: No edema. IMPRESSION: 1. Abdominal mass, awaiting surgery. 2. Coronary artery disease status post stenting in the past. 3. History of alcohol use. SUGGEST: Continue current medications and proceed with surgery. The patient appears stable from a cardiovascular standpoint. MMODL / IJN: [id number] /
[2018-01-01 10:09] LABS: Anion Gap 7 mmol/L; Blood Urea Nitrogen 6 mg/dL (9-20); Calcium 8.3 mg/dL (8.4-10.2); Carbon Dioxide 26 mmol/L (22-30); Chloride 105 mmol/L (98-107); Glucose 113 mg/dL (74-99); Magnesium 2.4 mg/dL (1.6-2.3); Phosphorus 3.8 mg/dL (2.5-4.5); Potassium 3.5 mmol/L (3.5-5.1); Sodium 138 mmol/L (137-145)
[2018-01-01 10:36] LABS: Basophils % (A) 0 %; Eosinophils # (A) 0.1 k/uL (0-0.7); Eosinophils % (A) 1 %; HCT 36.3 % (39.0-53.0); HGB 11.5 gm/dL (13.0-17.5); Lymphocytes # (A) 1.6 k/uL (1.0-4.8); Lymphocytes % (A) 21 %; MCH 29.5 pg (25.0-35.0); MCHC 31.9 g/dL (31.0-37.0); MCV 92.6 fL (80.0-100.0); Mean Platelet Volume 6.5; Monocytes # (A) 0.6 k/uL (0-1.0); Monocytes % (A) 7 %; Neutrophils # (A) 5.2 k/uL (1.3-7.7); Neutrophils % (A) 69 %; Platelet Count 525 k/uL (150-450); RBC 3.91 m/uL (4.30-5.90); RDW 14.1 % (11.5-15.5); WBC 7.6 k/uL (3.8-10.6)
[2018-01-01] MEDS: SODIUM FERRIC GLUCONAT-SUCROSE 125 MG in SODIUM CHLORIDE 0.9% 100 ML IVPB SCH (11:11)
[2018-01-01 12:31] LABS: Glucose,Whole Blood 98 mg/dL (75-99)
[2018-01-01] MEDS: POTASSIUM CHLORIDE 10 MEQ in WATER FOR INJECTION 1 100ML.BAG IVPB SCH ×2 (12:36→14:54)
--- NOTE | 2018-01-01 14:51 | P.PN ---
Subjective Progress Note Date: 01/01/18 Patient had a trial of bowel prep and had no results. Denies any nausea and vomiting. He still reports his abdominal distention is the same. He had passed a small amount of flatus. His is at bedside. No reports of fevers or chills. He is on TPN and nothing by mouth except ice chips. Objective - Vital Signs Vital signs: Vital Signs Temp 97.8 F 01/01/18 14:42 Pulse 81 01/01/18 14:42 Resp 16 01/01/18 14:42 BP 138/90 01/01/18 14:42 Pulse Ox 93 L 01/01/18 14:42 Intake & Output 12/31/17 01/01/18 01/01/18 18:59 06:59 18:59 Intake Total 2201 Output Total 3080 825 500 Balance -879 -825 -500 Weight 74.843 kg Intake: IV 650 Intake, IV Titration 1551 Amount Mvi, Adult No.4 with Vit 1551 K 10 ml Trace (Conc-1Ml/ Dose) 1 ml In [place]man 3.3%/ Dex 9.8%/Lipid/Lytes 1, 540 ml @ 64 mls/hr IV . Q24H [facility] Rx#:[id number] Output: Urine 3075 825 500 Estimated Blood Loss 5 Other: Voiding Method Indwelling Catheter Indwelling Catheter Indwelling Catheter # Voids 1 # Bowel Movements 0 0 0 - Exam ABDOMEN: Soft. Mild to moderate abdominal distention. No peritonitis. GENERAL: Well developed and in no acute distress. Pleasant. HEENT: No sclera icterus. Extraocular movements grossly intact. Moist buccal mucosa. Head is atraumatic, normocephalic. Hears conversational speech. No nasal drainage. NECK: Supple without lymphadenopathy. No JV distention. CHEST: Non-labored respirations and equal bilateral excursions. CARDIOVASCULAR: Regular rate and rhythm. Palpable 2+ radial pulses. MUSCULOSKELETAL: No clubbing, cyanosis or edema. NEUROLOGIC: No focal or lateralizing signs. : Saha catheter present with barbi color urine. PSYCH: Appropriate affect. Alert and oriented to person, place and time. SKIN: Good skin turgor. Well perfused. - Labs CBC & Chem 7: 01/01/18 09:32 01/01/18 09:32 Labs: Abnormal Lab Results - Last 24 Hours (Table) 12/31/17 12/31/17 01/01/18 Range/Units 12:02 17:57 00:22 RBC (4.30-5.90) m/uL Hgb (13.0-17.5) gm/dL Hct (39.0-53.0) % Plt Count (150-450) k/uL BUN (9-20) mg/dL Creatinine (0.66-1.25) mg/dL Glucose (74-99) mg/dL POC Glucose (mg/dL) 167 H 151 H (75-99) mg/dL Calcium (8.4-10.2) mg/dL Magnesium (1.6-2.3) mg/dL Iron 20 L (65-175) ug/dL TIBC 209 L (228-460) ug/dL Iron Saturation 9.57 L (15.00-50.00) 01/01/18 01/01/18 01/01/18 Range/Units 06:15 09:32 09:32 RBC 3.91 L (4.30-5.90) m/uL Hgb 11.5 L (13.0-17.5) gm/dL Hct 36.3 L (39.0-53.0) % Plt Count 525 H (150-450) k/uL BUN 6 L (9-20) mg/dL Creatinine 0.60 L (0.66-1.25) mg/dL Glucose 113 H (74-99) mg/dL POC Glucose (mg/dL) 142 H (75-99) mg/dL Calcium 8.3 L (8.4-10.2) mg/dL Magnesium 2.4 H (1.6-2.3) mg/dL Iron (65-175) ug/dL TIBC (228-460) ug/dL Iron Saturation (15.00-50.00) Assessment and Plan (1) Partial bowel obstruction Current Visit: Yes Status: Acute Code(s): K56.600 - PARTIAL INTESTINAL OBSTRUCTION, UNSPECIFIED TO CAUSE SNOMED Code(s): 20808584 (2) Intractable left lower quadrant abdominal pain Current Visit: Yes Status: Acute Code(s): R10.32 - LEFT LOWER QUADRANT PAIN SNOMED Code(s): 122881059 (3) Neoplasm of sigmoid colon Current Visit: Yes Status: Acute Code(s): D49.0 - NEOPLASM OF UNSPECIFIED BEHAVIOR OF DIGESTIVE SYSTEM SNOMED Code(s): 922722022 (4) Sigmoid volvulus Current Visit: Yes Status: Acute Code(s): K56.2 - VOLVULUS SNOMED Code(s) : 759586672 (5) Large bowel obstruction Current Visit: Yes Status: Acute Code(s): K56.609 - UNSP INTESTNL OBST, UNSP TO PARTIAL VERSUS COMPLETE OBST SNOMED Code(s): 892307275 (6) Sigmoid diverticulosis Current Visit: Yes Status: Acute Code(s): K57.30 - DVRTCLOS OF LG INT W/O PERFORATION OR ABSCESS W/O BLEEDING SNOMED Code(s): 175064678 (7) Ischemic cardiomyopathy Current Visit: Yes Status: Acute Code(s): I25.5 - ISCHEMIC CARDIOMYOPATHY SNOMED Code(s): 576876635 (8) History of cardiac catheterization Current Visit: Yes Status: Acute Code(s): Z98.890 - OTHER SPECIFIED POSTPROCEDURAL STATES SNOMED Code(s): 77930804441212 Plan: 1. Despite trial of bowel prep, he has had no results. 2. Alternatively, colectomy with colostomy creation was described in detail. He is at high risk for anastomotic leak secondary to protein malnutrition, antiplatelet use with increased risks of bleed, and unable to do a bowel prep. 3. I did review this will be a temporary colostomy as an anastomosis is extremely high risk at this point. 4. Will need colostomy teaching. 5. Additionally, patient will need to be back on antiplatelet therapy shortly after his colectomy. 6. Best chances of recovery include colostomy creation with deferred reversal after correction of inadequate protein intake and an appropriate bowel prep. 7. Continue with iron infusions to address iron deficiency anemia 8. Minimally invasive approach allows for least amount of blood loss and highest short-term and long-term recovery. 9. All questions were addressed. Patient and verbalizes understanding of surgical decision making. They're comfortable to proceed with colostomy creation.
[2018-01-01] MEDS: MVI, ADULT NO.4 WITH VIT K 10 ML, TRACE (CONC-1ML/DOSE) 1 ML in AMIN 3.3%/DEX 9.8%/LIPI... IV SCH ×3 (15:46)
[2018-01-01 17:31] LABS: Glucose,Whole Blood 105 mg/dL (75-99)
--- NOTE | 2018-01-01 19:22 | PN ---
PROGRESS NOTE DATE OF SERVICE: 01/01/2018 This 62-year-old gentleman admitted after bowel obstruction had possible sigmoid mass. The patient is scheduled to have surgery tomorrow by Dr. Colindres. No chest pain. No palpitations. No fever. Abdominal distention is noted. PHYSICAL EXAM: Alert and oriented x3. Pulse 81, blood pressure 130/91, respirations 16, temperature 97.2, pulse ox 93% room air. HEENT: Conjunctivae normal. Oral mucosa moist. Neck is no jugular venous distention. No carotid bruit. No lymph node enlargement. CARDIOVASCULAR: S1, S2 muffled. RESPIRATORY: Breath sounds diminished in the bases. A few scattered rhonchi. ABDOMEN: Soft. Mild diffuse distention. NERVOUS SYSTEM: No focal deficits. LABS: WBC 7.2, hemoglobin 11.5, sodium 130, potassium 3.4. ASSESSMENT: 1. Acute bowel obstruction secondary to sigmoid mass possibly including colonic and small intestinal obstruction. 2. Possible acute mild diverticulitis. 3. Severe tortuous sigmoid colon. 4. Coronary artery disease, stenting. 5. History of ETOH. 6. Status post PICC line placement. 7. TPN. RECOMMENDATIONS AND DISCUSSION: I recommend to continue current management and symptomatic treatment at this time. Closely follow with surgery and DVT prophylaxis. Cardiac input appreciated. Prognosis guarded. Further recommendations to follow. MMODL / IJN: [id number] /
--- NOTE | 2018-01-01 23:54 | P.OP ---
Date of Procedure: 12/31/17 Description of Procedure: SURGEON: ALEKSANDR VIDALES MD LANDSCAPE MANAGEMENT TECHNICIAN: None. PREOPERATIVE DIAGNOSES: 1. Small bowel obstruction 2. Inadequate protein intake 3. Ischemic cardiomyopathy 4. Hypertensive heart disease 5. History of antiplatelet therapy 6. Coronary artery disease 7. History of gastrointestinal hemorrhage 8. History of angina 9. Previous history of myocardial infarction 10. Abdominal distention POSTOPERATIVE DIAGNOSES: 1. Small bowel obstruction 2. Inadequate protein intake 3. Ischemic cardiomyopathy 4. Hypertensive heart disease 5. History of antiplatelet therapy 6. Coronary artery disease 7. History of gastrointestinal hemorrhage 8. History of angina 9. Previous history of myocardial infarction 10. Abdominal distention 11. 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 Sigmoid volvulus PROCEDURES PERFORMED: 1. Diagnostic laparoscopy 2. Laparoscopic lysis of adhesions 3. Intraoperative esophagogastroduodenoscopy 4. Intraoperative attempted colonoscopy with flexible sigmoidoscopy Anesthesia: GETA, local Estimated Blood Loss (ml): 5 Pathology: none sent Condition: stable Disposition: floor COMPLICATIONS: None. OPERATIVE FINDINGS: 1. Failed placement of oral and nasogastric tube prompted placement of EGD for stomach and small bowel decompression 2. Diagnostic laparoscopy performed confirming small bowel distention including colonic distention. 3. Focal area of obstruction with hypervascularity and nodularity and tumor of the proximal sigmoid colon acting as a colonic volvulus 4. Intraoperative colonoscopy performed demonstrating moderate liquid stool prohibiting view and biopsy at area of concern 5. Open laparotomy and colostomy creation avoided at this time per patient request INDICATIONS: The patient is a 62-year-old male initially admitted over 1 week ago with acute abdominal distention and ileus. Initial conservative measures with small bowel decompression had transiently improved however immediately rebounded. Further review of imaging was highly suspicious for bowel obstruction hence diagnostic laparoscopy was offered. Per patient request, no colectomy or colostomy was to be performed. With his wishes in mind, diagnostic laparoscopy with lysis of adhesions was described. Benefits and risks were described at length. Informed consent was obtained. DESCRIPTION OF PROCEDURE: The patient was brought to the operating room and laid in supine position. After general induction, the abdomen was prepped and draped in standard sterile fashion. Prior to incision, a timeout protocol was confirmed with surgical team regarding patient's name including procedure to be performed. Preoperative medications including antibiotics were given. Additionally, bilateral SCDs including heparin 5000 units was administered. A 5 mm laparoscopic trocar entry was performed of the left upper quadrant after anesthetizing the skin with local anesthetic. Diagnostic laparoscopy demonstrated moderate small bowel distention. An oral gastric and nasogastric tube decompression was attempted by anesthesia including myself. Minimal output was obtained. To successfully perform his laparoscopic procedure, an upper endoscopy was proposed to extend the scope to the proximal small bowel and decompress the small bowel. An Olympus gastroscope was passed along the posterior oropharynx down to the distal esophagus. The stomach was entered. No evidence of gastric or duodenal ulcers were found. The gastroscope was advanced to the proximal jejunum. The proximal small bowel including stomach was decompressed. The laparoscopic portion of the procedure was continued. I re-scrubbed into the case. Another two 5-mm trocar was placed along the left lateral abdominal wall and another port was placed above the umbilicus under direct localization. The bed was placed and Trendelenburg position with the right side up. Using atraumatic bowel graspers, the small bowel was investigated from the distal ileum to the proximal cecum. Diffuse distention was confirmed of the ascending colon, transverse colon including the descending colon. With this finding, large bowel obstruction was suspected. Attention was brought to the sigmoid colon. Steep Trendelenburg position was performed to see beyond the small bowel distention. The distal sigmoid colon was distended and a fixated hypervascular nodularity was confirmed along the proximal sigmoid colon adherent to the right pelvis. The colon was palpated with graspers and found to be firm along the proximal sigmoid tumor. With this finding, intraluminal visualization was proposed using the colonoscope. I went to the foot of the bed. The patient was placed in frog-legged position. An Olympus colonoscope was advanced into the rectum where moderate stool was identified. With laparoscopic visualization, fixation point and sigmoid volvulus was confirmed from the proximal sigmoid tumor. The distal segment of the colon was desufflated. The endoscopic portion of the procedure was terminated. I re-scrubbed into the case. Lysis of adhesions was performed along the sigmoid volvulus of the tumor was fixed to the pelvis. Final inspection of the abdomen demonstrated adequate hemostasis including no enterotomies. All instruments and pneumoperitoneum were evacuated from the abdominal cavity. Local anesthetic was infiltrated in all wounds for postop analgesia. Liquid glue was applied to the skin after re-approximating the incisions with 4-0 Monocryl as described. At the end of the procedure, needle, sponge, and instrument count was verified correct by air conditioning service technician. The patient had tolerated the procedure well, was taken to the postanesthesia care unit in stable condition. Intraoperative abdominal films were described and discussed with the patient's family.
[2018-01-02 00:13] LABS: Glucose,Whole Blood 107 mg/dL (75-99)
[2018-01-02] MEDS: HYDROmorphone 0.5 MG/0.5 ML SYRINGE IVP PRN ×4 (02:34→16:28)
[2018-01-02] MEDS: METOCLOPRAMIDE 5 MG/ML 2 ML VIAL IVP PRN ×2 (04:53→16:28)
[2018-01-02] MEDS: metroNIDAZOLE-NS PMX 500 MG in SALINE 1 100ML.BAG IVPB SCH ×3 (05:41→18:39)
[2018-01-02] MEDS: SODIUM CHLORIDE 0.9% 1,000 ML IV SCH ×2 (05:43→09:39)
[2018-01-02 07:07] LABS: Glucose,Whole Blood 109 mg/dL (75-99)
[2018-01-02] MEDS: SODIUM FERRIC GLUCONAT-SUCROSE 125 MG in SODIUM CHLORIDE 0.9% 100 ML IVPB SCH (08:30)
[2018-01-02] MEDS: PANTOPRAZOLE 40 MG/10 ML VIAL IV SCH (08:31)
[2018-01-02] MEDS: ATORVASTATIN 80 MG TAB PO SCH (08:32)
[2018-01-02] MEDS: METOPROLOL TARTRATE 25 MG TAB PO SCH (08:32)
[2018-01-02] MEDS: LISINOPRIL 5 MG TAB PO SCH (08:32)
[2018-01-02] MEDS: ENOXAPARIN 40 MG/0.4 ML SYRINGE SQ SCH (08:32)
[2018-01-02] MEDS: LEVOFLOXACIN 750MG-D5W PMX 750 MG in DEXTROSE/WATER 1 150ML.BAG IVPB SCH (09:39)
[2018-01-02 10:35] LABS: Basophils # (A) 0.1 k/uL (0-0.2); Basophils % (A) 1 %; Eosinophils # (A) 0.1 k/uL (0-0.7); Eosinophils % (A) 2 %; HCT 39.7 % (39.0-53.0); HGB 12.8 gm/dL (13.0-17.5); Lymphocytes # (A) 1.5 k/uL (1.0-4.8); Lymphocytes % (A) 18 %; MCH 30.3 pg (25.0-35.0); MCHC 32.3 g/dL (31.0-37.0); Mean Platelet Volume 6.4; Monocytes # (A) 0.6 k/uL (0-1.0); Monocytes % (A) 7 %; Neutrophils # (A) 5.8 k/uL (1.3-7.7); Neutrophils % (A) 70 %; Platelet Count 581 k/uL (150-450); RBC 4.22 m/uL (4.30-5.90); WBC 8.3 k/uL (3.8-10.6)
[2018-01-02 10:41] LABS: Anion Gap 9 mmol/L; Blood Urea Nitrogen 5 mg/dL (9-20); Calcium 8.6 mg/dL (8.4-10.2); Carbon Dioxide 20 mmol/L (22-30); Chloride 109 mmol/L (98-107); Glucose 121 mg/dL (74-99); Magnesium 2.2 mg/dL (1.6-2.3); Phosphorus 3.5 mg/dL (2.5-4.5); Potassium 3.9 mmol/L (3.5-5.1); Sodium 138 mmol/L (137-145)
[2018-01-02] MEDS: POTASSIUM CHLORIDE 10 MEQ in WATER FOR INJECTION 1 100ML.BAG IVPB SCH ×2 (12:14→13:19)
[2018-01-02 12:28] LABS: Glucose,Whole Blood 102 mg/dL (75-99)
--- NOTE | 2018-01-02 13:15 | P.HPADDEND ---
H&P Addendum H&P Addendum Date: 01/02/18 Benefits and risks of surgery described. Patient reports having 4 bowel movements today. He complains of thirst. Plan for colectomy with possible colostomy described in detail. at bedside. All questions and answers were addressed.
[2018-01-02] MEDS ORDERED: IV FLUID CONTINUATION 950 ML IV ONE (15:00)
[2018-01-02] MEDS ORDERED: IV FLUID CONTINUATION 1,000 ML IV ONE (15:00)
--- NOTE | 2018-01-02 16:08 | P.PN ---
Subjective Progress Note Date: 01/02/18 Progress note being dictated for Dr. Waddell Interval history: This is a 62-year-old gentleman admitted with partial bowel obstruction involving both small and large bowel and multiple other medical issues. NG tube and Saha catheter discontinued yesterday. Reports multiple bowel movements, yet abdomen remains distended. Denies abdominal tenderness. Follow-up Abdominal x-ray reporting continued marked diffuse small bowel dilatation, prominent air throughout the right;, suggestive of severe ileus rather than small bowel obstruction and no free intraperitoneal air below the hemidiaphragms .complains of shortness of breath, suspect related to abdominal distention, chest x-ray ordered. Voiding without difficulty. Complains of nausea, on clear liquid diet as per surgery. Afebrile. Blood cultures negative. 12/27/2017 increased abdominal pain during the night and NG tube reinserted as per surgery. Abdomen remains firm and distended, with 450 MLS dark brownish drainage over the last 8 hours.positive fluctuating abdominal pain.Diagnostic laparoscopic lysis of adhesions recommend per surgery. Aspirin, Plavix placed on hold, maintained on Lovenox. PPN nitiated. Maintained on IV fluid hydration. Cardiology consulted regarding anticoagulation recommendations/ surgery. 12/28/2017 receiving IV fluid hydration. PPN unavailable from pharmacy, TPN ordered as per surgery. Scheduled for PICC line placement. Patient ambulating to and from bathroom, complaining of exertional dyspnea. Chest x-ray reporting possible early pneumonia right lung base, mild atelectasis. Minimal improvement in abdominal distention. Reports mild improvement in abdominal pain. NG drainage of around 800ml /8hrs. Telemetry reporting sinus rhythm to sinus tach, low 100s. Plavix and aspirin remain on hold for upcoming surgery, Tuesday. Afebrile 12/29/17 NG tube "fell out last night". Minimal improvement in abdominal pain, abdominal distention. Mild nausea, no bowel movement. No emesis. Awaiting PICC line placement. Afebrile, maintaining O2 sats of 95-97% on room air. Review of systems: CONSTITUTIONAL: No fever, positive fatigue. HEENT: No recent visual problems or hearing problems. Denied any sore throat. CARDIOVASCULAR: No chest pain, no palpitations, no syncope. PULMONARY: Exertional shortness of breath, no cough, no hemoptysis. GASTROINTESTINAL: No diarrhea, positive nausea, no vomiting, positive abdominal pain. NEUROLOGICAL: No headaches, generalized weakness, no numbness. HEMATOLOGICAL: Denies any bleeding or petechiae. GENITOURINARY: Denies any burning micturition, frequency, or urgency. MUSCULOSKELETAL/RHEUMATOLOGICAL: Denies any joint pain, swelling, or any muscle pain. ENDOCRINE: Denies any polyuria or polydipsia. PSYCHIATRIC: No anxiety, no depression The rest of the 14 point review of systems is negative Active Medications Hydrocodone Bitart/Acetaminophen ([place] 7.5-325) 1 each PO Q6H PRN PRN Reason: Pain Last Admin: 12/27/17 09:09 Dose: 1 each Atorvastatin Calcium (Lipitor) 80 mg PO QAM [facility] Last Admin: 12/29/17 07:27 Dose: 80 mg Benzocaine/Menthol (Cepacol Lozenge) 1 each MUCOUS MEM Q4HR PRN PRN Reason: Sore Throat Last Admin: 12/24/17 10:28 Dose: 1 each Enoxaparin Sodium (Lovenox) 30 mg SQ Q12HR [facility] Last Admin: 12/29/17 21:51 Dose: Not Given Famotidine (Pepcid) 20 mg IV Q12HR [facility] Last Admin: 12/29/17 21:52 Dose: 20 mg Hydromorphone HCl (Dilaudid) 1 mg IVP Q4HR PRN PRN Reason: Pain Last Admin: 12/29/17 21:45 Dose: 1 mg Levofloxacin 750 mg/ IV (Solution) 150 mls @ 100 mls/hr IVPB Q24H [facility] Last Admin: 12/29/17 07:27 Dose: 100 mls/hr Metronidazole 500 mg/ IV (Solution) 100 mls @ 100 mls/hr IVPB Q6HR [facility] Last Admin: 12/29/17 17:21 Dose: 100 mls/hr Sodium Chloride (Saline 0.9%) 1,000 mls @ 125 mls/hr IV .Q8H [facility] Last Admin: 12/29/17 21:52 Dose: 125 mls/hr Parenteral Vitamin Supplement 10 ml/ Chromium/Copper/Manganese/Seleni/Zn 1 ml/ Total Parenteral Nutrition 1,551 mls @ 64 mls/hr IV .Q24H [facility] Last Admin: 12/29/17 13:22 Dose: 64 mls/hr Dextrose/Sodium Chloride (Dextrose 5%-Ns Iv Soln) 1,000 mls @ 20 mls/hr IV .Q24H [facility] Last Admin: 12/29/17 07:26 Dose: Not Given Lisinopril (Zestril) 5 mg PO DAILY [facility] Last Admin: 12/29/17 07:27 Dose: 5 mg Lorazepam (Ativan) 1 mg IV Q2HR PRN PRN Reason: CIWA 8 or 9 Last Admin: 12/27/17 06:13 Dose: 1 mg Lorazepam (Ativan) 1 mg IV Q1HR PRN PRN Reason: CIWA 10 to 15 Metoclopramide HCl (Reglan) 5 mg IVP Q6HR PRN PRN Reason: Nausea And Vomiting Last Admin: 12/28/17 19:45 Dose: 5 mg Metoprolol Tartrate (Lopressor) 25 mg PO BID [facility] Last Admin: 12/29/17 21:50 Dose: 25 mg Miscellaneous Information (Potassium Per Protocol) 1 each MISCELLANE DAILY PRN ; Protocol PRN Reason: Per Protocol Naloxone HCl (Narcan) 0.2 mg IV Q2M PRN PRN Reason: Opioid Reversal 12/30/2017 scheduled for surgery tomorrow. Abdominal distention mildly improved , no bowel movements. Reports improvement in abdominal pain/cramping. Receiving TPN via PICC line. Afebrile. Denies chest pain, palpitations or shortness of breath. 01/02/2018 reports a couple bowel movements both last night and this morning. Currently abdominal pain controlled. Denies chest pain, palpitations. Afebrile. Objective - Vital Signs Vital signs: Vital Signs Temp 98.6 F 01/02/18 15:13 Pulse 90 01/02/18 15:13 Resp 18 01/02/18 14:43 BP 157/96 01/02/18 15:13 Pulse Ox 95 01/02/18 15:13 Intake & Output 01/01/18 01/02/18 01/02/18 18:59 06:59 18:59 Intake Total 1551 450 Output Total 500 1525 1300 Balance 4848 -0828 -502 Weight 74.843 kg 74.843 kg Intake: Intake, IV Titration 1551 450 Amount Levofloxacin 750Mg-D5w 150 Pmx 750 mg In Dextrose/ Water 1 150ml.bag @ 100 mls/hr IVPB Q24H [facility] Rx#: [id number] Mvi, Adult No.4 with Vit 1551 K 10 ml Trace (Conc-1Ml/ Dose) 1 ml In Osman 3.3%/ Dex 9.8%/Lipid/Lytes 1, 540 ml @ 64 mls/hr IV . Q24H [facility] Rx#:[id number] Potassium Chloride 10 meq 100 In Water For Injection 1 100ml.bag @ 100 mls/hr IVPB Q1H [facility] Rx#: [id number] Sodium Ferric Gluconat- 100 Sucrose 125 mg In Sodium Chloride 0.9% 100 ml @ 100 mls/hr IVPB DAILY [facility] Rx#:[id number] metroNIDAZOLE-NS PMX 500 100 mg In Saline 1 100ml.bag @ 100 mls/hr IVPB Q6HR [facility] Rx#:[id number] Output: Urine 500 1525 1300 Other: Voiding Method Indwelling Catheter Indwelling Catheter Indwelling Catheter # Voids 1 # Bowel Movements 1 1 - Exam PHYSICAL EXAM: VITAL SIGNS: [As above] GENERAL: Sitting up in bed, no acute distress HEENT: Conjunctivae normal. eyes normal. Oral mucosa dry. NECK: No JVD. No thyroid enlargement. No LNs CARDIOVASCULAR: S1, S2 muffled. No murmur RESPIRATION: Breath sounds diminished in the bases. No rhonchi or crackles. No wheezing ABDOMEN: less Firm, distended, diffuse tenderness. Hypoactive bowel sounds. Mild guarding. no masses palpable. LEGS: No edema. no swelling PSYCHIATRY: Alert and oriented -3, mood and affect normal. NERVOUS SYSTEM: Cranial N 2-12 grossly normal. Moves all 4 limbs. Diffuse weakness No focal deficits. - Labs CBC & Chem 7: 01/02/18 10:09 01/02/18 10:09 Labs: Abnormal Lab Results - Last 24 Hours (Table) 01/01/18 01/02/18 01/02/18 Range/Units 17:24 00:09 06:31 RBC (4.30-5.90) m/uL Hgb (13.0-17.5) gm/dL Plt Count (150-450) k/uL Chloride (98-107) mmol/L Carbon Dioxide (22-30) mmol/L BUN (9-20) mg/dL Creatinine (0.66-1.25) mg/dL Glucose (74-99) mg/dL POC Glucose (mg/dL) 105 H 107 H 109 H (75-99) mg/dL 01/02/18 01/02/18 01/02/18 Range/Units 10:09 10:09 12:20 RBC 4.22 L (4.30-5.90) m/uL Hgb 12.8 L (13.0-17.5) gm/dL Plt Count 581 H (150-450) k/uL Chloride 109 H (98-107) mmol/L Carbon Dioxide 20 L (22-30) mmol/L BUN 5 L (9-20) mg/dL Creatinine 0.50 L (0.66-1.25) mg/dL Glucose 121 H (74-99) mg/dL POC Glucose (mg/dL) 102 H (75-99) mg/dL Assessment and Plan Assessment: 1. Acute bowel instructions secondary to sigmoid mass possibly including colonic and small intestinal obstruction. 2. Possible acute mild diverticulitis 3. Recent colonoscopy 08/2017 reporting scattered diverticulosis of sigmoid colon with severe tortuous sigmoid colon. 4. CAD, stenting in April 2017 on dual antiplatelet therapy-currently on hold 5. Chronic daily ETOH use 5. Status post PICC line placement Plan: Continue current medication regime ,monitoring and symptomatic treatment. Maintain IV fluid hydration, TPN, antibiotics. OR pending. Aggressive pulmonary toileting with incentive spirometer reinforced. Pain management as per surgery .Prognosis guarded given multiple complex medical issues. The impression and plan of care has been dictated as directed. : I performed a history and examination of this patient, discussed the same with the dictator. I agree with the dictator's note ,documented as a scribe. Any additional findings or plans will be noted.
[2018-01-02] MEDS ORDERED: diphenhydrAMINE 50 MG/ML 1 ML VIAL IVP PRN (16:14)
[2018-01-02] MEDS: MVI, ADULT NO.4 WITH VIT K 10 ML, TRACE (CONC-1ML/DOSE) 1 ML in AMIN 3.3%/DEX 9.8%/LIPI... IV SCH ×3 (16:29)
[2018-01-02] MEDS ORDERED: MIDAZOLAM 2 MG/2 ML VIAL ONE (19:27)
[2018-01-02] MEDS ORDERED: LIDOCAINE 1% INJ 10MG/ML (20 ML MDV) ONE (19:27)
[2018-01-02] MEDS ORDERED: SUCCINYLCHOLINE CHLORIDE 100 MG/5 ML SYR IV ONE (19:27)
[2018-01-02] MEDS ORDERED: HYDROmorphone (PF) 1 MG/ML ONE (19:27)
[2018-01-02] MEDS ORDERED: ROCURONIUM BROMIDE 10 MG/ML 10 ML VIAL IV ONE (19:27)
[2018-01-02] MEDS ORDERED: PROPOFOL 10 MG/ML 20 ML VIAL IV ONE (19:27)
[2018-01-02] MEDS ORDERED: fentaNYL (PF) 50 MCG/ML 2 ML AMP ONE (19:27)
[2018-01-02] MEDS ORDERED: ePHEDrine SULFATE/0.9% NACL/PF 50 MG/5 ML SYRINGE IV ONE (19:27)
[2018-01-02] MEDS ORDERED: LIDOCAINE 1% (PF) 10MG/ML VIAL SQ ONE (20:02)
[2018-01-02] MEDS ORDERED: SODIUM CHLORIDE 0.9% 1,000 ML IV ONE (20:32)
[2018-01-02] MEDS ORDERED: LACTATED RINGERS 1,000 ML IV ONE ×2 (21:00)
[2018-01-02] MEDS ORDERED: NALOXONE 0.4 MG/ML 1 ML VIAL IV PRN (21:30)
--- NOTE | 2018-01-02 22:35 | P.PCN ---
Date of Procedure: 01/02/18 Preoperative Diagnosis: Large bowel obstruction due to sigmoid tumor, inadequate protein intake, ischemic cardiomyopathy, history of coronary artery stent placement, history of myocardial infarction Postoperative Diagnosis: Same, proximal sigmoid tumor 6 x 4 cm, sigmoid volvulus secondary to tumor, sigmoid diverticulosis, diffuse abdominal distention Procedure(s) Performed: 1. Diagnostic laparoscopy converted to open 2. Small bowel decompression via enterotomy along the distal jejunum 3. Sigmoid colectomy involving large proximal sigmoid tumor 4. Descending colostomy creation with devitalized rectum, Harrison's procedure 5. Peritoneal lavage 1 L 6. Application of wound VAC, Prevena 25-cm Anesthesia: GETA, local, epidural Surgeon: [facility] Business Manager #1: Maxine Reyna Estimated Blood Loss (ml): 100 Pathology: other (Sigmoid tumor, suture proximal resection) Condition: stable Disposition: floor Operative Findings: 1. Initial diagnostic laparoscopy demonstrating severe small bowel distention prohibiting view of pathology. 2. Initial laparoscopic trocar entry along the left upper quadrant followed by a above the umbilicus 3. Preoperatively, he Eve pressures over 40 reduced immediately down to 18 after abdominal decompression 4. Small bowel dilation over 5-1/2 cm requiring small bowel decompression via pursestring enterotomy of the distal jejunum, over 2 L of enteric contents and air relieved from abdomen 5. Proximal sigmoid tumor creating pinpoint for sigmoid volvulus with adhesion to the right lateral pelvis excised using LigaSure 6. No active sigmoid diverticulitis identified with diverticulosis of the sigmoid colon 7. Moderately redundant sigmoid colon allowing sigmoid resection and descending colostomy creation 8. Rectal stump tagged using 0 Prolene 9. Case team contaminated and will require prolonged antibiotics 10. Wound VAC placed along the mid abdomen to minimize surgical site infection
[2018-01-02] MEDS: ROPIVACAINE 250 MG, HYDROMORPHONE (PF) 5 MG in SODIUM CHLORIDE 0.9% 200 ML EPIDURAL PRN (22:58)
[2018-01-03] MEDS: metroNIDAZOLE-NS PMX 500 MG in SALINE 1 100ML.BAG IVPB SCH ×5 (00:04→23:12)
[2018-01-03] MEDS: METOPROLOL TARTRATE 25 MG TAB PO SCH ×3 (00:05→21:02)
[2018-01-03 00:10] LABS: Glucose,Whole Blood 111 mg/dL (75-99)
[2018-01-03] MEDS: SODIUM CHLORIDE 0.9% 1,000 ML IV SCH ×4 (02:31→20:27)
[2018-01-03 06:03] LABS: Glucose,Whole Blood 120 mg/dL (75-99)
--- NOTE | 2018-01-03 07:42 | P.PN ---
Progress Note - Text 01/03 730 am 62-year-old male status post exploratory lap by Dr. Colindres. Patient has an epidural for postop pain control with the solution running at 10 mL an hour. Patient has a VAS of 0 no motor or sensory deficits noted. Plan to continue epidural infusion
[2018-01-03] MEDS: HEPARIN SODIUM,PORCINE 5,000 UNIT/ML 1 ML VIAL SQ SCH ×2 (08:15→21:03)
[2018-01-03] MEDS: LEVOFLOXACIN 750MG-D5W PMX 750 MG in DEXTROSE/WATER 1 150ML.BAG IVPB SCH (08:15)
[2018-01-03] MEDS: ATORVASTATIN 80 MG TAB PO SCH (08:15)
[2018-01-03] MEDS: ALVIMOPAN 12 MG CAPSULE PO SCH ×2 (08:15→21:03)
[2018-01-03] MEDS: PANTOPRAZOLE 40 MG/10 ML VIAL IV SCH (08:15)
[2018-01-03] MEDS: LISINOPRIL 5 MG TAB PO SCH (08:16)
[2018-01-03 08:48] LABS: Basophils % (A) 0 %; Eosinophils # (A) 0.1 k/uL (0-0.7); Eosinophils % (A) 1 %; HCT 38.5 % (39.0-53.0); HGB 12.5 gm/dL (13.0-17.5); Lymphocytes # (A) 0.9 k/uL (1.0-4.8); Lymphocytes % (A) 9 %; MCH 30.1 pg (25.0-35.0); MCHC 32.4 g/dL (31.0-37.0); Mean Platelet Volume 6.9; Monocytes # (A) 0.5 k/uL (0-1.0); Monocytes % (A) 6 %; Neutrophils # (A) 7.9 k/uL (1.3-7.7); Neutrophils % (A) 83 %; Platelet Count 474 k/uL (150-450); RBC 4.13 m/uL (4.30-5.90); RDW 14.7 % (11.5-15.5); WBC 9.6 k/uL (3.8-10.6)
[2018-01-03 09:11] LABS: Anion Gap 7 mmol/L; Blood Urea Nitrogen 6 mg/dL (9-20); Calcium 7.8 mg/dL (8.4-10.2); Carbon Dioxide 25 mmol/L (22-30); Chloride 103 mmol/L (98-107); Glucose 118 mg/dL (74-99); Phosphorus 3.6 mg/dL (2.5-4.5); Potassium 3.9 mmol/L (3.5-5.1); Sodium 135 mmol/L (137-145)
[2018-01-03] MEDS: SODIUM FERRIC GLUCONAT-SUCROSE 125 MG in SODIUM CHLORIDE 0.9% 100 ML IVPB SCH (09:49)
[2018-01-03] MEDS: ONDANSETRON 4 MG/2 ML VIAL IVP PRN (11:16)
[2018-01-03] MEDS: POTASSIUM CHLORIDE 10 MEQ in WATER FOR INJECTION 1 100ML.BAG IVPB SCH ×2 (11:17→12:45)
[2018-01-03 12:08] LABS: Glucose,Whole Blood 130 mg/dL (75-99)
[2018-01-03] MEDS: HYDROmorphone 0.5 MG/0.5 ML SYRINGE IVP PRN ×3 (14:42→23:12)
[2018-01-03] MEDS ORDERED: MVI, ADULT NO.4 WITH VIT K 10 ML, TRACE (CONC-1ML/DOSE) 1 ML, POTASSIUM CHLORIDE 20 MEQ... IV SCH ×4 (16:00)
--- NOTE | 2018-01-03 17:51 | P.PN ---
Subjective Progress Note Date: 01/03/18 Progress note being dictated for Dr. Waddell Interval history: This is a 62-year-old gentleman admitted with partial bowel obstruction involving both small and large bowel and multiple other medical issues. NG tube and Saha catheter discontinued yesterday. Reports multiple bowel movements, yet abdomen remains distended. Denies abdominal tenderness. Follow-up Abdominal x-ray reporting continued marked diffuse small bowel dilatation, prominent air throughout the right;, suggestive of severe ileus rather than small bowel obstruction and no free intraperitoneal air below the hemidiaphragms .complains of shortness of breath, suspect related to abdominal distention, chest x-ray ordered. Voiding without difficulty. Complains of nausea, on clear liquid diet as per surgery. Afebrile. Blood cultures negative. 12/27/2017 increased abdominal pain during the night and NG tube reinserted as per surgery. Abdomen remains firm and distended, with 450 MLS dark brownish drainage over the last 8 hours.positive fluctuating abdominal pain.Diagnostic laparoscopic lysis of adhesions recommend per surgery. Aspirin, Plavix placed on hold, maintained on Lovenox. PPN nitiated. Maintained on IV fluid hydration. Cardiology consulted regarding anticoagulation recommendations/ surgery. 12/28/2017 receiving IV fluid hydration. PPN unavailable from pharmacy, TPN ordered as per surgery. Scheduled for PICC line placement. Patient ambulating to and from bathroom, complaining of exertional dyspnea. Chest x-ray reporting possible early pneumonia right lung base, mild atelectasis. Minimal improvement in abdominal distention. Reports mild improvement in abdominal pain. NG drainage of around 800ml /8hrs. Telemetry reporting sinus rhythm to sinus tach, low 100s. Plavix and aspirin remain on hold for upcoming surgery, Tuesday. Afebrile 12/29/17 NG tube "fell out last night". Minimal improvement in abdominal pain, abdominal distention. Mild nausea, no bowel movement. No emesis. Awaiting PICC line placement. Afebrile, maintaining O2 sats of 95-97% on room air. Review of systems: CONSTITUTIONAL: No fever, positive fatigue. HEENT: No recent visual problems or hearing problems. Denied any sore throat. CARDIOVASCULAR: No chest pain, no palpitations, no syncope. PULMONARY: Exertional shortness of breath, no cough, no hemoptysis. GASTROINTESTINAL: No diarrhea, positive nausea, no vomiting, positive abdominal pain. NEUROLOGICAL: No headaches, generalized weakness, no numbness. HEMATOLOGICAL: Denies any bleeding or petechiae. GENITOURINARY: Denies any burning micturition, frequency, or urgency. MUSCULOSKELETAL/RHEUMATOLOGICAL: Denies any joint pain, swelling, or any muscle pain. ENDOCRINE: Denies any polyuria or polydipsia. PSYCHIATRIC: No anxiety, no depression The rest of the 14 point review of systems is negative Active Medications Hydrocodone Bitart/Acetaminophen ([place] 7.5-325) 1 each PO Q6H PRN PRN Reason: Pain Last Admin: 12/27/17 09:09 Dose: 1 each Atorvastatin Calcium (Lipitor) 80 mg PO QAM [facility] Last Admin: 12/29/17 07:27 Dose: 80 mg Benzocaine/Menthol (Cepacol Lozenge) 1 each MUCOUS MEM Q4HR PRN PRN Reason: Sore Throat Last Admin: 12/24/17 10:28 Dose: 1 each Enoxaparin Sodium (Lovenox) 30 mg SQ Q12HR [facility] Last Admin: 12/29/17 21:51 Dose: Not Given Famotidine (Pepcid) 20 mg IV Q12HR [facility] Last Admin: 12/29/17 21:52 Dose: 20 mg Hydromorphone HCl (Dilaudid) 1 mg IVP Q4HR PRN PRN Reason: Pain Last Admin: 12/29/17 21:45 Dose: 1 mg Levofloxacin 750 mg/ IV (Solution) 150 mls @ 100 mls/hr IVPB Q24H [facility] Last Admin: 12/29/17 07:27 Dose: 100 mls/hr Metronidazole 500 mg/ IV (Solution) 100 mls @ 100 mls/hr IVPB Q6HR [facility] Last Admin: 12/29/17 17:21 Dose: 100 mls/hr Sodium Chloride (Saline 0.9%) 1,000 mls @ 125 mls/hr IV .Q8H [facility] Last Admin: 12/29/17 21:52 Dose: 125 mls/hr Parenteral Vitamin Supplement 10 ml/ Chromium/Copper/Manganese/Seleni/Zn 1 ml/ Total Parenteral Nutrition 1,551 mls @ 64 mls/hr IV .Q24H [facility] Last Admin: 12/29/17 13:22 Dose: 64 mls/hr Dextrose/Sodium Chloride (Dextrose 5%-Ns Iv Soln) 1,000 mls @ 20 mls/hr IV .Q24H [facility] Last Admin: 12/29/17 07:26 Dose: Not Given Lisinopril (Zestril) 5 mg PO DAILY [facility] Last Admin: 12/29/17 07:27 Dose: 5 mg Lorazepam (Ativan) 1 mg IV Q2HR PRN PRN Reason: CIWA 8 or 9 Last Admin: 12/27/17 06:13 Dose: 1 mg Lorazepam (Ativan) 1 mg IV Q1HR PRN PRN Reason: CIWA 10 to 15 Metoclopramide HCl (Reglan) 5 mg IVP Q6HR PRN PRN Reason: Nausea And Vomiting Last Admin: 12/28/17 19:45 Dose: 5 mg Metoprolol Tartrate (Lopressor) 25 mg PO BID [facility] Last Admin: 12/29/17 21:50 Dose: 25 mg Miscellaneous Information (Potassium Per Protocol) 1 each MISCELLANE DAILY PRN ; Protocol PRN Reason: Per Protocol Naloxone HCl (Narcan) 0.2 mg IV Q2M PRN PRN Reason: Opioid Reversal 12/30/2017 scheduled for surgery tomorrow. Abdominal distention mildly improved , no bowel movements. Reports improvement in abdominal pain/cramping. Receiving TPN via PICC line. Afebrile. Denies chest pain, palpitations or shortness of breath. 01/02/2018 reports a couple bowel movements both last night and this morning. Currently abdominal pain controlled. Denies chest pain, palpitations. Afebrile. 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 Maintained on TPN, clear liquids. No nausea or vomiting. Patient reports much less pain, currently maintained on epidural. Wound VAC present. Objective - Vital Signs Vital signs: Vital Signs Temp 97.4 F L 01/03/18 15:24 Pulse 79 01/03/18 15:24 Resp 18 01/03/18 15:24 BP 94/66 01/03/18 15:24 Pulse Ox 93 L 01/03/18 15:24 Intake & Output 01/02/18 01/03/18 01/03/18 18:59 06:59 18:59 Intake Total 2101 1800 Output Total 1825 1200 170 Balance 276 600 -170 Weight 74.843 kg Intake: IV 1800 Intake, IV Titration 2100 Amount Levofloxacin 750Mg-D5w 150 Pmx 750 mg In Dextrose/ Water 1 150ml.bag @ 100 mls/hr IVPB Q24H [facility] Rx#: [id number] Mvi, Adult No.4 with Vit 1551 K 10 ml Trace (Conc-1Ml/ Dose) 1 ml In [place] 3.3%/ Dex 9.8%/Lipid/Lytes 1, 540 ml @ 64 mls/hr IV . Q24H [facility] Rx#:[id number] Potassium Chloride 10 meq 200 In Water For Injection 1 100ml.bag @ 100 mls/hr IVPB Q1H [facility] Rx#: [id number] Sodium Ferric Gluconat- 100 Sucrose 125 mg In Sodium Chloride 0.9% 100 ml @ 100 mls/hr IVPB DAILY [facility] Rx#:[id number] metroNIDAZOLE-NS PMX 500 100 mg In Saline 1 100ml.bag @ 100 mls/hr IVPB Q6HR [facility] Rx#:[id number] Output: Urine 1825 1100 170 Uretheral (Saha) 20 Estimated Blood Loss 100 Other: Voiding Method Indwelling Catheter Indwelling Catheter Indwelling Catheter # Voids 1 # Bowel Movements 3 0 - Exam PHYSICAL EXAM: VITAL SIGNS: [As above] GENERAL: Sitting up in bed, no acute distress HEENT: Conjunctivae normal. eyes normal. Oral mucosa dry. NECK: No JVD. No thyroid enlargement. No LNs CARDIOVASCULAR: S1, S2 muffled. No murmur RESPIRATION: Breath sounds diminished in the bases. No rhonchi or crackles. No wheezing ABDOMEN: less Firm, distended, status post surgery, colostomy with no drainage , no bowel sounds. Wound VAC present. LEGS: No edema. no swelling PSYCHIATRY: Alert and oriented -3, mood and affect normal. NERVOUS SYSTEM: Cranial N 2-12 grossly normal. Moves all 4 limbs. Diffuse weakness No focal deficits. - Labs CBC & Chem 7: 01/03/18 08:09 01/03/18 08:09 Labs: Abnormal Lab Results - Last 24 Hours (Table) 01/03/18 01/03/18 01/03/18 Range/Units 00:08 06:01 08:09 RBC (4.30-5.90) m/uL Hgb (13.0-17.5) gm/dL Hct (39.0-53.0) % Plt Count (150-450) k/uL Neutrophils # (1.3-7.7) k/uL Lymphocytes # (1.0-4.8) k/uL Sodium 135 L (137-145) mmol/L BUN 6 L (9-20) mg/dL Creatinine 0.65 L (0.66-1.25) mg/dL Glucose 118 H (74-99) mg/dL POC Glucose (mg/dL) 111 H 120 H (75-99) mg/dL Calcium 7.8 L (8.4-10.2) mg/dL 01/03/18 01/03/18 Range/Units 08:09 12:01 RBC 4.13 L (4.30-5.90) m/uL Hgb 12.5 L (13.0-17.5) gm/dL Hct 38.5 L (39.0-53.0) % Plt Count 474 H (150-450) k/uL Neutrophils # 7.9 H (1.3-7.7) k/uL Lymphocytes # 0.9 L (1.0-4.8) k/uL Sodium (137-145) mmol/L BUN (9-20) mg/dL Creatinine (0.66-1.25) mg/dL Glucose (74-99) mg/dL POC Glucose (mg/dL) 130 H (75-99) mg/dL Calcium (8.4-10.2) mg/dL Assessment and Plan Assessment: 1. 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 2. Possible acute mild diverticulitis 3. Recent colonoscopy 08/2017 reporting scattered diverticulosis of sigmoid colon with severe tortuous sigmoid colon. 4. CAD, stenting in April 2017 on dual antiplatelet therapy-currently on hold 5. Chronic daily ETOH use 5. Status post PICC line placement Plan: Continue current medication regime ,monitoring and symptomatic treatment. Maintain IV fluid hydration, TPN, antibiotics. Pathology pending. Aggressive pulmonary toileting with incentive spirometer reinforced. Pain management as per surgery .Prognosis guarded given multiple complex medical issues. The impression and plan of care has been dictated as directed. : I performed a history and examination of this patient, discussed the same with the dictator. I agree with the dictator's note ,documented as a scribe. Any additional findings or plans will be noted.
[2018-01-03 18:42] LABS: Glucose,Whole Blood 117 mg/dL (75-99)
--- NOTE | 2018-01-03 18:50 | P.PN ---
Subjective Progress Note Date: 01/03/18 He is feeling much better. He tolerated liquids. He drank more than enough liquids and felt full. Ostomy with liquid stool. No fevers or chills. Intra- operative findings completely reviewed. Plan for antiplatelet pending stable hemoglobin for 48 hrs from surgery. Objective - Vital Signs Vital signs: Vital Signs Temp 97.4 F L 01/03/18 15:24 Pulse 79 01/03/18 15:24 Resp 18 01/03/18 15:24 BP 94/66 01/03/18 15:24 Pulse Ox 93 L 01/03/18 15:24 Intake & Output 01/02/18 01/03/18 01/03/18 18:59 06:59 18:59 Intake Total 2101 1800 Output Total 1825 1200 170 Balance 276 600 -170 Weight 74.843 kg Intake: IV 1800 Intake, IV Titration 2101 Amount Levofloxacin 750Mg-D5w 150 Pmx 750 mg In Dextrose/ Water 1 150ml.bag @ 100 mls/hr IVPB Q24H [facility] Rx#: [id number] Mvi, Adult No.4 with Vit 1551 K 10 ml Trace (Conc-1Ml/ Dose) 1 ml In [place] 3.3%/ Dex 9.8%/Lipid/Lytes 1, 540 ml @ 64 mls/hr IV . Q24H [facility] Rx#:[id number] Potassium Chloride 10 meq 200 In Water For Injection 1 100ml.bag @ 100 mls/hr IVPB Q1H [facility] Rx#: [id number] Sodium Ferric Gluconat- 100 Sucrose 125 mg In Sodium Chloride 0.9% 100 ml @ 100 mls/hr IVPB DAILY [facility] Rx#:[id number] metroNIDAZOLE-NS PMX 500 100 mg In Saline 1 100ml.bag @ 100 mls/hr IVPB Q6HR [facility] Rx#:[id number] Output: Urine 1825 1100 170 Uretheral (Saha) 20 Estimated Blood Loss 100 Other: Voiding Method Indwelling Catheter Indwelling Catheter Indwelling Catheter # Voids 1 # Bowel Movements 3 0 - Exam ABDOMEN: Soft. No peritonitis. Distended. Ostomy with green liquid stool. No gas. Incision with PREVENA clean, dry and intact. GENERAL: Well developed and in no acute distress. Pleasant. HEENT: No sclera icterus. Extraocular movements grossly intact. Moist buccal mucosa. Head is atraumatic, normocephalic. Hears conversational speech. No nasal drainage. NECK: Supple without lymphadenopathy. No JV distention. CHEST: Non-labored respirations and equal bilateral excursions. CARDIOVASCULAR: Regular rate and rhythm. Palpable 2+ radial pulses. MUSCULOSKELETAL: No clubbing, cyanosis or edema. NEUROLOGIC: No focal or lateralizing signs. : Saha catheter recently removed. PSYCH: Appropriate affect. Alert and oriented to person, place and time. SKIN: Good skin turgor. Well perfused. - Labs CBC & Chem 7: 01/03/18 08:09 01/03/18 08:09 Labs: Abnormal Lab Results - Last 24 Hours (Table) 01/03/18 01/03/18 01/03/18 Range/Units 00:08 06:01 08:09 RBC (4.30-5.90) m/uL Hgb (13.0-17.5) gm/dL Hct (39.0-53.0) % Plt Count (150-450) k/uL Neutrophils # (1.3-7.7) k/uL Lymphocytes # (1.0-4.8) k/uL Sodium 135 L (137-145) mmol/L BUN 6 L (9-20) mg/dL Creatinine 0.65 L (0.66-1.25) mg/dL Glucose 118 H (74-99) mg/dL POC Glucose (mg/dL) 111 H 120 H (75-99) mg/dL Calcium 7.8 L (8.4-10.2) mg/dL 01/03/18 01/03/18 01/03/18 Range/Units 08:09 12:01 18:16 RBC 4.13 L (4.30-5.90) m/uL Hgb 12.5 L (13.0-17.5) gm/dL Hct 38.5 L (39.0-53.0) % Plt Count 474 H (150-450) k/uL Neutrophils # 7.9 H (1.3-7.7) k/uL Lymphocytes # 0.9 L (1.0-4.8) k/uL Sodium (137-145) mmol/L BUN (9-20) mg/dL Creatinine (0.66-1.25) mg/dL Glucose (74-99) mg/dL POC Glucose (mg/dL) 130 H 117 H (75-99) mg/dL Calcium (8.4-10.2) mg/dL Assessment and Plan (1) Partial bowel obstruction Current Visit: Yes Status: Acute Code(s): K56.600 - PARTIAL INTESTINAL OBSTRUCTION, UNSPECIFIED TO CAUSE SNOMED Code(s): 00913711 (2) Intractable left lower quadrant abdominal pain Current Visit: Yes Status: Acute Code(s): R10.32 - LEFT LOWER QUADRANT PAIN SNOMED Code(s): 950500513 (3) Neoplasm of sigmoid colon Current Visit: Yes Status: Acute Code(s): D49.0 - NEOPLASM OF UNSPECIFIED BEHAVIOR OF DIGESTIVE SYSTEM SNOMED Code(s): 306220813 (4) Sigmoid volvulus Current Visit: Yes Status: Acute Code(s): K56.2 - VOLVULUS SNOMED Code(s) : 317178520 (5) Large bowel obstruction Current Visit: Yes Status: Acute Code(s): K56.609 - UNSP INTESTNL OBST, UNSP TO PARTIAL VERSUS COMPLETE OBST SNOMED Code(s): 112170379 (6) Sigmoid diverticulosis Current Visit: Yes Status: Acute Code(s): K57.30 - DVRTCLOS OF LG INT W/O PERFORATION OR ABSCESS W/O BLEEDING SNOMED Code(s): 505603297 (7) Ischemic cardiomyopathy Current Visit: Yes Status: Acute Code(s): I25.5 - ISCHEMIC CARDIOMYOPATHY SNOMED Code(s): 251065120 (8) History of cardiac catheterization Current Visit: Yes Status: Acute Code(s): Z98.890 - OTHER SPECIFIED POSTPROCEDURAL STATES SNOMED Code(s): 59668473478430 Plan: 1. Entereg for bowel function. 2. Plan to re-start plavix on pending stable hemoglobin. 3. Plan to wean TPN when tolerating diet by . 4. PT/OT.
[2018-01-03] MEDS: ROPIVACAINE 250 MG, HYDROMORPHONE (PF) 5 MG in SODIUM CHLORIDE 0.9% 200 ML EPIDURAL PRN (20:27)
[2018-01-04 00:04] LABS: Glucose,Whole Blood 122 mg/dL (75-99)
[2018-01-04] MEDS ORDERED: HYDROmorphone 0.5 MG/0.5 ML SYRINGE ONE (05:45)
[2018-01-04] MEDS ORDERED: ALVIMOPAN 12 MG CAPSULE ONE (05:45)
[2018-01-04] MEDS ORDERED: HEPARIN SODIUM,PORCINE 5,000 UNIT/ML 1 ML VIAL ONE (05:45)
[2018-01-04] MEDS ORDERED: ATORVASTATIN 80 MG TAB ONE (05:45)
[2018-01-04] MEDS ORDERED: METOPROLOL TARTRATE 25 MG TAB ONE (05:45)
[2018-01-04] MEDS ORDERED: PANTOPRAZOLE 40 MG/10 ML VIAL ONE (05:45)
[2018-01-04] MEDS ORDERED: TAMSULOSIN 0.4 MG CAP.ER.24H PO ONE (05:45)
[2018-01-04] MEDS ORDERED: LISINOPRIL 5 MG TAB ONE (05:45)
[2018-01-04 05:58] LABS: Glucose,Whole Blood 122 mg/dL (75-99)
[2018-01-04 08:30] LABS: Basophils % (A) 0 %; Eosinophils % (A) 0 %; HCT 35.8 % (39.0-53.0); HGB 11.7 gm/dL (13.0-17.5); Lymphocytes % (A) 7 %; MCHC 32.5 g/dL (31.0-37.0); MCV 92.3 fL (80.0-100.0); Mean Platelet Volume 7.2; Monocytes # (A) 1.1 k/uL (0-1.0); Monocytes % (A) 9 %; Neutrophils # (A) 11.1 k/uL (1.3-7.7); Neutrophils % (A) 82 %; Platelet Count 378 k/uL (150-450); RBC 3.88 m/uL (4.30-5.90); RDW 14.1 % (11.5-15.5); WBC 13.5 k/uL (3.8-10.6)
[2018-01-04 09:30] LABS: Anion Gap 10 mmol/L; Blood Urea Nitrogen 10 mg/dL (9-20); Calcium 7.9 mg/dL (8.4-10.2); Carbon Dioxide 21 mmol/L (22-30); Chloride 103 mmol/L (98-107); Glucose 116 mg/dL (74-99); Potassium 4.3 mmol/L (3.5-5.1); Sodium 134 mmol/L (137-145)
--- NOTE | 2018-01-04 11:03 | P.PN ---
Progress Note - Text Date: 01/04/2018 Time: 720 The patient is status post, exploratory laparotomy, postoperative day number 2 The patient has no complaints of nausea vomiting or headache. The patient does not complain of any lower extremity numbness or weakness. The epidural is running at 10 mL per hour. VAS 1-10. The epidural will be maintained and adjusted as needed.
--- NOTE | 2018-01-04 11:31 | P.PN ---
Subjective Progress Note Date: 01/04/18 62-year-old male seen and examined. Standing up at the bedside. Surgical dressing sites dry. Abdominal binder in place. Ostomy amount of brown liquid stool in the ostomy bag prevena left system in place reports no nausea vomiting. Hemoglobin this morning 11.7. Hemoglobin the day before 12.5. Not tolerating a liquid diet states has no appetite. Epidural in place currently at 10 anesthesia following nursing reports indwelling Saha catheter was removed yesterday straight cathed with 350 out. Voided only 50 mL this morning did note the patient has increase edema scrotal and bilateral legs Status post January 02 diagnostic arthroscopic converted to open small bowel decompression sigmoid colectomy involving a large proximal sigmoid tumor, descending colostomy creation Rani's procedure with application of prevena wound system Objective - Vital Signs Vital signs: Vital Signs Temp 98.8 F 01/04/18 00:38 Pulse 97 01/04/18 00:38 Resp 20 01/04/18 00:38 BP 121/74 01/04/18 00:38 Pulse Ox 94 L 01/04/18 00:38 Intake & Output 01/03/18 01/04/18 01/04/18 18:59 06:59 18:59 Output Total 170 650 Balance -170 -650 Output: Urine 170 650 Straight 650 Uretheral (Saha) 20 Other: Voiding Method Indwelling Catheter # Bowel Movements 0 - Exam Physical exam 62-year-old male standing up at the bedside attempting to urinate but denies dizziness lightheadedness chest pain or shortness of breath Lungs adequate air movement sats are documented 95% on room air Heart S1-S2 audible and regular monitor denying chest Abdomen abdominal binder on ostomy small amount of brown liquid stool pervena wound system in place Few Hypoactive bowel tones denies nausea vomiting surgical dressing site dry surgical tenderness appropriate nondistended Extremities no edema noted to lower extreme - Labs CBC & Chem 7: 01/04/18 07:03 01/03/18 08:09 Labs: Abnormal Lab Results - Last 24 Hours (Table) 01/03/18 01/03/18 01/04/18 Range/Units 12:01 18:16 00:02 WBC (3.8-10.6) k/uL RBC (4.30-5.90) m/uL Hgb (13.0-17.5) gm/dL Hct (39.0-53.0) % Neutrophils # (1.3-7.7) k/uL Monocytes # (0-1.0) k/uL POC Glucose (mg/dL) 130 H 117 H 122 H (75-99) mg/dL 01/04/18 01/04/18 Range/Units 05:55 07:03 WBC 13.5 H (3.8-10.6) k/uL RBC 3.88 L (4.30-5.90) m/uL Hgb 11.7 L (13.0-17.5) gm/dL Hct 35.8 L (39.0-53.0) % Neutrophils # 11.1 H (1.3-7.7) k/uL Monocytes # 1.1 H (0-1.0) k/uL POC Glucose (mg/dL) 122 H (75-99) mg/dL Assessment and Plan Assessment: Impression Present on admission abdominal pain nausea vomiting suspect due to partial bowel obstruction involving small and large bowel CAT scan abdomen and pelvis obtained on admission report indicates mild acute diverticulitis mid to distal sigmoid colon causing partial small bowel obstruction involving small large bowel Known coronary artery disease with prior coronary stenting done April 2017 on dual antiplatelet therapy Plavix and aspirin History of tobacco abuse recently quit A recent colonoscopy to the sigmoid colon with flexible sigmoidoscopy done August 2017 showed scattered diverticulosis of the sigmoid colon with severe torturous sigmoid colon with no evidence of an active bleed as part of a workup for acute blood loss anemia A recent EGD August 2017 no evidence of an active duodenitis, no duodenal ulcer: Gastric ulcer Abdominal x-ray done on the findings are suggestive of severe ileus CAT scan abdomen and pelvis:colon Collapse with severely dilated small bowel History of chronic daily alcohol use with no evidence of impending withdrawals Status post January 02 diagnostic laparoscopic converted to open, small bowel decompression, 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, descending ostomy creation Rani's procedure with peritoneal lavage 1 L, application of prevena wound system Plan Aspirin Plavix to be restarted Add Flomax monitor the response Continue postop surgical care Ostomy teaching with appropriate Will need prolonged antibiotics Epidural per anesthesia Monitor labs DVT and GI prophylaxis Pain control PICC line for TPN for nutritional support Further surgical recommendations pending will follow with you Progress note dictated for Dr. Jens The above impression and plan of care have been discussed and directed by signing physician. Ebony Walton nurse practitioner acting as scribe for signing physician.
[2018-01-04 12:35] LABS: Glucose,Whole Blood 113 mg/dL (75-99)
[2018-01-04] MEDS: metroNIDAZOLE-NS PMX 500 MG in SALINE 1 100ML.BAG IVPB SCH ×3 (12:43→16:59)
[2018-01-04] MEDS: SODIUM CHLORIDE 0.9% 1,000 ML IV SCH ×3 (12:43→14:30)
[2018-01-04] MEDS: ALVIMOPAN 12 MG CAPSULE PO SCH ×2 (12:43→21:28)
[2018-01-04] MEDS: METOPROLOL TARTRATE 25 MG TAB PO SCH ×2 (12:44→21:29)
[2018-01-04] MEDS: LISINOPRIL 5 MG TAB PO SCH (12:44)
[2018-01-04] MEDS: ATORVASTATIN 80 MG TAB PO SCH (12:44)
[2018-01-04] MEDS: PANTOPRAZOLE 40 MG/10 ML VIAL IV SCH (12:44)
[2018-01-04] MEDS: HEPARIN SODIUM,PORCINE 5,000 UNIT/ML 1 ML VIAL SQ SCH ×2 (12:44→21:28)
[2018-01-04] MEDS: LEVOFLOXACIN 750MG-D5W PMX 750 MG in DEXTROSE/WATER 1 150ML.BAG IVPB SCH (12:44)
[2018-01-04] MEDS ORDERED: FUROSEMIDE 10 MG/ML 4 ML VIAL IV STA (14:08)
[2018-01-04] MEDS: HYDROcodone/APAP 7.5-325MG 1 EACH TAB PO PRN (16:59)
[2018-01-04] MEDS ORDERED: ACETAMINOPHEN TAB 325 MG TAB PO PRN (17:02)
[2018-01-04 18:02] LABS: Glucose,Whole Blood 167 mg/dL (75-99)
[2018-01-04] MEDS: ROPIVACAINE 250 MG, HYDROMORPHONE (PF) 5 MG in SODIUM CHLORIDE 0.9% 200 ML EPIDURAL PRN (18:57)
[2018-01-05] MEDS: HYDROcodone/APAP 7.5-325MG 1 EACH TAB PO PRN ×2 (00:19→19:30)
[2018-01-05] MEDS: metroNIDAZOLE-NS PMX 500 MG in SALINE 1 100ML.BAG IVPB SCH ×5 (00:22→23:25)
[2018-01-05 00:37] LABS: Glucose,Whole Blood 109 mg/dL (75-99)
[2018-01-05] MEDS: ROPIVACAINE 250 MG, HYDROMORPHONE (PF) 5 MG in SODIUM CHLORIDE 0.9% 200 ML EPIDURAL PRN (03:28)
[2018-01-05 06:12] LABS: Glucose,Whole Blood 93 mg/dL (75-99)
[2018-01-05] MEDS: ONDANSETRON 4 MG/2 ML VIAL IVP PRN (06:24)
[2018-01-05 08:15] LABS: Basophils % (A) 0 %; Eosinophils % (A) 1 %; HCT 33.4 % (39.0-53.0); HGB 10.9 gm/dL (13.0-17.5); Lymphocytes # (A) 0.6 k/uL (1.0-4.8); Lymphocytes % (A) 9 %; MCH 30.1 pg (25.0-35.0); MCHC 32.6 g/dL (31.0-37.0); MCV 92.4 fL (80.0-100.0); Mean Platelet Volume 6.9; Monocytes # (A) 0.4 k/uL (0-1.0); Monocytes % (A) 6 %; Neutrophils # (A) 5.4 k/uL (1.3-7.7); Neutrophils % (A) 82 %; Platelet Count 319 k/uL (150-450); RBC 3.61 m/uL (4.30-5.90); RDW 14.6 % (11.5-15.5); WBC 6.6 k/uL (3.8-10.6)
[2018-01-05 08:25] LABS: Anion Gap 10 mmol/L; Blood Urea Nitrogen 6 mg/dL (9-20); Calcium 7.6 mg/dL (8.4-10.2); Carbon Dioxide 22 mmol/L (22-30); Chloride 101 mmol/L (98-107); Glucose 96 mg/dL (74-99); Potassium 3.8 mmol/L (3.5-5.1); Sodium 133 mmol/L (137-145)
[2018-01-05] MEDS ORDERED: CLOPIDOGREL 75 MG TAB PO SCH (09:00)
[2018-01-05] MEDS ORDERED: ASPIRIN 81 MG PO SCH (09:00)
[2018-01-05] MEDS: LEVOFLOXACIN 750MG-D5W PMX 750 MG in DEXTROSE/WATER 1 150ML.BAG IVPB SCH ×2 (09:43→11:34)
[2018-01-05] MEDS: TAMSULOSIN 0.4 MG CAP.ER.24H PO SCH (09:44)
[2018-01-05] MEDS: ATORVASTATIN 80 MG TAB PO SCH (09:44)
[2018-01-05] MEDS: HEPARIN SODIUM,PORCINE 5,000 UNIT/ML 1 ML VIAL SQ SCH ×2 (09:44→22:27)
[2018-01-05] MEDS: METOPROLOL TARTRATE 25 MG TAB PO SCH ×2 (09:45→22:26)
[2018-01-05] MEDS: PANTOPRAZOLE 40 MG TABLET PO SCH (09:45)
[2018-01-05] MEDS: ALVIMOPAN 12 MG CAPSULE PO SCH ×2 (09:45→22:26)
[2018-01-05] MEDS: LISINOPRIL 5 MG TAB PO SCH (09:45)
[2018-01-05] MEDS: SODIUM CHLORIDE 0.9% 1,000 ML IV SCH (09:46)
[2018-01-05] MEDS ORDERED: FUROSEMIDE 10 MG/ML 4 ML VIAL IV STA (09:46)
--- NOTE | 2018-01-05 10:22 | P.PN ---
Subjective Progress note being dictated for Dr. Waddell Interval history: This is a 62-year-old gentleman admitted with partial bowel obstruction involving both small and large bowel and multiple other medical issues. NG tube and Saha catheter discontinued yesterday. Reports multiple bowel movements, yet abdomen remains distended. Denies abdominal tenderness. Follow-up Abdominal x-ray reporting continued marked diffuse small bowel dilatation, prominent air throughout the right;, suggestive of severe ileus rather than small bowel obstruction and no free intraperitoneal air below the hemidiaphragms .complains of shortness of breath, suspect related to abdominal distention, chest x-ray ordered. Voiding without difficulty. Complains of nausea, on clear liquid diet as per surgery. Afebrile. Blood cultures negative. 12/27/2017 increased abdominal pain during the night and NG tube reinserted as per surgery. Abdomen remains firm and distended, with 450 MLS dark brownish drainage over the last 8 hours.positive fluctuating abdominal pain.Diagnostic laparoscopic lysis of adhesions recommend per surgery. Aspirin, Plavix placed on hold, maintained on Lovenox. PPN nitiated. Maintained on IV fluid hydration. Cardiology consulted regarding anticoagulation recommendations/ surgery. 12/28/2017 receiving IV fluid hydration. PPN unavailable from pharmacy, TPN ordered as per surgery. Scheduled for PICC line placement. Patient ambulating to and from bathroom, complaining of exertional dyspnea. Chest x-ray reporting possible early pneumonia right lung base, mild atelectasis. Minimal improvement in abdominal distention. Reports mild improvement in abdominal pain. NG drainage of around 800ml /8hrs. Telemetry reporting sinus rhythm to sinus tach, low 100s. Plavix and aspirin remain on hold for upcoming surgery, Tuesday. Afebrile 12/29/17 NG tube "fell out last night". Minimal improvement in abdominal pain, abdominal distention. Mild nausea, no bowel movement. No emesis. Awaiting PICC line placement. Afebrile, maintaining O2 sats of 95-97% on room air. Review of systems: CONSTITUTIONAL: No fever, positive fatigue. HEENT: No recent visual problems or hearing problems. Denied any sore throat. CARDIOVASCULAR: No chest pain, no palpitations, no syncope. PULMONARY: Exertional shortness of breath, no cough, no hemoptysis. GASTROINTESTINAL: No diarrhea, positive nausea, no vomiting, positive abdominal pain. NEUROLOGICAL: No headaches, generalized weakness, no numbness. HEMATOLOGICAL: Denies any bleeding or petechiae. GENITOURINARY: Denies any burning micturition, frequency, or urgency. MUSCULOSKELETAL/RHEUMATOLOGICAL: Denies any joint pain, swelling, or any muscle pain. ENDOCRINE: Denies any polyuria or polydipsia. PSYCHIATRIC: No anxiety, no depression The rest of the 14 point review of systems is negative Active Medications Hydrocodone Bitart/Acetaminophen ([place] 7.5-325) 1 each PO Q6H PRN PRN Reason: Pain Last Admin: 12/27/17 09:09 Dose: 1 each Atorvastatin Calcium (Lipitor) 80 mg PO QAM [facility] Last Admin: 12/29/17 07:27 Dose: 80 mg Benzocaine/Menthol (Cepacol Lozenge) 1 each MUCOUS MEM Q4HR PRN PRN Reason: Sore Throat Last Admin: 12/24/17 10:28 Dose: 1 each Enoxaparin Sodium (Lovenox) 30 mg SQ Q12HR [facility] Last Admin: 12/29/17 21:51 Dose: Not Given Famotidine (Pepcid) 20 mg IV Q12HR [facility] Last Admin: 12/29/17 21:52 Dose: 20 mg Hydromorphone HCl (Dilaudid) 1 mg IVP Q4HR PRN PRN Reason: Pain Last Admin: 12/29/17 21:45 Dose: 1 mg Levofloxacin 750 mg/ IV (Solution) 150 mls @ 100 mls/hr IVPB Q24H [facility] Last Admin: 12/29/17 07:27 Dose: 100 mls/hr Metronidazole 500 mg/ IV (Solution) 100 mls @ 100 mls/hr IVPB Q6HR [facility] Last Admin: 12/29/17 17:21 Dose: 100 mls/hr Sodium Chloride (Saline 0.9%) 1,000 mls @ 125 mls/hr IV .Q8H [facility] Last Admin: 12/29/17 21:52 Dose: 125 mls/hr Parenteral Vitamin Supplement 10 ml/ Chromium/Copper/Manganese/Seleni/Zn 1 ml/ Total Parenteral Nutrition 1,551 mls @ 64 mls/hr IV .Q24H [facility] Last Admin: 12/29/17 13:22 Dose: 64 mls/hr Dextrose/Sodium Chloride (Dextrose 5%-Ns Iv Soln) 1,000 mls @ 20 mls/hr IV .Q24H [facility] Last Admin: 12/29/17 07:26 Dose: Not Given Lisinopril (Zestril) 5 mg PO DAILY [facility] Last Admin: 12/29/17 07:27 Dose: 5 mg Lorazepam (Ativan) 1 mg IV Q2HR PRN PRN Reason: CIWA 8 or 9 Last Admin: 12/27/17 06:13 Dose: 1 mg Lorazepam (Ativan) 1 mg IV Q1HR PRN PRN Reason: CIWA 10 to 15 Metoclopramide HCl (Reglan) 5 mg IVP Q6HR PRN PRN Reason: Nausea And Vomiting Last Admin: 12/28/17 19:45 Dose: 5 mg Metoprolol Tartrate (Lopressor) 25 mg PO BID [facility] Last Admin: 12/29/17 21:50 Dose: 25 mg Miscellaneous Information (Potassium Per Protocol) 1 each MISCELLANE DAILY PRN ; Protocol PRN Reason: Per Protocol Naloxone HCl (Narcan) 0.2 mg IV Q2M PRN PRN Reason: Opioid Reversal 12/30/2017 scheduled for surgery tomorrow. Abdominal distention mildly improved , no bowel movements. Reports improvement in abdominal pain/cramping. Receiving TPN via PICC line. Afebrile. Denies chest pain, palpitations or shortness of breath. 01/02/2018 reports a couple bowel movements both last night and this morning. Currently abdominal pain controlled. Denies chest pain, palpitations. Afebrile. 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 Maintained on TPN, clear liquids. No nausea or vomiting. Patient reports much less pain, currently maintained on epidural. Wound VAC present. 01/04/18 Edematous. Difficulty voiding, required staight cath. during the night. Pain controlled with epidural. Minimal intake of liquid diet.Denies nausea and vomiting.Functioning ostomy.HGB 11.7. Objective - Vital Signs Vital signs: Vital Signs Temp 99.4 F 01/04/18 18:10 Pulse 108 H 01/04/18 17:18 Resp 12 01/04/18 17:18 BP 169/71 01/04/18 14:48 Pulse Ox 95 01/04/18 14:48 Intake & Output 01/04/18 01/04/18 01/05/18 06:59 18:59 06:59 Intake Total 825 Output Total 650 3350 Balance -650 -2523 Intake: Intake, IV Titration 225 Amount Ropivacaine 250 mg 225 Hydromorphone (Pf) 5 mg In Sodium Chloride 0.9% 200 ml @ Per Protocol EPIDURAL .Q0M PRN Rx#: [id number] Oral 600 Output: Urine 650 2950 Straight 650 850 Stool 400 Other: Voiding Method Indwelling Catheter - Exam PHYSICAL EXAM: VITAL SIGNS: [As above] GENERAL: Standing up at bedside, no acute distress HEENT: Conjunctivae normal. eyes normal. Oral mucosa dry. NECK: No JVD. No thyroid enlargement. No LNs CARDIOVASCULAR: S1, S2 muffled. No murmur RESPIRATION: Breath sounds diminished in the bases. No rhonchi or crackles. No wheezing ABDOMEN: less Firm, distended, status post surgery, colostomy with drainage, abdominal binder,hypoactive bowel sounds. Wound VAC present. LEGS: POsitive edema, scrotal edema PSYCHIATRY: Alert and oriented -3, mood and affect normal. NERVOUS SYSTEM: Cranial N 2-12 grossly normal. Moves all 4 limbs. Diffuse weakness No focal deficits. - Labs CBC & Chem 7: 01/05/18 07:38 01/05/18 07:38 Labs: Abnormal Lab Results - Last 24 Hours (Table) 01/04/18 01/04/18 01/04/18 Range/Units 00:02 05:55 07:03 WBC 13.5 H (3.8-10.6) k/uL RBC 3.88 L (4.30-5.90) m/uL Hgb 11.7 L (13.0-17.5) gm/dL Hct 35.8 L (39.0-53.0) % Neutrophils # 11.1 H (1.3-7.7) k/uL Monocytes # 1.1 H (0-1.0) k/uL Sodium (137-145) mmol/L Carbon Dioxide (22-30) mmol/L Glucose (74-99) mg/dL POC Glucose (mg/dL) 122 H 122 H (75-99) mg/dL Calcium (8.4-10.2) mg/dL 01/04/18 01/04/18 01/04/18 Range/Units 07:03 12:22 17:57 WBC (3.8-10.6) k/uL RBC (4.30-5.90) m/uL Hgb (13.0-17.5) gm/dL Hct (39.0-53.0) % Neutrophils # (1.3-7.7) k/uL Monocytes # (0-1.0) k/uL Sodium 134 L (137-145) mmol/L Carbon Dioxide 21 L (22-30) mmol/L Glucose 116 H (74-99) mg/dL POC Glucose (mg/dL) 113 H 167 H (75-99) mg/dL Calcium 7.9 L (8.4-10.2) mg/dL Assessment and Plan Assessment: 1. 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 2. Possible acute mild diverticulitis 3. Recent colonoscopy 08/2017 reporting scattered diverticulosis of sigmoid colon with severe tortuous sigmoid colon. 4. CAD, stenting in April 2017 on dual antiplatelet therapy-currently on hold 5. Chronic daily ETOH use 5. Status post PICC line placement Plan: Continue current medication regime ,monitoring and symptomatic treatment.Flomax added to regime, difficulty voiding. Lasix ordered X 1. Decreasing IV maintenance fluids and TPN down to total of 75ml hr, antibiotics. Elevate scotum/legss. Pathology pending. Aggressive pulmonary toileting with incentive spirometer reinforced. Pain management as per surgery .Patient had been afebrile, spiked fever of 102, orders given for ID consult.Prognosis guarded given multiple complex medical issues. The impression and plan of care has been dictated as directed. : I performed a history and examination of this patient, discussed the same with the dictator. I agree with the dictator's note ,documented as a scribe. Any additional findings or plans will be noted.
--- NOTE | 2018-01-05 10:40 | P.PN ---
Progress Note - Text Date: 01/05/2018 Time: 1042 The patient is status post, exploratory laparotomy, postoperative day number 3 The patient has no complaints of nausea vomiting or headache. The patient does not complain of any lower extremity numbness or weakness. The epidural is running at[ 10] mL per hour. VAS 1-10. The epidural will be discontinued this morning. Pain medicines will be provided to the patient by the service.
--- NOTE | 2018-01-05 11:07 | P.PN ---
<Ebony Walton - Last Filed: 01/05/18 11:09> Subjective Progress Note Date: 01/05/18 8-year-old male seen and examined. Currently sitting up in a chair legs are elevated. Decrease scrotal edema compared to prior assessment. Bilateral lower extremity edema persist. TPN has been weaned off. Has had copious amounts of stool from the ostomy. Has a prevena system in place to surgical site. Abdomen slight tenderness slightly distended abdominal binder in place temp this morning 100.6 temp maxed 102 at 5:00 last evening white count 6.6. Hemoglobin this morning 10.9 Status post January 02 diagnostic arthroscopic converted to open small bowel decompression sigmoid colectomy involving a large proximal sigmoid tumor, descending colostomy creation Rani's procedure with application of prevena wound system Objective - Vital Signs Vital signs: Vital Signs Temp 100.6 F H 01/05/18 06:30 Pulse 107 H 01/05/18 06:30 Resp 20 01/05/18 06:30 BP 126/76 01/05/18 06:30 Pulse Ox 97 01/05/18 06:30 Intake & Output 01/04/18 01/05/18 01/05/18 18:59 06:59 18:59 Intake Total 825 68.133 Output Total 3350 600 Balance -2525 68.133 -600 Weight 74 kg 74 kg Intake: Intake, IV Titration 225 68.133 Amount Ropivacaine 250 mg 225 68.133 Hydromorphone (Pf) 5 mg In Sodium Chloride 0.9% 200 ml @ Per Protocol EPIDURAL .Q0M PRN Rx#: [id number] Oral 600 Output: Urine 2950 Straight 850 Stool 400 600 Other: Voiding Method Indwelling Catheter Indwelling Catheter # Bowel Movements 300 - Exam Physical exam 62-year-old male sitting up in a chair legs are elevated Lungs adequate air movement sats are documented 95% on room air able to use events incentive spirometer achieving 1500 Heart S1-S2 audible and regular monitor denying chest pain Abdomen abdominal binder on ostomy moderate amount of brown liquid stool pervena wound system in place Few Hypoactive bowel tones denies nausea vomiting surgical dressing site dry surgical tenderness appropriate nondistended indwelling Saha catheter in place Extremities edema noted to lower extremities persist Scrotum decrease scrotal edema noted - Labs CBC & Chem 7: 01/05/18 07:38 01/05/18 07:38 Labs: Abnormal Lab Results - Last 24 Hours (Table) 01/04/18 01/04/18 01/04/18 Range/Units 07:03 12:22 17:57 RBC (4.30-5.90) m/uL Hgb (13.0-17.5) gm/dL Hct (39.0-53.0) % Lymphocytes # (1.0-4.8) k/uL Sodium 134 L (137-145) mmol/L Carbon Dioxide 21 L (22-30) mmol/L BUN (9-20) mg/dL Glucose 116 H (74-99) mg/dL POC Glucose (mg/dL) 113 H 167 H (75-99) mg/dL Calcium 7.9 L (8.4-10.2) mg/dL 01/05/18 01/05/18 01/05/18 Range/Units 00:36 07:38 07:38 RBC 3.61 L (4.30-5.90) m/uL Hgb 10.9 L (13.0-17.5) gm/dL Hct 33.4 L (39.0-53.0) % Lymphocytes # 0.6 L (1.0-4.8) k/uL Sodium 133 L (137-145) mmol/L Carbon Dioxide (22-30) mmol/L BUN 6 L (9-20) mg/dL Glucose (74-99) mg/dL POC Glucose (mg/dL) 109 H (75-99) mg/dL Calcium 7.6 L (8.4-10.2) mg/dL Assessment and Plan Assessment: Impression Present on admission abdominal pain nausea vomiting suspect due to partial bowel obstruction involving small and large bowel CAT scan abdomen and pelvis obtained on admission report indicates mild acute diverticulitis mid to distal sigmoid colon causing partial small bowel obstruction involving small large bowel Known coronary artery disease with prior coronary stenting done April 2017 on dual antiplatelet therapy Plavix and aspirin History of tobacco abuse recently quit A recent colonoscopy to the sigmoid colon with flexible sigmoidoscopy done August 2017 showed scattered diverticulosis of the sigmoid colon with severe torturous sigmoid colon with no evidence of an active bleed as part of a workup for acute blood loss anemia A recent EGD August 2017 no evidence of an active duodenitis, no duodenal ulcer: Gastric ulcer Abdominal x-ray done on the findings are suggestive of severe ileus CAT scan abdomen and pelvis:colon Collapse with severely dilated small bowel History of chronic daily alcohol use with no evidence of impending withdrawals Status post January 02 diagnostic laparoscopic converted to open, small bowel decompression, 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, descending ostomy creation Rani's procedure with peritoneal lavage 1 L, application of prevena wound system Febrile persist Plan Obtain stool sent for C. diff Repeat a CBC at 6:00 tonight call results to Dr. Colindres Infectious disease consult recommendations antibiotic Continue postop surgical care Ostomy teaching with appropriate Anticipate Will need prolonged antibiotics Monitor labs DVT and GI prophylaxis Pain control Follow-up on path report currently pending Further surgical recommendations pending will follow with you Progress note dictated for Dr. Colindres The above impression and plan of care have been discussed and directed by signing physician. Ebony Walton nurse practitioner acting as scribe for signing physician. <Nelly Colindres N - Last Filed: 01/07/18 09:34> Objective - Vital Signs Vital signs: Vital Signs Temp 97.8 F 01/07/18 06:34 Pulse 91 01/07/18 06:34 Resp 18 01/07/18 06:34 BP 131/78 01/07/18 06:34 Pulse Ox 97 01/07/18 07:26 Intake & Output 01/06/18 01/07/18 01/07/18 18:59 06:59 18:59 Intake Total 600 900 Output Total 225 2250 Balance 375 -1350 Intake: Oral 600 900 Output: Urine 100 1050 Post Void Residual 125 Stool 1200 Other: Voiding Method Indwelling Catheter Indwelling Catheter # Voids 1 1 # Bowel Movements 1 - Labs CBC & Chem 7: 01/06/18 07:27 01/07/18 05:05 Labs: Abnormal Lab Results - Last 24 Hours (Table) 01/06/18 01/07/18 Range/Units 22:19 05:05 Sodium 136 L (137-145) mmol/L Potassium 3.2 L (3.5-5.1) mmol/L BUN 4 L (9-20) mg/dL Calcium 7.8 L (8.4-10.2) mg/dL Total Bilirubin 0.1 L (0.2-1.3) mg/dL AST 64 H (17-59) U/L Total Protein 4.7 L (6.3-8.2) g/dL Albumin 2.2 L (3.5-5.0) g/dL Microbiology - Last 24 Hours (Table) 01/05/18 14:18 Blood Culture Gram Stain - Preliminary Blood 01/05/18 14:18 Blood Culture - Final Blood 01/05/18 14:15 Blood Culture - Final Blood 01/05/18 14:00 Urine Culture - Final Urine,Catheterized Assessment and Plan (1) Partial bowel obstruction Current Visit: Yes Status: Acute Code(s): K56.600 - PARTIAL INTESTINAL OBSTRUCTION, UNSPECIFIED TO CAUSE SNOMED Code(s): 54040081 (2) Intractable left lower quadrant abdominal pain Current Visit: Yes Status: Acute Code(s): R10.32 - LEFT LOWER QUADRANT PAIN SNOMED Code(s): 852509276 (3) Neoplasm of sigmoid colon Current Visit: Yes Status: Acute Code(s): D49.0 - NEOPLASM OF UNSPECIFIED BEHAVIOR OF DIGESTIVE SYSTEM SNOMED Code(s): 846268871 (4) Sigmoid volvulus Current Visit: Yes Status: Acute Code(s): K56.2 - VOLVULUS SNOMED Code(s) : 222979274 (5) Large bowel obstruction Current Visit: Yes Status: Acute Code(s): K56.609 - UNSP INTESTNL OBST, UNSP TO PARTIAL VERSUS COMPLETE OBST SNOMED Code(s): 051038974 (6) Sigmoid diverticulosis Current Visit: Yes Status: Acute Code(s): K57.30 - DVRTCLOS OF LG INT W/O PERFORATION OR ABSCESS W/O BLEEDING SNOMED Code(s): 881518298 (7) Ischemic cardiomyopathy Current Visit: Yes Status: Acute Code(s): I25.5 - ISCHEMIC CARDIOMYOPATHY SNOMED Code(s): 218857777 (8) History of cardiac catheterization Current Visit: Yes Status: Acute Code(s): Z98.890 - OTHER SPECIFIED POSTPROCEDURAL STATES SNOMED Code(s): 97767478655903
[2018-01-05 12:24] LABS: Glucose,Whole Blood 100 mg/dL (75-99)
[2018-01-05] MEDS: PIPERACILLIN-TAZOBACTAM 3.375 GM in DEXTROSE/WATER 1 50ML.BAG IVPB SCH (14:11)
[2018-01-05 14:15] LABS: Appearance,Urine Clear (Clear); Bilirubin,Urine Negative (Negative); Blood,Urine Negative (Negative); Color,Urine Colorless; Glucose,Urine (UA) Negative (Negative); Ketones,Urine Negative (Negative); Leukocyte Esterase,Urine Negative (Negative); Nitrite,Urine Negative (Negative); Protein,Urine Negative (Negative); Specific Gravity,Urine 1.004 (1.001-1.035); Urobilinogen,Urine <2.0 mg/dL (<2.0)
--- NOTE | 2018-01-05 15:26 | US ---
EXAMINATION TYPE: US venous doppler duplex LE BI DATE OF EXAM: 01/05/2018 3:11 PM COMPARISON: NONE CLINICAL HISTORY: rule out dvt. post colon resection 01-04-2018, edema SIDE PERFORMED: Bilateral TECHNIQUE: The lower extremity deep venous system is examined utilizing real time linear array sonog garrett with graded compression, doppler sonography and color-flow sonography. VESSELS IMAGED: External Iliac Vein (EIV) Common Femoral Vein Deep Femoral Vein Greater Saphenous Vein * Femoral Vein Popliteal Vein (* superficial vessels) Grayscale, color doppler, spectral doppler imaging performed of the deep veins of the lower extremiti es. There is normal flow, compressibility, vascular waveforms. Right Leg: Negative for DVT Left Leg: Negative for DVT Patient uncomfortable post surgery; minimal movement of legs for positioning. IMPRESSION: No evidence of DVT.
--- NOTE | 2018-01-05 18:20 | P.PN ---
Subjective Progress Note Date: 01/05/18 Progress note being dictated for Dr. Mcdonald Interval history: This is a 62-year-old gentleman admitted with partial bowel obstruction involving both small and large bowel and multiple other medical issues. NG tube and Saha catheter discontinued yesterday. Reports multiple bowel movements, yet abdomen remains distended. Denies abdominal tenderness. Follow-up Abdominal x-ray reporting continued marked diffuse small bowel dilatation, prominent air throughout the right;, suggestive of severe ileus rather than small bowel obstruction and no free intraperitoneal air below the hemidiaphragms .complains of shortness of breath, suspect related to abdominal distention, chest x-ray ordered. Voiding without difficulty. Complains of nausea, on clear liquid diet as per surgery. Afebrile. Blood cultures negative. 12/27/2017 increased abdominal pain during the night and NG tube reinserted as per surgery. Abdomen remains firm and distended, with 450 MLS dark brownish drainage over the last 8 hours.positive fluctuating abdominal pain.Diagnostic laparoscopic lysis of adhesions recommend per surgery. Aspirin, Plavix placed on hold, maintained on Lovenox. PPN nitiated. Maintained on IV fluid hydration. Cardiology consulted regarding anticoagulation recommendations/ surgery. 12/28/2017 receiving IV fluid hydration. PPN unavailable from pharmacy, TPN ordered as per surgery. Scheduled for PICC line placement. Patient ambulating to and from bathroom, complaining of exertional dyspnea. Chest x-ray reporting possible early pneumonia right lung base, mild atelectasis. Minimal improvement in abdominal distention. Reports mild improvement in abdominal pain. NG drainage of around 800ml /8hrs. Telemetry reporting sinus rhythm to sinus tach, low 100s. Plavix and aspirin remain on hold for upcoming surgery, Tuesday. Afebrile 12/29/17 NG tube "fell out last night". Minimal improvement in abdominal pain, abdominal distention. Mild nausea, no bowel movement. No emesis. Awaiting PICC line placement. Afebrile, maintaining O2 sats of 95-97% on room air. Review of systems: CONSTITUTIONAL: No fever, positive fatigue. HEENT: No recent visual problems or hearing problems. Denied any sore throat. CARDIOVASCULAR: No chest pain, no palpitations, no syncope. PULMONARY: Exertional shortness of breath, no cough, no hemoptysis. GASTROINTESTINAL: No diarrhea, positive nausea, no vomiting, positive abdominal pain. NEUROLOGICAL: No headaches, generalized weakness, no numbness. HEMATOLOGICAL: Denies any bleeding or petechiae. GENITOURINARY: Denies any burning micturition, frequency, or urgency. MUSCULOSKELETAL/RHEUMATOLOGICAL: Denies any joint pain, swelling, or any muscle pain. ENDOCRINE: Denies any polyuria or polydipsia. PSYCHIATRIC: No anxiety, no depression The rest of the 14 point review of systems is negative Active Medications Hydrocodone Bitart/Acetaminophen ([place] 7.5-325) 1 each PO Q6H PRN PRN Reason: Pain Last Admin: 12/27/17 09:09 Dose: 1 each Atorvastatin Calcium (Lipitor) 80 mg PO QAM MELVIN Last Admin: 12/29/17 07:27 Dose: 80 mg Benzocaine/Menthol (Cepacol Lozenge) 1 each MUCOUS MEM Q4HR PRN PRN Reason: Sore Throat Last Admin: 12/24/17 10:28 Dose: 1 each Enoxaparin Sodium (Lovenox) 30 mg SQ Q12HR [facility] Last Admin: 12/29/17 21:51 Dose: Not Given Famotidine (Pepcid) 20 mg IV Q12HR MELVIN Last Admin: 12/29/17 21:52 Dose: 20 mg Hydromorphone HCl (Dilaudid) 1 mg IVP Q4HR PRN PRN Reason: Pain Last Admin: 12/29/17 21:45 Dose: 1 mg Levofloxacin 750 mg/ IV (Solution) 150 mls @ 100 mls/hr IVPB Q24H [facility] Last Admin: 12/29/17 07:27 Dose: 100 mls/hr Metronidazole 500 mg/ IV (Solution) 100 mls @ 100 mls/hr IVPB Q6HR MELVIN Last Admin: 12/29/17 17:21 Dose: 100 mls/hr Sodium Chloride (Saline 0.9%) 1,000 mls @ 125 mls/hr IV .Q8H [facility] Last Admin: 12/29/17 21:52 Dose: 125 mls/hr Parenteral Vitamin Supplement 10 ml/ Chromium/Copper/Manganese/Seleni/Zn 1 ml/ Total Parenteral Nutrition 1,551 mls @ 64 mls/hr IV .Q24H [facility] Last Admin: 12/29/17 13:22 Dose: 64 mls/hr Dextrose/Sodium Chloride (Dextrose 5%-Ns Iv Soln) 1,000 mls @ 20 mls/hr IV .Q24H [facility] Last Admin: 12/29/17 07:26 Dose: Not Given Lisinopril (Zestril) 5 mg PO DAILY [facility] Last Admin: 12/29/17 07:27 Dose: 5 mg Lorazepam (Ativan) 1 mg IV Q2HR PRN PRN Reason: CIWA 8 or 9 Last Admin: 12/27/17 06:13 Dose: 1 mg Lorazepam (Ativan) 1 mg IV Q1HR PRN PRN Reason: CIWA 10 to 15 Metoclopramide HCl (Reglan) 5 mg IVP Q6HR PRN PRN Reason: Nausea And Vomiting Last Admin: 12/28/17 19:45 Dose: 5 mg Metoprolol Tartrate (Lopressor) 25 mg PO BID [facility] Last Admin: 12/29/17 21:50 Dose: 25 mg Miscellaneous Information (Potassium Per Protocol) 1 each MISCELLANE DAILY PRN ; Protocol PRN Reason: Per Protocol Naloxone HCl (Narcan) 0.2 mg IV Q2M PRN PRN Reason: Opioid Reversal 12/30/2017 scheduled for surgery tomorrow. Abdominal distention mildly improved , no bowel movements. Reports improvement in abdominal pain/cramping. Receiving TPN via PICC line. Afebrile. Denies chest pain, palpitations or shortness of breath. 01/02/2018 reports a couple bowel movements both last night and this morning. Currently abdominal pain controlled. Denies chest pain, palpitations. Afebrile. 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 Maintained on TPN, clear liquids. No nausea or vomiting. Patient reports much less pain, currently maintained on epidural. Wound VAC present. 01/04/18 Edematous. Difficulty voiding, required staight cath. during the night. Pain controlled with epidural. Minimal intake of liquid diet.Denies nausea and vomiting.Functioning ostomy.HGB 11.7. 01/05/2018 T-max 102, infectious disease consulted. Significant edema, persists. TPN discontinued yesterday, diet advanced today to soft, consuming 50 %. Functioning ostomy, copious stool, tested negative for C. difficile. Epidural has just been discontinued. Hemoglobin 10.9. IS 1500. Objective - Vital Signs Vital signs: Vital Signs Temp 99.6 F 01/05/18 14:26 Pulse 107 H 01/05/18 14:26 Resp 18 01/05/18 14:26 BP 101/53 01/05/18 14:26 Pulse Ox 95 01/05/18 14:26 Intake & Output 01/04/18 01/05/18 01/05/18 18:59 06:59 18:59 Intake Total 825 68.133 1200 Output Total 3350 4850 Balance -2525 68.133 -3650 Weight 74 kg 74 kg Intake: Intake, IV Titration 225 68.133 Amount Ropivacaine 250 mg 225 68.133 Hydromorphone (Pf) 5 mg In Sodium Chloride 0.9% 200 ml @ Per Protocol EPIDURAL .Q0M PRN Rx#: [id number] Oral 600 1200 Output: Urine 2950 3750 Straight 850 850 Stool 400 1100 Other: Voiding Method Indwelling Catheter Indwelling Catheter # Voids 300 # Bowel Movements 300 - Exam PHYSICAL EXAM: VITAL SIGNS: [As above] GENERAL: Sitting up in chair, no acute distress HEENT: Conjunctivae normal. eyes normal. Oral mucosa moist. NECK: No JVD. No thyroid enlargement. No LNs CARDIOVASCULAR: S1, S2 muffled. No murmur RESPIRATION: Breath sounds diminished in the bases. No rhonchi or crackles. No wheezing ABDOMEN: less Firm, mildly distended, status post surgery, colostomy with drainage, abdominal binder,hypoactive bowel sounds. Prevena system present. LEGS: POsitive edema, scrotal edema PSYCHIATRY: Alert and oriented -3, mood and affect normal. NERVOUS SYSTEM: Cranial N 2-12 grossly normal. Moves all 4 limbs. Diffuse weakness No focal deficits. - Labs CBC & Chem 7: 01/05/18 07:38 01/05/18 07:38 Labs: Abnormal Lab Results - Last 24 Hours (Table) 01/05/18 01/05/18 01/05/18 Range/Units 00:36 07:38 07:38 RBC 3.61 L (4.30-5.90) m/uL Hgb 10.9 L (13.0-17.5) gm/dL Hct 33.4 L (39.0-53.0) % Lymphocytes # 0.6 L (1.0-4.8) k/uL Sodium 133 L (137-145) mmol/L BUN 6 L (9-20) mg/dL POC Glucose (mg/dL) 109 H (75-99) mg/dL Calcium 7.6 L (8.4-10.2) mg/dL 01/05/18 Range/Units 12:21 RBC (4.30-5.90) m/uL Hgb (13.0-17.5) gm/dL Hct (39.0-53.0) % Lymphocytes # (1.0-4.8) k/uL Sodium (137-145) mmol/L BUN (9-20) mg/dL POC Glucose (mg/dL) 100 H (75-99) mg/dL Calcium (8.4-10.2) mg/dL Assessment and Plan Assessment: 1. 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 2. Possible acute mild diverticulitis 3. Recent colonoscopy 08/2017 reporting scattered diverticulosis of sigmoid colon with severe tortuous sigmoid colon. 4. CAD, stenting in April 2017 on dual antiplatelet therapy-currently on hold 5. Chronic daily ETOH use 5. Status post PICC line placement Plan: Continue current medication regime ,monitoring and symptomatic treatment.hemoglobin trending down, repeat CBC later this afternoon. Maintain IV antibiotic. Infectious disease consult in place with recommendations pending. IV fluids weaned off. Elevate scotum/legss. Pathology pending. Aggressive pulmonary toileting with incentive spirometer reinforced. Pain management as per surgery .Prognosis guarded given multiple complex medical issues. The impression and plan of care has been dictated as directed. : I performed a history and examination of this patient, discussed the same with the dictator. I agree with the dictator's note ,documented as a scribe. Any additional findings or plans will be noted.
[2018-01-05] MEDS: METOCLOPRAMIDE 5 MG/ML 2 ML VIAL IVP PRN (18:38)
[2018-01-05 18:53] LABS: Basophils % (A) 0 %; Eosinophils % (A) 0 %; HCT 33.9 % (39.0-53.0); HGB 11.3 gm/dL (13.0-17.5); Lymphocytes # (A) 0.8 k/uL (1.0-4.8); Lymphocytes % (A) 13 %; MCH 30.2 pg (25.0-35.0); MCHC 33.3 g/dL (31.0-37.0); MCV 90.5 fL (80.0-100.0); Mean Platelet Volume 6.8; Monocytes # (A) 0.5 k/uL (0-1.0); Monocytes % (A) 8 %; Neutrophils # (A) 4.5 k/uL (1.3-7.7); Neutrophils % (A) 75 %; Platelet Count 291 k/uL (150-450); RBC 3.75 m/uL (4.30-5.90); RDW 14.2 % (11.5-15.5)
--- NOTE | 2018-01-05 19:16 | XR ---
EXAMINATION TYPE: XR chest 1V portable DATE OF EXAM: 01/05/2018 COMPARISON: 12/28/2017 HISTORY: Edema TECHNIQUE: Single frontal view of the chest is obtained. FINDINGS: Heart and mediastinum are normal. Lungs are clear. There is left subclavian catheter with the tip in the superior vena cava. There is no pleural effusion. There is no heart failure. IMPRESSION: No active cardiopulmonary disease. No change. No pneumothorax. New left subclavian ewa ter.
--- NOTE | 2018-01-05 23:48 | CONS ---
CONSULTATION DATE OF SERVICE: 01/05/2018 REASON FOR CONSULTATION: Fever. HISTORY OF PRESENT ILLNESS: The patient is a 62-year-old male who presented to the ER at [facility] more than 2 weeks ago with the chief complaint of abdominal discomfort. His symptoms started 2 days prior to presentation to hospital and had gradually increased in severity and was worse the night before he presented to the hospital. The patient was evaluated by the ER physician. He had a CT scan of the abdomen and pelvis that was reported positive for possible mild acute diverticulitis in mid to distal sigmoid colon. CT was repeated the same afternoon and showed findings compatible with acute sigmoid diverticulitis. However, there remains concern about unifocal or multifocal colonic new process, as there were multiple prominent new enlarged mesenteric lymph nodes seen. Patient has been evaluated by General Surgery and medical team and has been treated medically with IV Flagyl and Levaquin. Patient subsequently was taken to the OR 9 days later with concern about small bowel obstruction along with sigmoid volvulus. The patient is status post diagnostic laparoscopy EGD followed by open laparotomy, colostomy creation. The patient is being managed by Internal Medicine and General Surgery Services. The patient did have a fever last evening of 102 degrees Fahrenheit with 100.6 this morning, for which Infectious Disease was consulted for further recommendation regarding antibiotic therapy. The patient denies having any URI symptoms. The patient denies having any chest pain or shortness of breath. Very minimal cough. He has been complaining of pain in the abdominal area, though denies having any worsening. Pain is a dull aching pain, 3 to 4 out of 10, and no radiation. The patient did have colostomy with output. Denies having any nausea or any vomiting. He is tolerating a clear liquid diet. Did have output in his colostomy. He did have urine retention requiring a Saha catheter placement. Currently he has a PICC line that was placed on 12/29. REVIEW OF SYSTEMS: CONSTITUTIONAL: Positive for weakness and a fever last evening and low-grade fever this morning. EYES: No complaint. ENT: No complaint. RESPIRATORY: No complaint. CARDIOVASCULAR: No complaint. GENITOURINARY: No complaint. GASTROINTESTINAL: As per HPI. MUSCULOSKELETAL: No complaint. INTEGUMENTARY: No complaint. PSYCHOLOGICAL: No complaint. ENDOCRINE: No complaint. NEUROLOGICAL: No complaint. PAST MEDICAL HISTORY: 1. Coronary artery disease. 2. Myocardial infarction. 3. Skin cancer. 4. Kidney stone. PAST SURGICAL HISTORY: 1. PTCA with stent. 2. Tonsillectomy. 3. Skin cancer removal. SOCIAL HISTORY: Remote history of smoker. Daily drinks. No drug use. FAMILY HISTORY: Mother with history CVA, TIA. Father with history of pancreatic cancer. ALLERGIES: NO KNOWN DRUG ALLERGIES. CURRENT MEDICATIONS: 1. Tylenol. 2. [place]. 3. Lipitor. 4. Benadryl. 5. Heparin. 6. Dilaudid. 7. Ativan. 8. Reglan. 9. Lopressor. 10.Flagyl. 11.Levaquin. 12.Zofran. 13.Protonix. 14.Flomax. PHYSICAL EXAMINATION: Blood pressure is 101/53 with a pulse of 107, temperature 99.6. He is 95% on room air. General description is a middle-aged male lying in bed in no distress. No tachypnea or accessory muscle of respiration use. HEENT examination shows pallor. No scleral icterus. Oral mucosa membrane is dry. No pharyngeal erythema or thrush. NECK: Trachea is central. No thyromegaly. LUNGS: Unlabored breathing with decreased breath sounds at the base but no wheeze or crackle. HEART: S1, S2. Regular rate and rhythm. ABDOMEN: Soft. The midline incision is currently with a wound V.A.C. Colostomy did have the output. EXTREMITIES: No edema of feet. SKIN EXAMINATION: No rash or mass palpable. Neurologically patient is awake, alert, oriented x3. Mood and affect normal. LABS: Hemoglobin 11.3, white count 6.0, BUN of 6, creatinine 0.75. Stool for C difficile was negative. DIAGNOSTIC IMPRESSION AND PLAN: Patient with a fever in a patient who did have acute diverticulitis, small bowel obstruction, sigmoid volvulus, status post laparotomy with diverting colostomy on 12/31/2017. The patient has been on Levaquin and Flagyl for more than 2 weeks now, failing oral Levaquin therapy and likely concern about intraabdominal responsible for this episode of fever, as clinically no other clinical focus of infection. Chest was clear to auscultation. He did have a Saha catheter and PICC line. Those will be the other sources, but more likely an abdominal process. PLAN: 1. Will obtain a chest x-ray, P/A and lateral. 2. Will get a UA and culture to complete the workup. 3. Discontinue the Levaquin. 4. Will start the patient on Zosyn 3.375 grams q.8 hours. 5. Will follow up on his clinical condition and culture to further adjust medication if needed. Thank you for this consultation. Will follow this patient along with you. MMODL / IJN: [id number] /
[2018-01-06] MEDS: PIPERACILLIN-TAZOBACTAM 3.375 GM in DEXTROSE/WATER 1 50ML.BAG IVPB SCH ×3 (01:04→17:44)
[2018-01-06] MEDS: metroNIDAZOLE-NS PMX 500 MG in SALINE 1 100ML.BAG IVPB SCH ×4 (05:58→23:43)
[2018-01-06 07:54] LABS: Basophils % (A) 0 %; Eosinophils % (A) 0 %; HCT 32.5 % (39.0-53.0); HGB 10.7 gm/dL (13.0-17.5); Lymphocytes # (A) 0.6 k/uL (1.0-4.8); Lymphocytes % (A) 12 %; MCH 29.9 pg (25.0-35.0); MCHC 32.8 g/dL (31.0-37.0); MCV 91.2 fL (80.0-100.0); Mean Platelet Volume 6.9; Monocytes # (A) 0.5 k/uL (0-1.0); Monocytes % (A) 9 %; Neutrophils % (A) 75 %; Platelet Count 327 k/uL (150-450); RBC 3.56 m/uL (4.30-5.90); RDW 14.2 % (11.5-15.5); WBC 5.3 k/uL (3.8-10.6)
--- NOTE | 2018-01-06 08:04 | P.PN ---
Subjective Mr. Gomes is a pleasant 62-year-old male past medical history significant for coronary artery disease with angioplasty x3 of the RCA 04/2017 he also had moderate disease of the circumflex artery and diffuse disease to LAD. His most recent catheterization was performed in June 2017 and revealed patent stents to RCA and no progression of disease to LAD or circumflex. He has been maintained on aspirin, plavix, lopressor and atorvastatin. He has presented to the hospital with abdominal pain and distension. CT performed revealed evidence of acute sigmoid diverticulitis and concern for colonic neoplasm as well as dilitation of the small bowel suggesting ileus. He has undergone serial CT's for ongoing evaluation per surgery. Most CT performed this morning obtained imaging of the lung bases and reveals a small right pleural effusion has developed. We have been asked to see him secondary to history of CAD. Surgery has recommended GI rest and NG tube with ongoing evaluation. Currently Dr. Xiao has held anti-platelets should he require surgery. He denies symptoms of chest pain, shortness of breath, diaphoresis, palpitations or dizziness. He states he hasn't had a bowel movement in 3 days and is starting to feel some movement occur although he has not yet passed any gas. He denies bleeding from the rectum or hematemesis. EKG reveals sinus tachycardia heart rate 129 with right bundle branch block. This is not new. Consistent with old EKG from August. Laboratory data reviewed, hemoglobin 13.2 down from 16.2 yesterday., platelets 301, sodium 136, potassium 4.5, creatinine 0.76. Current cardiac medications include aspirin 81 mg daily, atorvastatin 80 mg daily, Plavix 75 mg daily and Lopressor 25 mg daily. He also takes Prilosec and vitamin D. Most recent echocardiogram reveals preserved left ventricular systolic function with ejection fraction 50-55%, mild aortic regurgitation, mild MR and mild TR. 12/28/2017 We have been asked to see Mr. oGmes again during this admission for recommendations on plavix and aspirin prior to surgery. Aspirin and plavix had initially been resumed per surgery with no imminent plans for surgical intervention. However, his abdomen is not improving with NG tube decompression and therefore surgery has been recommended per Dr. Colindres. He continues to c/ o abdominal pain and distention with mild improvement. Yesterday while up to the bathroom his heart rate went up to 157. He states he has been noticing mild shortness of breath with exertion in the last couple of days. He denies chest pain, dizziness, PND or orthopnea. He is laying flat in bed at the time of my exam. Chest xray obtained this morning reveals mild atelectasis or early pneumonia right lung base. Blood pressure 164/105 heart rate 101 afebrile maintaining oxygen saturation on room air. Laboratory data reviewed, hemoglobin 12.2, platelets 483, sodium 137, potassium 3.7, creatinine 0.5, magnesium 2.0. He is currently taking atorvastatin 80 mg daily, Lovenox 30 mg twice a day, metoprolol 25 mg daily. Aspirin and Plavix have been held. 01/06/2018 We have been asked to evaluate Mr. Gomes second time during this admission regarding anticoagulation recommendations for discharge. He has undergone diagnostic left breast be with laparoscopic lysis of adhesions, intraoperative EGD and attempted colonoscopy. Findings were a small gilmer bowel obstruction secondary to sigmoid tumor 12/31. Subsequently after that on the he underwent a laparoscopic converted to open small bowel decompression, sigmoid colectomy and descending colostomy creation. He has been running low-grade temperatures and tachycardic. Infectious disease is following. Blood pressure 151/87 heart rate 108 temperature 100F saturating appropriately on room air. He is currently being maintained on Lopressor 25 mg twice a day and atorvastatin 80 mg daily. Lipitor data reviewed, hemoglobin 11.3, platelets 291 , sodium 133, potassium 3.8, creatinine 0.75. His x-ray obtained yesterday reviewed. No acute cardiopulmonary process noted. He denies symptoms of chest pain, shortness of breath, dizziness or palpitations. He also denies PND orthopnea. Objective - Vital Signs Vital signs: Vital Signs Temp 100.0 F H 01/06/18 06:20 Pulse 108 H 01/06/18 06:20 Resp 16 01/06/18 06:20 BP 151/87 01/06/18 06:20 Pulse Ox 96 01/06/18 07:18 Intake & Output 01/05/18 01/06/18 01/06/18 18:59 06:59 18:59 Intake Total 1800 300 Output Total 6100 2024 Balance -4300 -1725 Weight 74 kg 74 kg Intake: Oral 1800 300 Output: Urine 4650 2024 Straight 850 Stool 1450 Other: Voiding Method Indwelling Catheter Indwelling Catheter # Voids 300 1 # Bowel Movements 300 - Exam GENERAL: Well-appearing, well-nourished and in no acute distress. NECK: Supple without JVD or thyromegaly. LUNGS: Breath sounds clear to auscultation bilaterally. Respiration equal and unlabored. No wheezes, rales or rhonchi. Diminished bilaterally. HEART: Regular rate and rhythm without murmurs, rubs or gallops. S1 and S2 heard. EXTREMITIES: Normal range of motion, bilateral lower extremity nonpitting edema noted. No clubbing or cyanosis. Peripheral pulses intact. - Labs CBC & Chem 7: 01/05/18 18:29 01/05/18 07:38 Labs: Abnormal Lab Results - Last 24 Hours (Table) 01/05/18 01/05/18 01/05/18 Range/Units 07:38 07:38 12:21 RBC 3.61 L (4.30-5.90) m/uL Hgb 10.9 L (13.0-17.5) gm/dL Hct 33.4 L (39.0-53.0) % Lymphocytes # 0.6 L (1.0-4.8) k/uL Sodium 133 L (137-145) mmol/L BUN 6 L (9-20) mg/dL POC Glucose (mg/dL) 100 H (75-99) mg/dL Calcium 7.6 L (8.4-10.2) mg/dL 01/05/18 Range/Units 18:29 RBC 3.75 L (4.30-5.90) m/uL Hgb 11.3 L (13.0-17.5) gm/dL Hct 33.9 L (39.0-53.0) % Lymphocytes # 0.8 L (1.0-4.8) k/uL Sodium (137-145) mmol/L BUN (9-20) mg/dL POC Glucose (mg/dL) (75-99) mg/dL Calcium (8.4-10.2) mg/dL Microbiology - Last 24 Hours (Table) 01/05/18 14:00 Urine Culture - Preliminary Urine,Catheterized Assessment and Plan Assessment: ASSESSMENT 1. Ileus, bowel rest and decompression, status post colectomy. 2. Sigmoid diverticulitis, receiving IV antibiotics 3. History of known coronary artery disease status post angioplasty April 2017 currently on dual anti-platelet therapy 4. Former tobacco use, quit 04/2017 5. Chronic daily alcohol use PLAN Plavix can be discontinued indefinitely as his angioplasty has been greater than 6 months ago. Resume aspirin 81 mg daily. Continue with Lopressor and atorvastatin as was previously ordered. Ongoing medical management per surgery, infectious disease and primary care team. Follow-up with Dr. CHINMAY [place] upon discharge. Nurse Practitioner note has been reviewed, I agree with a documented findings and plan of care. Patient was seen and examined.
[2018-01-06 08:08] LABS: ALT 42 U/L (21-72); AST 75 U/L (17-59); Albumin 2.2 g/dL (3.5-5.0); Alkaline Phosphatase 117 U/L (38-126); Anion Gap 10 mmol/L; Blood Urea Nitrogen 5 mg/dL (9-20); Calcium 7.7 mg/dL (8.4-10.2); Carbon Dioxide 23 mmol/L (22-30); Chloride 104 mmol/L (98-107); Glucose 85 mg/dL (74-99); Potassium 3.7 mmol/L (3.5-5.1); Sodium 137 mmol/L (137-145); Total Bilirubin 0.3 mg/dL (0.2-1.3); Total Protein 4.7 g/dL (6.3-8.2)
--- NOTE | 2018-01-06 08:56 | P.PN ---
<Cira Waltonherminio Conte - Last Filed: 01/06/18 11:05> Subjective Progress Note Date: 01/06/18 62-year-old male seen and examined. Patient sitting up in a chair legs were elevated. States is tolerating a diet no nausea no vomiting. 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, descending colostomy creation Rani's procedure with application of prevena wound system Objective - Vital Signs Vital signs: Vital Signs Temp 100.0 F H 01/06/18 06:20 Pulse 108 H 01/06/18 06:20 Resp 16 01/06/18 06:20 BP 151/87 01/06/18 06:20 Pulse Ox 96 01/06/18 07:18 Intake & Output 01/05/18 01/06/18 01/06/18 18:59 06:59 18:59 Intake Total 1800 300 Output Total 6100 2024 Balance -4300 -1725 Weight 74 kg 74 kg Intake: Oral 1800 300 Output: Urine 4650 2024 Straight 850 Stool 1450 Other: Voiding Method Indwelling Catheter Indwelling Catheter # Voids 300 1 # Bowel Movements 300 - Exam Physical exam 62-year-old male sitting up in a chair legs are elevated Lungs adequate air movement sats are documented 95% on room air able to use events incentive spirometer achieving 1500 Heart S1-S2 audible and regular monitor denying chest pain Abdomen abdominal binder on ostomy moderate amount of brown liquid stool pervena wound system in place Few Hypoactive bowel tones denies nausea vomiting surgical dressing site dry surgical tenderness appropriate nondistended indwelling Saha catheter in place tolerating a full diet tolerating Extremities edema noted to lower extremities persist Scrotum decrease scrotal edema noted - Labs CBC & Chem 7: 01/06/18 07:27 01/06/18 07:27 Labs: Abnormal Lab Results - Last 24 Hours (Table) 01/05/18 01/05/18 01/06/18 Range/Units 12:21 18:29 07:27 RBC 3.75 L (4.30-5.90) m/uL Hgb 11.3 L (13.0-17.5) gm/dL Hct 33.9 L (39.0-53.0) % Lymphocytes # 0.8 L (1.0-4.8) k/uL BUN 5 L (9-20) mg/dL POC Glucose (mg/dL) 100 H (75-99) mg/dL Calcium 7.7 L (8.4-10.2) mg/dL AST 75 H (17-59) U/L Total Protein 4.7 L (6.3-8.2) g/dL Albumin 2.2 L (3.5-5.0) g/dL 01/06/18 Range/Units 07:27 RBC 3.56 L (4.30-5.90) m/uL Hgb 10.7 L (13.0-17.5) gm/dL Hct 32.5 L (39.0-53.0) % Lymphocytes # 0.6 L (1.0-4.8) k/uL BUN (9-20) mg/dL POC Glucose (mg/dL) (75-99) mg/dL Calcium (8.4-10.2) mg/dL AST (17-59) U/L Total Protein (6.3-8.2) g/dL Albumin (3.5-5.0) g/dL Microbiology - Last 24 Hours (Table) 01/05/18 14:00 Urine Culture - Preliminary Urine,Catheterized Assessment and Plan Assessment: Impression Present on admission abdominal pain nausea vomiting suspect due to partial bowel obstruction involving small and large bowel CAT scan abdomen and pelvis obtained on admission report indicates mild acute diverticulitis mid to distal sigmoid colon causing partial small bowel obstruction involving small large bowel Known coronary artery disease with prior coronary stenting done April 2017 on dual antiplatelet therapy Plavix and aspirin History of tobacco abuse recently quit A recent colonoscopy to the sigmoid colon with flexible sigmoidoscopy done August 2017 showed scattered diverticulosis of the sigmoid colon with severe torturous sigmoid colon with no evidence of an active bleed as part of a workup for acute blood loss anemia A recent EGD August 2017 no evidence of an active duodenitis, no duodenal ulcer: Gastric ulcer Abdominal x-ray done on the findings are suggestive of severe ileus CAT scan abdomen and pelvis:colon Collapse with severely dilated small bowel History of chronic daily alcohol use with no evidence of impending withdrawals Status post January 02 diagnostic laparoscopic converted to open, small bowel decompression, 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, descending ostomy creation Rani's procedure with peritoneal lavage 1 L, application of prevena wound system Febrile persist Pathology report from the sigmoid showed no evidence of a malignancy Plan Remove indwelling Saha catheter now Remove prevena wound system now Discharge plan and progress anticipate subacute rehab Infectious disease consult recommendations antibiotic Continue postop surgical care Ostomy teaching with appropriate Anticipate Will need prolonged antibiotics Monitor labs DVT and GI prophylaxis Pain control Path report discussed with and patient at bedside Further surgical recommendations pending will follow with you Progress note dictated for Dr. Colindres The above impression and plan of care have been discussed and directed by signing physician. Ebony Walton nurse practitioner acting as scribe for signing physician. <Nelly Colindres N - Last Filed: 01/07/18 09:36> Objective - Vital Signs Vital signs: Vital Signs Temp 97.8 F 01/07/18 06:34 Pulse 91 01/07/18 06:34 Resp 18 01/07/18 06:34 BP 131/78 01/07/18 06:34 Pulse Ox 97 01/07/18 07:26 Intake & Output 01/06/18 01/07/18 01/07/18 18:59 06:59 18:59 Intake Total 600 900 Output Total 225 2250 Balance 375 -1350 Intake: Oral 600 900 Output: Urine 100 1050 Post Void Residual 125 Stool 1200 Other: Voiding Method Indwelling Catheter Indwelling Catheter # Voids 1 1 # Bowel Movements 1 - Labs CBC & Chem 7: 01/06/18 07:27 01/07/18 05:05 Labs: Abnormal Lab Results - Last 24 Hours (Table) 01/06/18 01/07/18 Range/Units 22:19 05:05 Sodium 136 L (137-145) mmol/L Potassium 3.2 L (3.5-5.1) mmol/L BUN 4 L (9-20) mg/dL Calcium 7.8 L (8.4-10.2) mg/dL Total Bilirubin 0.1 L (0.2-1.3) mg/dL AST 64 H (17-59) U/L Total Protein 4.7 L (6.3-8.2) g/dL Albumin 2.2 L (3.5-5.0) g/dL Microbiology - Last 24 Hours (Table) 01/05/18 14:18 Blood Culture Gram Stain - Preliminary Blood 01/05/18 14:18 Blood Culture - Final Blood 01/05/18 14:15 Blood Culture - Final Blood 01/05/18 14:00 Urine Culture - Final Urine,Catheterized Assessment and Plan (1) Partial bowel obstruction Current Visit: Yes Status: Acute Code(s): K56.600 - PARTIAL INTESTINAL OBSTRUCTION, UNSPECIFIED TO CAUSE SNOMED Code(s): 25994764 (2) Intractable left lower quadrant abdominal pain Current Visit: Yes Status: Acute Code(s): R10.32 - LEFT LOWER QUADRANT PAIN SNOMED Code(s): 301887608 (3) Neoplasm of sigmoid colon Current Visit: Yes Status: Acute Code(s): D49.0 - NEOPLASM OF UNSPECIFIED BEHAVIOR OF DIGESTIVE SYSTEM SNOMED Code(s): 561502486 (4) Sigmoid volvulus Current Visit: Yes Status: Acute Code(s): K56.2 - VOLVULUS SNOMED Code(s) : 317554505 (5) Large bowel obstruction Current Visit: Yes Status: Acute Code(s): K56.609 - UNSP INTESTNL OBST, UNSP TO PARTIAL VERSUS COMPLETE OBST SNOMED Code(s): 320556345 (6) Sigmoid diverticulosis Current Visit: Yes Status: Acute Code(s): K57.30 - DVRTCLOS OF LG INT W/O PERFORATION OR ABSCESS W/O BLEEDING SNOMED Code(s): 182341151 (7) Ischemic cardiomyopathy Current Visit: Yes Status: Acute Code(s): I25.5 - ISCHEMIC CARDIOMYOPATHY SNOMED Code(s): 656535226 (8) History of cardiac catheterization Current Visit: Yes Status: Acute Code(s): Z98.890 - OTHER SPECIFIED POSTPROCEDURAL STATES SNOMED Code(s): 18716687414547 Plan: Patient pending discharge from infectious disease management. I was present for dressing change with Rocio Rios and nursing team. No cellulitis of the midline incision found. Optifoam dressing placed. Ostomy is viable. PICC line cultures pending which may also be source of infection.
[2018-01-06] MEDS: METOPROLOL TARTRATE 25 MG TAB PO SCH ×2 (09:04→20:32)
[2018-01-06] MEDS: TAMSULOSIN 0.4 MG CAP.ER.24H PO SCH (09:04)
[2018-01-06] MEDS: PANTOPRAZOLE 40 MG TABLET PO SCH (09:04)
[2018-01-06] MEDS: ALVIMOPAN 12 MG CAPSULE PO SCH ×2 (09:04→20:31)
[2018-01-06] MEDS: ATORVASTATIN 80 MG TAB PO SCH (09:04)
[2018-01-06] MEDS: ASPIRIN 81 MG PO SCH (09:04)
[2018-01-06] MEDS: HEPARIN SODIUM,PORCINE 5,000 UNIT/ML 1 ML VIAL SQ SCH ×2 (09:05→20:31)
[2018-01-06] MEDS: HYDROmorphone 0.5 MG/0.5 ML SYRINGE IVP PRN ×3 (09:05→21:21)
[2018-01-06] MEDS ORDERED: Magnesium Replacement Protocol 1 EACH MISC MISCELLANE PRN (18:51)
[2018-01-06] MEDS ORDERED: Potassium Replacement Protocol 1 EACH MISC MISCELLANE PRN ×2 (18:51→18:56)
--- NOTE | 2018-01-06 18:57 | P.PN ---
Subjective Progress Note Date: 01/06/18 Progress note being dictated for Dr. Mcdonald Interval history: This is a 62-year-old gentleman admitted with partial bowel obstruction involving both small and large bowel and multiple other medical issues. NG tube and Saha catheter discontinued yesterday. Reports multiple bowel movements, yet abdomen remains distended. Denies abdominal tenderness. Follow-up Abdominal x-ray reporting continued marked diffuse small bowel dilatation, prominent air throughout the right;, suggestive of severe ileus rather than small bowel obstruction and no free intraperitoneal air below the hemidiaphragms .complains of shortness of breath, suspect related to abdominal distention, chest x-ray ordered. Voiding without difficulty. Complains of nausea, on clear liquid diet as per surgery. Afebrile. Blood cultures negative. 12/27/2017 increased abdominal pain during the night and NG tube reinserted as per surgery. Abdomen remains firm and distended, with 450 MLS dark brownish drainage over the last 8 hours.positive fluctuating abdominal pain.Diagnostic laparoscopic lysis of adhesions recommend per surgery. Aspirin, Plavix placed on hold, maintained on Lovenox. PPN nitiated. Maintained on IV fluid hydration. Cardiology consulted regarding anticoagulation recommendations/ surgery. 12/28/2017 receiving IV fluid hydration. PPN unavailable from pharmacy, TPN ordered as per surgery. Scheduled for PICC line placement. Patient ambulating to and from bathroom, complaining of exertional dyspnea. Chest x-ray reporting possible early pneumonia right lung base, mild atelectasis. Minimal improvement in abdominal distention. Reports mild improvement in abdominal pain. NG drainage of around 800ml /8hrs. Telemetry reporting sinus rhythm to sinus tach, low 100s. Plavix and aspirin remain on hold for upcoming surgery, Tuesday. Afebrile 12/29/17 NG tube "fell out last night". Minimal improvement in abdominal pain, abdominal distention. Mild nausea, no bowel movement. No emesis. Awaiting PICC line placement. Afebrile, maintaining O2 sats of 95-97% on room air. Review of systems: CONSTITUTIONAL: No fever, positive fatigue. HEENT: No recent visual problems or hearing problems. Denied any sore throat. CARDIOVASCULAR: No chest pain, no palpitations, no syncope. PULMONARY: Exertional shortness of breath, no cough, no hemoptysis. GASTROINTESTINAL: No diarrhea, positive nausea, no vomiting, positive abdominal pain. NEUROLOGICAL: No headaches, generalized weakness, no numbness. HEMATOLOGICAL: Denies any bleeding or petechiae. GENITOURINARY: Denies any burning micturition, frequency, or urgency. MUSCULOSKELETAL/RHEUMATOLOGICAL: Denies any joint pain, swelling, or any muscle pain. ENDOCRINE: Denies any polyuria or polydipsia. PSYCHIATRIC: No anxiety, no depression The rest of the 14 point review of systems is negative Active Medications Hydrocodone Bitart/Acetaminophen ([place] 7.5-325) 1 each PO Q6H PRN PRN Reason: Pain Last Admin: 12/27/17 09:09 Dose: 1 each Atorvastatin Calcium (Lipitor) 80 mg PO QAM [facility]EL[facility]IN Last Admin: 12/29/17 07:27 Dose: 80 mg Benzocaine/Menthol (Cepacol Lozenge) 1 each MUCOUS MEM Q4HR PRN PRN Reason: Sore Throat Last Admin: 12/24/17 10:28 Dose: 1 each Enoxaparin Sodium (Lovenox) 30 mg SQ Q12HR [facility] Last Admin: 12/29/17 21:51 Dose: Not Given Famotidine (Pepcid) 20 mg IV Q12HR [facility]ELVIN Last Admin: 12/29/17 21:52 Dose: 20 mg Hydromorphone HCl (Dilaudid) 1 mg IVP Q4HR PRN PRN Reason: Pain Last Admin: 12/29/17 21:45 Dose: 1 mg Levofloxacin 750 mg/ IV (Solution) 150 mls @ 100 mls/hr IVPB Q24H [facility] Last Admin: 12/29/17 07:27 Dose: 100 mls/hr Metronidazole 500 mg/ IV (Solution) 100 mls @ 100 mls/hr IVPB Q6HR [facility] Last Admin: 12/29/17 17:21 Dose: 100 mls/hr Sodium Chloride (Saline 0.9%) 1,000 mls @ 125 mls/hr IV .Q8H [facility] Last Admin: 12/29/17 21:52 Dose: 125 mls/hr Parenteral Vitamin Supplement 10 ml/ Chromium/Copper/Manganese/Seleni/Zn 1 ml/ Total Parenteral Nutrition 1,551 mls @ 64 mls/hr IV .Q24H [facility] Last Admin: 12/29/17 13:22 Dose: 64 mls/hr Dextrose/Sodium Chloride (Dextrose 5%-Ns Iv Soln) 1,000 mls @ 20 mls/hr IV .Q24H [facility] Last Admin: 12/29/17 07:26 Dose: Not Given Lisinopril (Zestril) 5 mg PO DAILY [facility] Last Admin: 12/29/17 07:27 Dose: 5 mg Lorazepam (Ativan) 1 mg IV Q2HR PRN PRN Reason: CIWA 8 or 9 Last Admin: 12/27/17 06:13 Dose: 1 mg Lorazepam (Ativan) 1 mg IV Q1HR PRN PRN Reason: CIWA 10 to 15 Metoclopramide HCl (Reglan) 5 mg IVP Q6HR PRN PRN Reason: Nausea And Vomiting Last Admin: 12/28/17 19:45 Dose: 5 mg Metoprolol Tartrate (Lopressor) 25 mg PO BID [facility] Last Admin: 12/29/17 21:50 Dose: 25 mg Miscellaneous Information (Potassium Per Protocol) 1 each MISCELLANE DAILY PRN ; Protocol PRN Reason: Per Protocol Naloxone HCl (Narcan) 0.2 mg IV Q2M PRN PRN Reason: Opioid Reversal 12/30/2017 scheduled for surgery tomorrow. Abdominal distention mildly improved , no bowel movements. Reports improvement in abdominal pain/cramping. Receiving TPN via PICC line. Afebrile. Denies chest pain, palpitations or shortness of breath. 01/02/2018 reports a couple bowel movements both last night and this morning. Currently abdominal pain controlled. Denies chest pain, palpitations. Afebrile. 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 Maintained on TPN, clear liquids. No nausea or vomiting. Patient reports much less pain, currently maintained on epidural. Wound VAC present. 01/04/18 Edematous. Difficulty voiding, required staight cath. during the night. Pain controlled with epidural. Minimal intake of liquid diet.Denies nausea and vomiting.Functioning ostomy.HGB 11.7. 01/05/2018 T-max 102, infectious disease consulted. Significant edema, persists. TPN discontinued yesterday, diet advanced today to soft, consuming 50 %. Functioning ostomy, copious stool, tested negative for C. difficile. Epidural has just been discontinued. Hemoglobin 10.9. IS 1500. 01/06/18 tolerating diet with no nausea or vomiting. Reevaluated by cardiology regarding anticoagulation in a patient with recent stenting last fall, with aspirin resumed, Plavix discontinued. Evaluated by infectious disease with recommendations noted. Maintained on Flagyl and Zosyn. Remains febrile, T-max 100.6. Amylase in the styles with physical therapy, tolerated exertion well. Pathology report reported no evidence of malignancy. Objective - Vital Signs Vital signs: Vital Signs Temp 100.0 F H 01/06/18 06:20 Pulse 108 H 01/06/18 06:20 Resp 16 01/06/18 06:20 BP 151/87 01/06/18 06:20 Pulse Ox 96 01/06/18 07:18 Intake & Output 01/05/18 01/06/18 01/06/18 18:59 06:59 18:59 Intake Total 1800 300 Output Total 6100 5 Balance -4300 -1725 Weight 74 kg 74 kg Intake: Oral 1800 300 Output: Urine 4650 2024 Straight 850 Stool 1450 Other: Voiding Method Indwelling Catheter Indwelling Catheter # Voids 300 1 # Bowel Movements 300 - Exam PHYSICAL EXAM: VITAL SIGNS: [As above] GENERAL: Sitting up in chair, no acute distress HEENT: Conjunctivae normal. eyes normal. Oral mucosa moist. NECK: No JVD. No thyroid enlargement. No LNs CARDIOVASCULAR: S1, S2 muffled. No murmur RESPIRATION: Breath sounds diminished in the bases. No rhonchi or crackles. No wheezing ABDOMEN: less Firm, mildly distended, status post surgery, colostomy with drainage, abdominal binder,hypoactive bowel sounds. Prevena system present. Saha catheter present. LEGS: Positive edema, scrotal edema-improving PSYCHIATRY: Alert and oriented -3, mood and affect normal. NERVOUS SYSTEM: Cranial N 2-12 grossly normal. Moves all 4 limbs. Diffuse weakness No focal deficits. - Labs CBC & Chem 7: 01/06/18 07:27 01/06/18 07:27 Labs: Abnormal Lab Results - Last 24 Hours (Table) 01/05/18 01/05/18 01/05/18 Range/Units 07:38 12:21 18:29 RBC 3.75 L (4.30-5.90) m/uL Hgb 11.3 L (13.0-17.5) gm/dL Hct 33.9 L (39.0-53.0) % Lymphocytes # 0.8 L (1.0-4.8) k/uL Sodium 133 L (137-145) mmol/L BUN 6 L (9-20) mg/dL POC Glucose (mg/dL) 100 H (75-99) mg/dL Calcium 7.6 L (8.4-10.2) mg/dL AST (17-59) U/L Total Protein (6.3-8.2) g/dL Albumin (3.5-5.0) g/dL 01/06/18 01/06/18 Range/Units 07:27 07:27 RBC 3.56 L (4.30-5.90) m/uL Hgb 10.7 L (13.0-17.5) gm/dL Hct 32.5 L (39.0-53.0) % Lymphocytes # 0.6 L (1.0-4.8) k/uL Sodium (137-145) mmol/L BUN 5 L (9-20) mg/dL POC Glucose (mg/dL) (75-99) mg/dL Calcium 7.7 L (8.4-10.2) mg/dL AST 75 H (17-59) U/L Total Protein 4.7 L (6.3-8.2) g/dL Albumin 2.2 L (3.5-5.0) g/dL Microbiology - Last 24 Hours (Table) 01/05/18 14:00 Urine Culture - Preliminary Urine,Catheterized Assessment and Plan Assessment: 1. 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 2. Possible acute mild diverticulitis 3. Recent colonoscopy 08/2017 reporting scattered diverticulosis of sigmoid colon with severe tortuous sigmoid colon. 4. CAD, stenting in April 2017 on dual antiplatelet therapy. Reevaluated post surgery by cardiology with aspirin resumed. 5. Chronic daily ETOH use 5. Status post PICC line placement Plan: Continue current medication regime ,monitoring and symptomatic treatment. Antibiotics as per infectious disease. Cultures pending. Maintain Elevation scotum/leggs. Aggressive pulmonary toileting with incentive spirometer reinforced. Pain management as per surgery. Discharge planning in progress for subacute rehab., pending resolution of fevers and final culture results .Prognosis guarded given multiple complex medical issues. The impression and plan of care has been dictated as directed. : I performed a history and examination of this patient, discussed the same with the dictator. I agree with the dictator's note ,documented as a scribe. Any additional findings or plans will be noted.
[2018-01-06] MEDS ORDERED: POTASSIUM CHLORIDE ER 20 MEQ TAB.ER PO SCH (19:00)
[2018-01-06] MEDS: BENZOCAINE/MENTHOL LOZENG 1 EACH LOZENGE MUCOUS MEM PRN (20:32)
--- NOTE | 2018-01-06 22:57 | PN ---
PROGRESS NOTE DATE OF SERVICE: 01/06/2018 REASON FOR FOLLOWUP: Fever, source likely abdominal with secondary peritonitis. INTERVAL HISTORY: The patient did have a low-grade fever this morning of 100; afebrile since then. The patient has been breathing comfortably. Still has some abdominal pain, but no worsening. No chest pain or cough. No urinary symptoms. Saha has been discontinued. PHYSICAL EXAMINATION: Blood pressure 151/87 with a pulse of 108, T-max of 100. He is 94% on room air. General description is a middle-aged male lying in bed in no distress. RESPIRATORY SYSTEM: Unlabored breathing. Clear to auscultation anteriorly. HEART: S1, S2. Regular rate and rhythm. ABDOMEN: Soft. Mildly distended. No guarding or rigidity. EXTREMITIES: No edema of the feet. LABS: Hemoglobin is 10.7, white count 5.3 with a BUN of 5, creatinine 0.74. Blood culture repeat has been negative so far. DIAGNOSTIC IMPRESSION AND PLAN: Patient with a fever with concern about possible abdominal source in a patient who did have secondary peritonitis; patient with laparotomy with colostomy. Currently covered with Zosyn, which was started yesterday. That will be continued while waiting for the culture to finalize. Continue with supportive care. MMODL / IJN: [id number] /
[2018-01-07] MEDS: POTASSIUM CHLORIDE ER 20 MEQ TAB.ER PO SCH ×2 (00:49→01:55)
[2018-01-07] MEDS: PIPERACILLIN-TAZOBACTAM 3.375 GM in DEXTROSE/WATER 1 50ML.BAG IVPB SCH ×4 (00:50→23:33)
[2018-01-07] MEDS: HYDROmorphone 0.5 MG/0.5 ML SYRINGE IVP PRN ×3 (04:32→20:41)
[2018-01-07 05:44] LABS: ALT 44 U/L (21-72); AST 64 U/L (17-59); Albumin 2.2 g/dL (3.5-5.0); Alkaline Phosphatase 108 U/L (38-126); Anion Gap 8 mmol/L; Blood Urea Nitrogen 4 mg/dL (9-20); Calcium 7.8 mg/dL (8.4-10.2); Carbon Dioxide 22 mmol/L (22-30); Chloride 106 mmol/L (98-107); Glucose 87 mg/dL (74-99); Potassium 3.8 mmol/L (3.5-5.1); Sodium 136 mmol/L (137-145); Total Bilirubin 0.1 mg/dL (0.2-1.3); Total Protein 4.7 g/dL (6.3-8.2)
[2018-01-07] MEDS: metroNIDAZOLE-NS PMX 500 MG in SALINE 1 100ML.BAG IVPB SCH ×2 (06:22→12:46)
[2018-01-07] MEDS: POTASSIUM CHLORIDE 10 MEQ in WATER FOR INJECTION 1 100ML.BAG IVPB SCH ×2 (08:28→09:38)
[2018-01-07] MEDS: METOPROLOL TARTRATE 25 MG TAB PO SCH ×2 (08:29→21:03)
[2018-01-07] MEDS: TAMSULOSIN 0.4 MG CAP.ER.24H PO SCH (08:29)
[2018-01-07] MEDS: ALVIMOPAN 12 MG CAPSULE PO SCH ×2 (08:29→21:03)
[2018-01-07] MEDS: ATORVASTATIN 80 MG TAB PO SCH (08:29)
[2018-01-07] MEDS: PANTOPRAZOLE 40 MG TABLET PO SCH (08:29)
[2018-01-07] MEDS: HEPARIN SODIUM,PORCINE 5,000 UNIT/ML 1 ML VIAL SQ SCH ×2 (08:29→21:03)
[2018-01-07] MEDS: ASPIRIN 81 MG PO SCH (08:29)
--- NOTE | 2018-01-07 12:49 | P.PN ---
Subjective Progress Note Date: 01/07/18 Principal diagnosis: Harrison's procedure Patient doing well today. He is anxious to be transferred to rehab. Denies significant pain. He is afebrile. No labs from today. Ostomy is functioning. He is tolerating his diet. Objective - Vital Signs Vital signs: Vital Signs Temp 97.8 F 01/07/18 06:34 Pulse 91 01/07/18 06:34 Resp 18 01/07/18 06:34 BP 131/78 01/07/18 06:34 Pulse Ox 97 01/07/18 07:26 Intake & Output 01/06/18 01/07/18 01/07/18 18:59 06:59 18:59 Intake Total 600 900 Output Total 225 2250 Balance 375 -1350 Intake: Oral 600 900 Output: Urine 100 1050 Post Void Residual 125 Stool 1200 Other: Voiding Method Indwelling Catheter Indwelling Catheter Urinal # Voids 1 1 # Bowel Movements 1 - Exam Abdomen: Soft, nondistended, incision with multiple small open wounds draining a small amount of serosanguineous fluid, no erythema - Labs CBC & Chem 7: 01/06/18 07:27 01/07/18 05:05 Labs: Abnormal Lab Results - Last 24 Hours (Table) 01/06/18 01/07/18 Range/Units 22:19 05:05 Sodium 136 L (137-145) mmol/L Potassium 3.2 L (3.5-5.1) mmol/L BUN 4 L (9-20) mg/dL Calcium 7.8 L (8.4-10.2) mg/dL Total Bilirubin 0.1 L (0.2-1.3) mg/dL AST 64 H (17-59) U/L Total Protein 4.7 L (6.3-8.2) g/dL Albumin 2.2 L (3.5-5.0) g/dL Microbiology - Last 24 Hours (Table) 01/05/18 14:15 Blood Culture Gram Stain - Preliminary Blood 01/05/18 14:18 Blood Culture Gram Stain - Preliminary Blood 01/05/18 14:18 Blood Culture - Final Blood 01/05/18 14:15 Blood Culture - Final Blood 01/05/18 14:00 Urine Culture - Final Urine,Catheterized Assessment and Plan (1) Diverticulitis Narrative/Plan: Continue diet as tolerated. Stable for transfer to rehab from my standpoint. Await infectious disease opinion regarding transfer. Current Visit: Yes Status: Acute Code(s): K57.92 - DVTRCLI OF INTEST, PART UNSP, W/O PERF OR ABSCESS W/O BLEED SNOMED Code(s): 473225990
--- NOTE | 2018-01-07 20:23 | PN ---
PROGRESS NOTE DATE OF SERVICE: 01/07/2018 PRESENTING COMPLAINT: Bowel obstruction. INTERVAL HISTORY: This is a patient who presented with bowel obstruction, eventually was taken to the OR. Based on the pathology report, it does appear that the patient probably had a sigmoid diverticulosis with perforated diverticulitis and intra-abdominal swelling. There was lavage. ID was consulted on 01/05/2018, who has the patient on IV antibiotics. The patient is tolerating some soft diet. Colostomy is working. Fevers are starting to come down. The patient is on IV antibiotics. The is at the bedside. The patient is able to walk a bit. Abdominal pain is better. REVIEW OF SYSTEMS: Done for constitutional, cardiovascular, GI, pulmonary; relevant findings as above. CURRENT MEDICATIONS: Include IV Zosyn. EXAMINATION: Temperature 99.3, pulse 89, respiration 17, blood pressure 136/80, pulse ox 97% on room air. GENERAL APPEARANCE: Lying in bed, not in distress. EYES: Pupils equal. Conjunctivae normal. HEENT: External nose and ears normal. Oral cavity normal. NECK: JVD not raised. Mass not palpable. RESPIRATORY: Effort normal. Lungs are clear. CARDIOVASCULAR: First and second sounds normal. No edema. ABDOMEN: Some tenderness. Colostomy bag with stool in place. Liver, spleen not palpable. PSYCHIATRY: Alert and oriented x3. Mood and affect were normal. INVESTIGATIONS: White count was 5.3. Potassium 3.8, BUN 4, creatinine 0.70. Albumin 2.2. ASSESSMENT: 1. Possible acute sigmoid diverticulitis with perforation with secondary peritonitis from fecal soiling. 2. Chronic alcohol use. 3. Coronary artery disease with stent to the right coronary artery and diffuse disease to left anterior descending. 4. Acute renal failure prerenal prerenal/acute tubular necrosis, now resolved. 5. Hyperkalemia, improved. 6. Hypercalcemia from dehydration. 7. Hypoalbuminemia as an acute phase reactant. PLAN: I spoke to Dr. Adams of infectious disease and I agree that the patient should be watched on the current antibiotics before he is allowed to go to the rehab. The patient's diet will be continued. The patient to remain on IV Zosyn. Care was discussed with the patient and . MMODL / IJN: [id number] /
[2018-01-07] MEDS: ONDANSETRON 4 MG/2 ML VIAL IVP PRN (20:41)
[2018-01-08] MEDS: ONDANSETRON 4 MG/2 ML VIAL IVP PRN ×2 (04:34→15:36)
[2018-01-08] MEDS: HYDROmorphone 0.5 MG/0.5 ML SYRINGE IVP PRN ×2 (04:58→15:36)
[2018-01-08] MEDS: ATORVASTATIN 80 MG TAB PO SCH (07:25)
[2018-01-08] MEDS: METOPROLOL TARTRATE 25 MG TAB PO SCH ×2 (07:25→22:57)
[2018-01-08] MEDS: ASPIRIN 81 MG PO SCH (07:25)
[2018-01-08] MEDS: TAMSULOSIN 0.4 MG CAP.ER.24H PO SCH (07:25)
[2018-01-08] MEDS: PANTOPRAZOLE 40 MG TABLET PO SCH (07:25)
[2018-01-08] MEDS: ALVIMOPAN 12 MG CAPSULE PO SCH ×2 (07:26→22:57)
[2018-01-08] MEDS: PIPERACILLIN-TAZOBACTAM 3.375 GM in DEXTROSE/WATER 1 50ML.BAG IVPB SCH ×2 (07:26→16:58)
[2018-01-08] MEDS: HEPARIN SODIUM,PORCINE 5,000 UNIT/ML 1 ML VIAL SQ SCH ×2 (07:26→22:57)
[2018-01-08 07:58] LABS: ALT 42 U/L (21-72); AST 49 U/L (17-59); Albumin 2.2 g/dL (3.5-5.0); Alkaline Phosphatase 102 U/L (38-126); Anion Gap 10 mmol/L; Blood Urea Nitrogen 4 mg/dL (9-20); Calcium 7.9 mg/dL (8.4-10.2); Carbon Dioxide 22 mmol/L (22-30); Chloride 105 mmol/L (98-107); Glucose 76 mg/dL (74-99); Potassium 4.1 mmol/L (3.5-5.1); Sodium 137 mmol/L (137-145); Total Bilirubin 0.1 mg/dL (0.2-1.3); Total Protein 4.7 g/dL (6.3-8.2)
[2018-01-08 08:26] LABS: Basophils % (A) 1 %; Eosinophils # (A) 0.1 k/uL (0-0.7); Eosinophils % (A) 1 %; HCT 34.5 % (39.0-53.0); HGB 11.2 gm/dL (13.0-17.5); Lymphocytes # (A) 1.3 k/uL (1.0-4.8); Lymphocytes % (A) 24 %; MCHC 32.5 g/dL (31.0-37.0); MCV 92.2 fL (80.0-100.0); Monocytes # (A) 0.6 k/uL (0-1.0); Monocytes % (A) 11 %; Neutrophils # (A) 3.2 k/uL (1.3-7.7); Neutrophils % (A) 60 %; Platelet Count 354 k/uL (150-450); RBC 3.74 m/uL (4.30-5.90); RDW 14.4 % (11.5-15.5); WBC 5.4 k/uL (3.8-10.6)
--- NOTE | 2018-01-08 08:34 | P.PN ---
Subjective Progress Note Date: 01/08/18 Principal diagnosis: Harrison's procedure Patient feels well. No pain. Tolerating diet. Good ostomy function. Transfer was held yesterday as infectious disease prefers an additional few days of antibiotics. Objective - Vital Signs Vital signs: Vital Signs Temp 97.1 F L 01/08/18 06:22 Pulse 86 01/08/18 06:22 Resp 18 01/08/18 06:22 BP 136/78 01/08/18 06:22 Pulse Ox 96 01/08/18 06:22 Intake & Output 01/07/18 01/08/18 01/08/18 18:59 06:59 18:59 Intake Total 450 Output Total 1000 Balance -1000 450 Intake: Oral 450 Output: Urine 1000 Other: Voiding Method Urinal Toilet # Voids 3 - Exam Abdomen: Soft, nondistended, wound with some serosanguineous drainage, ostomy functioning - Labs CBC & Chem 7: 01/08/18 07:03 01/08/18 07:03 Labs: Abnormal Lab Results - Last 24 Hours (Table) 01/08/18 01/08/18 Range/Units 07:03 07:03 RBC 3.74 L (4.30-5.90) m/uL Hgb 11.2 L (13.0-17.5) gm/dL Hct 34.5 L (39.0-53.0) % BUN 4 L (9-20) mg/dL Creatinine 0.65 L (0.66-1.25) mg/dL Calcium 7.9 L (8.4-10.2) mg/dL Total Bilirubin 0.1 L (0.2-1.3) mg/dL Total Protein 4.7 L (6.3-8.2) g/dL Albumin 2.2 L (3.5-5.0) g/dL Microbiology - Last 24 Hours (Table) 01/05/18 14:15 Blood Culture Gram Stain - Preliminary Blood 01/05/18 14:18 Blood Culture Gram Stain - Preliminary Blood 01/05/18 14:18 Blood Culture - Final Blood Assessment and Plan (1) Diverticulitis Narrative/Plan: Continue diet as tolerated. Continue ambulating. Possible discharge to rehab tomorrow. Current Visit: Yes Status: Acute Code(s): K57.92 - DVTRCLI OF INTEST, PART UNSP, W/O PERF OR ABSCESS W/O BLEED SNOMED Code(s): 025384055
[2018-01-08] MEDS: FLUCONAZOLE IN NACL,ISO-OSM 400 MG in SALINE 1 200ML.BAG IVPB SCH (22:57)
[2018-01-08] MEDS: METOCLOPRAMIDE 5 MG/ML 2 ML VIAL IVP PRN (23:29)
[2018-01-08] MEDS: HYDROcodone/APAP 7.5-325MG 1 EACH TAB PO PRN (23:29)
[2018-01-09] MEDS: PIPERACILLIN-TAZOBACTAM 3.375 GM in DEXTROSE/WATER 1 50ML.BAG IVPB SCH ×3 (01:27→16:00)
[2018-01-09] MEDS: HYDROcodone/APAP 7.5-325MG 1 EACH TAB PO PRN ×2 (05:48→18:53)
--- NOTE | 2018-01-09 06:01 | PN ---
PROGRESS NOTE DATE OF SERVICE: 01/08/2018 PRESENTING COMPLAINT: Bowel obstruction. INTERVAL HISTORY: Patient is status post bowel obstruction surgery. Tolerating a soft diet. Colostomy is working. Pain is controlled. He is on IV antibiotics. The patient is ambulatory. REVIEW OF SYSTEMS: Review of systems done for constitutional, cardiovascular, GI, pulmonary; relevant findings as above. CURRENT MEDICATIONS: Current medications are reviewed include IV Diflucan and IV Zosyn. PHYSICAL EXAMINATION: On examination, afebrile, pulse 84, respiratory 18, blood pressure 136/75, pulse ox 97% on room air. GENERAL APPEARANCE: Sitting up on a chair, awake, comfortable. EYES: Pupils equal. Conjunctivae normal. HENT: External appearance of nose and ears normal. Oral cavity normal. NECK: JVD not raised. Mass not palpable. RESPIRATORY: Effort normal. LUNGS: Slightly decreased breath sounds. CARDIOVASCULAR: First and second sounds normal. No edema. ABDOMEN: Soft. Liver and spleen not palpable. Mild tenderness. Colostomy bag with some stool in place. PSYCHIATRY: Alert and oriented x3. Mood and affect normal. INVESTIGATIONS: White count 5.4, potassium 4.1. Patient's blood cultures x2 growing Bambi parapsilosis. ASSESSMENT: 1. Possible acute sigmoid diverticulitis with perforation with secondary peritonitis from fecal soiling. 2. Fungemia with blood cultures positive for Bambi parapsilosis. 3. Chronic alcohol use. 4. Coronary artery disease with stent to the right coronary artery and diffuse diseased to left anterior descending artery. 5. Acute renal failure, prerenal/acute tubular necrosis, now resolved. 6. Hyperkalemia, improved. 7. Hypercalcemia from dehydration, improved. 8. Hypoalbuminemia as an acute phase reactant. 9. Sigmoid colectomy. PLAN: Continue with IV antibiotics including IV Zosyn and IV Diflucan. Discharge antibiotics will be coordinated by Dr. Adams who will make further evaluation tomorrow. Care was discussed with the patient. MMODL / IJN: [id number] /
--- NOTE | 2018-01-09 06:28 | PN ---
PROGRESS NOTE DATE OF SERVICE: 01/08/2018. REASON FOR FOLLOWUP: 1. Fever. 2. Positive blood culture with Bambi parapsilosis. INTERVAL HISTORY: The patient overall clinical course complicated by development of fungemia with blood culture positive for Bambi species. The patient denies having any chest pain or shortness of breath or cough. Abdominal pain has slightly decreased. Unable to tolerate diet. No nausea, vomiting or diarrhea. REVIEW OF SYSTEMS: Positive for weakness. Rest of systems have been negative. PAST MEDICAL AND SURGICAL HISTORY: Reviewed. MEDICATION: No change in medications; reviewed. PHYSICAL EXAMINATION: Blood pressure 130/81 with a pulse of 83, temperature 98.7. He is 93% on room air. General description is a middle-aged male lying in bed in no distress. HEENT EXAMINATION: Pallor, no scleral icterus. Oral mucous membrane dry. NECK: Trachea central. No thyromegaly. LUNGS: Unlabored breathing. Clear to auscultation anteriorly. HEART: S1, S2. Regular rate and rhythm. ABDOMEN: Soft, no tenderness. No guarding, no rigidity. EXTREMITIES: No edema of the feet. LABS: Hemoglobin 11.2, white count 5.5 with a BUN of 4, creatinine 0.65. Blood culture with Bambi parapsilosis. DIAGNOSTIC IMPRESSION AND PLAN: Patient with fever, now with positive blood culture with Bambi parapsilosis in a patient who did have a recent abdominal surgery and small bowel obstruction. Concern possible for abdominal source as the PICC line was just placed about a week ago. Although PICC site not entirely excluded. Blood cultures will be repeated both from the PICC and periphery and the patient was given Diflucan 400 IV piggyback daily. Continue with Zosyn. Continue supportive care. MMODL / IJN: [id number] /
[2018-01-09 07:42] LABS: Basophils % (A) 1 %; Eosinophils # (A) 0.2 k/uL (0-0.7); Eosinophils % (A) 2 %; HCT 36.5 % (39.0-53.0); Lymphocytes % (A) 31 %; MCH 30.1 pg (25.0-35.0); MCHC 32.7 g/dL (31.0-37.0); MCV 91.9 fL (80.0-100.0); Mean Platelet Volume 7.1; Monocytes # (A) 0.4 k/uL (0-1.0); Monocytes % (A) 7 %; Neutrophils # (A) 3.5 k/uL (1.3-7.7); Neutrophils % (A) 55 %; Platelet Count 370 k/uL (150-450); RBC 3.98 m/uL (4.30-5.90); RDW 14.2 % (11.5-15.5); WBC 6.4 k/uL (3.8-10.6)
[2018-01-09] MEDS: ALVIMOPAN 12 MG CAPSULE PO SCH ×2 (08:25→20:40)
[2018-01-09] MEDS: PANTOPRAZOLE 40 MG TABLET PO SCH (08:25)
[2018-01-09] MEDS: METOPROLOL TARTRATE 25 MG TAB PO SCH ×2 (08:27→20:40)
[2018-01-09] MEDS: ASPIRIN 81 MG PO SCH (08:27)
[2018-01-09] MEDS: HEPARIN SODIUM,PORCINE 5,000 UNIT/ML 1 ML VIAL SQ SCH ×2 (08:27→20:40)
[2018-01-09] MEDS: ATORVASTATIN 80 MG TAB PO SCH (08:27)
[2018-01-09] MEDS: TAMSULOSIN 0.4 MG CAP.ER.24H PO SCH (08:27)
--- NOTE | 2018-01-09 10:10 | P.PN ---
<Cira Waltonherminio Conte - Last Filed: 01/09/18 10:02> Subjective Progress Note Date: 01/09/18 62-year-old male seen sitting up in a chair legs elevated. Patient reports having episode last evening where the ostomy appliance came apart and leaked onto surgical incision. Ostomy currently has a small amount of liquid stool in the bag. Surgical dressing reapplied with the foam to surgical incision site current dressing is dry. Abdominal binder in place. Patient states he has been up anxious to be discharged to the rehab unit lowering diet no nausea vomiting. 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, descending colostomy creation Rani's procedure with application of prevena wound system Objective - Vital Signs Vital signs: Vital Signs Temp 98.0 F 01/09/18 05:40 Pulse 87 01/09/18 05:40 Resp 16 01/09/18 05:40 BP 142/85 01/09/18 05:40 Pulse Ox 97 01/09/18 05:40 Intake & Output 01/08/18 01/09/18 01/09/18 18:59 06:59 18:59 Intake Total 240 Output Total 200 400 Balance 40 -400 Weight 75.7 kg Intake: Oral 240 Output: Urine 200 400 Other: Voiding Method Toilet Urinal # Voids 1 - Exam Physical exam Alert sitting up in a chair Lungs adequate air movement bilaterally on room air no shortness of breath Heart S1-S2 audible regular denying chest pain Abdomen abdominal binder in place surgical dressing site dry. Ostomy moderate amount of stool in the ostomy bag tolerating diet with no nausea no vomiting surgical tenderness appropriate not distended Extremities decrease edema to the bilateral lower extremities improved - Labs CBC & Chem 7: 01/09/18 06:56 01/08/18 07:03 Labs: Abnormal Lab Results - Last 24 Hours (Table) 01/09/18 Range/Units 06:56 RBC 3.98 L (4.30-5.90) m/uL Hgb 12.0 L (13.0-17.5) gm/dL Hct 36.5 L (39.0-53.0) % Microbiology - Last 24 Hours (Table) 01/05/18 14:18 Blood Culture Gram Stain - Final Blood Blood Culture - Final Naty parapsilosis 01/05/18 14:15 Blood Culture Gram Stain - Final Blood Blood Culture - Final Naty parapsilosis Assessment and Plan Assessment: Impression Present on admission abdominal pain nausea vomiting suspect due to partial bowel obstruction involving small and large bowel CAT scan abdomen and pelvis obtained on admission report indicates mild acute diverticulitis mid to distal sigmoid colon causing partial small bowel obstruction involving small large bowel Known coronary artery disease with prior coronary stenting done April 2017 on dual antiplatelet therapy Plavix and aspirin History of tobacco abuse recently quit A recent colonoscopy to the sigmoid colon with flexible sigmoidoscopy done August 2017 showed scattered diverticulosis of the sigmoid colon with severe torturous sigmoid colon with no evidence of an active bleed as part of a workup for acute blood loss anemia A recent EGD August 2017 no evidence of an active duodenitis, no duodenal ulcer: Gastric ulcer Abdominal x-ray done on the findings are suggestive of severe ileus CAT scan abdomen and pelvis:colon Collapse with severely dilated small bowel History of chronic daily alcohol use with no evidence of impending withdrawals Status post January 02 diagnostic laparoscopic converted to open, small bowel decompression, 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 Colindres The above impression and plan of care have been discussed and directed by signing physician. Ebony Walton nurse practitioner acting as scribe for signing physician. <Nelly Colindres - Last Filed: 01/09/18 17:46> Objective - Vital Signs Vital signs: Vital Signs Temp 98.3 F 01/09/18 15:33 Pulse 86 01/09/18 15:33 Resp 16 01/09/18 15:33 BP 128/77 01/09/18 15:33 Pulse Ox 98 01/09/18 15:33 Intake & Output 01/08/18 01/09/18 01/09/18 18:59 06:59 18:59 Intake Total 240 Output Total 200 400 100 Balance 40 -400 -100 Weight 75.7 kg 75.7 kg Intake: Oral 240 Output: Drainage 100 Abdomen 100 Urine 200 400 Other: Voiding Method Toilet Urinal # Voids 1 - Labs CBC & Chem 7: 01/09/18 06:56 01/08/18 07:03 Labs: Abnormal Lab Results - Last 24 Hours (Table) 01/09/18 Range/Units 06:56 RBC 3.98 L (4.30-5.90) m/uL Hgb 12.0 L (13.0-17.5) gm/dL Hct 36.5 L (39.0-53.0) % Microbiology - Last 24 Hours (Table) 01/05/18 14:18 Blood Culture Gram Stain - Final Blood Blood Culture - Final Naty parapsilosis 01/05/18 14:15 Blood Culture Gram Stain - Final Blood Blood Culture - Final Naty parapsilosis Assessment and Plan (1) Partial bowel obstruction Current Visit: Yes Status: Acute Code(s): K56.600 - PARTIAL INTESTINAL OBSTRUCTION, UNSPECIFIED TO CAUSE SNOMED Code(s): 58963978 (2) Intractable left lower quadrant abdominal pain Current Visit: Yes Status: Acute Code(s): R10.32 - LEFT LOWER QUADRANT PAIN SNOMED Code(s): 111782899 (3) Neoplasm of sigmoid colon Current Visit: Yes Status: Acute Code(s): D49.0 - NEOPLASM OF UNSPECIFIED BEHAVIOR OF DIGESTIVE SYSTEM SNOMED Code(s): 481450483 (4) Sigmoid volvulus Current Visit: Yes Status: Acute Code(s): K56.2 - VOLVULUS SNOMED Code(s) : 941122119 (5) Large bowel obstruction Current Visit: Yes Status: Acute Code(s): K56.609 - UNSP INTESTNL OBST, UNSP TO PARTIAL VERSUS COMPLETE OBST SNOMED Code(s): 776840910 (6) Sigmoid diverticulosis Current Visit: Yes Status: Acute Code(s): K57.30 - DVRTCLOS OF LG INT W/O PERFORATION OR ABSCESS W/O BLEEDING SNOMED Code(s): 674804310 (7) Ischemic cardiomyopathy Current Visit: Yes Status: Acute Code(s): I25.5 - ISCHEMIC CARDIOMYOPATHY SNOMED Code(s): 697333839 (8) History of cardiac catheterization Current Visit: Yes Status: Acute Code(s): Z98.890 - OTHER SPECIFIED POSTPROCEDURAL STATES SNOMED Code(s): 83683419806532
[2018-01-09] MEDS: ONDANSETRON 4 MG/2 ML VIAL IVP PRN (13:07)
[2018-01-09] MEDS: FLUCONAZOLE IN NACL,ISO-OSM 400 MG in SALINE 1 200ML.BAG IVPB SCH (20:40)
--- NOTE | 2018-01-09 22:02 | PN ---
PROGRESS NOTE DATE OF SERVICE: 01/09/2018 PRESENTING COMPLAINT: Bowel obstruction. INTERVAL HISTORY: Patient is status post bowel surgery, felt to have intraabdominal fecal contamination from perforated diverticulitis. The patient's blood cultures and wound cultures have been growing fungal elements. I spoke to Dr. Adams this morning over the phone, and both of us agree that we need to get at least one set of negative blood cultures before patient is safe to go back to the [facility]CF. This was conveyed to the patient, who was not very happy about the fact but does understand the severity of the problem. I did explain this to him at length. The patient is tolerating a diet. Colostomy is working. REVIEW OF SYSTEMS: Done for constitutional, cardiovascular, GI, pulmonary, lymphatic; relevant findings as above. CURRENT MEDICATIONS: Reviewed. They include IV Diflucan and IV Zosyn. PHYSICAL EXAMINATION: On examination, afebrile, pulse 87, respiration 16, blood pressure 142/85, pulse ox 97% on room air. GENERAL APPEARANCE: Sitting up, awake. EYES: Pupils equal. Conjunctivae normal. HEENT: External appearance of nose and ears normal. Oral cavity normal. NECK: JVD not raised. Mass not palpable. RESPIRATORY: Effort normal. LUNGS: Slightly decreased breath sounds. CARDIOVASCULAR: First and second sounds normal. No edema. ABDOMEN: Soft. Mild tenderness. Colostomy bag with some liquid stool in place. PSYCHIATRY: Alert and oriented x3. Mood and affect is normal. INVESTIGATIONS: White count 6.5, hemoglobin 12. ASSESSMENT: 1. Possible acute sigmoid diverticulitis with perforation with secondary peritonitis from fecal soiling. 2. Fungemia with blood cultures positive for Bambi parapsilosis. 3. Chronic alcohol use. 4. Coronary artery disease with stent to the RCA and diffuse disease in the LAD. 5. Acute renal failure prerenal/acute tubular necrosis, resolved. 6. Hyperkalemia, hypercalcemia, improved. 7. Hypoalbuminemia as an acute phase reactant. 8. Sigmoid colectomy. PLAN: As discussed above, patient to continue with the IV antibiotics. Patient's PICC line will be taken out today and tip will be sent off for culture. I did tell the patient the cultures could well take 3 to 4 days to come back, and I need to wait for Dr. Adams to make a determination then when he is safe to go back to the ECF. MMODL / IJN: [id number] /
[2018-01-10] MEDS: PIPERACILLIN-TAZOBACTAM 3.375 GM in DEXTROSE/WATER 1 50ML.BAG IVPB SCH ×4 (00:55→23:31)
[2018-01-10] MEDS: HYDROcodone/APAP 7.5-325MG 1 EACH TAB PO PRN ×2 (01:06→23:31)
--- NOTE | 2018-01-10 05:20 | PN ---
PROGRESS NOTE DATE OF SERVICE: 01/09/2018 REASON FOR FOLLOWUP: Bambi parapsilosis candidemia, source likely abdominal. INTERVAL HISTORY: The patient has been afebrile, has been breathing comfortably. Denies having any chest pain or shortness of breath or cough. No nausea or vomiting. Abdominal pain is currently improved. Tolerating his diet. PHYSICAL EXAMINATION: On examination, blood pressure is 126/73 with a pulse of 73, temperature 98.8. He is 97% on room air. General description is a middle-aged male lying in bed in no distress. RESPIRATORY SYSTEM: Unlabored breathing, clear to auscultation anteriorly. HEART: S1, S2. Regular rate and rhythm. ABDOMEN: Soft. Incision is currently intact. No drainage. LABS: Hemoglobin is 12, white count 6.4. BUN of 4, creatinine 0.65. DIAGNOSTIC IMPRESSION AND PLAN: Patient with Bambi parapsilosis candidemia source possible abdominal versus a PICC line. His PICC line was discontinued and tip has been sent for the culture. Blood culture with finalize. Keep the patient on Diflucan to make sure we will repeat blood cultures negative before discharging him on oral Diflucan. Family and was present at bedside. Questions were answered. Plan of care discussed with the admitting physician. MMODL / IJN: [id number] /
[2018-01-10] MEDS: HEPARIN SODIUM,PORCINE 5,000 UNIT/ML 1 ML VIAL SQ SCH ×2 (08:23→20:05)
[2018-01-10] MEDS: METOPROLOL TARTRATE 25 MG TAB PO SCH ×2 (08:23→20:05)
[2018-01-10] MEDS: TAMSULOSIN 0.4 MG CAP.ER.24H PO SCH (08:23)
[2018-01-10] MEDS: ASPIRIN 81 MG PO SCH (08:23)
[2018-01-10] MEDS: ATORVASTATIN 80 MG TAB PO SCH (08:23)
[2018-01-10] MEDS: PANTOPRAZOLE 40 MG TABLET PO SCH (08:23)
[2018-01-10 08:30] LABS: Basophils % (A) 1 %; Eosinophils # (A) 0.1 k/uL (0-0.7); Eosinophils % (A) 2 %; HGB 10.8 gm/dL (13.0-17.5); Lymphocytes # (A) 1.6 k/uL (1.0-4.8); Lymphocytes % (A) 32 %; MCHC 32.8 g/dL (31.0-37.0); MCV 91.4 fL (80.0-100.0); Monocytes # (A) 0.3 k/uL (0-1.0); Monocytes % (A) 6 %; Neutrophils # (A) 2.8 k/uL (1.3-7.7); Neutrophils % (A) 55 %; Platelet Count 398 k/uL (150-450); RBC 3.61 m/uL (4.30-5.90); RDW 14.3 % (11.5-15.5); WBC 5.1 k/uL (3.8-10.6)
--- NOTE | 2018-01-10 10:28 | P.PN ---
Subjective Progress Note Date: 01/10/18 62-year-old male sitting up in bed. Denies nausea vomiting. States pain medication effective for pain control ostomy functioning. Surgical dressing bloody drainage noted. Abdomen soft bowel tones present. States tolerating diet. 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, descending colostomy creation Rani's procedure with application of prevena wound system Objective - Vital Signs Vital signs: Vital Signs Temp 98.5 F 01/10/18 05:35 Pulse 79 01/10/18 05:35 Resp 14 01/10/18 05:35 BP 136/74 01/10/18 05:35 Pulse Ox 96 01/10/18 05:35 Intake & Output 01/09/18 01/10/18 01/10/18 18:59 06:59 18:59 Output Total 100 Balance -100 Weight 75.7 kg 74.5 kg Output: Drainage 100 Abdomen 100 Other: Voiding Method Toilet Urinal - Exam Physical exam 62-year-old male sitting up in bed appears in no acute distress Lungs adequate air movement bilaterally on room air Heart S1-S2 audible and regular denies chest pain Abdomen abdominal binder in place ostomy functioning moderate amount of stool surgical dressing old dried bloody drainage noted on the dressing surgical tenderness appropriate states urinating no difficulty tolerating diet no nausea no vomiting Extremities a trace pedal edema bilaterally - Labs CBC & Chem 7: 01/10/18 07:46 01/08/18 07:03 Labs: Abnormal Lab Results - Last 24 Hours (Table) 01/10/18 Range/Units 07:46 RBC 3.61 L (4.30-5.90) m/uL Hgb 10.8 L (13.0-17.5) gm/dL Hct 33.0 L (39.0-53.0) % Microbiology - Last 24 Hours (Table) 01/08/18 23:22 Blood Culture - Preliminary Blood No Growth after 24 hours 01/08/18 22:28 Blood Culture - Preliminary Blood No Growth after 24 hours 01/09/18 13:34 Catheter Tip Culture - Preliminary Picc Line 01/05/18 14:18 Blood Culture Gram Stain - Final Blood Blood Culture - Final Bambi parapsilosis Assessment and Plan Assessment: Impression Present on admission abdominal pain nausea vomiting suspect due to partial bowel obstruction involving small and large bowel CAT scan abdomen and pelvis obtained on admission report indicates mild acute diverticulitis mid to distal sigmoid colon causing partial small bowel obstruction involving small large bowel Known coronary artery disease with prior coronary stenting done April 2017 on dual antiplatelet therapy Plavix and aspirin History of tobacco abuse recently quit A recent colonoscopy to the sigmoid colon with flexible sigmoidoscopy done August 2017 showed scattered diverticulosis of the sigmoid colon with severe torturous sigmoid colon with no evidence of an active bleed as part of a workup for acute blood loss anemia A recent EGD August 2017 no evidence of an active duodenitis, no duodenal ulcer: Gastric ulcer Abdominal x-ray done on the findings are suggestive of severe ileus CAT scan abdomen and pelvis:colon Collapse with severely dilated small bowel History of chronic daily alcohol use with no evidence of impending withdrawals Status post January 02 diagnostic laparoscopic converted to open, small bowel decompression, 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, descending ostomy creation Rani's procedure with peritoneal lavage 1 L, application of prevena wound system Febrile persist improved Pathology report from the sigmoid showed no evidence of a malignancy Bacteremia positive blood culture for bambi parapsilosis Plan Okay to proceed with a discharge from surgical service defer to the timing to the attending and infectious disease Discharge plan anticipate subacute rehab when appropriate Infectious disease recommendations antibiotic Continue postop surgical care Ostomy teaching with appropriate DVT and GI prophylaxis Pain control Progress note dictated for Dr. Colindres The above impression and plan of care have been discussed and directed by signing physician. Ebony Walton nurse practitioner acting as scribe for signing physician.
--- NOTE | 2018-01-10 14:09 | PN ---
PROGRESS NOTE DATE OF SERVICE: 01/10/2018 REASON FOR FOLLOWUP: Bambi parapsilosis candidemia secondary to possible abdominal source. INTERVAL HISTORY: The patient is afebrile, he has been breathing comfortably. Denies having any chest pain or shortness of breath or cough. No abdominal pain. No nausea, no vomiting. Tolerating his diet. PHYSICAL EXAMINATION: Blood pressure is 136/74 with a pulse of 79, temperature 98.5. He is 96% on room air. General description is a middle-aged male, lying in bed. RESPIRATORY SYSTEM: Unlabored breathing, clear to auscultation anteriorly. HEART: S1, S2. Regular rate and rhythm. ABDOMEN: Soft, no tenderness. LABS: Hemoglobin is 10.8, white count of 5.1. Blood cultures repeat 01/08, one coming positive with yeast. DIAGNOSTIC IMPRESSION AND PLAN: Patient with Bambi parapsilosis candidemia, source could be abdominal with the PICC line, the catheter tip so far negative, note the 01/08 culture positive. Will repeat blood cultures x1 today to document clearance of his candidemia and keep the patient on Diflucan, hold the discharge until his blood culture has cleared up. Continue supportive care. MMODL / IJN: [id number] /
[2018-01-10] MEDS: FLUCONAZOLE IN NACL,ISO-OSM 400 MG in SALINE 1 200ML.BAG IVPB SCH (20:05)
[2018-01-11] MEDS: HYDROcodone/APAP 7.5-325MG 1 EACH TAB PO PRN ×3 (05:09→19:18)
--- NOTE | 2018-01-11 05:24 | PN ---
PROGRESS NOTE DATE OF SERVICE: 01/10/2018. PRESENTING COMPLAINT: Bowel obstruction. INTERVAL HISTORY: Patient is status post abdominal surgery, intraabdominal fecal contamination from perforated diverticulitis. Patient's blood and abdominal cultures are positive for fungal elements. Repeat blood cultures are pending. Patient is tolerating a soft bland diet. Colostomy is working. REVIEW OF SYSTEMS: Done for constitutional, cardiovascular, GI, pulmonary; relevant findings as above. CURRENT MEDICATIONS: Include IV Diflucan and IV Zosyn. PHYSICAL EXAMINATION: On examination, afebrile, pulse 79, respirations 14, blood pressure 136/74, pulse ox 96% on room air. GENERAL APPEARANCE: Sitting up, awake, comfortable. EYES: Pupils are normal. Conjunctivae normal. HEENT: External nose and ears normal. Oral cavity normal. NECK: JVD not raised. Mass not palpable. Respiratory effort normal. LUNGS: Decreased breath sounds. CARDIOVASCULAR: First and second heart sounds. No edema. ABDOMEN: Soft, minimal tenderness. Colostomy bag with stool in place. PSYCHIATRY: Alert and oriented x3. Mood and affect normal. INVESTIGATIONS: White count 5.1. The patient's repeat blood culture is growing yeast from 01/08/2018. The patient's PICC line tip cultures are negative until now. ASSESSMENT: 1. Acute sigmoid diverticulitis with perforation with secondary peritonitis from fecal soiling. 2. Fungemia with blood cultures positive for Bambi parapsilosis and repeat blood cultures from 01/08/2018 are again positive. 3. Chronic alcohol use. 4. Coronary artery disease with stent to the RCA and diffuse disease in LAD. 5. Acute renal failure/prerenal acute tubular necrosis, resolved. 6. Hyperkalemia, improved. 7. Hypoalbuminemia as an acute phase reactant. 8. Sigmoid colectomy. PLAN: The patient's blood culture is still positive. This is a concern. PICC line has been taken out. Will repeat again blood cultures tomorrow morning. If blood cultures still remain positive, we may have to consider doing a INDRA. MMODL / IJN: [id number] /
[2018-01-11] MEDS: HEPARIN SODIUM,PORCINE 5,000 UNIT/ML 1 ML VIAL SQ SCH ×2 (08:34→21:15)
[2018-01-11] MEDS: ATORVASTATIN 80 MG TAB PO SCH (08:34)
[2018-01-11] MEDS: TAMSULOSIN 0.4 MG CAP.ER.24H PO SCH (08:34)
[2018-01-11] MEDS: ASPIRIN 81 MG PO SCH (08:34)
[2018-01-11] MEDS: METOPROLOL TARTRATE 25 MG TAB PO SCH ×2 (08:34→21:15)
[2018-01-11] MEDS: PIPERACILLIN-TAZOBACTAM 3.375 GM in DEXTROSE/WATER 1 50ML.BAG IVPB SCH ×3 (08:35→23:14)
[2018-01-11] MEDS: PANTOPRAZOLE 40 MG TABLET PO SCH (08:35)
--- NOTE | 2018-01-11 09:15 | P.PN ---
Subjective Progress Note Date: 01/11/18 Principal diagnosis: Harrison's procedure Patient doing well. Denies pain. Waiting for final cultures. Tolerating diet. Objective - Vital Signs Vital signs: Vital Signs Temp 97.4 F L 01/11/18 06:01 Pulse 77 01/11/18 06:01 Resp 18 01/11/18 06:01 BP 157/85 01/11/18 06:01 Pulse Ox 98 01/11/18 06:01 Intake & Output 01/10/18 01/11/18 01/11/18 18:59 06:59 18:59 Intake Total 200 Output Total 350 Balance 200 -350 Weight 72.575 kg Intake: Oral 200 Output: Urine 350 Other: Voiding Method Toilet Urinal - Exam Abdomen: Soft, nondistended, incision with some serosanguineous drainage although decreasing, nontender - Labs CBC & Chem 7: 01/10/18 07:46 01/08/18 07:03 Labs: Microbiology - Last 24 Hours (Table) 01/08/18 22:28 Blood Culture - Preliminary Blood No Growth after 48 hours 01/08/18 23:22 Blood Culture Gram Stain - Preliminary Blood 01/08/18 23:22 Blood Culture - Final Blood 01/09/18 13:34 Catheter Tip Culture - Preliminary Picc Line Assessment and Plan (1) Diverticulitis Narrative/Plan: Patient may shower today. Continue local wound care. Home when cleared by infectious disease. Current Visit: Yes Status: Acute Code(s): K57.92 - DVTRCLI OF INTEST, PART UNSP, W/O PERF OR ABSCESS W/O BLEED SNOMED Code(s): 250768244
--- NOTE | 2018-01-11 16:58 | PN ---
PROGRESS NOTE DATE OF SERVICE: 01/11/2018 PRESENTING COMPLAINT: Bowel obstruction. INTERVAL HISTORY: Patient is status post abdominal surgery with intra-abdominal fecal contamination from a perforated diverticulitis. The patient's blood cultures remain to be positive for fungal elements. Otherwise, patient tolerating a diet. Colostomy is working. Pain is controlled. Up and about. REVIEW OF SYSTEMS: Done for constitutional, cardiovascular, GI, pulmonary; relevant findings as above. CURRENT MEDICATIONS: Reviewed that include: 1. IV Diflucan and. 2. IV Zosyn. EXAMINATION: Temperature 97.4, pulse 77, respirations 18, blood pressure 157/85, pulse ox 98% on room air. GENERAL APPEARANCE: Lying in bed, comfortable. EYES: Pupils equal. Conjunctivae normal. HEENT: External nose and ears normal. Oral cavity normal. NECK: JVD not raised. Mass not palpable. RESPIRATORY: Effort normal. LUNGS: Decreased breath sounds. CARDIOVASCULAR: First and second sounds normal. No edema. ABDOMEN: Soft, minimal tenderness. Colostomy bag in place. Stool in place. PSYCHIATRY: Alert and oriented x3. Mood and affect were normal. INVESTIGATIONS: No blood work from today. Patient's blood cultures from 01/08/2018 positive for Bambi parapsilosis. The patient's PICC line tip culture negative until now. ASSESSMENT: 1. Acute sigmoid diverticulitis with perforation with secondary peritonitis and fecal soiling. 2. Fungemia with blood cultures positive for Bambi parapsilosis. Repeat blood cultures from 01/08/2018 are positive. Repeat blood cultures are pending from this morning and yesterday. 3. Chronic alcohol use. 4. Coronary artery disease with stent to the right coronary artery and diffuse diseased left anterior descending. 5. Acute renal failure prerenal acute tubular necrosis, resolved. 6. Hyperkalemia, improved. 7. Hypoalbuminemia as an acute phase reactant. 8. Sigmoid colectomy. PLAN: Care was discussed with the patient. Will need to have blood cultures that are negative before he can be discharged. Continue current medication and treatment plan and follow. MMODL / IJN: [id number] /
[2018-01-11] MEDS: FLUCONAZOLE IN NACL,ISO-OSM 400 MG in SALINE 1 200ML.BAG IVPB SCH (21:15)
[2018-01-11 23:04] VITALS: RESP 16
[2018-01-12] MEDS: HYDROcodone/APAP 7.5-325MG 1 EACH TAB PO PRN ×3 (04:30→17:56)
--- NOTE | 2018-01-12 05:13 | PN ---
PROGRESS NOTE DATE OF SERVICE: 01/11/2018 REASON FOR FOLLOWUP: Candidemia, possible abdominal source. INTERVAL HISTORY: The patient is afebrile. He has been breathing comfortably. The patient denies having any chest pain or shortness of breath. No cough. No abdominal pain. Has been tolerating his diet. PHYSICAL EXAMINATION: On examination, blood pressure is 133/71 with a pulse of 72, temperature 97.8. He is 97% on room air. General description is a middle aged male lying in bed in no distress. RESPIRATORY SYSTEM: Unlabored breathing, clear to auscultation anteriorly. HEART: S1, S2. Regular rate and rhythm. ABDOMEN: Soft, no tenderness. LABS: Hemoglobin is 10.8, white count 5.1. Blood cultures 01/08 came back positive with Bambi parapsilosis. DIAGNOSTIC IMPRESSION AND PLAN: Patient with candidemia with source possible abdominal versus PICC line. Though the PICC line culture has been negative so far. Blood culture repeat this morning will be followed and if those are negative, he will be able to finish therapy with oral Diflucan for at least 2 weeks from his negative blood cultures. All his questions have been answered. MMODL / IJN: [id number] /
[2018-01-12] MEDS: PANTOPRAZOLE 40 MG TABLET PO SCH (06:36)
[2018-01-12] MEDS ORDERED: PROPOFOL 10 MG/ML 20 ML VIAL IV ONE (07:43)
[2018-01-12] MEDS ORDERED: MIDAZOLAM 2 MG/2 ML VIAL ONE (07:43)
[2018-01-12] MEDS ORDERED: SUCCINYLCHOLINE CHLORIDE 100 MG/5 ML SYR IV ONE (07:43)
[2018-01-12] MEDS ORDERED: NEOSTIGMINE 1 MG/ML 10 ML VIAL ONE (07:43)
[2018-01-12] MEDS ORDERED: ROCURONIUM BROMIDE 10 MG/ML 10 ML VIAL IV ONE (07:43)
[2018-01-12] MEDS ORDERED: DEXAMETHASONE SOD PHOS (MDV) 100 MG/10 ML VIAL ONE (07:43)
[2018-01-12] MEDS ORDERED: GLYCOPYRROLATE 0.2 MG/ML 2 ML VIAL ONE (07:43)
[2018-01-12] MEDS ORDERED: fentaNYL (PF) 50 MCG/ML 2 ML AMP ONE (07:43)
[2018-01-12] MEDS ORDERED: ESMOLOL 100 MG/10 ML VIAL ONE (07:43)
[2018-01-12] MEDS ORDERED: ONDANSETRON 4 MG/2 ML VIAL ONE (07:43)
[2018-01-12] MEDS ORDERED: LIDOCAINE 1% INJ 10MG/ML (20 ML MDV) ONE (07:43)
[2018-01-12] MEDS ORDERED: ePHEDrine SULFATE/0.9% NACL/PF 50 MG/5 ML SYRINGE IV ONE (07:43)
[2018-01-12] MEDS: ASPIRIN 81 MG PO SCH (08:08)
[2018-01-12] MEDS: PIPERACILLIN-TAZOBACTAM 3.375 GM in DEXTROSE/WATER 1 50ML.BAG IVPB SCH ×3 (08:08→23:16)
[2018-01-12] MEDS: HEPARIN SODIUM,PORCINE 5,000 UNIT/ML 1 ML VIAL SQ SCH ×2 (08:08→20:08)
[2018-01-12] MEDS: METOPROLOL TARTRATE 25 MG TAB PO SCH ×2 (08:09→20:08)
[2018-01-12] MEDS: TAMSULOSIN 0.4 MG CAP.ER.24H PO SCH (08:09)
[2018-01-12] MEDS: ATORVASTATIN 80 MG TAB PO SCH (08:09)
--- NOTE | 2018-01-12 09:20 | P.PN ---
<Ebony Walton M - Last Filed: 01/12/18 09:15> Subjective Progress Note Date: 01/12/18 Sitting up in bed. Surgical dressing site dry. Ostomy moderate amount of soft brown stool in bag. Patient's denying any nausea vomiting dizziness lightheadedness chest pain or shortness of breath. Patient's tolerating a diet with no nausea no vomiting. Continue to wait for further recommendations by infectious disease for final cultures. Status post January 02 diagnostic arthroscopic converted to open small bowel decompression sigmoid colectomy involving a large proximal sigmoid tumor, descending colostomy creation Rani's procedure with application of prevena wound system Objective - Vital Signs Vital signs: Vital Signs Temp 98.0 F 01/12/18 05:50 Pulse 78 01/12/18 05:50 Resp 16 01/12/18 05:50 BP 133/81 01/12/18 05:50 Pulse Ox 98 01/12/18 07:08 Intake & Output 01/11/18 01/12/18 01/12/18 18:59 06:59 18:59 Intake Total 720 Output Total 200 Balance 720 -200 Weight 71.6 kg Intake: Oral 720 Output: Urine 200 Other: Voiding Method Toilet Urinal # Voids 1 - Exam Physical exam 62-year-old male sitting up in bed talkative states is anxious to be discharged to rehab Lungs clear on room air no shortness of breath Heart S1-S2 audible regular Abdomen soft surgical dressing dry ostomy left lower quadrant monitor mold liquid stool the day surgical tenderness appropriate urinating no difficulty tolerating diet no nausea no vomiting Extremities no edema noted - Labs CBC & Chem 7: 01/10/18 07:46 01/08/18 07:03 Labs: Microbiology - Last 24 Hours (Table) 01/08/18 22:28 Blood Culture - Preliminary Blood No Growth after 72 hours 01/08/18 23:22 Blood Culture Gram Stain - Final Blood Blood Culture - Final Naty parapsilosis Assessment and Plan Assessment: Impression Present on admission abdominal pain nausea vomiting suspect due to partial bowel obstruction involving small and large bowel CAT scan abdomen and pelvis obtained on admission report indicates mild acute diverticulitis mid to distal sigmoid colon causing partial small bowel obstruction involving small large bowel Known coronary artery disease with prior coronary stenting done April 2017 on dual antiplatelet therapy Plavix and aspirin History of tobacco abuse recently quit A recent colonoscopy to the sigmoid colon with flexible sigmoidoscopy done August 2017 showed scattered diverticulosis of the sigmoid colon with severe torturous sigmoid colon with no evidence of an active bleed as part of a workup for acute blood loss anemia A recent EGD August 2017 no evidence of an active duodenitis, no duodenal ulcer: Gastric ulcer Abdominal x-ray done on the findings are suggestive of severe ileus CAT scan abdomen and pelvis:colon Collapse with severely dilated small bowel History of chronic daily alcohol use with no evidence of impending withdrawals Status post January 02 diagnostic laparoscopic converted to open, small bowel decompression, 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, descending ostomy creation Rani's procedure with peritoneal lavage 1 L, application of prevena wound system Febrile persist improved Pathology report from the sigmoid showed no evidence of a malignancy Bacteremia positive blood culture for naty parapsilosis Plan Okay to proceed with a discharge from surgical service defer to the timing to the attending and infectious disease Discharge plan anticipate subacute rehab when appropriate Infectious disease recommendations antibiotic oral Diflucan for 2 weeks if blood cultures that have been repeated are negative Continue postop surgical care Ostomy teaching with appropriate DVT and GI prophylaxis Pain control Progress note dictated for Dr. Colindres The above impression and plan of care have been discussed and directed by signing physician. Ebony Walton nurse practitioner acting as scribe for signing physician. <Nelly Colindres N - Last Filed: 01/12/18 14:25> Objective - Vital Signs Vital signs: Vital Signs Temp 98.0 F 01/12/18 05:50 Pulse 78 01/12/18 05:50 Resp 16 01/12/18 08:00 BP 133/81 01/12/18 05:50 Pulse Ox 98 01/12/18 07:08 Intake & Output 01/11/18 01/12/18 01/12/18 18:59 06:59 18:59 Intake Total 720 Output Total 200 300 Balance 720 -200 -300 Weight 71.6 kg 71.6 kg Intake: Oral 720 Output: Urine 200 300 Other: Voiding Method Toilet Toilet Urinal Urinal # Voids 1 1 - Labs CBC & Chem 7: 01/10/18 07:46 01/08/18 07:03 Labs: Microbiology - Last 24 Hours (Table) 01/11/18 07:43 Blood Culture - Preliminary Blood No Growth after 24 hours 01/08/18 22:28 Blood Culture - Preliminary Blood No Growth after 72 hours 01/08/18 23:22 Blood Culture Gram Stain - Final Blood Blood Culture - Final Naty parapsilosis Assessment and Plan (1) Partial bowel obstruction Current Visit: Yes Status: Acute Code(s): K56.600 - PARTIAL INTESTINAL OBSTRUCTION, UNSPECIFIED TO CAUSE SNOMED Code(s): 51899101 (2) Intractable left lower quadrant abdominal pain Current Visit: Yes Status: Acute Code(s): R10.32 - LEFT LOWER QUADRANT PAIN SNOMED Code(s): 272042332 (3) Neoplasm of sigmoid colon Current Visit: Yes Status: Acute Code(s): D49.0 - NEOPLASM OF UNSPECIFIED BEHAVIOR OF DIGESTIVE SYSTEM SNOMED Code(s): 786746922 (4) Sigmoid volvulus Current Visit: Yes Status: Acute Code(s): K56.2 - VOLVULUS SNOMED Code(s) : 379981592 (5) Large bowel obstruction Current Visit: Yes Status: Acute Code(s): K56.609 - UNSP INTESTNL OBST, UNSP TO PARTIAL VERSUS COMPLETE OBST SNOMED Code(s): 389327309 (6) Sigmoid diverticulosis Current Visit: Yes Status: Acute Code(s): K57.30 - DVRTCLOS OF LG INT W/O PERFORATION OR ABSCESS W/O BLEEDING SNOMED Code(s): 554490853 (7) Ischemic cardiomyopathy Current Visit: Yes Status: Acute Code(s): I25.5 - ISCHEMIC CARDIOMYOPATHY SNOMED Code(s): 596478194 (8) History of cardiac catheterization Current Visit: Yes Status: Acute Code(s): Z98.890 - OTHER SPECIFIED POSTPROCEDURAL STATES SNOMED Code(s): 04536398270438
[2018-01-12 13:47] VITALS: BMI 22.0
--- NOTE | 2018-01-12 17:39 | P.OP ---
Date of Procedure: 01/02/18 Description of Procedure: Date of Procedure: 01/02/18 Procedure(s) Performed: SURGEON: ALEKSANDR VIDALES MD PREOPERATIVE DIAGNOSES: 1. Large bowel obstruction due to sigmoid tumor 2. Inadequate protein intake 3. Ischemic cardiomyopathy 4. History of coronary artery stent placement 5. History of myocardial infarction 6. Gastroesophageal reflux disease 7. Hyperlipidemia 8. Iron deficiency anemia 9. Chronic antiplatelet therapy POSTOPERATIVE DIAGNOSES: 1. Large bowel obstruction due to sigmoid tumor 2. Inadequate protein intake 3. Ischemic cardiomyopathy 4. History of coronary artery stent placement 5. History of myocardial infarction 6. Gastroesophageal reflux disease 7. Hyperlipidemia 8. Iron deficiency anemia 9. 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 Sigmoid volvulus secondary to tumor 11. Sigmoid diverticulosis 12. Diffuse large and small bowel abdominal distention 13. Chronic antiplatelet therapy Anesthesia: GETA, local, epidural Varnish Remover #1: Maxine Reyna Estimated Blood Loss (ml): 100 Pathology: other (Sigmoid tumor, suture proximal resection) Condition: stable Disposition: floor COMPLICATIONS: None. OPERATION: 1. Diagnostic laparoscopy converted to open 2. Small bowel decompression via enterotomy along the distal jejunum 3. Sigmoid colectomy involving large proximal sigmoid tumor 4. Descending colostomy creation with devitalized rectum, Harrison's procedure 5. Peritoneal lavage 1 L 6. Application of wound VAC, Prevena 25-cm FINDINGS: 1. Initial diagnostic laparoscopy demonstrating severe small bowel distention prohibiting view of pathology. 2. Initial laparoscopic trocar entry along the left upper quadrant followed by above the umbilicus 3. Preoperatively, peak airway pressures over 40 mmHg reduced immediately down to 18 mmHg after abdominal decompression 4. Small bowel dilation over 5-1/2 cm requiring small bowel decompression via pursestring enterotomy of the distal jejunum, over 2 L of enteric contents and air relieved from abdomen 5. Proximal sigmoid tumor creating pinpoint for sigmoid volvulus with adhesion to the right lateral pelvis excised using LigaSure 6. No active sigmoid diverticulitis identified with diverticulosis of the sigmoid colon 7. Moderately redundant sigmoid colon allowing sigmoid resection and descending colostomy creation 8. Rectal stump tagged using 0 Prolene 9. Case contaminated and will require prolonged antibiotics 10. Wound VAC placed along the mid abdomen to minimize risk of surgical site infection INDICATIONS: Raymundo Gomes is a 62-year-old gentleman who presented to the hospital over one week ago with findings of diffuse abdominal distention. Initial evaluation was consistent with ileus and the patient was treated with gastric decompression. Multiple imaging studies including at least 4 CT scans were obtained in less than a 48 hour period demonstrating a questionable lesion along the sigmoid colon versus diffuse ileus. Despite conservative measures, the patient's abdominal distention rebounded. His surgical intervention was deferred as he was on antiplatelet therapy with Plavix. A diagnostic laparoscopy was proposed for his equivocal diagnosis. Diagnostic laparoscopy with the intent of lysis of adhesionswas agreed per request of the patient. Intraoperative findings demonstrated a tumor of the sigmoid colon. As the patient did not want a colostomy at the time of operation, this procedure was deferred as a staged approach for potential bowel prep and robotic-assisted approach. An attempted bowel prep was performed however failed. Potential colostomy creation was described in detail which the patient had agreed for definitive surgical intervention. Benefits and risks of the operation including possible open technique were reviewed. Patient agreed to proceed with surgery. All questions were answered and risks were reviewed with the patient including his at bedside. Informed consent was obtained. DESCRIPTION: Patient was brought to the operating room after an epidural had been placed. He was previously hydrated. He is on scheduled IV antibiotics and TPN. The patient was placed in supine position whereby general induction was performed. Abdomen had been prepped and draped in the standard sterile fashion with placement of nasogastric tube and Saha catheter was previously present. Ioban draping was also placed to minimize any contamination to the skin. Using a #11 blade, a 5 mm laparoscopic trocar entry was performed along the left upper quadrant. The abdomen was insufflated to 15 mmHg pressure. Diagnostic laparoscopy demonstrated no injury to bowel, viscera or mesentery. The small bowel was moderately distended. Along his previous incision above the umbilicus, a trocar was similarly placed. Despite steep Trendelenberg position , the pathology of the sigmoid colon could not be adequately visualized hence open procedure was proposed. I scrubbed out of the case to discuss the findings with patient's and going open technique. Next, using #10 blade, the abdomen was entered along the midline whereby an incision was made just above the umbilicus down to the pubis. The peritoneum was entered. Next, self-retaining Margarita retractor was placed with a bladder blade. To address his severe distention of the small bowel, a pursestring suture is placed along the distal jejunum using 3-0 silk. The abdomen was toweled off. A suction device was entered into the lumen of the jejunum after making an enterotomy. More than 2 L of bilious contents including gas was evacuated from the small bowel hence allowing visualization of the rest of the pelvis. The enterotomy was closed using Allis clamps and Covidien tri-stapler 60 mm purple load. Inspection of the abdomen demonstrated no evidence of peritoneal studding or lesions along the surface of the liver. An active sigmoid volvulus was confirmed with the fixation point of a proximal sigmoid tumor along the right deep pelvis. The descending colon was also mobilized along the white line of Toldt. The sigmoid colon was mobilized along the medial and lateral attachments with care to avoid any injury to the ureters along the usual anatomical landmarks. The fixation point along the right deep pelvis was resected using LigaSure. The pathology incorporated 6 cm x 4 cm of the proximal sigmoid colon with hypervascularity of the serosa. The tumor was firm. A colonic tumor could not be excluded. The pathology was tacked 5 cm proximally and distally for resection using the Covidien tri-stapler 60 mm black loads. The mesentery was mobilized along the pelvis. Hemostasis was excellent throughout the case. Minimal contamination occurred throughout the case. The devitalized rectum was checked using 0 Prolene. The descending colon was prepared for maturation of a colostomy. Next, the rest of the colon was mobilized down to the rectum. Next, attention was brought to delivering and creating the descending colostomy. A point along the abdominal wall and rectus muscle was selected for his colostomy. Jose was used to elevate the skin and a #10 blade was taken across in tangential manner to create the skin defect of approximately quarter-size. The fat of the skin was mobilized using a small rich. The rectus muscle was identified and scored with a cruciate scoring of electro- Bovie cautery. Next, using a muscle-splitting technique with a hemostat, the peritoneum was entered. The peritoneum was widened such that 2 fingerbreadths could easily pass for delivering and evaginating the descending portion of the colon through the skin. The abdominal cavity was copiously irrigated using 1 liters of warm normal saline solution until completely clear and dry. The midline incision was closed using double-stranded 0 PDS. Next, the subcutaneous tissue was copiously irrigated with normal saline and dilute hydrogen peroxide. About the umbilicus interrupted 3-0 Vicryl dermal sutures were placed as to avoid any arcenio around the umbilicus. For the rest of the incision, interrupted dermal sutures of 3-0 Vicryl were placed. A Prevena 25-cm wound VAC was applied along the midline. The midline incision was covered and attention was brought to maturation of the colostomy. The staple edge was divided and removed. Next quadrant sutures at 12 o'clock, 3 o'clock, 6 o'clock, and 9 o'clock position was made using serosa, mucosal and dermal bites using 2-0 Vicryl. Interrupted 3-0 Vicryl was placed in between all quadrants sutures to completely mature the ostomy. The stoma had an elevation of at least 1 centimeter. Hemostasis was checked. A Coloplast was then placed. All incisions and hemostasis was checked. At the end of the procedure, needle, sponge, and instrument count had been verified correct by medical surgical tech. The patient's family was updated on level of care.
--- NOTE | 2018-01-12 18:29 | PN ---
PROGRESS NOTE DATE OF SERVICE: 01/12/2018 PRESENTING COMPLAINT: Bowel surgery. INTERVAL HISTORY: Patient is status post bowel surgery, intra-abdominal fecal contamination from perforated diverticulitis. Blood culture has been positive for fungal elements. Awaiting cultures to be negative. Otherwise, patient tolerating a diet. Colostomy is functioning well. Ambulatory. Pain is controlled. REVIEW OF SYSTEMS: Done for constitutional, cardiovascular, GI, pulmonary; relevant findings as above. CURRENT MEDICATIONS: Reviewed that include: 1. IV Diflucan and. 2. IV Zosyn. EXAMINATION: Temperature 98.1, pulse 75, respirations 16, blood pressure 136/69, pulse ox 99% on room air. GENERAL APPEARANCE: Sitting up, comfortable. EYES: Pupils equal. Conjunctivae normal. HEENT: External nose and ears normal. Oral cavity normal. NECK: JVD not raised. Mass not palpable. RESPIRATORY: Effort normal. LUNGS: Decreased breath sounds. CARDIOVASCULAR: First and second sounds normal. No edema. ABDOMEN: Soft, nontender. Colostomy bag in place. Stool in place. PSYCHIATRY: Alert and oriented x3. Mood and affect normal. INVESTIGATIONS: The patient's PICC line tip from 01/09/2018has been negative and blood cultures from 01/08/2018 did continue to grow Bambi parapsilosis. ASSESSMENT: 1. Acute sigmoid diverticulitis with perforation with secondary peritonitis and fecal soiling. 2. Fungemia with blood cultures positive for Bambi parapsilosis. Blood cultures from 01/08/2018 were positive. Repeat blood cultures from 01/11/2018 and 01/12/2018 are pending. 3. Chronic alcohol use. 4. Coronary artery disease with stent to the right coronary artery and diffuse disease to the left anterior descending. 5. Acute renal failure prerenal/acute tubular necrosis, resolved. 6. Hyperkalemia, improved. 7. Hypoalbuminemia as an acute phase reactant. 8. Sigmoid colectomy with a colostomy bag in place. PLAN: Continue current medication and treatment plan. Awaiting repeat fungal blood cultures to be negative. Discussed with Dr. Adams. According to him, patient can be discharged tomorrow on Diflucan. MMODL / IJN: [id number] /
[2018-01-12] MEDS: FLUCONAZOLE IN NACL,ISO-OSM 400 MG in SALINE 1 200ML.BAG IVPB SCH (20:08)
--- NOTE | 2018-01-12 23:53 | PN ---
PROGRESS NOTE DATE OF SERVICE: 01/12/2018 REASON FOR FOLLOWUP: Bambi parapsilosis secondary to possible abdominal source. INTERVAL HISTORY: The patient is afebrile. He has been breathing comfortably. Patient denies significant chest pain or cough. Denies having any abdominal pain. No nausea, vomiting or any diarrhea. PHYSICAL EXAMINATION: His blood pressure is 136/79 with a pulse of 75, temperature 98.1. He is 99% on room air. General description is a middle-aged male lying in bed in no distress. RESPIRATORY SYSTEM: Unlabored breathing. Clear to auscultation anteriorly. HEART: S1, S2. Regular rate and rhythm. ABDOMEN: Soft. No tenderness. LABS: Hemoglobin is 10.3, white count 5.1 with a BUN of 4, creatinine 0.65. DIAGNOSTIC IMPRESSION AND PLAN: Patient with Candidemia parapsilosis candidemia secondary to possible abdominal source. Patient at this time will continue with IV Diflucan. That will be transitioned to p.o. Diflucan 4 mg daily for another 2 weeks with close outpatient followup along with a short course of oral Augmentin. The blood cultures that were done on 01/11 remain negative tomorrow morning. Plan of care was discussed with the attending physician. Continue with supportive care. MMODL / IJN: [id number] /
[2018-01-13] MEDS: HYDROcodone/APAP 7.5-325MG 1 EACH TAB PO PRN (03:15)
[2018-01-13 06:11] VITALS: BP 151/94; PULSE 93; TEMP 97.5
[2018-01-13] MEDS: ATORVASTATIN 80 MG TAB PO SCH (07:59)
[2018-01-13] MEDS: METOPROLOL TARTRATE 25 MG TAB PO SCH (07:59)
[2018-01-13] MEDS: PANTOPRAZOLE 40 MG TABLET PO SCH (07:59)
[2018-01-13] MEDS: TAMSULOSIN 0.4 MG CAP.ER.24H PO SCH (08:00)
[2018-01-13] MEDS: ASPIRIN 81 MG PO SCH (08:00)
[2018-01-13] MEDS: HEPARIN SODIUM,PORCINE 5,000 UNIT/ML 1 ML VIAL SQ SCH (08:00)
[2018-01-13] MEDS: PIPERACILLIN-TAZOBACTAM 3.375 GM in DEXTROSE/WATER 1 50ML.BAG IVPB SCH (08:00)
--- NOTE | 2018-01-13 09:21 | P.PN ---
Subjective Progress Note Date: 01/13/18 62-year-old male seen and examined sitting up in bed. Patient states he's anxious to be discharged home hopefully today. Ostomy functioning moderate amount of stool in the ostomy bag. Nursing reports that the surgical dressing "needed to be changed last night there was a moderate amount of drainage noted current surgical dressing dry. Urinating no difficulty. 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, descending colostomy creation Rani's procedure with application of prevena wound system Objective - Vital Signs Vital signs: Vital Signs Temp 97.5 F L 01/13/18 05:45 Pulse 93 01/13/18 05:45 Resp 16 01/13/18 05:45 BP 151/94 01/13/18 05:45 Pulse Ox 98 01/13/18 05:45 Intake & Output 01/12/18 01/13/18 01/13/18 18:59 06:59 18:59 Output Total 300 Balance -300 Weight 71.6 kg 70.8 kg Output: Urine 300 Other: Voiding Method Toilet Urinal # Voids 1 1 - Exam Physical exam 62-year-old male sitting up in bed taking a diet Lungs clear on room air no shortness of breath no cough noted Heart S1-S2 audible regular Abdomen soft surgical dressing dry ostomy left lower quadrant monitor mold liquid stool the day surgical tenderness appropriate urinating no difficulty tolerating diet no nausea no vomiting Extremities no edema noted - Labs CBC & Chem 7: 01/10/18 07:46 01/08/18 07:03 Labs: Microbiology - Last 24 Hours (Table) 01/08/18 23:22 Blood Culture Gram Stain - Final Blood Blood Culture - Final Bambi parapsilosis 01/08/18 22:28 Blood Culture - Preliminary Blood No Growth after 96 hours 01/12/18 09:53 Blood Fungal Culture - Preliminary Blood 01/11/18 07:43 Blood Culture - Preliminary Blood No Growth after 24 hours Assessment and Plan Assessment: Impression Present on admission abdominal pain nausea vomiting suspect due to partial bowel obstruction involving small and large bowel CAT scan abdomen and pelvis obtained on admission report indicates mild acute diverticulitis mid to distal sigmoid colon causing partial small bowel obstruction involving small large bowel Known coronary artery disease with prior coronary stenting done April 2017 on dual antiplatelet therapy Plavix and aspirin History of tobacco abuse recently quit A recent colonoscopy to the sigmoid colon with flexible sigmoidoscopy done August 2017 showed scattered diverticulosis of the sigmoid colon with severe torturous sigmoid colon with no evidence of an active bleed as part of a workup for acute blood loss anemia A recent EGD August 2017 no evidence of an active duodenitis, no duodenal ulcer: Gastric ulcer Abdominal x-ray done on the findings are suggestive of severe ileus CAT scan abdomen and pelvis:colon Collapse with severely dilated small bowel History of chronic daily alcohol use with no evidence of impending withdrawals Status post January 02 diagnostic laparoscopic converted to open, small bowel decompression, 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, descending ostomy creation Rani's procedure with peritoneal lavage 1 L, application of prevena wound system Febrile persist improved Pathology report from the sigmoid showed no evidence of a malignancy Bacteremia positive blood culture for bambi parapsilosis Plan Okay to proceed with a discharge from surgical service defer to the timing to the attending and infectious disease Follow-up with surgical service outpatient setting Infectious disease recommendations antibiotic oral Diflucan for 2 weeks if blood cultures that have been repeated are negative DVT and GI prophylaxis Progress note dictated for Dr. Colindres The above impression and plan of care have been discussed and directed by signing physician. Ebony Walton nurse practitioner acting as scribe for signing physician.
[2018-01-13] MEDS ORDERED: FLUCONAZOLE 100 MG TAB PO STA (13:35)
--- NOTE | 2018-01-13 15:09 | PN ---
PROGRESS NOTE DATE OF SERVICE: 01/13/2018 REASON FOR FOLLOWUP: 1. Bambi parapsilosis candidemia. 2. Patient with secondary peritonitis. INTERVAL HISTORY: The patient is afebrile, he is breathing comfortably. Denies having any chest pain or shortness of breath. No cough, no abdominal pain, no nausea, or vomiting. PHYSICAL EXAMINATION: Blood pressure 151/94 with a pulse of 90, temperature 97.5, he is 99% on room air. General description is a middle-aged male, lying in bed in no distress. RESPIRATORY SYSTEM: Unlabored breathing, clear to auscultation. HEART: S1, S2. Regular rate and rhythm. ABDOMEN: Soft, no tenderness. LABS: Hemoglobin 10.8, white count of 5.1 with a . His blood culture so for has been negative. DIAGNOSTIC IMPRESSION AND PLAN: Patient Bambi parapsilosis candidemia/possible abdominal peritonitis. Follow up blood culture has been negative. Antibiotic has been changed to oral Diflucan for minimal daily for another 2 weeks with close outpatient followup, initially with oral Augmentin. Script has been sent to the pharmacy with close outpatient followup. MMODL / IJN: [id number] /
--- NOTE | 2018-01-14 07:04 | DS ---
DISCHARGE SUMMARY DATE OF ADMISSION: 12/22/2017. DATE OF DISCHARGE: January 13, 2018. FINAL DIAGNOSES: 1. Acute sigmoid diverticulitis with perforation with secondary peritonitis and fecal swelling. 2. Fungemia with positive blood cultures positive for Bambi . Last set of blood cultures were positive from January 08, 2018. 3. Chronic alcohol use. 4. Coronary artery disease stent to the RCA and diffuse disease to LAD. 5. Acute renal failure prerenal acute tubular necrosis, resolved. 6. Hyperkalemia improved. 7. Hypoalbuminemia as an acute phase reactant. PROCEDURE: Sigmoid colectomy with colostomy bag in place. CONSULTATIONS: Dr. Adams from Infectious Disease, Dr. Colindres from General surgery. HOSPITAL COURSE: This patient presented with bowel obstruction. Did not improve conservatively. Did undergo surgical repair as above. The patient's pathology report was compatible with the diagnoses above. The patient's blood cultures did come back positive and the last set of blood cultures were negative from January 11, 2018. The patient was seen by Dr. Adams, who okayed the patient to be discharged. The patient has been tolerating a diet. Colostomy is working well. EXAM: Lungs decreased breath sounds. Cardiovascular: 1st and 2nd sounds. Abdomen soft, nontender. DISCHARGE MEDICATIONS: 1. Aspirin 81 mg a day. 2. Vitamin D3 2000 units p.o. daily. 3. Nitrostat 0.4 sublingual q.5 p.r.n. 4. Lipitor 80 mg daily. 5. Lopressor 25 mg p.o. daily. 6. Prilosec 20 mg with breakfast. 7. [place] 7.5 q.4h p.r.n. 8. Augmentin 875 1 tab q.12h 20 tablets. 9. Diflucan 400 mg p.o. daily 14 tablets. 10.Flomax 0.4 mg p.o. daily. Discontinued medications include: Plavix per Cardiology. FOLLOWUP: Follow up with Dr. Em Madrid in 2 weeks, Dr. Colindres on January 24, 2018; Dr. Gabriel Braxton on January 19, 2018; Dr. Adams on January 23, 2018. Colostomy care per [facility]. Copy to Dr. Gabriel Braxton. MMODL / IJN: [id number] /
== END 2018-01-13 14:00 | disposition home health service (06) | DRG 329 ==
LOC: EC 06:02 → 3SUR 08:45 → 4MS4W 12-23 14:55
PROVIDERS: ADMIT Hospitalist; ATTEND Hospitalist
PROC: 02HV33Z Insertion of Infusion Device into Superior Vena Cava, Percutaneous Approach (ICD-10-PCS; principal; 2017-12-29 10:45)
PROC: 0DJ08ZZ Inspection of Upper Intestinal Tract, Via Natural or Artificial Opening Endoscopic (ICD-10-PCS; 2017-12-31)
PROC: 0DNN4ZZ Release Sigmoid Colon, Percutaneous Endoscopic Approach (ICD-10-PCS; 2017-12-31)
PROC: 0DJD8ZZ Inspection of Lower Intestinal Tract, Via Natural or Artificial Opening Endoscopic (ICD-10-PCS; 2017-12-31)
PROC: 0D1M0Z4 Bypass Descending Colon to Cutaneous, Open Approach (ICD-10-PCS; 2018-01-02)
PROC: 0D9A0ZZ Drainage of Jejunum, Open Approach (ICD-10-PCS; 2018-01-02)
PROC: 0DTN0ZZ Resection of Sigmoid Colon, Open Approach (ICD-10-PCS; 2018-01-02)
DX: K57.20 Diverticulitis of large intestine with perforation and abscess without bleeding (principal); B37.7 Candidal sepsis; J18.9 Pneumonia, unspecified organism; N17.0 Acute kidney failure with tubular necrosis; D50.9 Iron deficiency anemia, unspecified; E78.5 Hyperlipidemia, unspecified; E83.52 Hypercalcemia; E86.0 Dehydration; E87.5 Hyperkalemia; E87.6 Hypokalemia; E88.09 Other disorders of plasma-protein metabolism, not elsewhere classified; I11.9 Hypertensive heart disease without heart failure; I25.10 Atherosclerotic heart disease of native coronary artery without angina pectoris; I25.2 Old myocardial infarction; I25.5 Ischemic cardiomyopathy; I08.3 Combined rheumatic disorders of mitral, aortic and tricuspid valves; I45.10 Unspecified right bundle-branch block; K21.9 Gastro-esophageal reflux disease without esophagitis; Z53.31 Laparoscopic surgical procedure converted to open procedure; Z79.02 Long term (current) use of antithrombotics/antiplatelets; Z79.82 Long term (current) use of aspirin; Z79.899 Other long term (current) drug therapy; Z80.0 Family history of malignant neoplasm of digestive organs; Z82.3 Family history of stroke; Z85.828 Personal history of other malignant neoplasm of skin; Z87.442 Personal history of urinary calculi; Z87.891 Personal history of nicotine dependence; Z95.5 Presence of coronary angioplasty implant and graft; R21 Rash and other nonspecific skin eruption
CPT/HCPCS: 36415; 36569; 71045; 71046; 74019; 74176; 74177; 76937; 77001; 80048; 80053; 81001; 81003; 82105; 82150; 82330; 82378; 82728; 83540; 83550; 83605; 83690; 83735; 84100; 84132; 84478; 85025; 85610; 85730; 86301; 86850; 86900; 86901; 87040; 87070; 87086; 87103; 87324; 88307; 93005; 93970; 94760; 96374; 96375; 99291

== ENCOUNTER 2018-03-15 08:18 | Day surgery (SDC) | payer BC ==
[2018-03-10 09:05] VITALS: BMI 20.9
[~2018-03-15 08:18] MED LIST: LACTATED RINGERS 1,000 ML IV SCH; LIDOCAINE 1% 20 ML VIAL (10MG/ML) FOR IV START INTRADERMA PRN
--- NOTE | 2018-03-15 08:30 | P.GSHP ---
History of Present Illness H&P Date: 03/15/18 CHIEF COMPLAINT: History of diverticulitis HISTORY OF PRESENT ILLNESS: The patient is a 62-year-old male who presents with diverticulitis and ostomy. Lower endoscopy was offered for further evaluation and management. PAST MEDICAL HISTORY: Please see list. PAST SURGICAL HISTORY: Please see list. MEDICATIONS: Please see list. ALLERGIES: Please see list. SOCIAL HISTORY: No illicit drug use FAMILY HISTORY: No reports of Crohn disease or ulcerative colitis. REVIEW OF ORGAN SYSTEMS: CONSTITUTIONAL: No reports of fevers or chills. No reports of weight loss despite prior attempts. GI: Has diarrhea including change in bowel habits. PHYSICAL EXAM: VITAL SIGNS: Stable GENERAL: Well-developed pleasant male in no acute distress. HEENT: No scleral icterus. Extraocular movements grossly intact. Moist buccal mucosa. NECK: Supple without lymphadenopathy. CHEST: Unlabored respirations. Equal bilateral excursions. CARDIOVASCULAR: Regular rate and rhythm. Distal 2+ pulses. ABDOMEN: Soft, nontender, nondistended. Ostomy patent MUSCULOSKELETAL: No clubbing, cyanosis, or edema. ASSESSMENT: 1. History of diverticulitis 2. Descending colostomy PLAN: 1. Recommend proceeding with a lower endoscopy Past Medical History Past Medical History: Coronary Artery Disease (CAD), Cancer, Chest Pain / Angina , GI Bleed, Myocardial Infarction ([place]) Additional Past Medical History / Comment(s): pt had bowel tumor with resection currently has stoma skin cancer removal-right eyebrow, kidney stone which pt passed on his own. Last Myocardial Infarction Date:: 05/02/17 History of Any Multi-Drug Resistant Organisms: None Reported Past Surgical History: Bowel Resection, Heart Catheterization With Stent, Tonsillectomy Additional Past Surgical History / Comment(s): 08/2017 EGD/colonoscopy, skin cancer removal, 3 stents on 05/02/17, 06/21/17 cardiac cath with maximizing medical therapy. Past Anesthesia/Blood Transfusion Reactions: No Reported Reaction Date of Last Stent Placement:: 06/21/17 Smoking Status: Former smoker - Past Family History Mother Family Medical History: CVA/TIA Father Family Medical History: Cancer Additional Family Medical History / Comment(s): pancreatic Medications and Allergies Home Medications Medication Instructions Recorded Confirmed Type Cholecalciferol (Vitamin D3) 2,000 unit PO QAM 05/02/17 03/10/18 History [Vitamin D3] Nitroglycerin Sl Tabs [Nitrostat] 0.4 mg SUBLINGUAL Q5M PRN #25 tab 05/04/17 Rx Atorvastatin [Lipitor] 80 mg PO QAM 06/17/17 03/10/18 History Metoprolol Tartrate [Lopressor] 25 mg PO QAM 06/17/17 03/10/18 History HYDROcodone/APAP 7.5-325MG [[place] 1 tab PO Q4H PRN 3 Days #18 tab 01/12/1803/10 Rx 7.5-325] Acetaminophen Tab [Tylenol] 650 mg PO Q6HR PRN tab 01/13/18 03/10/18 Rx Aspirin [Adult Low Dose Aspirin EC] 81 mg PO DAILY 03/10/18 03/10/18 History Clopidogrel [Plavix] 75 mg PO DAILY 03/10/18 03/10/18 History Omeprazole [PriLOSEC] 20 mg PO AC-BRKFST PRN 03/10/18 03/10/18 History Allergies Allergy/AdvReac Type Severity Reaction Status Date / Time No Known Allergies Allergy Verified 03/10/18 08:48
[2018-03-15 08:39] VITALS: TEMP 98.6
[2018-03-15] MEDS ORDERED: METOPROLOL TARTRATE 5 MG/5 ML VIAL IVP ONE (09:21)
[2018-03-15] MEDS ORDERED: PROPOFOL 10 MG/ML 20 ML VIAL IV ONE (09:21)
--- NOTE | 2018-03-15 09:54 | P.PCN ---
Date of Procedure: 03/15/18 Description of Procedure: PREOPERATIVE DIAGNOSIS: History of ruptured diverticulitis Descending colostomy status POSTOPERATIVE DIAGNOSIS: History of ruptured diverticulitis Descending colostomy status Sigmoid diverticulosis OPERATION: Colonoscopy through descending colostomy to appendiceal orifice. Colostomy through rectum SURGEON: Nelly Colindres MD. ANESTHESIA: MAC. INDICATIONS: The patient is a 62-year-old male who presents for colonoscopy following perforated diverticulitis and descending colostomy. He has not had any prior full colonoscopy screenings. Benefits and risks were described and informed consent was obtained. DESCRIPTION OF PROCEDURE: The patient had undergone Gatorade, MiraLAX and Dulcolax prep. He had been brought into the operating room and laid supine. The stoma appliance was removed. An Olympus colonoscope was advanced through the descending colostomy to the appendiceal orifice. The prep was excellent with clear visualization of the mucosal folds. The scope was removed with visualization of each mucosal fold. Scattered diverticulosis was encountered of the descending colon and ascending colon. No colonic polyps were found. No evidence of focal colitis was found. The colon was desufflated. The patient was transitioned in the left lateral decubitus position where along the rectum, no palpable tumors were identifie. The Olympus colonoscope was advanced to 25 cm from the anal verge. A few scattered diverticulosis without diverticulitis was identified. His stoma appliance was applied. The patient had tolerated the procedure well. Withdrawal time was over 6 minutes. FINDINGS: No arteriovenous malformations. No adenomatous polyps. No focal colitis. Few scattered diverticulosis along the remnant sigmoid colon and descending colon RECOMMENDATIONS: Lower endoscopy in 5 years, 2022. Plan - Discharge Summary New Discharge Prescriptions: No Action Cholecalciferol (Vitamin D3) [Vitamin D3] 2,000 unit PO QAM Nitroglycerin Sl Tabs [Nitrostat] 0.4 mg SUBLINGUAL Q5M PRN #25 tab PRN Reason: Chest Pain Metoprolol Tartrate [Lopressor] 25 mg PO QAM Atorvastatin [Lipitor] 80 mg PO QAM HYDROcodone/APAP 7.5-325MG [[place] 7.5-325] 1 tab PO Q4H PRN 3 Days #18 tab PRN Reason: pain Clopidogrel [Plavix] 75 mg PO DAILY Aspirin [Adult Low Dose Aspirin EC] 81 mg PO DAILY Discharge Medication List Cholecalciferol (Vitamin D3) [Vitamin D3] 2,000 unit PO QAM 05/02/17 [History] Nitroglycerin Sl Tabs [Nitrostat] 0.4 mg SUBLINGUAL Q5M PRN #25 tab 05/04/17 [Rx ] Atorvastatin [Lipitor] 80 mg PO QAM 06/17/17 [History] Metoprolol Tartrate [Lopressor] 25 mg PO QAM 06/17/17 [History] HYDROcodone/APAP 7.5-325MG [[place] 7.5-325] 1 tab PO Q4H PRN 3 Days #18 tab 01/12 [Rx] Aspirin [Adult Low Dose Aspirin EC] 81 mg PO DAILY 03/10/18 [History] Clopidogrel [Plavix] 75 mg PO DAILY 03/10/18 [History]
[2018-03-15 10:18] VITALS: BP 113/77; PULSE 63; RESP 18
== END 2018-03-15 10:30 | disposition home or self-care (01) ==
LOC: ORWHC2ENDO 08:18
PROVIDERS: ATTEND Surgery Plastic and Reconstructive Surgery
DX: K57.30 Diverticulosis of large intestine without perforation or abscess without bleeding (principal); Z93.3 Colostomy status; I25.10 Atherosclerotic heart disease of native coronary artery without angina pectoris; I25.2 Old myocardial infarction; Z87.442 Personal history of urinary calculi; Z87.891 Personal history of nicotine dependence; Z79.02 Long term (current) use of antithrombotics/antiplatelets; Z79.82 Long term (current) use of aspirin; Z79.899 Other long term (current) drug therapy
CPT/HCPCS: 44388; J2704

== ENCOUNTER → 2018-03-30 | Outpatient (CLI) | payer BC ==
[2018-03-30 12:02] LABS: HCT 42.3 % (39.0-53.0); MCH 31.5 pg (25.0-35.0); MCV 95.3 fL (80.0-100.0); Platelet Count 331 k/uL (150-450); RBC 4.44 m/uL (4.30-5.90); RDW 14.3 % (11.5-15.5); WBC 6.3 k/uL (3.8-10.6)
[2018-03-30 12:10] LABS: ALT 113 U/L (21-72); AST 96 U/L (17-59); Albumin 3.9 g/dL (3.5-5.0); Alkaline Phosphatase 74 U/L (38-126); Anion Gap 10 mmol/L; Blood Urea Nitrogen 11 mg/dL (9-20); Calcium 9.6 mg/dL (8.4-10.2); Carbon Dioxide 23 mmol/L (22-30); Chloride 106 mmol/L (98-107); Glucose 105 mg/dL (74-99); Potassium 4.3 mmol/L (3.5-5.1); Sodium 139 mmol/L (137-145); Total Bilirubin 0.6 mg/dL (0.2-1.3); Total Protein 7.3 g/dL (6.3-8.2)
== END ==
LOC: LABPAT 11:13
PROVIDERS: ATTEND Surgery Plastic and Reconstructive Surgery
DX: K57.30 Diverticulosis of large intestine without perforation or abscess without bleeding (principal)
CPT/HCPCS: 36415; 80053; 85027; 86850; 86900; 86901

== ENCOUNTER 2018-04-10 07:30 | Inpatient (IN) | payer BC ==
[2018-03-31 15:08] VITALS: BMI 21.2
[~2018-04-10 07:30] MED LIST changes: -LACTATED RINGERS 1,000 ML IV SCH; -LIDOCAINE 1% 20 ML VIAL (10MG/ML) FOR IV START INTRADERMA PRN; +ceFAZolin IN SWFI 2 GM/20 ML SYRINGE IVP ONE; +metroNIDAZOLE-NS PMX 500 MG in SALINE 1 100ML.BAG IVPB ONE
[2018-04-10] MEDS ORDERED: ALVIMOPAN 12 MG CAPSULE PO ONE (10:21)
[2018-04-10] MEDS ORDERED: HEPARIN SODIUM,PORCINE 5,000 UNIT/ML 1 ML VIAL SQ ONE (10:21)
[2018-04-10] MEDS ORDERED: Antibiotics per Pharmacy 1 EACH MISC MISCELLANE PRN (10:21)
--- NOTE | 2018-04-10 10:21 | P.GSHP ---
History of Present Illness H&P Date: 04/10/18 CHIEF COMPLAINT: History of sigmoid diverticulitis HISTORY OF PRESENT ILLNESS: The patient is a 62-year-old male history of large bowel obstruction due to diverticulitis. He had a temporary descending colostomy. Now he presents for reversal. PAST MEDICAL HISTORY: Please see list. PAST SURGICAL HISTORY: Please see list. MEDICATIONS: Please see list. ALLERGIES: Please see list. SOCIAL HISTORY: No illicit drug use FAMILY HISTORY: No reports of Crohn disease or ulcerative colitis. REVIEW OF ORGAN SYSTEMS: CONSTITUTIONAL: Denies any fever or chills. HEENT: Denies any trouble with vision or nosebleeds. No difficulty swallowing. LYMPHATIC: The patient denies any lumps and bumps around the neck. ENDOCRINE: Denies any thyroid disorders. No blood sugar glucose intolerance. RESPIRATORY: Denies pneumonia. Denies any troubles with breathing or dyspnea on exertion. CARDIOVASCULAR: Denies any chest pain, palpitations, or recent heart attacks. Last heart attack 1 year ago. GASTROINTESTINAL: No reports of blood in stools. GENITOURINARY: Has increased urinary frequency. MUSCULOSKELETAL: Has back pain, stiffness, joint arthritis. NEUROLOGIC: Denies any numbness or tingling along the distal extremities. No seizure disorders or headaches. PSYCHIATRIC: Denies depression or suidical ideation. HEMATOLOGIC: Denies any abnormal bleeding or bruising. PHYSICAL EXAM: VITAL SIGNS: Stable GENERAL: Well-developed pleasant in no acute distress. HEENT: No scleral icterus. Extraocular movements grossly intact. Moist buccal mucosa. He is hard of hearing. NECK: Supple without lymphadenopathy. CHEST: Unlabored respirations. Equal bilateral excursions. CARDIOVASCULAR: Regular rate and rhythm. Distal 2+ pulses. ABDOMEN: Soft, nontender, nondistended. Ostomy pink patent and viable left lower quadrant MUSCULOSKELETAL: No clubbing, cyanosis, or edema. NERUO: Regular 2-12 grossly intact. PSYCH: Alert and oriented to person place and time. ASSESSMENT: 1. History of previous large bowel obstruction. 2. Sigmoid diverticulitis with obstruction 3. Descending colostomy PLAN: 1. Benefits and risks of surgical intervention of colostomy reversal was described. Robotic-assisted approach was also described. 2. He has completed an enhanced colon recovery program. 3. DVT prophylaxis. 4. Antibiotic prophylaxis. Past Medical History Past Medical History: Coronary Artery Disease (CAD), Cancer, Chest Pain / Angina , GI Bleed, Myocardial Infarction ([place]) Additional Past Medical History / Comment(s): bowel obs,08/23/17 lower GI bleed-unknown source, blood loss anemia with transfusion, 05/02/17 stemi, skin cancer removal-right eyebrow, kidney stone which pt passed on his own. Last Myocardial Infarction Date:: 05/02/17 History of Any Multi-Drug Resistant Organisms: None Reported Past Surgical History: Bowel Resection, Heart Catheterization With Stent, Tonsillectomy Additional Past Surgical History / Comment(s): benign tumor in bowel and colostomy-12/2017,EGD/colonoscopy, skin cancer removal, 3 stents on 05/02/17, Past Anesthesia/Blood Transfusion Reactions: No Reported Reaction Additional Past Anesthesia/Blood Transfusion Reaction / Comment(s): no problems with prior blood transfusion Date of Last Stent Placement:: 05/02/17 Smoking Status: Former smoker - Past Family History Mother Family Medical History: CVA/TIA Father Family Medical History: Cancer Additional Family Medical History / Comment(s): pancreatic Medications and Allergies Home Medications Medication Instructions Recorded Confirmed Type Cholecalciferol (Vitamin D3) 2,000 unit PO QAM 05/02/17 03/31/18 History [Vitamin D3] Nitroglycerin Sl Tabs [Nitrostat] 0.4 mg SUBLINGUAL Q5M PRN #25 tab 05/04/17 Rx Atorvastatin [Lipitor] 80 mg PO QAM 06/17/17 03/31/18 History Metoprolol Tartrate [Lopressor] 25 mg PO QAM 06/17/17 03/31/18 History Aspirin [Adult Low Dose Aspirin EC] 81 mg PO DAILY 03/10/18 04/03/18 History Clopidogrel [Plavix] 75 mg PO DAILY 03/10/18 04/03/18 History Allergies Allergy/AdvReac Type Severity Reaction Status Date / Time No Known Allergies Allergy Verified 03/31/18 14:51
[2018-04-10] MEDS ORDERED: LACTATED RINGERS 1,000 ML IV ONE ×4 (13:05→13:06)
[2018-04-10 13:07] LABS: Basophils # (A) 0.1 k/uL (0-0.2); Basophils % (A) 1 %; Eosinophils # (A) 0.1 k/uL (0-0.7); Eosinophils % (A) 2 %; HCT 44.6 % (39.0-53.0); HGB 14.7 gm/dL (13.0-17.5); Lymphocytes # (A) 1.8 k/uL (1.0-4.8); Lymphocytes % (A) 35 %; MCV 94.1 fL (80.0-100.0); Mean Platelet Volume 6.1; Monocytes # (A) 0.5 k/uL (0-1.0); Monocytes % (A) 9 %; Neutrophils # (A) 2.7 k/uL (1.3-7.7); Neutrophils % (A) 52 %; Platelet Count 289 k/uL (150-450); RBC 4.74 m/uL (4.30-5.90); RDW 14.1 % (11.5-15.5); WBC 5.2 k/uL (3.8-10.6)
[2018-04-10 13:08] LABS: ALT 46 U/L (21-72); AST 35 U/L (17-59); Albumin 4.3 g/dL (3.5-5.0); Alkaline Phosphatase 57 U/L (38-126); Anion Gap 10 mmol/L; Blood Urea Nitrogen 10 mg/dL (9-20); Calcium 9.8 mg/dL (8.4-10.2); Carbon Dioxide 22 mmol/L (22-30); Chloride 107 mmol/L (98-107); Glucose 78 mg/dL (74-99); Potassium 4.7 mmol/L (3.5-5.1); Sodium 139 mmol/L (137-145); Total Bilirubin 0.4 mg/dL (0.2-1.3); Total Protein 7.8 g/dL (6.3-8.2)
[2018-04-10] MEDS ORDERED: LIDOCAINE 1% 20 ML VIAL (10MG/ML) FOR IV START INTRADERMA ONE ×2 (13:15→13:16)
[2018-04-10] MEDS ORDERED: DEXAMETHASONE SOD PHOSPHATE 10 MG/ML 1 ML VIAL IV ONE (13:51)
[2018-04-10] MEDS ORDERED: ONDANSETRON 4 MG/2 ML VIAL IVP ONE (13:53)
[2018-04-10] MEDS ORDERED: HYDROmorphone (PF) 1 MG/ML ONE (14:33)
[2018-04-10] MEDS ORDERED: LIDOCAINE 1% INJ 10MG/ML (20 ML MDV) ONE (14:33)
[2018-04-10] MEDS ORDERED: fentaNYL (PF) 50 MCG/ML 2 ML AMP ONE (14:33)
[2018-04-10] MEDS ORDERED: ePHEDrine SULFATE/0.9% NACL/PF 50 MG/5 ML SYRINGE IV ONE (14:33)
[2018-04-10] MEDS ORDERED: PHENYLEPHRINE-0.9% NACL SYG 1 MG/10 ML SYRINGE ONE (14:33)
[2018-04-10] MEDS ORDERED: PROPOFOL 10 MG/ML 20 ML VIAL IV ONE (14:33)
[2018-04-10] MEDS ORDERED: NEOSTIGMINE 1 MG/ML 10 ML VIAL ONE (14:33)
[2018-04-10] MEDS ORDERED: ROCURONIUM BROMIDE 10 MG/ML 10 ML VIAL IV ONE (14:33)
[2018-04-10] MEDS ORDERED: GLYCOPYRROLATE 0.2 MG/ML 2 ML VIAL ONE (14:33)
[2018-04-10] MEDS ORDERED: MIDAZOLAM 2 MG/2 ML VIAL ONE (14:33)
[2018-04-10] MEDS ORDERED: SUCCINYLCHOLINE CHLORIDE 100 MG/5 ML SYR IV ONE (14:33)
[2018-04-10] MEDS ORDERED: BUPIVACAIN-EPI 0.25%-1:200,000 30 ML VIAL SQ ONE (15:09)
[2018-04-10] MEDS ORDERED: METOCLOPRAMIDE 5 MG/ML 2 ML VIAL IVP ONE (17:48)
[2018-04-10] MEDS ORDERED: BENZOCAINE/MENTHOL LOZENG 1 EACH LOZENGE MUCOUS MEM PRN (17:50)
[2018-04-10] MEDS ORDERED: ONDANSETRON 4 MG/2 ML VIAL IVP PRN (17:50)
[2018-04-10] MEDS ORDERED: HYDROmorphone 1 MG/ML 1 ML SYRINGE IVP PRN (17:50)
[2018-04-10] MEDS ORDERED: HYDROmorphone 1 MG/ML 1 ML SYRINGE IVP ONE (17:50)
[2018-04-10] MEDS ORDERED: NITROGLYCERIN SL TABS 0.4 MG TAB SUBLINGUAL PRN (17:52)
--- NOTE | 2018-04-10 18:07 | P.OP ---
Date of Procedure: 04/10/18 Description of Procedure: SURGEON: ALEKSANDR VIDALES MD PREOPERATIVE DIAGNOSES: 1. Large bowel obstruction due to sigmoid diverticulitis 2. History of sigmoid volvulus 3. Descending colostomy status 4. History of myocardial infarction 5. Coronary artery disease with stent 6. Hypertensive heart disease 7. History of chronic iron anemia deficiency POSTOPERATIVE DIAGNOSES: 1. Large bowel obstruction due to sigmoid diverticulitis 2. History of sigmoid volvulus 3. Descending colostomy status 4. History of myocardial infarction 5. Coronary artery disease with stent 6. Hypertensive heart disease 7. History of chronic iron anemia deficiency OPERATION: 1. Robotic-assisted daVinci Xi laparoscopic descending colostomy reversal, multi-port 2. Application of PREVENA 13-cm wound vac at left lower quadrant ANESTHESIA: General with local ESTIMATED BLOOD LOSS: 10 mL SPECIMENS REMOVED: Descending colostomy FINDINGS: 1. Peritoneal adhesions midline 2. Linear intracorporeal isoperistaltic anastomosis colo-colon anastomosis using 45 mm blue staple load. 3. Robotic arms using multiport, stapler along the right upper and left upper quadrant. 4. All ports place 15 to 20 cm away from target anatomy, the sigmoid colon. 5. Anastomosis oversewn using 3-0 silk and 3-0 Vicryl 6. Console time 94 minutes INDICATIONS: The patient is a 62-year-old male who presented with large bowel obstruction due to diverticulitis. He is over 3 months out from a descending colostomy. Surgical options were described. Benefits and risks, including infection, possibility for additional surgery, including possible colostomy was discussed at length. Informed consent was obtained. All questions of the patient and family were answered. DESCRIPTION: Earlier the patient had undergone a bowel prep using the enhanced colon recovery program and he took his beta jeffrey this morning. The patient was transferred to the operating room and placed supine. The patient was then intubated. A Saha catheter was placed. The abdomen was then prepped and draped in standard sterile fashion. After a timeout protocol was performed, attention was then brought to the left upper quadrant whereby a 0 degree 5 mm laparoscopic trocar entry was performed. The abdominal cavity was entered and insufflated to 15 mmHg pressure, which he tolerated well. Diagnostic laparoscopy demonstrated adhesions along the midline. All 3 arms of the robot were used. Next an robotic 8-mm trocar was placed along the right lateral abdominal wall 15 cm proximal from the pelvis. At the epigastrium, a 8 mm port was placed. Ports were placed 8 cm apart from each other including 15 away from the target anatomy of the left pelvis. The 5-mm port was exchanged for an 12 mm robotic port. The stapler 12-mm port was placed along the right upper quadrant and left lateral abdominal wall. The patient was then placed in Trendelenburg position, 18. The robotic da Wally Xi system was primed. The robot was docked along the left-side of the patient with direction into the pelvis. Prior to docking all arms, adhesions were addressed using the camera and vessel sealer along the right upper quadrant. Adhesionolysis occurred for 15 minutes. Using a grasper for arm 1, a grasper for arm 3, including vessel sealer for arm 4, the robotic system was docked and primed as described. Instruments were interchanged by the plastic surgery assistant including scissors the cartridge, needle cryogenic transport driver, robotic stapler and vessel sealer. Next, attention was brought to identify the rectum. The previous Prolene stitch was identified. The devitalized rectum was prepared for anastomosis. Next, pressure was placed over the descending ostomy by the plastic surgery assistant to allow for division of the descending colostomy at the abdominal wall using blue 45 mm staplers. A stay suture using 3-0 silk was placed along the anterior serosa of the descending colon including along the rectum. The mesentery of the sigmoid colon was mobilized towards the descending colon using a vessel sealer. The descending colon was similarly marked using 3-0 silk. The rest of the sigmoid colon mesentery was mobilized using vessel sealer. The proximal and distal colon was brought in an isoperistaltic fashion after placing interrupted sutures along the proposed lucas-lumen using 3-0 silk. Along the tinea coli of the proximal including distal limbs, a colotomy was prepared along both limbs. Using scissors with cautery Next, a 45 mm blue stapler was fired to create the lucas-lumen. The colotomy of the lucas-lumen was closed using 3 -0 Vicryl and 3-0 silk. The robot was undocked. I re-scrubbed into the case. The 12-mm fascial defect was oversewn using 0 Vicryl and a Radu Blum. Similarly, the 12 mm trocar site of the right upper quadrant was also oversewn along its fascia using 0 Vicryl and a Radu Bulm. Using insufflation, the colostomy was excised in an elliptical fashion from the skin to the fascia circumferentially. The specimen was passed off. The fascia of the colostomy was oversewn using interrupted 0 Vicryl. The colostomy site was irrigated using dilute hydrogen peroxide. The incision of the colostomy was reapproximated using 3-0 Vicryl for the deep dermis followed by skin arcenio. Next all pneumoperitoneum was evacuated from the abdominal cavity. The 8-mm trocar sites were reapproximated using 4-0 Monocryl in an interrupted subcuticular fashion. The larger trocar sites were irrigated using warm normal saline and hydrogen peroxide solution. Local anesthetic was infiltrated to all wounds for postop analgesia. Optifoam surgical dressing were placed over all trocar sites. PREVENA 13-cm wound VAC was prepared and placed over the ostomy site and placed to suction with negative seal. The patient had tolerated the procedure well. Estimated blood loss was approximately 10 mL. The patient was extubated successfully. Intraoperative photos were reviewed with the patient's family who were overall pleased with the level of care. The patient was transferred to the postanesthesia care unit in stable condition.
[2018-04-10] MEDS: METOCLOPRAMIDE 5 MG/ML 2 ML VIAL IVP SCH ×2 (19:36→23:32)
[2018-04-10] MEDS: FAMOTIDINE 20 MG/2 ML VIAL IV SCH (21:27)
[2018-04-10] MEDS: D5-0.45% NACL WITH KCL 20MEQ/L 1,000 ML IV SCH (21:57)
[2018-04-10] MEDS: HEPARIN SODIUM,PORCINE 5,000 UNIT/ML 1 ML VIAL SQ SCH (23:31)
[2018-04-11] MEDS: D5-0.45% NACL WITH KCL 20MEQ/L 1,000 ML IV SCH ×2 (05:08→12:43)
[2018-04-11] MEDS: METOCLOPRAMIDE 5 MG/ML 2 ML VIAL IVP SCH ×2 (05:09→12:19)
[2018-04-11] MEDS: HEPARIN SODIUM,PORCINE 5,000 UNIT/ML 1 ML VIAL SQ SCH (08:01)
[2018-04-11] MEDS: FAMOTIDINE 20 MG/2 ML VIAL IV SCH (08:02)
[2018-04-11] MEDS ORDERED: METOPROLOL TARTRATE 25 MG TAB PO SCH (09:00)
[2018-04-11] MEDS ORDERED: ASPIRIN 81 MG PO SCH (09:00)
[2018-04-11] MEDS ORDERED: ALVIMOPAN 12 MG CAPSULE PO SCH (09:00)
--- NOTE | 2018-04-11 15:39 | P.DS ---
Providers Date of admission: 04/10/18 11:57 Expected date of discharge: 04/11/18 Attending physician: Nelly Colindres Primary care physician: [facility] Course: Pleasant 62-year-old male with a history of a large bowel obstruction due to diverticulitis. Patient had a temporary descending colostomy done. He presents now for reversal. April 10 patient underwent Robotic-assisted daVinci Xi laparoscopic descending colostomy reversal, multi-port Application of PREVENA 13-cm wound vac at left lower quadrant On the morning of discharge patient was up ambulatory on the unit passing gas no stool tolerating diet no nausea no vomiting abdominal binder in place states pain medication is effective for pain abdomen soft not distended urinating no difficulty control white count 5.2 hemoglobin 14.7 electrolyte within normal limits AST and ALT not elevated the temp is 97.6 Impression discharge diagnose History of a large bowel obstruction due to sigmoid diverticulitis History of sigmoid volvulus Coronary artery disease with coronary stenting Chronic iron efficiency anemia Descending colostomy status Robotic-assisted daVinci Xi laparoscopic descending colostomy reversal, multi- port done on April 10 Application of PREVENA 13-cm wound vac at left lower quadrant placed on April 10 The above impression and plan of care have been discussed and directed by signing physician. Ebony Walton nurse practitioner acting as scribe for signing physician. Plan - Discharge Summary Discharge Rx Participant: Yes New Discharge Prescriptions: New HYDROcodone/APAP 7.5-325MG [[place] 7.5-325] 1 tab PO Q4H PRN 3 Days #18 tab PRN Reason: Pain Continue Nitroglycerin Sl Tabs [Nitrostat] 0.4 mg SUBLINGUAL Q5M PRN #25 tab PRN Reason: Chest Pain Metoprolol Tartrate [Lopressor] 25 mg PO QAM Atorvastatin [Lipitor] 80 mg PO QAM Aspirin [Adult Low Dose Aspirin EC] 81 mg PO DAILY Discontinued Cholecalciferol (Vitamin D3) [Vitamin D3] 2,000 unit PO QAM Clopidogrel [Plavix] 75 mg PO DAILY Discharge Medication List Nitroglycerin Sl Tabs [Nitrostat] 0.4 mg SUBLINGUAL Q5M PRN #25 tab 05/04/17 [Rx ] Atorvastatin [Lipitor] 80 mg PO QAM 06/17/17 [History] Metoprolol Tartrate [Lopressor] 25 mg PO QAM 06/17/17 [History] Aspirin [Adult Low Dose Aspirin EC] 81 mg PO DAILY 03/10/18 [History] HYDROcodone/APAP 7.5-325MG [[place] 7.5-325] 1 tab PO Q4H PRN 3 Days #18 tab 04/11 [Rx] Follow up Appointment(s)/Referral(s): Nelly Colindres MD [STAFF PHYSICIAN] - 04/18/18 2:00 pm Patient Instructions/Handouts: Colectomy (DC), Negative Pressure Wound Therapy (DC), Colectomy Diet (DC) Activity/Diet/Wound Care/Special Instructions: Full liquid diet until seen by the surgeon. Notify your surgeon for any issues of your wound VAC. NO bathtub soaks. Sponge bath only. NO lifting over 4 pounds in 4 weeks. Discharge Disposition: HOME SELF-CARE
[2018-04-11 16:17] VITALS: BP 134/73; PULSE 62; RESP 12; TEMP 98.7
[2018-04-12] MEDS ORDERED: FAMOTIDINE 20 MG TAB PO SCH (09:00)
--- NOTE | 2018-04-13 17:50 | P.PN ---
Progress Note - Text Progress Note Date: 04/13/18 Patient contacted at home. describes that he had a bowel movement. He is tolerating diet. No reports of fevers or chills. No reports of infections. Patient will follow-up in the office within 3 days.
== END 2018-04-11 15:10 | disposition home or self-care (01) | DRG 331 ==
LOC: 2ORMAIN 11:57 → 3SUR 18:07
PROVIDERS: ADMIT Surgery Plastic and Reconstructive Surgery; ATTEND Surgery Plastic and Reconstructive Surgery
PROC: 0WQF0ZZ Repair Abdominal Wall, Open Approach (ICD-10-PCS; principal; 2018-04-10 14:45)
PROC: 0DQN0ZZ Repair Sigmoid Colon, Open Approach (ICD-10-PCS; principal; 2018-04-10 14:45)
PROC: 0DQM0ZZ Repair Descending Colon, Open Approach (ICD-10-PCS; principal; 2018-04-10 14:45)
DX: Z43.3 Encounter for attention to colostomy (principal); D50.9 Iron deficiency anemia, unspecified; I11.9 Hypertensive heart disease without heart failure; I25.10 Atherosclerotic heart disease of native coronary artery without angina pectoris; I25.2 Old myocardial infarction; Z79.02 Long term (current) use of antithrombotics/antiplatelets; Z79.82 Long term (current) use of aspirin; Z85.828 Personal history of other malignant neoplasm of skin; Z87.891 Personal history of nicotine dependence; Z95.5 Presence of coronary angioplasty implant and graft
CPT/HCPCS: 80053; 85025; 86850; 86900; 86901; 88304

== ENCOUNTER → 2018-08-11 | Outpatient (CLI) | payer BC ==
[2018-08-11 11:10] LABS: HCT 43.7 % (39.0-53.0); HGB 13.8 gm/dL (13.0-17.5); MCH 30.7 pg (25.0-35.0); MCHC 31.7 g/dL (31.0-37.0); MCV 96.9 fL (80.0-100.0); Mean Platelet Volume 6.5; Platelet Count 357 k/uL (150-450); RBC 4.51 m/uL (4.30-5.90); RDW 13.2 % (11.5-15.5); WBC 6.1 k/uL (3.8-10.6)
== END | disposition home or self-care (01) ==
LOC: LABPAT 10:29
PROVIDERS: ATTEND Anesthesiology
DX: Z01.812 Encounter for preprocedural laboratory examination (principal)
CPT/HCPCS: 36415; 85027

== ENCOUNTER 2018-08-14 09:35 | Day surgery (SDC) | payer BC ==
[2018-08-10 09:58] VITALS: BMI 24.1
--- NOTE | 2018-08-14 05:55 | P.GSHP ---
History of Present Illness H&P Date: 08/14/18 CHIEF COMPLAINT: Incisional hernia HISTORY OF PRESENT ILLNESS: The patient is a 62-year-old male who presents with a history of swelling and pain along the abdomen from a hernia. Now he presents for surgical intervention. PAST MEDICAL HISTORY: Please see list. PAST SURGICAL HISTORY: Please see list. MEDICATIONS: Please see list. ALLERGIES: Please see list. SOCIAL HISTORY: No illicit drug use FAMILY HISTORY: No reports of Crohn disease or ulcerative colitis. REVIEW OF ORGAN SYSTEMS: CONSTITUTIONAL: No reports of fevers or chills. No reports of weight loss despite prior attempts. GI: Denies any blood in stools or constipation. PHYSICAL EXAM: VITAL SIGNS: Stable GENERAL: Well-developed pleasant male in no acute distress. HEENT: No scleral icterus. Extraocular movements grossly intact. Moist buccal mucosa. NECK: Supple without lymphadenopathy. CHEST: Unlabored respirations. Equal bilateral excursions. CARDIOVASCULAR: Regular rate and rhythm. Distal 2+ pulses. ABDOMEN: Soft, nondistended. Palpable defect of the abdomen left lower quadrant. No peritoneal signs. MUSCULOSKELETAL: No clubbing, cyanosis, or edema. ASSESSMENT: 1. Incisional hernia PLAN: 1. Recommend proceeding with robotic ventral hernia repair with mesh. 2. Benefits and risks of surgical intervention was discussed including possibility of open technique. 3. DVT prophylaxis. 4. Antibiotic prophylaxis. Past Medical History Past Medical History: Coronary Artery Disease (CAD), Cancer, Chest Pain / Angina , GI Bleed, Myocardial Infarction ([place]) Additional Past Medical History / Comment(s): 08/23/17 GI BLEED WITH TRANSFUSION. , HX OF MELANOMA SKIN CANCER, KIDNEY STONE., HX OF DIVERTICULITIS WITH COLOSTOMY & REVERSAL., INCISIONAL HERNIA. Last Myocardial Infarction Date:: 05/02/17 History of Any Multi-Drug Resistant Organisms: None Reported Past Surgical History: Bowel Resection, Heart Catheterization With Stent, Tonsillectomy Additional Past Surgical History / Comment(s): 08/2017 EGD/colonoscopy, skin cancer ., HEART CATH X2 WITH STENTS (LAST STENTS JUN 2017)., BOWEL RESECTION WITH COLOSTOMY FOR DIVERTICULITS AND REVERSAL OF COLOSTOMY. Past Anesthesia/Blood Transfusion Reactions: No Reported Reaction Additional Past Anesthesia/Blood Transfusion Reaction / Comment(s): . Date of Last Stent Placement:: 06/2017 Past Psychological History: No Psychological Hx Reported Additional Psychological History / Comment(s): . Smoking Status: Former smoker Past Alcohol Use History: Daily Additional Past Alcohol Use History / Comment(s): quit smoking 04/2017, smoked for 20 yrs, Smoked 2 PPD. DRINKS 6 BEERS DAILY. Past Drug Use History: None Reported - Past Family History Mother Family Medical History: Cancer, CVA/TIA Additional Family Medical History / Comment(s): Breast Cancer Father Family Medical History: Cancer Additional Family Medical History / Comment(s): pancreatic Medications and Allergies Home Medications Medication Instructions Recorded Confirmed Type Nitroglycerin Sl Tabs [Nitrostat] 0.4 mg SUBLINGUAL Q5M PRN #25 tab 05/04/17 Rx Atorvastatin [Lipitor] 80 mg PO QAM 06/17/17 08/10/18 History Metoprolol Tartrate [Lopressor] 25 mg PO QAM 06/17/17 08/10/18 History Aspirin [Adult Low Dose Aspirin EC] 81 mg PO DAILY 03/10/18 08/10/18 History Cholecalciferol (Vitamin D3) 2,000 unit PO DAILY 08/10/18 08/10/18 History [Vitamin D3] Clopidogrel [Plavix] 75 mg PO DAILY 08/10/18 08/10/18 History Allergies Allergy/AdvReac Type Severity Reaction Status Date / Time No Known Allergies Allergy Verified 08/10/18 09:10
[~2018-08-14 09:35] MED LIST changes: +DEXAMETHASONE SOD PHOSPHATE 10 MG/ML 1 ML VIAL IV ONE; +HEPARIN SODIUM,PORCINE 5,000 UNIT/ML 1 ML VIAL SQ ONE; +LACTATED RINGERS 1,000 ML IV SCH; +MIDAZOLAM (PF) 2 MG/2 ML VIAL IV PRN; +ONDANSETRON 4 MG/2 ML VIAL IVP ONE; +SCOPOLAMINE 1.5MG/72HR PATCH TRANSDERM ONE; -metroNIDAZOLE-NS PMX 500 MG in SALINE 1 100ML.BAG IVPB ONE
[2018-08-14] MEDS ORDERED: LIDOCAINE 1% 20 ML VIAL (10MG/ML) FOR IV START INTRADERMA ONE (10:19)
[2018-08-14] MEDS ORDERED: fentaNYL (PF) 50 MCG/ML 2 ML AMP IVP ONE ×2 (10:36)
--- NOTE | 2018-08-14 10:47 | P.ONQ ---
Anesthesiology Proc Note - PNB - Peripheral Nerve Block Performed Bilateral Transversus Abdominis Single Time Out Performed: Yes Procedure Start Time: 10:35 Procedure Stop Time: 10:40 Indication: Acute Post-Operative Pain, Analgesia, Requested by physician Sedation Type: Sedate with meaningful contact maintained Preparation: Sterile Prep Position: Supine Catheter: None Needle Types: On-Q Needle Size: 100mm (4") Needle Gauge: 21 Technique: Ultrasound Injectate: 0.5% Ropivacaine (see comment for volume) (0.375% 20cc each side) Blood Aspirated: No Pain Paresthesia on Injection Noted: No Resistance on Injection: Normal Events: Uneventful and Well Tolerated
[2018-08-14] MEDS ORDERED: ePHEDrine SULFATE/0.9% NACL/PF 50 MG/5 ML SYRINGE IV ONE (10:49)
[2018-08-14] MEDS ORDERED: ESMOLOL 100 MG/10 ML VIAL ONE (10:49)
[2018-08-14] MEDS ORDERED: fentaNYL (PF) 50 MCG/ML 2 ML AMP ONE (10:49)
[2018-08-14] MEDS ORDERED: LABETALOL 5 MG/ML VIAL MDV ONE (10:49)
[2018-08-14] MEDS ORDERED: LIDOCAINE 1% INJ 10MG/ML (20 ML MDV) ONE (10:49)
[2018-08-14] MEDS ORDERED: ROPIVACAINE 5 MG/ML 30 ML VIAL ONE (10:49)
[2018-08-14] MEDS ORDERED: ROCURONIUM BROMIDE 10 MG/ML 10 ML VIAL IV ONE (10:49)
[2018-08-14] MEDS ORDERED: GLYCOPYRROLATE 0.2 MG/ML 2 ML VIAL ONE (10:49)
[2018-08-14] MEDS ORDERED: NEOSTIGMINE 1 MG/ML 10 ML VIAL ONE (10:49)
[2018-08-14] MEDS ORDERED: PROPOFOL 10 MG/ML 20 ML VIAL IV ONE (10:49)
[2018-08-14] MEDS ORDERED: HYDROmorphone (PF) 1 MG/ML ONE (10:49)
[2018-08-14] MEDS ORDERED: LACTATED RINGERS 1,000 ML IV ONE (11:35)
[2018-08-14 13:21] VITALS: RESP 20; TEMP 97.2
[2018-08-14] MEDS: HYDROmorphone 0.5 MG/0.5 ML SYRINGE IVP PRN ×4 (13:26→13:54)
--- NOTE | 2018-08-14 13:53 | P.OP ---
Date of Procedure: 08/14/18 Description of Procedure: SURGEON: NELLY COLINDRES MD FIRE EQUIPMENT REPAIRER INSPECTOR: 1. SUSHANT DAMON PREOPERATIVE DIAGNOSES: 1. Incisional ventral hernia 2. Previous history of colostomy reversal from large bowel obstruction due to sigmoid diverticulitis 3. Chronic antiplatelet therapy 4. History of myocardial infarction 5. Coronary artery disease with stent 6. Hypertensive heart disease 7. History of chronic iron anemia deficiency 8. History of recent moderate weight gain POSTOPERATIVE DIAGNOSES: 1. Multiple incisional ventral hernias with incarceration involving omentum without obstruction, 11 x 8 cm 2. Previous history of colostomy reversal from large bowel obstruction due to sigmoid diverticulitis 3. Chronic antiplatelet therapy 4. History of myocardial infarction 5. Coronary artery disease with stent 6. Hypertensive heart disease 7. History of chronic iron anemia deficiency 8. History of recent moderate weight gain OPERATION: 1. Robotic-assisted da Wally Xi laparoscopic repair of initial incarcerated incisional ventral hernia 11 x 8 cm with mesh, ventralight ST mesh 15 x 20 cm 2. Robotic-assisted da Wally Xi laparoscopic extensive lysis of adhesions ANESTHESIA: General with local ESTIMATED BLOOD LOSS: 5 mL. SPECIMENS: None COMPLICATIONS: None. INDICATIONS: The patient is a 62-year-old male who presents incisional hernia following rapid weight gain and recent colostomy reversal 6 months ago. Surgical intervention with laparoscopic versus robotic and open techniques were reviewed. Placement of mesh was also reviewed. Benefits and risks were thoroughly described. Informed consent was obtained. DESCRIPTION OF PROCEDURE: The patient was brought into the operating room and laid in supine position. After general induction, the abdomen had been prepped and draped in standard sterile fashion. Ioban draping was also placed. Prior to incision, a timeout protocol was confirmed with surgical team regarding the patient's name including procedures to be performed. The robot was primed prior to the procedure. A field block using local anesthetic was placed along hernia site including the proposed port sites. Initial incision was made with an #11 blade along the left upper quadrant. A 0 degree 5 mm laparoscopic trocar entry was performed and insufflated. Diagnostic laparoscopy demonstrated severe midline adhesions occluding of the left lower quadrant from recent surgery. The omentum was incarcerated along the midline consistent with an incarcerated incisional hernia at the umbilicus and along his previous ostomy site. Two 8 mm ports were placed along the left lateral abdominal wall under direct localization. The 5-mm port was exchanged for an 12 mm robotic port. Placements of the ports were 15 cm from the target anatomy and 10 cm apart. The da Wally Xi robot was previously primed, prepped and draped then docked along the left side of the patient. I then sat at the robot Da Wally Xi console where working arms of the robot including Bovie cautery connected to robotic scissors, vessel sealer, needle non emergency services ambulance driver, and graspers placed by the tv production assistant. Extensive lysis of adhesions occurred well over half an hour using vessel sealer as well as scissors to address omental adhesions to the abdominal wall. No small bowel or large bowel adhesions were found of the abdominal wall. Once cleaned, multiple fascial defects were identified including a 2 cm defect of the left lower abdomen from previous ostomy site. An incarcerated umbilical incisional hernia over 5 cm found. Additional [place] cheese defect of the lower midline 1 to 2 cm in size were found. The entire defects combined with 11 cm length with 8 cm width. A ventralight ST mesh of 20 cm length and 15 cm width was selected. Fascial defect of 5 cm of the umbilicus was identified after cleaning the peritoneal fat of the abdominal wall and reducing an incarcerated omentum. The umbilical defect was oversewn using 3 fascial imbrication of #1 Stratafix to reduce the size of the defect. Closure was performed under adjusted pressure of 10 mmHg. A 12 mm port was placed along the left upper quadrant for placement of the mesh and for sutures. Next, ventralight ST mesh 20 x 15 cm was placed with the rough side towards the abdominal wall. 2-0 VLOC 12 inch sutures were used to fixate the mesh. A final endoscopic imaging was obtained. All instruments and pneumoperitoneum were evacuated from the abdominal cavity. The da Wally Xi robot was undocked from the patient. I re-scrubbed into the case for closure of incisions. The fascia of the 12-mm port was probed and less than 8-mm in size. The incisions were reapproximated using 4-0 Monocryl in an interrupted subcuticular fashion. Liquid glue was applied to the skin after cleansing the skin with normal saline and dilute hydrogen peroxide. An abdominal binder was placed. An umbilical dressing was placed prior. At the end of the procedure, needle, sponge, and instrument count had been verified correct by instructor adjunct surgical technician. The patient was taken to the postanesthesia care unit in stable condition. FINDINGS: 1. Multiple fascial defects involving the midline of total 11 x 8 cm 2. Incarcerated incisional hernia reduced 3. Severe omental adhesions reduced and lysed 4. Console time 68 minutes Plan - Discharge Summary Discharge Rx Participant: No New Discharge Prescriptions: New HYDROcodone/APAP 7.5-325MG [[place] 7.5-325] 1 tab PO Q4H PRN 3 Days #18 tab PRN Reason: Pain No Action Nitroglycerin Sl Tabs [Nitrostat] 0.4 mg SUBLINGUAL Q5M PRN #25 tab PRN Reason: Chest Pain Metoprolol Tartrate [Lopressor] 25 mg PO QAM Atorvastatin [Lipitor] 80 mg PO QAM Aspirin [Adult Low Dose Aspirin EC] 81 mg PO DAILY Clopidogrel [Plavix] 75 mg PO DAILY Cholecalciferol (Vitamin D3) [Vitamin D3] 2,000 unit PO DAILY Discharge Medication List Nitroglycerin Sl Tabs [Nitrostat] 0.4 mg SUBLINGUAL Q5M PRN #25 tab 05/04/17 [Rx ] Atorvastatin [Lipitor] 80 mg PO QAM 06/17/17 [History] Metoprolol Tartrate [Lopressor] 25 mg PO QAM 06/17/17 [History] Aspirin [Adult Low Dose Aspirin EC] 81 mg PO DAILY 03/10/18 [History] Cholecalciferol (Vitamin D3) [Vitamin D3] 2,000 unit PO DAILY 08/10/18 [History] Clopidogrel [Plavix] 75 mg PO DAILY 08/10/18 [History] HYDROcodone/APAP 7.5-325MG [[place] 7.5-325] 1 tab PO Q4H PRN 3 Days #18 tab 08/14 [Rx] Follow up Appointment(s)/Referral(s): Nelly Colindres MD [STAFF PHYSICIAN] - 08/22/18 Patient Instructions/Handouts: Lysis of Abdominal Adhesions (DC), Abdominal Binder (DC), Incisional Hernia (DC), Ventral Hernia Repair (DC) Activity/Diet/Wound Care/Special Instructions: No lifting over 4 pounds in 4 weeks. May shower. No bathtub soaks for 1 week. KEEP DRESSING ON. Wear abdominal binder at all times except for showering Discharge Disposition: HOME SELF-CARE
[2018-08-14 15:20] VITALS: BP 150/79; PULSE 79
== END 2018-08-14 16:48 | disposition home or self-care (01) ==
LOC: OR 09:35
PROVIDERS: ATTEND Surgery Plastic and Reconstructive Surgery
DX: K43.0 Incisional hernia with obstruction, without gangrene (principal); K66.0 Peritoneal adhesions (postprocedural) (postinfection); I25.119 Atherosclerotic heart disease of native coronary artery with unspecified angina pectoris; I11.9 Hypertensive heart disease without heart failure; I25.2 Old myocardial infarction; I08.3 Combined rheumatic disorders of mitral, aortic and tricuspid valves; R63.5 Abnormal weight gain; Z68.24 Body mass index [BMI] 24.0-24.9, adult; Z95.5 Presence of coronary angioplasty implant and graft; Z79.02 Long term (current) use of antithrombotics/antiplatelets; Z79.82 Long term (current) use of aspirin; Z79.899 Other long term (current) drug therapy; Z90.49 Acquired absence of other specified parts of digestive tract; Z87.891 Personal history of nicotine dependence; Z87.19 Personal history of other diseases of the digestive system; Z85.038 Personal history of other malignant neoplasm of large intestine; Z85.820 Personal history of malignant melanoma of skin; Z87.442 Personal history of urinary calculi
CPT/HCPCS: 64488; 49655; C1781; J1644; J1100; J2405; J3010; J1170; J0690; J2250

== ENCOUNTER → 2019-02-07 | Outpatient (CLI) | payer BC ==
[2019-02-07 11:49] LABS: HCT 43.9 % (39.0-53.0); MCHC 31.9 g/dL (31.0-37.0); MCV 97.2 fL (80.0-100.0); Mean Platelet Volume 6.6; Platelet Count 345 k/uL (150-450); RBC 4.52 m/uL (4.30-5.90); RDW 14.2 % (11.5-15.5); WBC 5.7 k/uL (3.8-10.6)
[2019-02-07 11:59] LABS: INR 0.9 (<1.2); Prothrombin Time 9.8 sec (9.0-12.0)
[2019-02-07 12:00] LABS: Partial Thromboplastin Time 22.7 sec (22.0-30.0)
[2019-02-07 16:28] LABS: Iron Saturation 55.4 (15.00-50.00)
[2019-02-07 16:35] LABS: Vitamin D 25 Hydroxy 26.2 ng/mL (30.0-100.0)
[2019-02-07 16:37] LABS: Ferritin 95.2 ng/mL (22.0-322.0)
[2019-02-07 16:40] LABS: African American GFR (CKD) 106.5 (60.0-200.0); Albumin/Globulin Ratio 1.48 (1.60-3.17); Anion Gap 10.6 mmol/L (4.00-12.00); Calcium 9.1 mg/dL (8.7-10.3); Carbon Dioxide 24.4 mmol/L (21.6-31.8); Chol/HDL Ratio 2.68; Globulin 2.7 g/dL (1.6-3.3); LDL Cholesterol,Calculated 52.8 mg/dL (0.0-131.0); Magnesium 1.8 mg/dL (1.5-2.4); Non-African American GFR(CKD) 91.9 (60.0-200.0); Phosphorus 3.5 mg/dL (2.4-5.1); Potassium 4.4 mmol/L (3.5-5.5); Total Bilirubin 0.6 mg/dL (0.3-1.2); Total Protein 6.7 g/dL (6.2-8.2); VLDL Calculation 43.2 mg/dL (5.00-40.00)
[2019-02-07 17:47] LABS: Hemoglobin A1C 6.1 % (4.0-6.0)
[2019-02-07 18:05] LABS: Folate, Serum 17.5 ng/mL
[2019-02-08 13:08] LABS: Zinc, Serum 82 ug/dL (60-130)
[2019-02-08 15:13] LABS: Vitamin A 60 ug/dL (38-106)
[2019-02-09 06:33] LABS: Vit B1(Thiamine) 86 ug/L (38-122)
[2019-02-10 12:02] LABS: Selenium 243 mcg/L (63-160)
== END | disposition home or self-care (01) ==
LOC: LABWHC1 10:50
PROVIDERS: ATTEND Surgery Plastic and Reconstructive Surgery
DX: E21.1 Secondary hyperparathyroidism, not elsewhere classified (principal); E66.01 Morbid (severe) obesity due to excess calories; D50.8 Other iron deficiency anemias; K90.89 Other intestinal malabsorption; E55.9 Vitamin D deficiency, unspecified; K74.1 Hepatic sclerosis; N19 Unspecified kidney failure; K50.90 Crohn's disease, unspecified, without complications
CPT/HCPCS: 36415; 80053; 80061; 82306; 82525; 82607; 82728; 82746; 83036; 83540; 83550; 83735; 83970; 84100; 84134; 84255; 84425; 84443; 84590; 84630; 85027; 85610; 85730

== ENCOUNTER → 2019-03-07 | Outpatient (CLI) | payer BC ==
--- NOTE | 2019-03-07 19:12 | US ---
EXAMINATION TYPE: US liver DATE OF EXAM: 03/07/2019 COMPARISON: NONE CLINICAL HISTORY: R94.5 elevated liver enzymes. Elevated liver enzymes EXAM MEASUREMENTS: Liver Length: 16.7 cm Gallbladder Wall: 0.1 cm CBD: 0.4 cm Right Kidney: 9.2 x 4.0 x 4.4 cm Pancreas: Obscured by bowel gas Liver: Increased attenuation Gallbladder: No stones seen Evidence for sonographic Rodríguez's sign: No CBD: wnl Right Kidney: wnl IMPRESSION: 1. Hepatomegaly with mild to moderate fatty infiltration.
== END | disposition home or self-care (01) ==
LOC: RADUSMAIN 07:33
PROVIDERS: ATTEND Surgery Plastic and Reconstructive Surgery
DX: K76.0 Fatty (change of) liver, not elsewhere classified (principal); R16.0 Hepatomegaly, not elsewhere classified
CPT/HCPCS: 76705

== ENCOUNTER → 2019-04-26 | Outpatient (CLI) | payer BC ==
[2019-04-26 10:54] LABS: HCT 43.1 % (39.0-53.0); HGB 14.3 gm/dL (13.0-17.5); MCH 32.5 pg (25.0-35.0); MCHC 33.3 g/dL (31.0-37.0); MCV 97.7 fL (80.0-100.0); Mean Platelet Volume 5.9; Platelet Count 364 k/uL (150-450); RBC 4.41 m/uL (4.30-5.90); RDW 13.1 % (11.5-15.5); WBC 9.1 k/uL (3.8-10.6)
== END ==
LOC: LABPAT 09:46
PROVIDERS: ATTEND Surgery Plastic and Reconstructive Surgery
DX: Z01.812 Encounter for preprocedural laboratory examination (principal)
CPT/HCPCS: 36415; 85027

== ENCOUNTER 2019-04-27 08:20 | Day surgery (SDC) | payer BC ==
[~2019-04-27 08:20] MED LIST changes: +FAMOTIDINE 20 MG/2 ML VIAL IV PRN; +HYDROmorphone 0.5 MG/0.5 ML SYRINGE IVP PRN; -LACTATED RINGERS 1,000 ML IV SCH; +LIDOCAINE 1% 20 ML VIAL (10MG/ML) FOR IV START INTRADERMA PRN; -MIDAZOLAM (PF) 2 MG/2 ML VIAL IV PRN; +MIDAZOLAM 2 MG/2 ML VIAL IV PRN; +ONDANSETRON 4 MG/2 ML VIAL IVP PRN; -SCOPOLAMINE 1.5MG/72HR PATCH TRANSDERM ONE; -ceFAZolin IN SWFI 2 GM/20 ML SYRINGE IVP ONE
--- NOTE | 2019-04-27 09:06 | P.GSHP ---
History of Present Illness H&P Date: 04/27/19 CHIEF COMPLAINT: Ventral hernia HISTORY OF PRESENT ILLNESS: The patient is a 63-year-old male who presents with a history of swelling and pain along the abdomen from a hernia. Now he presents for surgical intervention. PAST MEDICAL HISTORY: Please see list. PAST SURGICAL HISTORY: Please see list. MEDICATIONS: Please see list. ALLERGIES: Please see list. SOCIAL HISTORY: No illicit drug use FAMILY HISTORY: No reports of Crohn disease or ulcerative colitis. REVIEW OF ORGAN SYSTEMS: CONSTITUTIONAL: No reports of fevers or chills. No reports of weight loss despite prior attempts. GI: Denies any blood in stools or constipation. PHYSICAL EXAM: VITAL SIGNS: Stable GENERAL: Well-developed pleasant male in no acute distress. HEENT: No scleral icterus. Extraocular movements grossly intact. Moist buccal mucosa. NECK: Supple without lymphadenopathy. CHEST: Unlabored respirations. Equal bilateral excursions. CARDIOVASCULAR: Regular rate and rhythm. Distal 2+ pulses. ABDOMEN: Soft, nondistended. Palpable defect of the abdomen. No peritoneal signs. MUSCULOSKELETAL: No clubbing, cyanosis, or edema. ASSESSMENT: 1. Ventral hernia PLAN: 1. Recommend proceeding with robotic ventral hernia repair with mesh. 2. Benefits and risks of surgical intervention was discussed including possibility of open technique. 3. DVT prophylaxis. 4. Antibiotic prophylaxis. Past Medical History Past Medical History: Coronary Artery Disease (CAD), Cancer, Chest Pain / Angina, GI Bleed, Myocardial Infarction ([place]) Additional Past Medical History / Comment(s): 08/23/17 GI BLEED WITH TRANSFUSION., HX OF MELANOMA SKIN CANCER, KIDNEY STONE., HX OF DIVERTICULITIS WITH COLOSTOMY & REVERSAL., INCISIONAL HERNIA. Last Myocardial Infarction Date:: 05/02/17 History of Any Multi-Drug Resistant Organisms: None Reported Past Surgical History: Bowel Resection, Heart Catheterization With Stent, Tonsillectomy Additional Past Surgical History / Comment(s): 08/2017 EGD/colonoscopy, skin cancer ., HEART CATH X2 WITH STENTS (LAST STENTS JUN 2017)., BOWEL RESECTION WITH COLOSTOMY FOR DIVERTICULITS AND REVERSAL OF COLOSTOMY. Past Anesthesia/Blood Transfusion Reactions: No Reported Reaction Additional Past Anesthesia/Blood Transfusion Reaction / Comment(s): . Date of Last Stent Placement:: 06/2017 Smoking Status: Former smoker - Past Family History Mother Family Medical History: Cancer, CVA/TIA Additional Family Medical History / Comment(s): Breast Cancer Father Family Medical History: Cancer Additional Family Medical History / Comment(s): pancreatic Medications and Allergies Home Medications Medication Instructions Recorded Confirmed Type Nitroglycerin Sl Tabs [Nitrostat] 0.4 mg SUBLINGUAL Q5M PRN #25 tab 05/04/17 04/27/19 Rx Atorvastatin [Lipitor] 80 mg PO QAM 06/17/17 04/27/19 History Metoprolol Tartrate [Lopressor] 25 mg PO QAM 06/17/17 04/27/19 History Aspirin [Adult Low Dose Aspirin EC] 81 mg PO DAILY 03/10/18 04/27/19 History Cholecalciferol (Vitamin D3) 5,000 unit PO DAILY 08/10/18 04/27/19 History [Vitamin D3] Clopidogrel [Plavix] 75 mg PO DAILY 08/10/18 04/27/19 History Allergies Allergy/AdvReac Type Severity Reaction Status Date / Time No Known Allergies Allergy Verified 04/27/19 09:01
[2019-04-27] MEDS: LACTATED RINGERS 1,000 ML IV SCH (09:26)
[2019-04-27] MEDS ORDERED: fentaNYL (PF) 50 MCG/ML 2 ML AMP IVP ONE (10:06)
[2019-04-27] MEDS ORDERED: MIDAZOLAM 2 MG/2 ML VIAL IVP ONE (10:06)
--- NOTE | 2019-04-27 10:44 | P.ANPRN ---
Procedure Note - Anesthesia - Nerve Block Performed Bilateral Rectus Abdominis Single Time Out Performed: Yes Date of Procedure: 04/27/19 Procedure Start Time: 10:05 Procedure Stop Time: 10:16 Location of Patient Procedure: PreOp Indication: Acute Post-Operative Pain, Requested by Surgeon Specifically requested for management of pain by DrKaylen: Nelly Colindres Sedation Type: Sedate with meaningful contact maintained Preparation: Sterile Prep Position: Supine Catheter: None Needle Types: Pajunk Needle Gauge: 20 Ultrasound used to visualize needle placement: Yes Ultrasound used to observe medication spread: Yes Injectate: Other (see comment) (Ropivacaine 0.25%/lidocaine 0.5% 20 mL each side) Adjunct: Epinephrine (see comment for dilution ratio) (1:200,000) Blood Aspirated: No Pain Paresthesia on Injection Noted: No Resistance on Injection: Normal Image Stored and Saved: Yes Events: Uneventful and Well Tolerated
[2019-04-27] MEDS ORDERED: ROCURONIUM BROMIDE 10 MG/ML 10 ML VIAL IV ONE (11:53)
[2019-04-27] MEDS ORDERED: ROPIVACAINE 5 MG/ML 30 ML VIAL ONE (11:53)
[2019-04-27] MEDS ORDERED: NEOSTIGMINE 1 MG/ML 10 ML VIAL ONE (11:53)
[2019-04-27] MEDS ORDERED: PROPOFOL 10 MG/ML 20 ML VIAL IV ONE (11:53)
[2019-04-27] MEDS ORDERED: fentaNYL (PF) 50 MCG/ML 2 ML AMP ONE (11:53)
[2019-04-27] MEDS ORDERED: SUCCINYLCHOLINE CHLORIDE 100 MG/5 ML SYR IV ONE (11:53)
[2019-04-27] MEDS ORDERED: PHENYLEPHRINE-0.9% NACL SYG 1 MG/10 ML SYRINGE ONE (11:53)
[2019-04-27] MEDS ORDERED: LIDOCAINE 1% INJ 10MG/ML (20 ML MDV) ONE (11:53)
[2019-04-27] MEDS ORDERED: HYDROmorphone (PF) 1 MG/ML ONE (11:53)
[2019-04-27] MEDS ORDERED: MIDAZOLAM 2 MG/2 ML VIAL ONE (11:53)
[2019-04-27] MEDS ORDERED: GLYCOPYRROLATE 0.2 MG/ML 2 ML VIAL ONE (11:53)
[2019-04-27] MEDS ORDERED: LIDOCAINE 1%-EPI 1:100,000 20 ML VIAL SQ ONE (12:41)
[2019-04-27] MEDS ORDERED: LACTATED RINGERS 1,000 ML IV ONE ×2 (12:42→14:42)
[2019-04-27] MEDS ORDERED: ONDANSETRON 4 MG/2 ML VIAL IVP ONE (15:19)
[2019-04-27] MEDS ORDERED: TAMSULOSIN 0.4 MG CAP.ER.24H PO STA (15:38)
[2019-04-27] MEDS ORDERED: ONDANSETRON 4 MG/2 ML VIAL IVP PRN (15:39)
[2019-04-27] MEDS ORDERED: NALOXONE 0.4 MG/ML 1 ML VIAL IV PRN (15:39)
[2019-04-27] MEDS ORDERED: NITROGLYCERIN SL TABS 0.4 MG TAB SUBLINGUAL PRN (15:40)
--- NOTE | 2019-04-27 15:41 | P.OP ---
Date of Procedure: 04/27/19 Description of Procedure: Date of Procedure: 04/27/19 SURGEON: ALEKSANDR VIDALES MD SUEDING MACHINE TENDER: 1. SUSHANT DAMON PREOPERATIVE DIAGNOSES: 1. Incisional ventral hernia, epigastrium 2. Previous history of colostomy reversal from large bowel obstruction due to sigmoid diverticulitis 3. Chronic antiplatelet therapy 4. History of myocardial infarction 5. Coronary artery disease with stent 6. Hypertensive heart disease 7. History of chronic iron anemia deficiency 8. History of recent moderate weight gain POSTOPERATIVE DIAGNOSES: 1. Multiple incisional epigastric ventral hernias with incarceration involving omentum without obstruction, 10 x 12 cm 2. Previous history of colostomy reversal from large bowel obstruction due to sigmoid diverticulitis 3. Chronic antiplatelet therapy 4. History of myocardial infarction 5. Coronary artery disease with stent 6. Hypertensive heart disease 7. History of chronic iron anemia deficiency 8. History of recent moderate weight gain OPERATION: 1. Robotic-assisted da Wally Xi laparoscopic extensive lysis of adhesions, over 1.5 hours 2. Robotic-assisted da Wally Xi laparoscopic repair of initial epigastric incarcerated incisional ventral hernia 10 x 12 cm with mesh using ventralight ST mesh 15 x 20 cm ANESTHESIA: General with local ESTIMATED BLOOD LOSS: 5 mL. SPECIMENS: None COMPLICATIONS: None. INDICATIONS: The patient is a 63-year-old male who presents new epigastric incisional hernia following rapid weight gain and colostomy reversal from obstructive diverticulitis. Surgical intervention with laparoscopic versus robotic and open techniques were reviewed. Placement of mesh was also reviewed. Benefits and risks were thoroughly described. Informed consent was obtained. DESCRIPTION OF PROCEDURE: The patient was brought into the operating room and laid in supine position. After general induction, the abdomen had been prepped and draped in standard sterile fashion. Ioban draping was also placed. Prior to incision, a timeout protocol was confirmed with surgical team regarding the patient's name including procedures to be performed. The robot was primed prior to the procedure. A field block using local anesthetic was placed along hernia site including the proposed port sites. Initial incision was made with an #11 blade along the left upper quadrant. A 0 degree 5 mm laparoscopic trocar entry was performed and insufflated. Diagnostic laparoscopy demonstrated severe midline adhesions. The transverse colon was incarcerated along the epigastrium/upper midline consistent with an incarcerated incisional hernia. No recurrent incisional hernias were identified of the left lower quadrant or lower abdomen from his previous repair. Three 8 mm ports were placed along the right lateral abdominal wall under direct localization. The 5-mm port was exchanged for an 12 mm robotic port at the left upper quadrant. Placements of the ports were 15 cm from the target anatomy and 10 cm apart. The da Wally Xi robot was previously primed, prepped and draped then docked along the right side of the patient. I then sat at the robot Da Wally Xi console where working arms of the robot including Bovie cautery connected to robotic scissors, vessel sealer, needle ems driver, and graspers placed by the electrical assistant. Extensive lysis of adhesions occurred well 1.5 hrs using vessel sealer as well as scissors to address omental adhesions to the abdominal wall and careful dissection as it involved the mid transverse colon to the abdominal wall. Once cleaned, multiple fascial defects were identified along the upper midline consistent with [place] cheese defect with incarcerated transverse colon without obstruction. The entire defects combined were 10 cm length with 12 cm width. A ventralight ST mesh of 20 cm with and 15 cm length was selected. Moderate diastases recti over 6 cm was identified undisturbed whereby a mesh onlay was proposed. Next, ventralight ST mesh 20 x 15 cm was placed with the rough side towards the abdominal wall. 2-0 VLOC 12 inch sutures were used to fixate the mesh. A final endoscopic imaging was obtained. All instruments and pneumoperitoneum were evacuated from the abdominal cavity. The da Wally Xi robot was undocked from the patient. I re-scrubbed into the case for closure of incisions. The fascia of the 12-mm port was probed and less than 8-mm in size. The incisions were reapproximated using 4-0 Monocryl in an interrupted subcuticular fashion. Liquid glue was applied to the skin after cleansing the skin with normal saline and dilute hydrogen peroxide. An abdominal binder was placed. At the end of the procedure, needle, sponge, and instrument count had been verified correct by surgical territory manager. The patient was taken to the postanesthesia care unit in stable condition. FINDINGS: 1. Multiple fascial defects involving the epigastrium/upper midline of 10 x 12 cm 2. Incarcerated incisional hernia involving mid transverse colon reduced 3. Severe omental adhesions reduced and lysed over 1.5 hours 4. No recurrent incisional hernias of the lower abdomen and previous ostomy site as previously repaired
[2019-04-27] MEDS: SODIUM CHLORIDE 0.9% 1,000 ML IV SCH (17:28)
[2019-04-27 17:37] VITALS: BMI 23.6
[2019-04-27] MEDS: HYDROcodone/APAP 5-325MG 1 EACH TAB PO PRN ×2 (19:23→23:42)
[2019-04-27] MEDS: DOCUSATE 100 MG CAP PO SCH (21:31)
[2019-04-28] MEDS: LACTATED RINGERS 1,000 ML IV SCH (03:38)
[2019-04-28] MEDS: SODIUM CHLORIDE 0.9% 1,000 ML IV SCH (04:11)
[2019-04-28] MEDS: HYDROcodone/APAP 5-325MG 1 EACH TAB PO PRN (05:58)
[2019-04-28 07:23] VITALS: BP 143/83; PULSE 72; RESP 16; TEMP 98.1
[2019-04-28] MEDS ORDERED: TAMSULOSIN 0.4 MG CAP.ER.24H PO SCH (08:30)
[2019-04-28] MEDS: DOCUSATE 100 MG CAP PO SCH (08:51)
[2019-04-28] MEDS ORDERED: ENOXAPARIN 30 MG/0.3 ML SYRINGE SQ SCH (09:00)
[2019-04-28] MEDS ORDERED: ATORVASTATIN 80 MG TAB PO SCH (09:00)
[2019-04-28] MEDS ORDERED: METOPROLOL TARTRATE 25 MG TAB PO SCH (09:00)
[2019-04-28] MEDS ORDERED: ASPIRIN 81 MG PO SCH (09:00)
--- NOTE | 2019-04-28 11:55 | P.PN ---
Progress Note - Text Progress Note Date: 04/28/19 The patient is resting comfortably in bed. He has been and bleeding. On exam his vital signs are stable. His abdomen soft. Incision site is clean dry tach. Patient will be discharged home today. He'll follow-up in one week with Dr. Ybarra.
== END 2019-04-28 10:48 | disposition home or self-care (01) ==
LOC: OR 08:20 → 4SSUR 16:01 → OR 04-28 10:48
PROVIDERS: ATTEND Surgery Plastic and Reconstructive Surgery
DX: K43.6 Other and unspecified ventral hernia with obstruction, without gangrene (principal); K57.32 Diverticulitis of large intestine without perforation or abscess without bleeding; I25.2 Old myocardial infarction; I25.119 Atherosclerotic heart disease of native coronary artery with unspecified angina pectoris; I11.9 Hypertensive heart disease without heart failure; Z95.5 Presence of coronary angioplasty implant and graft; D50.0 Iron deficiency anemia secondary to blood loss (chronic); R63.5 Abnormal weight gain; Z68.23 Body mass index [BMI] 23.0-23.9, adult; Z90.49 Acquired absence of other specified parts of digestive tract; Z87.891 Personal history of nicotine dependence; Z85.820 Personal history of malignant melanoma of skin; Z87.442 Personal history of urinary calculi; Z82.3 Family history of stroke; Z80.3 Family history of malignant neoplasm of breast; Z80.0 Family history of malignant neoplasm of digestive organs; Z79.02 Long term (current) use of antithrombotics/antiplatelets; Z79.82 Long term (current) use of aspirin; Z79.899 Other long term (current) drug therapy
CPT/HCPCS: 49653; S2900; 64488